=== PATIENT | female | born 1990 | race African-American/Black ===

== ENCOUNTER 2018-09-06 15:47 | Inpatient (IN) ==
[2018-09-06 16:28] LABS: BASO# 0.07 X1000 (0.0-0.2); BASO% 0.6 % (0.0-0.8); EOS# 1.69 X1000 (0.0-0.7); EOS% 13.5 % (0.0-10.0); HEMATOCRIT 30.1 % (37.0-47.0); IMM GRAN# 0.12 X1000 (0.0-0.04); LYMPH# 2.88 X1000 (1.2-3.4); MCH 24.1 PG (27-31); MCHC 29.9 g/dL (33-37); MCV 80.7 FL (81-99); MONO# 0.65 X1000 (0.11-0.59); MONO% 5.2 % (1.7-9.3); NEUT# 7.11 X1000 (1.4-6.5); NEUT% 56.7 % (42.2-75.2); PLT 258 X1000 (130-400); RBC 3.73 XMIL (4.2-5.4); RDW 20.9 % (11.5-14.5); WBC 12.52 X1000 (4.8-10.8)
[2018-09-06 16:40] LABS: ALLEN TEST NO; BE 7.7 mmoll (-3.0-3.0); BLOOD TYPE ARTERIAL; HCO3-(ACT) 30.9 mmoll (20.0-26.0); MODALITY BI PAP; O2(CT) 12.6 mL/dL (15.0-23.0); O2HB 95.1 % (95.0-99.0); PCO2(98.6) 43 mmHg (35-45); PO2(98.6) 89 mmHg (60-100); SAMPLE BLOOD; SAO2 98.2 % (95.0-100.0); SRATE 18 BPM; THB 9.3 g/dL (11.5-17.4); pH(98.6) 7.48 (7.35-7.45)
[2018-09-06 16:49] LABS: ALB/GLOB RATIO 1.1; ALBUMIN 3.9 g/dL (3.5-5.0); CALCIUM 8.9 mg/dL (8.8-10.2); TOTAL BILIRUBIN 0.47 mg/dL (0.20-1.00); TOTAL PROTEIN 7.3 g/dL (6.3-8.3)
[2018-09-06 16:51] LABS: CREATININE 6.4 mg/dL (0.5-0.9)
[2018-09-06] MEDS ORDERED: CATAPRES-TTS-1 TD ONE (17:12)
--- NOTE | 2018-09-06 17:13 | Diag Imaging Result Doc PS360 ---
EXAM: CHEST-1 VIEW INDICATION: SOB TECHNIQUE: One view COMPARISON: 08/30/2018 FINDINGS: There are bilateral infiltrates with a basilar predominance and prominent central vasculature indicating pulmonary venous congestion and pulmonary edema. There is no definite pleural fluid collection or pneumothorax. The heart is borderline to mildly prominent but stable. IMPRESSION: Pulmonary edema as described. Electronically signed by Javed Villegas 09/06/2018 5:11 PM
[2018-09-06] MEDS ORDERED: LABETALOL IV ONE ×2 (17:20→18:20)
[2018-09-06] MEDS ORDERED: TENEX PO ONE (17:53)
[2018-09-06] MEDS ORDERED: NITROGLYCERIN TOP ONE (20:30)
[2018-09-06] MEDS ORDERED: LIDODERM TOP ONE (20:30)
[2018-09-06] MEDS ORDERED: ZOFRAN IV ONE (20:30)
[2018-09-07 00:58] LABS: INR 0.99; PROTIME 13.9 Seconds (11.0-16.0); PTT 30.6 Seconds (22.3-41.8)
--- NOTE | 2018-09-07 01:37 | PROVIDER DOCUMENTATION ---
This chart was entered by Sheila Bond Scribe, acting as scribe for Leona Cota MD. HPI-Respiratory General - General Stated Complaint: CP Time Seen by Provider: 09/06/18 16:02 Source: patient, EMS Allergies/Adverse Reactions: Patient Allergies Allergy/AdvReac Type Severity Reaction Status Date / Time No Known Allergies Allergy Verified 09/06/18 16:28 Home Medications: Home Medication List Medication Instructions Recorded Confirmed Last Taken Type Carvedilol 25 mg PO BID 03/11/17 09/06/18 09/06/18 History Amlodipine [Norvasc] 10 mg PO DAILY 08/29/18 09/06/18 09/06/18 History Clonidine [Catapres] 0.1 mg PO BID 08/29/18 09/06/18 09/06/18 History Guanfacine HCl 2 mg PO DAILY 08/29/18 09/06/18 09/05/18 History Hydralazine HCl 50 mg PO TID 08/29/18 09/06/18 09/06/18 History LISINOpril [Prinivil] 20 mg PO DAILY 08/29/18 09/06/18 09/06/18 History Levofloxacin [Levaquin] 250 mg PO DAILY 09/06/18 09/06/18 09/06/18 History - History of Present Illness-Resp Nature of Presenting Problem: 27 y/o female presents to ED with SOB onset just prior to arrival. Pt states she smoked some marijuana just before the onset of symptoms. EMS states O2 sat was 55% upon their arrival to the scene. Pt O2 sat in the 60s upon ED arrival with nonrebreather in place. Pt reports she had dialysis yesterday. O2 sat of 81 % upon physician arrival to the room. O2 sat increased to 100% upon placement of bipap. Pt has difficulty speaking upon exam due to bipap. Pt is alert and oriented. Quality of Pain: reports: none Severity in ED: reports: mild Onset/Duration: reports: just prior to arrival Timing: reports: still present Context: reports: other (smoked marijuana) Exposure: reports: unknown cause Cough Quality/Degree: reports: no cough Episode Frequency: no prior episodes Current Respiratory Medication Therapy: Initiated see nurses note Modifying Factors: improves with: other (bipap/nonrebreather) Associated Symptoms: reports: shortness of breath, short of breath Similar Symptoms Previously?: No Recently seen or treated by another doctor?: Yes (dialysis yesterday) Review of Systems - Adult - REVIEW OF SYSTEMS - ADULT Constitutional: denies: chills, fever Eyes: reports: no symptoms reported Ears, Nose, Mouth & Throat: reports: no symptoms reported Cardiovascular: denies: chest pain, palpitations Respiratory: reports: shortness of breath. denies: cough Gastrointestinal: denies: abdominal pain, diarrhea, nausea, vomiting Genitourinary: reports: no symptoms reported Musculoskeletal: denies: back pain, joint pain Integumentary: reports: no symptoms reported Neurological: denies: dizziness/vertigo, seizure Psychiatric: reports: no symptoms reported Endocrine: reports: no symptoms reported Hematologic/Lymphatic: reports: no symptoms reported Allergic/Immunologic: reports: no symptoms reported All Other Systems: Reviewed and Negative Past History - Adult - PAST MEDICAL HISTORY-ADULT Review of Records: reports: Old Records Reviewed, Nursing Assessment Review, Medications Reviewed Major Childhood Illnesses: reports: denies history Cardiovascular: reports: HTN Genitourinary: reports: dialysis, ESRD, kidney disease Endocrine/Immune: reports: Diabetes Other Conditions: reports: other cancer - PRIOR SURGERIES/PROCEDURES Surgical/Procedure History: reports: other (graft to left arm; heart cath) - IMMUNIZATION STATUS Childhood Immunizations: See Nurse Assessment Flu Vaccine: See Nurse Assessment - FAMILY HISTORY Family History: reviewed, not pertinent - SOCIAL HISTORY Smoking: quit greater than 1 year Substance Use: marijuana Alcohol Use Frequency: never Living Situation: family Physical Exam-General - PHYSICAL EXAM-ADULT Initial Vital Signs Reviewed: Yes (BP: 189/123 O2: 100% HR: 93 Pulse: 92 TEMP: 98.9) - CONSTITUTIONAL General Appearance: alert, other (Pt in respiratory distress has difficulty speaking due to bipap placement.) - EYES Eyes: PERRL/EOMI - HEAD, EARS, NOSE, MOUTH & THROAT HENMT: normocephalic/atraumatic, moist mucous membranes - NECK Neck: non-tender, full range of motion - RESPIRATORY Respiratory: crackles (B/L lower lung), other (Good air entry B/L). negative: wheezing - CARDIOVASCULAR Cardiovascular: no murmur, tachycardia - GASTROINTESTINAL (ABDOMEN) Abdominal Exam: normal bowel sounds, non tender, soft - MUSCULOSKELETAL Extremity: non-tender. negative: swelling, tenderness - SKIN Integumentary: normal color, warm/dry - NEUROLOGIC Neurologic: grossly normal Progress - PLAN OF CARE/RESULTS Progress/Plan/Lab Results: Vital Signs - 8 hr 09/06/18 17:40 09/06/18 17:50 09/06/18 17:52 Pulse Rate 89 89 83 Respiratory Rate 21 37 H 31 H Blood Pressure 198/95 O2 Sat by Pulse Oximetry 100 100 100 09/06/18 17:59 09/06/18 18:01 09/06/18 18:03 Pulse Rate 81 83 84 Respiratory Rate 38 H 37 H 28 H Blood Pressure 193/95 205/90 O2 Sat by Pulse Oximetry 100 100 100 09/06/18 18:10 09/06/18 18:18 09/06/18 18:20 Pulse Rate 85 86 86 Respiratory Rate 22 27 H 26 H Blood Pressure 190/90 O2 Sat by Pulse Oximetry 100 100 100 09/06/18 18:30 09/06/18 18:34 09/06/18 18:43 Pulse Rate 89 89 89 Respiratory Rate 39 H 26 H 30 H Blood Pressure 193/93 192/91 O2 Sat by Pulse Oximetry 100 100 100 09/06/18 18:48 09/06/18 19:18 09/06/18 19:33 Pulse Rate 90 94 H 93 H Respiratory Rate 28 H 25 H 31 H Blood Pressure 192/117 188/95 196/97 O2 Sat by Pulse Oximetry 100 100 100 09/06/18 19:48 09/06/18 20:00 09/06/18 20:03 Pulse Rate 97 H 97 H 97 H Respiratory Rate 31 H 32 H 32 H Blood Pressure 199/100 202/106 O2 Sat by Pulse Oximetry 100 100 100 09/06/18 20:18 09/06/18 20:30 09/06/18 20:33 Pulse Rate 98 H 98 H 101 H Respiratory Rate 31 H 26 H 19 Blood Pressure 194/100 196/102 O2 Sat by Pulse Oximetry 100 100 100 09/06/18 20:48 Pulse Rate 99 H Respiratory Rate 26 H Blood Pressure 195/90 O2 Sat by Pulse Oximetry 100 Laboratory Results - last 24 hr 09/06/18 09/06/18 09/06/18 00:21 16:05 16:05 WBC 12.52 H RBC 3.73 L Hgb 9.0 L Hct 30.1 L MCV 80.7 L MCH 24.1 L MCHC 29.9 L RDW Std Deviation 20.9 H Plt Count 258 MPV 10.0 Immature Gran % (Auto) 1.0 H Neut % (Auto) 56.7 Lymph % (Auto) 23.0 Bates % (Auto) 5.2 Eos % (Auto) 13.5 H Baso % (Auto) 0.6 Immature Gran # (Auto) 0.12 H Neut # (Auto) 7.11 H Lymph # (Auto) 2.88 Bates # (Auto) 0.65 H Eos # (Auto) 1.69 H Baso # (Auto) 0.07 PT INR PTT (Actin FS) Specimen Type Sample Site pH pCO2 pO2 HCO3 Base Excess Oxyhemoglobin ABG O2 Sat (Calculated) ABG O2 Saturation ABG Carboxyhemoglobin ABG Methemoglobin Srini Test A-a O2 Difference Total Hemoglobin Lactate Liter Flow Blood Gas Modality Spontaneous Rate FiO2 % Inspiratory BiPAP Expiratory BiPAP Sodium 135 L Potassium 4.0 Chloride 93 L Carbon Dioxide 27 Anion Gap 15 BUN 14 Creatinine 6.4 H Estimated GFR/1.73 m2 9 BUN/Creatinine Ratio 2 Glucose 111 H Calculated Osmolality 271 Calcium 8.9 Total Bilirubin 0.47 AST 18 ALT 7 L Alkaline Phosphatase 84 Creatine Kinase 161 Troponin T Ezb-C-Riorpybsqhx Pept Total Protein 7.3 Albumin 3.9 Globulin 3.4 Albumin/Globulin Ratio 1.1 09/06/18 09/06/18 09/06/18 16:05 16:18 16:18 WBC RBC Hgb Hct MCV MCH MCHC RDW Std Deviation Plt Count MPV Immature Gran % (Auto) Neut % (Auto) Lymph % (Auto) Bates % (Auto) Eos % (Auto) Baso % (Auto) Immature Gran # (Auto) Neut # (Auto) Lymph # (Auto) Bates # (Auto) Eos # (Auto) Baso # (Auto) PT 13.9 INR 0.99 PTT (Actin FS) 30.6 Specimen Type Sample Site pH pCO2 pO2 HCO3 Base Excess Oxyhemoglobin ABG O2 Sat (Calculated) ABG O2 Saturation ABG Carboxyhemoglobin ABG Methemoglobin Srini Test A-a O2 Difference Total Hemoglobin Lactate Liter Flow Blood Gas Modality Spontaneous Rate FiO2 % Inspiratory BiPAP Expiratory BiPAP Sodium Potassium Chloride Carbon Dioxide Anion Gap BUN Creatinine Estimated GFR/1.73 m2 BUN/Creatinine Ratio Glucose Calculated Osmolality Calcium Total Bilirubin AST ALT Alkaline Phosphatase Creatine Kinase Troponin T 0.051 Chs-A-Afljxuweuao Pept > 84897 H Total Protein Albumin Globulin Albumin/Globulin Ratio 09/06/18 16:35 WBC RBC Hgb Hct MCV MCH MCHC RDW Std Deviation Plt Count MPV Immature Gran % (Auto) Neut % (Auto) Lymph % (Auto) Bates % (Auto) Eos % (Auto) Baso % (Auto) Immature Gran # (Auto) Neut # (Auto) Lymph # (Auto) Bates # (Auto) Eos # (Auto) Baso # (Auto) PT INR PTT (Actin FS) Specimen Type ARTERIAL Sample Site R BRACHIAL pH 7.48 H pCO2 43 pO2 89 HCO3 30.9 H Base Excess 7.7 H Oxyhemoglobin 95.1 ABG O2 Sat (Calculated) 12.6 L ABG O2 Saturation 98.2 ABG Carboxyhemoglobin 2.20 ABG Methemoglobin 1.0 Srini Test NO A-a O2 Difference 570.0 Total Hemoglobin 9.3 L Lactate 1.00 Liter Flow 15.0 Blood Gas Modality BI PAP Spontaneous Rate 18 FiO2 % 100.0 Inspiratory BiPAP 16.0 Expiratory BiPAP 6.0 Sodium Potassium Chloride Carbon Dioxide Anion Gap BUN Creatinine Estimated GFR/1.73 m2 BUN/Creatinine Ratio Glucose Calculated Osmolality Calcium Total Bilirubin AST ALT Alkaline Phosphatase Creatine Kinase Troponin T Yxs-W-Cepkgvgzvdt Pept Total Protein Albumin Globulin Albumin/Globulin Ratio Orders Category Date Time Status Admit - [facility] Routine AdmDCTranf 09/07/18 00:21 Active Vital Signs Order Q1H Care 09/07/18 00:21 Active Z-Document. for Tele Applied ORDERED Care 09/07/18 00:21 Active Diabetic Diet Diet 09/07/18 00:21 Active CHEST-1 VIEW [RAD] Stat Exams 09/06/18 16:20 Completed ABG [RESP] Routine Lab 09/06/18 16:35 Completed BNP [PRO B-NATRIURETIC PEPTIDE] Stat Lab 09/06/18 16:05 Completed CBC WITH DIFF [HEME] Routine Lab 09/07/18 06:00 Ordered CBC WITH ELECTRONIC DIFF [HEME] Stat Lab 09/06/18 16:05 Completed CK PROFILE [SP CHEM] Stat Lab 09/07/18 00:21 Completed CMP [COMPREHENSIVE METABOLIC PANEL] [CHEM] Stat Lab 09/06/18 16:05 Completed PT [PROTIME WITH INR] [COAG] Stat Lab 09/07/18 00:21 Completed PTT [COAG] Stat Lab 09/07/18 00:21 Completed RENAL PROFILE [CHEM] Routine Lab 09/07/18 06:00 Ordered TROPONIN T Stat Lab 09/07/18 00:21 Completed Clonidine Patch [Ouolicpa-Ctw-1] Med 09/06/18 17:12 Discontinued 1 each TD NOW ONE Guanfacine [Tenex] Med 09/06/18 17:53 Discontinued 2 mg PO NOW ONE Labetalol Med 09/06/18 17:20 Discontinued 20 mg IV NOW ONE Labetalol Med 09/06/18 18:20 Discontinued 20 mg IV NOW ONE Lidocaine 5% Patch [Lidoderm] Med 09/06/18 20:30 Discontinued 1 each TOP NOW ONE Nitroglycerin Med 09/06/18 20:30 Discontinued 0.5 inch TOP NOW ONE Ondansetron [Zofran] Med 09/06/18 20:30 Discontinued 4 mg IV NOW ONE BIPAP Stat Oth 09/06/18 16:19 Completed Telemetry [OM.EQ] Routine Oth 09/07/18 00:21 Active Transfer/Admit Order [TRANSFER] Routine Transfer 09/06/18 21:14 Completed I checked patient multiple times during ER stay. Patient care, assessment and plan discussed with the attending physician Dr. Burgos and he agree withy the plan as documented. Result Diagrams: 09/06/18 16:05 09/06/18 16:05 - REASSESSMENT Reassessment #1 Time Reassessed: 16:43 Status: improving (SPO2 100% on Bipap. Mother of pt reports she called EMS because the pt became short of breath and coughed up blood.) Reassessment #2 Time Reassessed: 18:56 Status: improving (Patient feels less SOB. BP still 190s/110s) Reassessment #3 Time Reassessed: 20:22 Status: other (Nurse Re informed patient c/o chest pain and she is about to go to the HD. I ordered lidoderm patch, nitroglycerin to decrease preload.) - EKG 1 Time of EKG reading by physician:: 16:02 EKG Read and Signed by:: Leona Rincon EKG Interpretation (*Must complete 3 of following elements*): Abnormal Rate: 93 Rhythm: NSR [place]: normal QRS: other (septal infarct) [place] Interval: normal Comments: T wave inversion in V2 - XRAY 1 XRAY Study: Chest Impression: Abnormal (FINDINGS: There are bilateral infiltrates with a basilar predominance and prominent central vasculature indicating pulmonary venous congestion and pulmonary edema. There is no definite pleural fluid collection or pneumothorax. The heart is borderline to mildly prominent but stable. IMPRESSION: Pulmonary edema as described. Electronically signed by Javed Villegas 09/06/2018 5:11 PM) - CONSULTS/PCP/HOSPITALIST Notification #1 *Consult/PCP/Hospitalist*: Dr. Quintanilla Time Discussed: 17:20 Reason/Comments: Pulmonary edema; elevated creatinine Consult Disposition: other (Give Lavetalol total [address] Quintanilla believes this is flash pulmonary edema.) #2 Consult: Dr. Corey Hoang Discussed: 18:48 Consult Disposition: Admit (Accepted.) #3 Consult: Dr. Hawkins Time Discussed: 18:52 Consult Disposition: other (Plan for HD since she is still in respiratory distress.) Departure - Departure Date of Disposition Decision: 09/06/18 Time of Disposition Decision: 18:48 DIAGNOSIS: Flash pulmonary edema, Hypertensive emergency, Respiratory distress Chest pain Qualifiers: Chest pain type: unspecified Qualified Code(s): R07.9 - Chest pain, unspecified Disposition: ADMITTED INPATIENT 09 Certified Medical Emergency: Emergent Condition: Serious - Critical Care Note This patient required my direct & personal management of CC.: Yes Total Time (mins): 45 Critical Care Statement: This patient required my direct personal management to treat or rule out processes, the absence of which, could potentiallly result in sudden, clinically significant life or limb threatening deterioration. Attestation - Physician/ TERESA Attestation Patient care was provided by Advanced Practice Provider:: No The physician spent face to face time with patient:: Yes Advanced Practice Provider documentation review:: Supervising physician onsite and consulted in the evaluation and care of this patient. The physician did have a face to face encounter with the patient. This chart was documented by the indicated scribe, (Sheila Bond Scribe) and accurately reflects the services I performed and decisions made by me, Leona Cota MD, as attested by the provider's signature.
[2018-09-07] MEDS ORDERED: ZOFRAN IV PRN (01:51)
[2018-09-07] MEDS ORDERED: MORPHINE IV ONE ×2 (01:51→02:15)
[2018-09-07] MEDS: NS 1,000 ML IV SCH ×2 (02:31→02:32)
[2018-09-07] MEDS: DUONEB (A & A) INH SCH ×5 (03:00→21:25)
[2018-09-07] MEDS ORDERED: LEVAQUIN 750 MG in NS 150 ML IV ONE (03:24)
[2018-09-07] MEDS ORDERED: PHENERGAN IV PRN (03:29)
[2018-09-07] MEDS ORDERED: SODIUM CHLORIDE 0.9% INJ PRN (03:29)
[2018-09-07] MEDS ORDERED: PROTONIX IV SCH (03:45)
[2018-09-07 04:00] LABS: BASO# 0.03 X1000 (0.0-0.2); BASO% 0.2 % (0.0-0.8); EOS# 0.46 X1000 (0.0-0.7); EOS% 2.3 % (0.0-10.0); HEMATOCRIT 28.6 % (37.0-47.0); HEMOGLOBIN 8.6 g/dL (12.0-16.0); IMM GRAN# 0.05 X1000 (0.0-0.04); IMM GRAN% 0.3 % (0.0-0.5); LYMPH# 1.43 X1000 (1.2-3.4); LYMPH% 7.3 % (20.5-51.1); MCH 24.2 PG (27-31); MCHC 30.1 g/dL (33-37); MCV 80.6 FL (81-99); MONO# 0.67 X1000 (0.11-0.59); MONO% 3.4 % (1.7-9.3); MPV 9.3 FL (7.4-10.4); NEUT# 16.94 X1000 (1.4-6.5); NEUT% 86.5 % (42.2-75.2); PLT 219 X1000 (130-400); RBC 3.55 XMIL (4.2-5.4); RDW 21.1 % (11.5-14.5); WBC 19.58 X1000 (4.8-10.8)
[2018-09-07 04:54] LABS: ALBUMIN 3.5 g/dL (3.5-5.0); CALCIUM 8.1 mg/dL (8.8-10.2); CREATININE 7.9 mg/dL (0.5-0.9); PHOSPHORUS 4.2 mg/dL (2.7-4.5); POTASSIUM 3.8 mmol/L (3.5-5.1)
[2018-09-07] MEDS: HUMALOG SUBQ SCH ×5 (05:56→20:38)
--- NOTE | 2018-09-07 06:43 | HISTORY AND PHYSICAL ---
PRIMARY CARE PROVIDER: [facility] out of [place]. PRIMARY RESIDENTIAL TECH: Dr. Darshan Shankar in [place]. PRIMARY CERTIFIED MEDICAL DOSIMETRIST: Dr. Cross in [place]. CHIEF COMPLAINT: Shortness of breath. HISTORY OF PRESENT ILLNESS: Ms. Ross is a 27-year-old, -[place] female with a past medical history of end-stage renal disease receiving hemodialysis on Mondays, Wednesdays, Fridays. The patient states that yesterday she received her regularly scheduled dialysis treatment. She did receive her full treatment. She stated this morning, Saturday09/06/2018, that she woke up and did not fell well. She said that progressively she felt worse throughout the day and starting in late morning/early afternoon she began feeling short of breath. She reports that this did steadily get worse. She stated that she went outside to smoke and during this time she became very short of breath and ultimately did have to call an ambulance. EMS, according to the ER notes, reported that when they arrived on scene that she had a room air oxygen saturation of 55%. They did place her on nasal cannula. Her O2 saturations were only in the 60s upon arrival to the ED. She was noted to be diaphoretic and tachycardic. They did place her on BiPAP and since that time her respiratory status has improved as well as her oxygen saturation, but the patient is still quite dyspneic. The patient also did report that she had coughed up some blood as well, however there was only one episode during her period of respiratory distress. This has not occurred since. She denies any fever, body aches or chills. She is reporting some heaviness type chest pain in the center of her chest, which is nonradiating. The patient states this has been constant since her shortness of breath started this afternoon. She has reported that she has had a productive cough with clear colored sputum, except for her one episode of hemoptysis. She does report that she has recently been treated for an upper respiratory infection and was initially placed with antibiotic of azithromycin, though was just recently on 09/01/2018 placed with antibiotic of Levaquin 250 mg p.o. daily and has only taken approximately 4 to 5 tablets of this and has not finished her antibiotic course of this medication yet. The patient states that prior to her upper respiratory symptoms, she did have some sinus congestion/symptoms as well. She is denying any abdominal pain, nausea, vomiting, diarrhea or constipation. She denies any hematochezia or melena. She denies any dysuria. The patient states she still does produce a small amount of urine. She denies any pain, numbness, tingling or swelling in her extremities. She also denies any headache or dizziness. We did ask the patient if she smoked cigarettes and she stated "No." When I did investigate further why she had gone outside to smoke, the patient reported that she does use marijuana. Though there was no other illicit drug use. She also reported that she has not had a good appetite recently and that she smokes this to help with her appetite. On further evaluation in the ER, the patient's initial vital signs were heart rate 92, respirations 12, blood pressure 198/98. O2 saturation was previously mentioned in the 60s. The patient has run a low grade fever at times with the highest being 100.3 degrees Fahrenheit. They did give her medications for her blood pressure in the ER and did place her on BiPAP, though even after these medicines were given the patient was still dyspneic and respiratory symptoms overnight improving much. [*]did contact Dr. Quintanilla with Nephrology and did inform him of the patient and her symptoms and he did recommend the patient receive dialysis. According to intake and output records, the patient did have 3800 mL pulled off during dialysis. She is now reporting that she does feel much better, and that her shortness of breath has improved. Though she still was experiencing chest pain. She still does have some bilateral crackles noted as well. The patient has been placed in ICU for close monitoring. REVIEW OF SYSTEMS: A 14 point review of systems was conducted with the patient and all were negative except pertinent positives mentioned above in HPI. PAST MEDICAL HISTORY: 1. End-stage renal disease on hemodialysis Mondays, Wednesdays, Fridays. [*]Dr. Shankar for the last four years. It was also noted in her previous record that she is currently going through a workup to possibly get a kidney transplant. 2. Hypertension. 3. Diabetes mellitus type I. 4. Peripheral neuropathy. 5. 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 6. 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 PAST SURGICAL HISTORY: 1. Left upper arm AV graft. 2. Right subclavian catheter placed and removed for dialysis. 3. Left heart catheterization in 2016 for which the patient reports there were no abnormalities and she did not require any intervention. SOCIAL HISTORY: The patient denies any tobacco or alcohol use, but does report she smokes marijuana. FAMILY HISTORY: Positive for history of diabetes on her maternal and paternal sides. Her maternal side also has a history of breast cancer and hypertension. ALLERGIES: No known drug allergies. HOME MEDICATIONS: 1. Norvasc 10 mg p.o. daily. 2. Carvedilol 25 mg p.o. b.i.d. 3. Clonidine 0.1 mg p.o. b.i.d. 4. Guanfacine 2 mg p.o. daily. 5. Hydralazine 50 mg p.o. t.i.d. 6. Levaquin 350 mg p.o. daily. 7. Lisinopril 20 mg p.o. daily. 8. Renvela powder packet 2.4 g p.o. t.i.d. with meals. 9. Lantus 10 mg subcutaneous b.i.d. 10.NovoLog t.i.d. per sliding scale. DIAGNOSTIC DATA/LABORATORY RESULTS: White blood cell count is 12,520, hemoglobin 9, hematocrit 30.1, platelet count 258,000. PT 13.9. INR 0.99. PTT 30.6. Sodium 135, potassium 4.0, chloride 93, serum bicarb is 27, BUN 14, creatinine 6.4 with a GFR of 9. Glucose is 111. Calcium 8.9. Liver function tests within normal limits. CK 161. Troponin 0.51. ProBNP was greater than 35,000. Arterial blood gas obtained on BiPAP at 100% FiO2: pH was 7.48, pCO2 43, pO2 89, Hco3 is 30.9 with a base access of 7.7 and O2 saturation of 98.2%. Initial EKG did show normal sinus rhythm at a rate of 93 with a QTc of 492. Repeat EKG later on in the evening did show normal sinus rhythm with possible left atrial enlargement and a prolonged QT at a rate of 98 with a QTc of 485. Though there does not appear to be any acute EKG changes when compared with previous EKGs. There was T-wave inversion present on her initial EKG performed at 1602. Though on her repeat EKG this was no longer present. Chest x-ray performed in the ER did show pulmonary edema. PHYSICAL EXAMINATION: VITAL SIGNS: Heart rate 99, respirations 26, blood pressure 195/90. Oxygen saturation is 100% on nonrebreather. GENERAL: Ms. Ross is a pleasant 27-year-old -[place] female. She was resting on the ER stretcher. She was not in any acute respiratory distress. She was still dyspneic upon examination. She was awake, alert, and able to answers questions appropriately. HEENT: Head: Normocephalic and atraumatic. Eyes: Pupil of her left eye is unable to be examined. The patient does have history of glaucoma as well as a retinal detachment. She does have micky out of the pupil on the left side secondary to this. The pupil on the right side is 3 mL, round, reactive to light and brisk. Oral mucosa is slightly dry. NECK: Supple. Trachea is midline. CARDIOVASCULAR: The patient has S1, S2 present. There also is a murmur noted as well. She does have a slightly tachycardic rate but is regular. PULMONARY: The patient has symmetrical chest expansion bilaterally. Lung sounds in bilateral full dooley do have crackles noted. She also does sound coarse as well. ABDOMEN: Soft, nontender, nondistended. Bowel sounds are present in all four quadrants were slightly hyperactive. EXTREMITIES: No cyanosis, clubbing or edema noted. Pulse, motor and sensory intact in all extremities. Radial pulses and pedal pulses are 2+ bilaterally. INTEGUMENTARY: The patient skin color is normal for her race. Dry and intact. NEUROLOGIC: The patient is alert and oriented to person, place, time and situation. There do not appear to be any focal neurological deficits noted. IMPRESSION AND PLAN: 1. Fluid volume overload. For treatment of this, the patient has received dialysis this evening. According to dialysis documentation, they did pull off 1800 mL. Since that time the patient reports that her shortness of breath has improved. However, the patient still does have crackles noted in bilateral full lung dooley though this has improved since receiving her treatment. We have placed a consult with Dr. Quintanilla and we will await his evaluation and further recommendations for management. 2. End-stage renal disease on hemodialysis. We will continue treatment as mentioned above in #1. Consult with Dr. Quintanilla with Nephrology has been placed. 3. Acute hypoxic respiratory failure. Suspect this is likely secondary to her pulmonary edema from fluid volume overload. Though the patient is being treated for upper respiratory infection. This could be contributing to this as well. Even after receiving dialysis the patient is still hypoxic and requiring oxygen of a partial rebreather to maintain adequate oxygen saturations. She has had a low-grade fever and does have leukocytosis noted as well. There may be underlying pneumonia. Give this we have continued her Levaquin. Placed her with IV Levaquin 750 mg for initial dose and have renal doses to continue every 48 hours afterwards. We have gone ahead and obtained sputum culture and blood culture as well and we will repeat x- ray in the morning. We will also continue with incentive spirometry, scheduled DuoNeb treatments. Encourage her to cough and deep breathe. 4. Leukocytosis. We will continue with treatment as mentioned above for #3. 5. Hypertension. Since receiving dialysis the patient's blood pressure has improved, though is still elevated some. We have continued her regularly prescribed antihypertensive medications of Norvasc, Carvedilol, Catapres, guanfacine and hydralazine with lisinopril. We will continue to follow this closely. 6. Diabetes mellitus type I. We have placed orders for Lispro insulin sliding scale per low dose protocol. The patient's glucose previous was 111. She has been reporting that she has not had an appetite and has not been eating well. Given this we will hold off on administering her Lantus, though we will continue to monitor this closely with pattern finger-stick blood sugars. 7. Deep venous thrombosis prophylaxis. Provided with SCDs. The patient has been placed in the ICU for close monitoring. She will have vital signs per ICU protocol. She will be on continuous cardiac telemetry and pulse oximetry. We will do strict intake and output. She will be on a diabetic and Heart Healthy diet. We will repeat a CBC, renal profile in the morning; and have placed an order for a series of cardiac enzymes as well. Further orders and recommendations pending hospital course, diagnostic studies, and physician evaluation. Dictated by KAMALA Story for Raghu Sexton MD cc: MD Darshan Casillas Dr., MD
[2018-09-07] MEDS: MORPHINE IV PRN ×2 (07:52→16:58)
[2018-09-07] MEDS ORDERED: MAXIPIME 1 GM in NS 50 ML IV ONE (08:16)
[2018-09-07] MEDS ORDERED: VANCOMYCIN 1 GM/NS 1 GM/250 ML IVPB IV ONE (08:18)
[2018-09-07] MEDS: CATAPRES PO SCH ×2 (08:18→20:36)
[2018-09-07] MEDS: COREG PO SCH ×2 (08:18→20:36)
[2018-09-07] MEDS: APRESOLINE PO SCH ×3 (08:18→16:54)
[2018-09-07] MEDS: NORVASC PO SCH (08:19)
[2018-09-07] MEDS: PRINIVIL PO SCH (08:19)
[2018-09-07] MEDS: MUCINEX PO SCH ×2 (08:19→20:37)
--- NOTE | 2018-09-07 08:25 | Diag Imaging Result Doc PS360 ---
EXAM: CHEST-PORTABLE INDICATION: Bilateral Crackles TECHNIQUE: One view COMPARISON: 09/06/2018 FINDINGS: There has been interval worsening of the bilateral infiltrates with a central and lower lung zone predominance likely representing severe pulmonary edema +/- pneumonia. No other new consolidations are appreciated. Cardiac silhouette is stable. IMPRESSION: Interval worsening of bilateral infiltrates. Electronically signed by Javed Villegas 09/07/2018 8:23 AM
[2018-09-07] MEDS ORDERED: SODIUM CHLORIDE 0.9% INJ SCH (08:30)
[2018-09-07] MEDS: RENVELA POWDER PACKET PO SCH ×3 (09:40→16:54)
[2018-09-07] MEDS: TYLENOL PO PRN (12:46)
--- NOTE | 2018-09-07 13:17 | Diag Imaging Result Doc PS360 ---
EXAM: ABDOMEN FLAT/UPRIGHT INDICATION: constipation/abdominal pain TECHNIQUE: 2 views COMPARISON: None. FINDINGS: There are unremarkable bowel gas and stool patterns. There is no obstructive bowel pattern. There is no evidence of large volume free abdominal gas. And IUD is noted projecting of the pelvis. Dense pulmonary consolidations that were seen on a chest radiograph performed earlier today are approximately stable. IMPRESSION: No definite acute abdominal pathology by plain radiograph. Electronically signed by Javed Villegas 09/07/2018 1:14 PM
--- NOTE | 2018-09-07 14:47 | PROGRESS NOTE ---
DATE: 09/07/2018 SUBJECTIVE: The patient complains of chest pain this morning. The patient was dialyzed last night. She also continues to complain of shortness of breath and nausea. OBJECTIVE: Vital Signs: T-max 100.4 degrees, blood pressure 165/83, heart rate 94, respiratory rate 22, O2 saturation 99% on a non-rebreather. General: This is a young thin female lying in bed in no acute distress. Skin: No rashes, no lesions. Head normocephalic, atraumatic. Heart: S1, S2 normal. Tachycardic. Lungs: Coarse breath sounds bilaterally. Abdomen : Positive bowel sounds. Soft, nontender, nondistended. Extremities: No edema, no cyanosis, no calf tenderness. Neurologic: The patient is alert and oriented x4. LABS: White blood cell count 19, hemoglobin 8.6, hematocrit 28, platelets 219, 000, sodium 133, potassium 3.8, chloride 91, CO2 24, BUN 20, creatinine 7.9, glucose 279, CRP 94. Chest x-ray shows worsening of the bilateral infiltrates. Pulmonary edema plus or minus pneumonia. Abdominal x-ray shows no acute abnormality. ASSESSMENT AND PLAN: 1. Acute hypoxemic respiratory failure. This is likely secondary to pulmonary edema and possibly pneumonia. The patient was dialyzed last night. The patient is due for dialysis again tomorrow. 2. Pulmonary edema. This will be addressed during the patient's routine dialysis sessions. 3. Suspected pneumonia. The patient had a fever of 100.4 today and her white count is up to 19,000 today. We will start cefepime and vancomycin to be given after each dialysis session. Continue with bronchodilator therapy and supplemental oxygen. We will also order a procalcitonin level. 4. Hematemesis. Continue on IV protonix. Further recommendations to follow from GI. 5. Persistent nausea with abdominal pain. The patient's abdominal x-ray was unrevealing. The patient states that she has been having this issue on and off for several months. Will consult with GI. The patient may have diabetic gastroparesis. 6. End stage renal disease. Management as per the finishing supervisor plastic sheets. 7. Hyponatremia. Will monitor the sodium closely. 8. Diabetes mellitus type 1. We will cover the patient with sliding scale insulin at this time. 9. Accelerated hypertension. The patient's blood pressure is improved in comparison to yesterday. We will continue on the current antihypertensive regimen. 10. Anemia. Will check iron studies. Will monitor the hemoglobin and hematocrit closely. 11. Gastrointestinal prophylaxis. Continue on IV Protonix. 12. Deep vein thrombosis prophylaxis. We will continue with SCDs. cc: Moraima Nicole MD MTDD
[2018-09-07 15:21] LABS: URINE SOURCE CATH
[2018-09-07 15:23] LABS: BILIRUBIN URINE NEGATIVE (NEGATIVE); BLOOD URINE TRACE (NEGATIVE); COLOR YELLOW; GLUCOSE URINE 500 mg/dL (NEGATIVE); KETONE URINE TRACE mg/dL (NEGATIVE); LEUKOCYTES URINE NEGATIVE (NEGATIVE); NITRITE URINE NEGATIVE (NEGATIVE); PH URINE 7.5; PROTEIN URINE 600 mg/dL (NEGATIVE); SP GRAVITY URINE 1.021; TURBIDITY URINE HAZY (CLEAR); UROBILINOGEN URINE NORMAL (NORMAL)
[2018-09-07 15:30] LABS: UR EPITHELIAL CELLS >10 /HPF (<10); URINE BACTERIA NEGATIVE /HPF; URINE RBC <10 /HPF (<10); URINE WBC <10 /HPF (<10)
[2018-09-07 15:32] LABS: URINE CASTS GRANULAR PRESENT; URINE CRYSTALS NONE SEEN; URINE SMALL ROUND CELLS TRANS PRESENT; URINE YEAST NONE SEEN
[2018-09-07] MEDS: PROTONIX IV SCH (15:59)
[2018-09-07] MEDS: REGLAN IV SCH ×2 (18:42→23:59)
--- NOTE | 2018-09-07 18:59 | Diag Imaging Result Doc PS360 ---
EXAM: CT THORAX W/O CONTRAST INDICATION: pneumonia/pulmonary edema TECHNIQUE: This exam was performed using automated exposure control, adjustment of mA or kV according to patient size, and/or use of iterative reconstruction technique. COMPARISON: None. FINDINGS: There are dense airspace infiltrates seen throughout both lungs with a central and upper lung zone predominance. This suggests severe pulmonary edema and possibly ARDS. In the right clinical scenario, superimposed pneumonia would be possible. There is no pleural fluid collection and no pneumothorax. There is cardiomegaly. No significant pericardial fluid is appreciated. Limited views of the upper abdomen are grossly unremarkable. IMPRESSION: 1.Dense bilateral infiltrates as described indicating severe pulmonary edema and possibly ARDS. Superimposed pneumonia would be possible in the right clinical scenario. 2.Cardiomegaly. Electronically signed by Javed Villegas 09/07/2018 6:56 PM
[2018-09-07] MEDS: CARAFATE LIQUID PO SCH (20:36)
[2018-09-07] MEDS: TENEX PO SCH (20:37)
--- NOTE | 2018-09-07 23:14 | CONSULTATION ---
DATE OF CONSULTATION: 09/07/2018 REFERRING PHYSICIAN: Dr. Moraima Nicole. PRIMARY CARE PROVIDER: [facility]. PRIMARY TRAINING ENGINEER: Dr. Darshan Shankar in [place], [place]. PRIMARY RUG CUTTER: Dr. Gareth Nichole in [place], [place]. INDICATION FOR CONSULTATION: 1. Nausea. 2. Hematemesis. 3. Epigastric pain. HISTORY OF PRESENT ILLNESS: Patient is a 27-year-old female with end-stage renal disease. She presented on 09/06/2018 after developing acute shortness of breath while standing outside smoking marijuana. When she became short of breath, she also vomited a large amount of bright red blood according to the patient and her family. 911 was contacted. On the scene, her oxygen saturation was 55%. On nasal cannula, her oxygen saturation was 60%. In the ICU, she continued to have low oxygen saturation. She underwent emergent dialysis where 3800 mL of fluid was removed. Today, she remains tachypneic with high oxygen demands. Because of her hematemesis and nausea, we are asked to participate in her care. The patient notes that she was evaluated in [place] approximately 2 to 3 years ago for refractory nausea. She and her [id number] report that she was told that food was souring on her stomach and they were unable to see due to the presence of a food bezoar which prevented completion of the endoscopy. Unfortunately, she was not placed on any medications that she is able to recall. She reports daily or near daily heartburn prior to admission. PAST MEDICAL HISTORY: Remarkable for: 1. Diabetes type 1. 2. End-stage renal disease requiring hemodialysis on Saturday, Saturday, and Saturday. 3. Hypertension. 4. Peripheral neuropathy. 5. 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 6. CVA in 2014 with left arm weakness. 7. Possible gastroparesis based on an EGD with retained food. PAST SURGICAL HISTORY: 1. She has a left upper extremity graft. 2. She has a right subclavian catheter placed and subsequently removed for dialysis. 3. She underwent a cardiac catheterization in 2015 which was reportedly normal. 4. EGD with "sour food on the stomach." SOCIAL HISTORY: Negative for alcohol or tobacco use. She smokes marijuana for management of her glaucoma and for nausea. FAMILY HISTORY: Positive for diabetes on both the maternal and paternal side. Her maternal family history is positive for breast cancer and hypertension. MEDICATION ALLERGIES: None. HOME MEDICATIONS: 1. Norvasc. 2. Carvedilol. 3. Clonidine. 4. Guaifenesin. 5. Hydralazine. 6. Levaquin. 7. Lisinopril. 8. Renvela. 9. Lantus. 10. NovoLog. PHYSICAL EXAMINATION: Vital Signs: On exam, her blood pressure is 157/89, pulse 97, respirations 25, temperature of 98.3 degrees with a T-max of 100.3 degrees. HEENT: Negative for jaundice. Her oropharyngeal mucosal membranes are dry. She has a face mask in place. Pulmonary: She has scattered rales with decreased breath sounds in the bases bilaterally. Cardiovascular: Exam reveals regular rate and rhythm with no gallops or rubs. Abdomen: Her abdomen is soft with moderate epigastric tenderness, but no rebound or guarding. Extremities: Negative for cyanosis, clubbing, or edema. OBJECTIVE DATA: Reveals a hemoglobin of 8.6 with hematocrit of 28.6. She has a white blood cell count of 19.58 with 219,000 platelets. On blood gas, pH is 7.48, pCO2 43, PO2 89% on 12 L via face mask. Her oxygen saturation is 94%. Sodium is 133, potassium 3.8, chloride 91, CO2 24, BUN 20, creatinine 7.9 with a glucose of 279. Calcium is 8.1, phosphorus 4.2, magnesium 2.0, albumin 3.5, and lactate 1.1. Her CRP is 94.11. Her BNP is greater than 35,000. IMPRESSION: 1. Nausea. 2. Hematemesis. 3. Epigastric pain. 4. Diabetes mellitus type 1 with neuropathy. RECOMMENDATION: 1. I strongly suspect the patient has diabetic gastroparesis. Given that she was found to have sour food on her stomach more than 2 years ago, this is consistent with the diagnosis. Her current oxygen demand precludes a gastric emptying study. Therefore, I will place her on Reglan pending further evaluation. 2. To avoid drug interactions, I recommend discontinuing Phenergan and using Zofran for control of nausea. 3. The patient is unable to undergo an EGD at this time. I will empirically place her on Carafate 1 g q.6 hours. This treatment will be limited to 30 days given her end-stage renal disease. 4. When her pulmonary status improves, I will schedule her to have an EGD for further evaluation of the above symptoms. 5. Continue Protonix 40 mg q.12 hours. 6. Additional recommendations to follow based on her clinical course. 7. Our recommendations were discussed with Dr. Nicole, who is in agreement. 8. Additional recommendations to follow based on her clinical course. cc: MD Moraima Elam MD James Smelser Dw[facility]
[2018-09-08] MEDS: SODIUM CHLORIDE 0.9% INJ SCH (02:30)
[2018-09-08] MEDS: PROTONIX IV SCH ×2 (02:30→15:38)
[2018-09-08] MEDS: CARAFATE LIQUID PO SCH ×3 (02:30→13:21)
[2018-09-08] MEDS: DUONEB (A & A) INH SCH ×4 (03:15→22:36)
[2018-09-08 04:52] LABS: ALLEN TEST YES; BE -2.6 mmoll (-3.0-3.0); BLOOD TYPE ARTERIAL; HCO3-(ACT) 22.7 mmoll (20.0-26.0); METHB 1.4 % (0.0-1.5); O2(CT) 10.8 mL/dL (15.0-23.0); PCO2(98.6) 40 mmHg (35-45); PO2(98.6) 56 mmHg (60-100); SAMPLE BLOOD; THB 8.8 g/dL (11.5-17.4); pH(98.6) 7.36 (7.35-7.45)
[2018-09-08 04:53] LABS: MODALITY PRB; O2HB 86.8 % (95.0-99.0)
[2018-09-08 04:55] LABS: RETIC% 3.87 % (0.8-2.1); RETIC-HE 23.4 PG (28.2-36.6)
[2018-09-08 05:14] LABS: BASO# 0.04 X1000 (0.0-0.2); BASO% 0.3 % (0.0-0.8); EOS# 1.45 X1000 (0.0-0.7); EOS% 9.3 % (0.0-10.0); HEMATOCRIT 25.1 % (37.0-47.0); HEMOGLOBIN 7.6 g/dL (12.0-16.0); IMM GRAN% 0.6 % (0.0-0.5); LYMPH# 1.53 X1000 (1.2-3.4); LYMPH% 9.8 % (20.5-51.1); MCH 24.4 PG (27-31); MCHC 30.3 g/dL (33-37); MCV 80.7 FL (81-99); MONO# 0.84 X1000 (0.11-0.59); MONO% 5.4 % (1.7-9.3); MPV 10.8 FL (7.4-10.4); NEUT# 11.66 X1000 (1.4-6.5); NEUT% 74.6 % (42.2-75.2); PLT 168 X1000 (130-400); RBC 3.11 XMIL (4.2-5.4); RDW 20.4 % (11.5-14.5); WBC 15.62 X1000 (4.8-10.8)
[2018-09-08 05:38] LABS: ALBUMIN 2.9 g/dL (3.5-5.0); CALCIUM 8.2 mg/dL (8.8-10.2); FERRITIN 671 ng/mL (13-150); PHOSPHORUS 4.1 mg/dL (2.7-4.5); POTASSIUM 4.7 mmol/L (3.5-5.1)
[2018-09-08 05:42] LABS: CREATININE 11.6 mg/dL (0.5-0.9)
[2018-09-08] MEDS: REGLAN IV SCH ×4 (05:52→23:56)
[2018-09-08] MEDS: HUMALOG SUBQ SCH ×4 (07:02→21:58)
--- NOTE | 2018-09-08 07:35 | Diag Imaging Result Doc PS360 ---
EXAM: CHEST-PORTABLE 09/08/2018 HISTORY: pulmonary edema TECHNIQUE: AP portable at 0500 COMMENT: There is diffuse alveolar opacity which has improved since 09/07/2018. IMPRESSION: Improving pulmonary edema. Electronically signed by Kapil Francis 09/08/2018 7:32 AM
--- NOTE | 2018-09-08 07:55 | EKG Report ---
Test Performed on : 09/07/2018 02:01:29 AM Test Reason : Chest Pain Blood Pressure : / mmHG Vent. Rate : 098 BPM Atrial Rate : 098 BPM P-R Int : 178 ms QRS Dur : 078 ms QT Int : 380 ms P-R-T Axes : 057 -22 057 degrees QTc Int : 485 ms Normal sinus rhythm. Possible Left atrial enlargement Prolonged QT Abnormal ECG When compared with ECG of 06-SEP-2018 16:02, (Unconfirmed) Criteria for Septal infarct are no longer present Confirmed by Kajal HERRERA, Srini Christensen ([id number]) on 09/08/2018 9:44:27 AM
--- NOTE | 2018-09-08 08:18 | EKG Report ---
Test Performed on : 09/06/2018 4:02:57 PM Test Reason : NO EKG ORDER FOR MUSE Blood Pressure : / mmHG Vent. Rate : 093 BPM Atrial Rate : 093 BPM P-R Int : 166 ms QRS Dur : 076 ms QT Int : 396 ms P-R-T Axes : 073 039 059 degrees QTc Int : 492 ms Normal sinus rhythm. Septal infarct , age undetermined Abnormal ECG When compared with ECG of 29-AUG-2018 09:26, (Unconfirmed) Septal infarct is now present Unconfirmed Result
[2018-09-08] MEDS ORDERED: HEPARIN IV PRN (08:35)
[2018-09-08] MEDS ORDERED: NS 2,000 ML MISC PRN (08:35)
[2018-09-08] MEDS ORDERED: TIGHT: 0.2 ML/HR FOR DIALYSIS MISC PRN (08:35)
[2018-09-08] MEDS: TYLENOL PO PRN ×2 (08:51→15:42)
[2018-09-08] MEDS ORDERED: VANCOMYCIN 1 GM/NS 1 GM/250 ML IVPB IV SCH ×3 (11:00→18:00)
[2018-09-08] MEDS: APRESOLINE PO SCH ×3 (11:04→16:44)
[2018-09-08] MEDS: RENVELA POWDER PACKET PO SCH ×3 (11:04→16:44)
[2018-09-08] MEDS: PRINIVIL PO SCH (11:06)
[2018-09-08] MEDS: MUCINEX PO SCH ×2 (11:07→21:59)
[2018-09-08] MEDS: NORVASC PO SCH (11:07)
[2018-09-08] MEDS: CATAPRES PO SCH ×2 (11:08→21:00)
[2018-09-08] MEDS: COREG PO SCH ×2 (11:08→21:00)
--- NOTE | 2018-09-08 11:15 | ECHO REPORT ---
ORDER DATE: 09/07/2018 INDICATION: CHF, end-stage renal disease, shortness of breath, hypertension, and diabetes. FINDINGS: 1. Right atrium is mildly enlarged at 4.4 cm. 2. Moderate tricuspid regurgitation. RV systolic pressure of 59. 3. Normal RV size and systolic function. 4. Mild pulmonic insufficiency. 5. The left atrium appears normal in size at 3.7 cm. 6. No mitral prolapse. Mild mitral regurgitation. 7. Normal LV size, end-diastolic dimension of 3.8 cm. [id number] left ventricular hypertrophy with a posterior and interventricular septal wall thickness 1.4 cm each. Normal LV systolic function with a calculated ejection fraction of 64%. Normal wall motion. 8. Aortic valve opens well. It is trileaflet. No evidence of stenosis or significant insufficiency. 9. Aorta appears normal in visualized segments. 10. No pericardial effusion seen. cc: MD Moraima Hough MD
--- NOTE | 2018-09-08 11:27 | PROGRESS NOTE ---
DATE: 09/08/2018 SUBJECTIVE: The patient reports feeling a little bit better in terms of shortness of breath. That condition is not completely gone but definitely better in comparing with yesterday. OBJECTIVE: Vital Signs: Temperature 101.4 degrees, heart rate 92, respiratory rate 20, blood pressure 134/63, O2 saturation 99% on Ventimask 60%. General Examination: This is a chronically ill-looking, 27-year-old, female lying in bed, in no acute distress. HEENT: Head is normocephalic and atraumatic. Mucous membranes are dry. Neck: No JVD noted. No carotid bruits. No lymphadenopathy. No thyromegaly. Cardiovascular Examination: S1 and S2 heard. No murmurs, gallops, or rubs. Regular rate and rhythm. Respiratory Examination: There are coarse breath sounds noted in both pulmonary bases. Patient is not using any accessory muscles or having work of breathing. Abdomen: Soft. Nontender to palpation. Bowel sounds present. No organomegaly. Extremities: No clubbing, cyanosis, or edema. Peripheral pulses present in both legs. Neurological Examination: The patient is a little bit sleepy today but answers questions appropriately. Moves 4 extremities. Laboratory Data: White cell count 15.62, hemoglobin 7.6, hematocrit 25.1, platelets 168,000. ABG that shows pH 7.36 with pCO2 40 and PO2 56. ASSESSMENT AND PLAN: 1. Acute hypoxemic respiratory failure, most like secondary to pulmonary edema. First dialysis has helped her and she is receiving dialysis today so at this point, we will continue with the same management. 2. Suspected pneumonia. Patient continues to spike fever and this morning, the temperature was 101.4 degrees. We have ordered another set of the blood culture. Currently , she is on vancomycin and cefepime. We will continue with the same management. The patient is receiving antibiotics after dialysis. Also, the patient is receiving DuoNeb every 4 hours as scheduled. 3. Hematemesis. Because of respiratory status, gastroenterology has not performed any procedures. Patient is on Protonix intravenous. We will continue with the same management. 4. Persistent nausea and vomiting with abdominal pain. Most likely, she has diabetic gastroparesis. At this point, it is not possible to do gastric emptying studies. We will continue to monitor this patient. Gastroenterology has started this patient on Reglan. We will continue with the same management. 5. End-stage renal disease. We will continue with routine dialysis. 6. Hyponatremia. Sodium was 130. We will continue to monitor BMP. 7. Diabetes mellitus type 2. We will continue with sliding scale insulin. 8. Anemia of chronic disease. Iron studies have been checked and showed so far iron of 9 which is very low with total iron binding capacity of 80 which is normal and ferritin that is elevated. Her hemoglobin at this point is 7.6. We will continue to check BMP. If hemoglobin continues to decline, we will provide most likely one unit of blood. 9. Disposition. We will continue to monitor this patient closely in the intensive care unit. cc: Bartolo Fish MD MTDD
--- NOTE | 2018-09-08 11:29 | INFECTIOUS DISEASE CONSULT REP ---
DATE: 09/08/2018 CONCLUSION: Patient is admitted to the hospital with what appears to be pulmonary edema. There also could be a superimposed pneumonia. RECOMMENDATIONS: I agree with treating the patient with the combination of vancomycin and cefepime being given after each dialysis. II also agree with ordering a procalcitonin level. DISCUSSION: The patient was extremely short of breath and lethargic and I was unable to get a history from her. According to the records in the chart, the patient started getting short of breath approximately 3 days ago. She did have an episode of hemoptysis. She was eventually admitted to the hospital. Here her chest x-ray shows diffuse alveolar opacity and CT scan of the chest shows dense bilateral infiltrates compatible with pulmonary edema; however, pneumonia cannot be ruled out. The patient's CBC shows a white count of 15,620, hemoglobin 7.6 and platelet count 168,000. Creatinine is 11.6. GFR is 5. Liver function studies are normal. Blood gases show a pH of 7.36, a PO2 of 56 and a pCO2 of 40. The patient's test was negative. Urinalysis showed no white cells or bacteria. Blood cultures are pending. A sputum has been ordered but has not been collected. The patient has a procalcitonin level which was drawn and still pending. X- ray of the abdomen showed no abnormality. PAST MEDICAL HISTORY: Positive for: 1. End-stage renal disease. The patient is on hemodialysis. 2. Hypertension. 3. Diabetes mellitus. 4. Peripheral neuropathy. 5. 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 6. History of a stroke that left the patient with some left arm weakness. PAST SURGICAL HISTORY: Positive for a left arm AV graft, right subclavian catheter placed and removed for dialysis, and left heart catheterization, which reports that said there was no abnormality. SOCIAL HISTORY: The patient said she smokes marijuana, but she does not drink alcoholic beverages or abuse drugs. FAMILY HISTORY: Positive for diabetes mellitus, breast cancer and hypertension. HOME MEDICATIONS: Norvasc, carvedilol, clonidine, guanfacine, hydralazine, Levaquin, lisinopril, Renvela, Lantus and NovoLog insulin. PHYSICAL EXAMINATION: Vital Signs: Temperature is 101.4, pulse 92, respirations 20, blood pressure 134/63. General: This is an ill-appearing young female. She is lethargic. She does not seem to be in any acute distress at this time. Head, Eyes, Ears, Nose and Throat: She can hear my spoken words and see near objects. There is no drainage from her nose or ears. Neck: No meningismus. Lungs: There were bilateral rales. Cardiovascular: Heart rate is regular. Abdomen: Soft and not tender. Extremities: Patient has a functioning AV fistula in her left arm. Neurologic: The patient was lethargic. She could move her extremities. There was no tremor. Thank you for the consult. cc: Lit Davies MD
--- NOTE | 2018-09-08 12:05 | NEPHROLOGY PROGRESS NOTE ---
DATE: 09/08/2018 SUBJECTIVE: She is awake and alert. She is still wearing a closed face mask. Still some shortness of breath. No vomiting this morning. OBJECTIVE: Vital Signs: Blood pressure 134/63, heart rate 92, respirations 20, temperature 101.4 degrees. Generally: No acute distress. Skin: Warm and dry. Conjunctivae are pink. Neck: Neck veins are not appreciated. Heart: Regular. No gallops. Murmur present. Lungs: Equal with scattered crackles. Abdomen: Soft and nontender. Bowel sounds are present. Extremities: Have no edema, clubbing, or cyanosis. IMPRESSION: 1. Respiratory failure. We will challenge her dry weight again today to verify that volume is not a significant part of her pulmonary syndrome. Presence of fever certainly suggest that there may be an infectious component. 2. Anemia: Her hemoglobin has fallen since admission. I would like to withhold transfusion unless her hemoglobin is below 7. She states she is trying to get on the transplant list. Dr. Teran is on the case. No other changes. cc: Dwain Hawkins MD
[2018-09-08] MEDS: MORPHINE IV PRN ×2 (13:19→16:38)
[2018-09-08] MEDS: AZOPT 1% OPHTH SUSP BOTH EYES SCH ×2 (13:20→16:45)
[2018-09-08] MEDS: ALPHAGAN 0.2% OPHTH SOLN BOTH EYES SCH ×2 (13:20→21:58)
[2018-09-08] MEDS: ZOFRAN IV PRN (16:38)
[2018-09-08] MEDS ORDERED: MAXIPIME 1 GM in NS 50 ML IV SCH ×4 (17:00)
[2018-09-08] MEDS ORDERED: MAXIPIME 1 GM in NS 50 ML IV ONE (17:00)
[2018-09-08] MEDS: XALATAN 0.005% OPH SOLN BOTH EYES SCH (21:59)
[2018-09-08] MEDS: TENEX PO SCH (22:00)
[2018-09-08] MEDS: PATIENT'S OWN MED BOTH EYES SCH (23:52)
[2018-09-09] MEDS ORDERED: HUMALOG SUBQ ONE (00:53)
[2018-09-09] MEDS: DUONEB (A & A) INH SCH ×4 (03:07→21:15)
[2018-09-09] MEDS ORDERED: LEVAQUIN 750 MG in NS 150 ML IV SCH (03:30)
[2018-09-09] MEDS: SODIUM CHLORIDE 0.9% INJ SCH (03:50)
[2018-09-09] MEDS: PROTONIX IV SCH ×2 (03:50→14:52)
[2018-09-09] MEDS: ALPHAGAN 0.2% OPHTH SOLN BOTH EYES SCH ×3 (06:37→21:20)
[2018-09-09] MEDS: REGLAN IV SCH ×4 (06:37→21:29)
[2018-09-09] MEDS: HUMALOG SUBQ SCH ×4 (06:37→21:20)
[2018-09-09 08:14] LABS: ALBUMIN 3.2 g/dL (3.5-5.0); CREATININE 6.4 mg/dL (0.5-0.9); PHOSPHORUS 5.4 mg/dL (2.7-4.5); POTASSIUM 3.7 mmol/L (3.5-5.1)
[2018-09-09 08:24] LABS: BASO# 0.03 X1000 (0.0-0.2); BASO% 0.3 % (0.0-0.8); EOS# 1.95 X1000 (0.0-0.7); EOS% 17.2 % (0.0-10.0); HEMATOCRIT 25.5 % (37.0-47.0); HEMOGLOBIN 7.7 g/dL (12.0-16.0); IMM GRAN# 0.03 X1000 (0.0-0.04); IMM GRAN% 0.3 % (0.0-0.5); LYMPH# 1.41 X1000 (1.2-3.4); LYMPH% 12.4 % (20.5-51.1); MCHC 30.2 g/dL (33-37); MCV 79.4 FL (81-99); MONO# 0.47 X1000 (0.11-0.59); MONO% 4.1 % (1.7-9.3); MPV 10.6 FL (7.4-10.4); NEUT# 7.47 X1000 (1.4-6.5); NEUT% 65.7 % (42.2-75.2); PLT 160 X1000 (130-400); RBC 3.21 XMIL (4.2-5.4); RDW 20.1 % (11.5-14.5); WBC 11.36 X1000 (4.8-10.8)
[2018-09-09] MEDS: MUCINEX PO SCH ×2 (08:55→21:19)
[2018-09-09] MEDS: AZOPT 1% OPHTH SUSP BOTH EYES SCH ×3 (08:55→17:00)
[2018-09-09] MEDS: NORVASC PO SCH (08:55)
[2018-09-09] MEDS: COREG PO SCH ×2 (08:55→21:19)
[2018-09-09] MEDS: RENVELA POWDER PACKET PO SCH ×3 (08:55→17:00)
[2018-09-09] MEDS: PATIENT'S OWN MED BOTH EYES SCH ×2 (08:56→22:00)
--- NOTE | 2018-09-09 10:59 | INFECTIOUS DISEASE PROGRESS NO ---
DATE: 09/09/2018 CONCLUSION: Patient has pulmonary venous congestion, which may be complicated by a pneumonia. MEDICATIONS: The patient currently is receiving vancomycin and cefepime after each dialysis. PHYSICAL EXAMINATION: Vital Signs: Temperature is 98.7 degrees, pulse 81, respirations 18, blood pressure 127/69. General: This is an ill-appearing young female. She is in no acute distress. Head/eyes/ears/nose/throat: She can hear my spoken words and see near objects. She has a white coating on her tongue. Neck: No meningismus. Extremities: Patient has a left arm AV graft in place. The site is not erythematous or tender. Lungs: Clear to auscultation. Cardiovascular: Heart rate is regular. Abdomen: Soft and nontender. Neurologic: The patient is awake. She can move her extremities. There is no tremor. LAB AND X-RAY: CBC shows a white count of 11,360, hemoglobin 7.7, and platelet count 160,000. Creatinine 6.4. GFR is 9. The patient's chest x-ray done yesterday shows improving pulmonary edema. ASSESSMENT AND PLAN: Patient has pulmonary edema, but I think it could be complicated by a bacterial infection. My plan is to continue with the current antibiotics pending results of the procalcitonin level. COMORBIDITIES: The patient's comorbidities include end-stage renal disease with hemodialysis and diabetes mellitus. cc: Lit Davies MD
--- NOTE | 2018-09-09 11:31 | PROGRESS NOTE ---
DATE: 09/09/2018 SUBJECTIVE: Patient reports breathing better. No shortness of breath reported today. No other complaint noted. OBJECTIVE: Vital Signs: Temperature 98.7, heart rate 81, respiratory rate 20, blood pressure 148/84. O2 saturation 100% on Ventimask at 50%. General: This is a chronically ill-looking, 27- year-old -[place] female lying in bed in no acute distress. HEENT: Head is normocephalic, atraumatic. Mucous membranes dry. Neck: No JVD noted. No carotid bruits. No lymphadenopathy. No thyromegaly. Cardiovascular: S1, S2 heard. No murmurs, gallops, or rubs. Regular rate and rhythm. Respiratory: Coarse breath sounds still noted in both pulmonary bases. Patient is not using any accessory muscles or having work of breathing. Abdomen is soft, nontender to palpation. Bowel sounds present. No organomegaly. Extremities: No clubbing, cyanosis, or edema. Peripheral pulses present in both legs. Neurological: Patient is alert, awake, moves 4 extremities. LABORATORY DATA: Reviewed and white cell count is 11.36. Hemoglobin 7.7, hematocrit 25.5, platelets 160,000with sodium 133. Creatinine 6.4. ASSESSMENT AND PLAN: 1. Acute hypoxemic respiratory failure that was felt to be secondary to pulmonary edema. She has received 2 dialysis sessions. She although reports breathing better, she is still requiring a high amount of oxygen. At this point, she is requiring Ventimask of 50%. We will continue with the same management. I prefer to get a pulmonary consultation and see what else we can do for this patient. 2. Community-acquired pneumonia. This is what we are suspecting because of the dense bilateral infiltrates described in the CT of the chest although this could be also acute respiratory distress syndrome, so, in any case, the patient is receiving vancomycin and cefepime after dialysis. She has spiked fever yesterday to 101.4. She did not spike more episodes of fever since then. So, at this point, we will continue with the same management. Dr. Davies from Infectious Disease is also following this patient. A procalcitonin level is still pending. 3. Hematemesis. At this point, hemoglobin is trending down a little bit from yesterday to today to 7.6. Gastroenterology has been consulted, but they prefer to not perform any procedure after this patient is feeling better. The patient continues to be on Protonix IV. We will continue with the same management. We will continue to monitor CBC daily. 4. Persistent nausea and vomiting. At this point, patient is not complaining of any nausea. We will do a gastric emptying study whenever this patient is less short of breath and requiring less oxygen supplementation. GI following this patient. She has been started on Reglan. 5. End-stage renal disease. Patient on routine dialysis. Dr. Hawkins is following this patient. 6. Hyponatremia. Sodium is 133; is almost normal. We will continue to monitor. 7. Diabetes mellitus, type 2. We will continue with sliding scale insulin and accuchecks before meals and also at bedtime. 8. Anemia of chronic disease. The patient's hemoglobin is 7.7, so I plan to transfuse 1 unit of blood while she is on dialysis tomorrow morning. DISPOSITION: We will continue to monitor this patient in the Intensive Care Unit. She is to monitor this patient closely, but I think she is stable to go to [facility]. We will continue to monitor CBC daily. cc: Bartolo Fish MD MTDD
[2018-09-09] MEDS: TYLENOL PO PRN (12:20)
[2018-09-09] MEDS: APRESOLINE PO SCH ×3 (12:21→16:11)
[2018-09-09] MEDS: CATAPRES PO SCH ×2 (12:21→21:19)
[2018-09-09] MEDS: PRINIVIL PO SCH (12:21)
[2018-09-09] MEDS: MYCOSTATIN SUSP PO SCH ×3 (12:39→21:19)
--- NOTE | 2018-09-09 13:48 | PULMONOLOGY CONSULTATION ---
DATE: 09/09/2018 REQUESTING PHYSICIAN: Dr. James REASON FOR CONSULTATION: Pneumonia. HISTORY OF PRESENT ILLNESS: Ms. 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 The patient developed end stage renal disease and has been on dialysis for several years due to complications of diabetes and hypertension. The patient reports she had one episode of cough and bloody secretions approximately one year ago. She came to the emergency room 09/06/2018 with relatively sudden onset shortness of breath with cough and bloody sputum. She also reports she may have vomited some blood as well. She denies recent sick contact. She has had no influenza exposure. She underwent urgent dialysis in this hospital after arrival to the emergency room. She denies missing a dialysis but does report her dry weight was slightly increased from 61 kg to 61.5 kg due to cramping. She has had low grade fevers as high as 101.4 degrees during this hospitalization. She does report occasional marijuana use. She denies cocaine use. She denies HIV testing. PAST MEDICAL HISTORY: 1. End stage renal disease on hemodialysis. 2. Diabetes mellitus. 3. Peripheral neuropathy. 4. Hypertension. 5. Glaucoma. 6. History of stroke and left arm weakness. SOCIAL HISTORY: Occasional marijuana use as per above. FAMILY HISTORY: Father is alive and in good health. Mother has had hysterectomy and thyroid disease. REVIEW OF SYSTEMS: As noted in the HPI. PHYSICAL EXAMINATION: A thin black female who appears chronically ill but appears her stated age. She has a slightly flattened affect. Blood pressure is 127/67, heart rate 81, respiratory rate 17, oxygen saturation 100% on Ventimask. HEENT: Pupils are equal and reactive. Oropharynx is clear. Neck is supple. Chest reveals faint crackles bilaterally. Cardiac: S1, S2. Abdomen is soft. Extremities are without edema. DIAGNOSTIC DATA: White blood count is 11.36, hemoglobin 7.7, platelet count 160,000. She has had a 1.3 g hemoglobin drop during this hospitalization. Her C-reactive protein is elevated at 94. Hemoglobin A1c not checked. CT scan of the thorax reveals bilateral infiltrates with areas of consolidation and extensive ground-glass changes. Mild cardiomegaly. Echocardiogram reveals moderate pulmonary hypertension with an RV systolic pressure of 59. There is mild to moderate left ventricular hypertrophy. IMPRESSION: A 27-year-old female with end stage renal disease on hemodialysis, diabetes mellitus, who presents to the emergency room with acute hypoxemic respiratory failure, hemoptysis, and a CT scan consistent with alveolar hemorrhage. The patient does report one episode of cough productive of bloody sputum approximately one year ago. She has had some low grade fevers during this hospitalization but not persistent. An influenza screen was performed which was negative. The etiology for her presentation is not completely clear at this juncture. This could have been triggered by a drug use process such as cocaine, but no toxicology was obtained, and she denies cocaine use. This could be due to a hypertensive crisis with acute pulmonary edema, and her systolic blood pressures were as high as 189 in the ER. An atypical pneumonia could also produce a similar disease process. To further expand the differential, I will also evaluate pulmonary renal syndromes such as Hao's and Goodpasture's, although I think that these are less likely. Clinically she appears to be improving, and her chest x-ray is starting to clear. An HIV will also be ordered to ensure I do not need to expand the differential given the findings on CT scan. RECOMMENDATIONS: 1. Continue antibiotics for community acquired pneumonia. 2. Check a connective tissue cascade, ANCA level, anti-GBM titer, and HIV titer as outlined above. 3. Marijuana cessation will be recommended. 4. Wean oxygen as tolerated. cc: Darshan Leal MD
[2018-09-09] MEDS: MORPHINE IV PRN (17:01)
--- NOTE | 2018-09-09 18:18 | PROGRESS NOTE ---
DATE: 09/09/2018 DATE OF ROUNDS: 09/09/2018. SUBJECTIVE: The patient states that she feels fine today. She denies abdominal pain. However, she continues to have oxygen desaturation when she removes her oxygen. She reports constipation that is causing some abdominal fullness. PHYSICAL EXAMINATION: Vital Signs: Her blood pressure is 106/50, pulse of 86, respirations 16, temperature of 98.7. Her oxygen flow rate is 50% on Venturi mask with 94% saturation. Her oxygen desaturates to the 60s when she removes her oxygen. IMPRESSION: 1. Constipation. 2. Nausea. 3. Hematemesis. 4. Epigastric pain. RECOMMENDATIONS: 1. We will plan to administer a Dulcolax suppository for the constipation. 2. She has nausea and has been placed on Reglan for presumed gastroparesis. She reports an interval improvement in her nausea with vomiting and states that she is tolerating her diet. Therefore, I would continue the Reglan 2.5 mg q.6 hours. She is aware of the risks for extrapyramidal signs. 3. Once her oxygenation stabilizes, we will schedule the patient for an EGD to further assess the hematemesis. cc: MD Bartolo Elam MD Reginald D. Gladish, MD
[2018-09-09] MEDS ORDERED: DULCOLAX PR ONE (18:27)
[2018-09-09] MEDS ORDERED: DULCOLAX PR PRN (18:27)
[2018-09-09] MEDS: TENEX PO SCH (21:19)
[2018-09-09] MEDS: XALATAN 0.005% OPH SOLN BOTH EYES SCH (21:20)
[2018-09-10] MEDS: REGLAN IV SCH ×5 (00:56→21:46)
[2018-09-10] MEDS: DUONEB (A & A) INH SCH ×4 (03:30→21:25)
[2018-09-10 05:21] LABS: BASO# 0.02 X1000 (0.0-0.2); BASO% 0.2 % (0.0-0.8); EOS% 21.5 % (0.0-10.0); HEMATOCRIT 26.2 % (37.0-47.0); HEMOGLOBIN 7.8 g/dL (12.0-16.0); IMM GRAN# 0.03 X1000 (0.0-0.04); IMM GRAN% 0.3 % (0.0-0.5); LYMPH# 0.85 X1000 (1.2-3.4); MCH 23.6 PG (27-31); MCHC 29.8 g/dL (33-37); MCV 79.2 FL (81-99); MONO# 0.75 X1000 (0.11-0.59); MPV 11.4 FL (7.4-10.4); NEUT# 6.74 X1000 (1.4-6.5); PLT 177 X1000 (130-400); RBC 3.31 XMIL (4.2-5.4); RDW 19.9 % (11.5-14.5); WBC 10.69 X1000 (4.8-10.8)
[2018-09-10 05:43] LABS: ALBUMIN 3.3 g/dL (3.5-5.0); CALCIUM 7.9 mg/dL (8.8-10.2); CREATININE 8.6 mg/dL (0.5-0.9); PHOSPHORUS 4.2 mg/dL (2.7-4.5); POTASSIUM 4.2 mmol/L (3.5-5.1)
[2018-09-10 05:48] LABS: BASO 10 % (0-1); EOS 38 % (1-10); LYMPHS 10 % (21-51); MONO 10 % (1-9); SEGS 32 % (42-75)
[2018-09-10] MEDS: SODIUM CHLORIDE 0.9% INJ SCH (06:20)
[2018-09-10] MEDS: HUMALOG SUBQ SCH ×4 (06:20→21:46)
[2018-09-10] MEDS: ALPHAGAN 0.2% OPHTH SOLN BOTH EYES SCH ×3 (06:20→21:44)
[2018-09-10] MEDS: PROTONIX IV SCH ×2 (06:20→17:59)
[2018-09-10] MEDS ORDERED: TIGHT: 0.2 ML/HR FOR DIALYSIS MISC PRN (07:07)
[2018-09-10] MEDS ORDERED: HEPARIN IV PRN (07:07)
[2018-09-10] MEDS ORDERED: NS 2,000 ML MISC PRN (07:07)
--- NOTE | 2018-09-10 07:27 | INFECTIOUS DISEASE PROGRESS NO ---
DATE: 09/10/2018 HISTORY OF PRESENT ILLNESS: The patient has pulmonary venous congestion, possibly complicated by pneumonia. MEDICATIONS: This is the second day of treatment with vancomycin and cefepime being given in a dose of 1 g IV after dialysis. PHYSICAL EXAMINATION: Vital Signs: Temperature is 98.1 degrees, pulse 96, respirations 18, blood pressure 130/62. General: This is an ill-appearing, young female. She is in no acute distress. Head, Eyes, Ears, Nose, and Throat: She can hear my spoken words and see near objects. She does not have any white patches on her tongue. Neck: No stiffness. Extremities: The patient has a functioning left arm AV graft. This site is not tender. Lungs: Clear to auscultation. Cardiovascular: Heart rate is regular. Abdomen: Soft and nontender. Neurologic: The patient was sleeping but she is arousable. She can move her extremities. There is no tremor. LAB AND X-RAY: There is no chest x-ray for today. CBC shows a white count of 10,690, hemoglobin 7.8, and platelet count of 177,000. Creatinine is 8.6. GFR is 7. Swab for influenza is negative. ASSESSMENT AND PLAN: The patient has pulmonary edema but it may be complicated by pneumonia. I plan to continue with the current antibiotics. A procalcitonin level has been ordered, the results of which are pending. I have ordered a chest x-ray for tomorrow. If the patient's procalcitonin is very low, then I think it would be unlikely that the patient has a superimposed pneumonia on her pulmonary edema. COMORBIDITIES: Include end-stage renal disease, hemodialysis, and diabetes mellitus. cc: Lit Davies MD
--- NOTE | 2018-09-10 07:55 | NEPHROLOGY PROGRESS NOTE ---
DATE: 09/10/2018 SUBJECTIVE: The patient is sitting up in bed, undergoing a breathing treatment. She has had no nausea or vomiting. She has continued with a cough and states that she had another episode with some bloody sputum. OBJECTIVE: Vital Signs: Temperature 98.1 degrees, pulse 96, respiratory rate 18, blood pressure 130/62. Intake 590 mL with output 400 mL. General: This is a young adult female resting in bed. Awake and alert. She is in no acute distress. HEENT: Normocephalic, atraumatic. She has a face mask in place for breathing treatment. PERRL. Neck: Supple without JVD. Cardiovascular: Regular rate and rhythm. Tachycardic rate. Pulmonary: She has no wheeze noted currently. She has equal excursion. Again, is on a breathing treatment. Extremities: No clubbing, cyanosis, or edema. AV graft, left upper extremity. : Continues to void minimally. Integumentary: Skin is warm and dry. Lab Data: WBC of 10.6, hemoglobin 7.8. Sodium 132, potassium 4.2, CO2 23, BUN 40, creatinine 8.6, calcium 7.9, albumin 3.3. ASSESSMENT AND PLAN: 1. Chronic kidney disease 5D in the setting of question of pneumonia with pulmonary edema and hemoptysis. Today is her routine dialysis day. We will dialyze her on a 2 K bath, UF to dry weight, 4 hour treatment. 2. Pneumonia +/- pulmonary edema. See above for plan. Is on appropriately dosed antibiotics. She is being followed by infectious disease. 3. Hematemesis. She has been seen by Dr. Teran. It appears they will do an esophagogastroduodenoscopy as an outpatient. 4. Hemoptysis. Followed by Dr. Leal. She has labs pending as part of indepth workup. Dictated by KAMALA Walters for Dwain Hawkins MD Face to face encounter, data reviewed, discussed with Shikha Salazar on 09/10/17. I agree with the above assessment and plan of care. cc: Dwain Hawkins MD [facility]
--- NOTE | 2018-09-10 08:42 | Diag Imaging Result Doc PS360 ---
EXAM: CHEST-2 VIEWS 09/10/2018 HISTORY: abnormal exam TECHNIQUE: PA and lateral chest COMMENT: Compared to 09/08/2018 the alveolar opacities bilaterally have diminished. IMPRESSION: Improving pulmonary edema and/or pneumonia. Electronically signed by Kapil Francis 09/10/2018 8:40 AM
[2018-09-10 09:05] LABS: HIV ANTIBODY SCREEN SEE COMMENTS
[2018-09-10] MEDS: APRESOLINE PO SCH ×3 (09:50→18:01)
[2018-09-10] MEDS: BASAGLAR SUBQ SCH (09:50)
[2018-09-10] MEDS: RENVELA POWDER PACKET PO SCH ×3 (09:51→18:02)
[2018-09-10] MEDS: PRINIVIL PO SCH (09:51)
[2018-09-10] MEDS: AZOPT 1% OPHTH SUSP BOTH EYES SCH ×3 (09:52→18:00)
[2018-09-10] MEDS: MYCOSTATIN SUSP PO SCH ×4 (09:52→21:45)
[2018-09-10] MEDS: MUCINEX PO SCH ×2 (09:52→21:45)
[2018-09-10] MEDS: CATAPRES PO SCH ×2 (09:53→21:45)
[2018-09-10] MEDS: PATIENT'S OWN MED BOTH EYES SCH (09:53)
[2018-09-10] MEDS: MORPHINE IV PRN ×2 (10:02→16:02)
[2018-09-10] MEDS: COREG PO SCH ×2 (10:57→21:45)
[2018-09-10] MEDS: NORVASC PO SCH (14:47)
[2018-09-10] MEDS ORDERED: MAXIPIME 1 GM in NS 50 ML IV ONE (17:00)
[2018-09-10] MEDS ORDERED: VANCOMYCIN 1 GM/NS 1 GM/250 ML IVPB IV ONE (18:00)
[2018-09-10] MEDS: TYLENOL PO PRN (18:01)
[2018-09-10] MEDS ORDERED: SOLU-MEDROL IV ONE (19:43)
[2018-09-10] MEDS ORDERED: ZYVOX PO SCH (21:00)
[2018-09-10] MEDS ORDERED: BASAGLAR SUBQ SCH (21:00)
[2018-09-10] MEDS: XALATAN 0.005% OPH SOLN BOTH EYES SCH (21:44)
[2018-09-10] MEDS: TENEX PO SCH (21:45)
[2018-09-11] MEDS: DUONEB (A & A) INH SCH ×4 (03:20→22:49)
[2018-09-11] MEDS: REGLAN IV SCH ×4 (03:37→16:58)
[2018-09-11] MEDS: PATIENT'S OWN MED BOTH EYES SCH ×2 (03:37→09:00)
[2018-09-11] MEDS: ALPHAGAN 0.2% OPHTH SOLN BOTH EYES SCH ×3 (05:31→20:50)
[2018-09-11] MEDS: PROTONIX IV SCH ×2 (05:31→16:59)
[2018-09-11] MEDS: HUMALOG SUBQ SCH ×5 (05:32→20:48)
[2018-09-11 05:43] LABS: BASO# 0.02 X1000 (0.0-0.2); BASO% 0.3 % (0.0-0.8); EOS# 0.06 X1000 (0.0-0.7); EOS% 0.9 % (0.0-10.0); HEMATOCRIT 25.9 % (37.0-47.0); HEMOGLOBIN 7.8 g/dL (12.0-16.0); LYMPH# 0.32 X1000 (1.2-3.4); LYMPH% 5.1 % (20.5-51.1); MCH 23.7 PG (27-31); MCHC 30.1 g/dL (33-37); MCV 78.7 FL (81-99); MONO# 0.12 X1000 (0.11-0.59); MONO% 1.9 % (1.7-9.3); NEUT# 5.81 X1000 (1.4-6.5); NEUT% 91.8 % (42.2-75.2); PLT 160 X1000 (130-400); RBC 3.29 XMIL (4.2-5.4); WBC 6.33 X1000 (4.8-10.8)
[2018-09-11 05:49] LABS: ALBUMIN 3.1 g/dL (3.5-5.0); CALCIUM 8.6 mg/dL (8.8-10.2); CREATININE 5.5 mg/dL (0.5-0.9); PHOSPHORUS 3.1 mg/dL (2.7-4.5); POTASSIUM 3.9 mmol/L (3.5-5.1)
[2018-09-11] MEDS ORDERED: VANCOMYCIN 1 GM/NS 1 GM/250 ML IVPB IV SCH (06:30)
[2018-09-11 06:31] LABS: LYMPHS 2 % (21-51); MONO 1 % (1-9); SEGS 97 % (42-75)
--- NOTE | 2018-09-11 06:43 | INFECTIOUS DISEASE PROGRESS NO ---
DATE: 09/11/2018 PRESENT ILLNESS: The patient has pulmonary venous congestion and/or pneumonia. MEDICATIONS: The patient has been on vancomycin and cefepime now for 3 days. PHYSICAL EXAMINATION: Vital Signs: Temperature is 98.1 degrees, pulse 91, respirations 18, blood pressure 170/75. General: This is an ill-appearing young female. She is in no acute distress. She told me that she is feeling somewhat better. Head/eyes/ears/nose/throat: She can hear my spoken words and see near objects. She still has some white patches on her tongue despite getting Mycostatin swish and swallow. Neck: No meningismus. Lungs: Clear to auscultation. Cardiovascular: Regular heart rate. Abdomen: Soft and nontender. Extremities: Patient has an AV graft in her left arm. The site is not tender. Neurologic: The patient was more alert than she was yesterday. She was able to talk and she can move her extremities to request. LAB AND X-RAY: Chest x-ray yesterday showed improvement in the patient's infiltrates. Her CBC shows a white count of 6330, hemoglobin 7.8, and platelet count 160,000. Creatinine is 5.5. GFR is 11. Swab for influenza is negative. Chest x-ray shows improvement in the infiltrates. ASSESSMENT AND PLAN: The patient has pulmonary venous congestion and/or pneumonia. For now, I am going to continue vancomycin and cefepime. A procalcitonin level has been ordered and the results are still pending. COMORBIDITIES: End-stage renal disease, hemodialysis and diabetes mellitus. cc: Lit Davies MD
--- NOTE | 2018-09-11 06:45 | PROGRESS NOTE ---
DATE: 09/10/2018 SUBJECTIVE: Patient notes that she is still nauseated. Denies any fevers. Denies any headaches. She is still very tired and fatigued. OBJECTIVE: She is afebrile. Vital signs reviewed and stable. Heart rate in the 80s, respiratory 20, still on a Venti mask. She is a chronically ill-appearing female.HEENT: Normocephalic. Atraumatic. CLARY. Neck: Supple. No JVD. CARDIOVASCULAR: Regular rate. No murmurs. Lungs: Chest is clear and nonlabored. No crackles. No wheezing. Abdomen: Soft. Nondistended. Nontender. Extremities: Moves all extremities. ASSESSMENT: 1. Acute hypoxic respiratory failure. Continue Ventimask. 2. Community-acquired pneumonia. Continue vancomycin and cefepime. Appreciate Infectious Disease input. 3. Hematemesis. 4. Persistent nausea and vomiting on Reglan. 5. End-stage renal disease on hemodialysis. 6. Hyponatremia stable at 132. 7. Anemia of chronic disease. PLAN: We will continue antibiotics, IV fluids. Continue her dialysis. Continue oxygen. cc: Yg Loja MD
--- NOTE | 2018-09-11 07:03 | Diag Imaging Result Doc PS360 ---
EXAM: CHEST-1 VIEW HISTORY: pneumonia TECHNIQUE: Chest, single view COMPARISON: 09/10/2018 FINDINGS: The lungs are well expanded. The heart is not enlarged. The vessels are not distended. Mild increased markings in the left lung base. No effusion identified. IMPRESSION: Mild improvement in the left basilar infiltrates. Electronically signed by Donnie Chandler 09/11/2018 7:00 AM
--- NOTE | 2018-09-11 07:13 | NEPHROLOGY PROGRESS NOTE ---
DATE: 09/11/2018 SUBJECTIVE: Patient is sitting up in bed. She denies any nausea, vomiting, no new hemoptysis or hematemesis. OBJECTIVE: Vital Signs: Temperature 98.1 degrees, pulse 91, respiratory rate 18, blood pressure 170/75. Intake not measured. Output 3.6 L. 3 L of this was ultrafiltration. OBJECTIVE: General: This is a young adult female, sitting up in bed. Awake and alert. No acute distress. HEENT: Normocephalic, atraumatic. CLARY. Oral mucosa moist. Neck: Supple with no JVD. Cardiovascular: Reveals regular rate and rhythm. No murmur. Pulmonary: Clear bilaterally. No wheeze or rhonchi. She is on O2 supplementation via nasal cannula. Abdomen: Soft, with positive bowel sounds. : Not inspected. Extremities: No clubbing, cyanosis, or edema. Integumentary: Skin is warm and dry. LAB DATA: WBC of 6.3, hemoglobin 7.8. Sodium 130, potassium 3.9, CO2 25, creatinine 5.5, calcium 8.6. ASSESSMENT AND PLAN: 1. Chronic kidney disease 5D in the setting pulmonary edema. CXR much improved. We dialyzed yesterday. We were able to remove 3 L. We will plan to dialyze her again on Saturday, per her routine treatment plan. 2. Possible pneumonia. Followed by infectious disease as well as Dr. Leal. Her labs, thus far, been negative for any significant outliers causation. 3. Hematemesis followed by Gastroenterology. 4. Electrolytes, acid-base balance anemia. These are all stable. Again, we would hold any type of blood transfusion in this young female unless her hemoglobin is less than 7 secondary to possibility of transplant in the future. Dictated by KAMALA Walters for Dwain Hawkins MD Face to face encounter, data reviewed, discussed with Shikha Salazar on 09/11/17. I agree with the above assessment and plan of care. cc: Dwain Hawkins MD [facility]
--- NOTE | 2018-09-11 07:14 | PULMONOLOGY PROGRESS NOTE ---
DATE: 09/10/2018 SUBJECTIVE: Patient is arousable and alert. She reports she has had no hemoptysis today. She does have some pain with cough. OBJECTIVE: VITAL SIGNS: Patient has been afebrile for the last 24 hours. Her previous fevers have resolved. BP 121/51, heart rate 98, respiratory rate 18, oxygen saturation 94% on nasal cannula. HEENT: Pupils are equal and reactive. Oropharynx is clear. NECK: Supple. CHEST: Reveals crackles bilaterally. CARDIAC: S1, S2. ABDOMEN: Soft without hepatosplenomegaly. EXTREMITIES: Without edema. LABORATORIES: Chest x-ray reveals decreasing bilateral infiltrates. White blood count 10.7, hemoglobin 7.8, platelet count 177,000. Eosinophil count 21.5% with a total eosinophil count of 2,300. IMPRESSION: 27-year-old with end-stage renal disease on hemodialysis, diabetes mellitus, with acute hypoxemic respiratory failure, hemoptysis and a CT scan consistent with alveolar hemorrhage. Her sputum production has resolved and her chest x-ray is improving. The patient had developed an intra-hospital eosinophilia which was not present at the time of admission. It is fairly significant and is likely drug related and not related to her primary illness given the onset after admission. RECOMMENDATIONS: 1. Antibiotic evaluation and adjustment per Dr. Lit Davies. This may be related to vancomycin or a cephalosporin. 2. Single dose of Solu-Medrol given the significant eosinophilia. 3. Await additional workup for hemoptysis including an ANCA level, anti-GBM titers and connective tissue cascade. 4. Recommend marijuana cessation. 5. Wean oxygen as tolerated. cc: Darshan Leal MD
[2018-09-11] MEDS: COREG PO SCH ×2 (09:03→20:49)
[2018-09-11] MEDS: PRINIVIL PO SCH (09:03)
[2018-09-11] MEDS: APRESOLINE PO SCH ×3 (09:03→17:00)
[2018-09-11] MEDS: MUCINEX PO SCH ×2 (09:03→20:49)
[2018-09-11] MEDS: CATAPRES PO SCH ×2 (09:03→20:49)
[2018-09-11] MEDS: NORVASC PO SCH (09:03)
[2018-09-11] MEDS: RENVELA POWDER PACKET PO SCH ×3 (09:04→17:11)
[2018-09-11] MEDS: AZOPT 1% OPHTH SUSP BOTH EYES SCH ×3 (09:04→17:00)
[2018-09-11] MEDS: BASAGLAR SUBQ SCH ×3 (09:05→20:50)
[2018-09-11] MEDS: ZYVOX PO SCH ×2 (09:07→20:49)
[2018-09-11] MEDS: MYCOSTATIN SUSP PO SCH ×4 (10:06→20:49)
--- NOTE | 2018-09-11 10:40 | PROGRESS NOTE ---
DATE: 09/11/2018 SUBJECTIVE: The patient reports breathing better. No other complaints noted. OBJECTIVE: Vital signs: Temperature 97.7 degrees, heart rate 97, respiratory rate 18, blood pressure 153/74, O2 saturation 97% on 4 L nasal cannula. General Examination: This is a chronically ill-looking, 27-year-old female lying in bed, in no acute distress. HEENT: Head is normocephalic, atraumatic. Mucous membranes dry. Neck: No JVD noted. No carotid bruits. No lymphadenopathy. No thyromegaly. Cardiovascular: S1, S2 heard. No murmurs, gallops, or rubs. Regular rate and rhythm. Respiratory: Coarse breath sounds still noted in both pulmonary bases, mostly noted on the left side. Patient is not using any accessory muscles or having work of breathing. Abdomen: Soft. Nontender to palpation. Bowel sounds present. No organomegaly. Extremities: No clubbing, cyanosis, or edema. Peripheral pulses present in both legs. Neurological: Patient is alert and oriented x3. Moves 4 extremities. LABORATORY DATA: White cell count 6.33, hemoglobin 7.8, hematocrit 25.9, platelets 116,000. BMP is remarkable for sodium 130, potassium 3.9, blood sugar 325. ASSESSMENT AND PLAN: 1. Acute hypoxemic respiratory failure. Initially it was felt to be secondary to pulmonary edema. She is receiving routine dialysis and now she is requiring 4 L of oxygen by nasal cannula. We will continue with the same management. We appreciate Nephrology input. 2. Community-acquired pneumonia. The patient is on vancomycin and cefepime. White cell count is getting better. Actually it is back to normal today. She has not spiked more fever anymore and so at this point, we will continue with the same management. Dr. Davies from Infectious Disease is following this patient. 3. Hematemesis. The patient has not had any more episodes of vomiting blood. Hemoglobin is stable at 7.6, 7.7. GI plans to do an EGD whenever she is more stable from a respiratory standpoint. We will continue with Protonix. We will continue to monitor CBC daily. 4. Persistent nausea and vomiting. At this point, that condition is getting much better. The patient is on Reglan for suspected diabetic gastroparesis. We will continue with the same management. 5. End-stage renal disease, on dialysis. The patient is receiving routine dialysis. Dr. Hawkins is following this patient. 6. Hyponatremia. Sodium is 130. Will continue to monitor BMP. 7. Diabetes mellitus type 2. Blood sugars are really high today; it is 322. We know that she received 1 dose of steroids yesterday. In any case, I think we need to increase the dose of Lantus. She is receiving 10 and now she is going to receive 18 b.i.d. 8. Anemia of chronic disease. As per indications from Nephrology, we are not going to transfuse blood unless hemoglobin is 7 or below. 9. Disposition: I think this patient is more stable. We are going to consult physical therapy to help her move around and will transfer her to a regular room today. cc: Bartolo Fish MD
[2018-09-11 10:49] LABS: ANTINEUTROPHIL CYTOPLASMIC AB SEE COMMENTS
[2018-09-11] MEDS: SODIUM CHLORIDE 0.9% INJ SCH (16:59)
[2018-09-11] MEDS: TENEX PO SCH (20:49)
[2018-09-11] MEDS: ZOFRAN IV PRN (22:25)
[2018-09-12] MEDS: PATIENT'S OWN MED BOTH EYES SCH ×3 (00:27→22:10)
[2018-09-12] MEDS: XALATAN 0.005% OPH SOLN BOTH EYES SCH (00:27)
[2018-09-12] MEDS: REGLAN IV SCH ×4 (00:27→18:32)
[2018-09-12] MEDS: HUMALOG SUBQ SCH ×6 (00:28→22:19)
[2018-09-12] MEDS: DUONEB (A & A) INH SCH ×4 (04:19→21:41)
[2018-09-12] MEDS: ALPHAGAN 0.2% OPHTH SOLN BOTH EYES SCH ×2 (04:39→16:24)
--- NOTE | 2018-09-12 05:12 | PULMONOLOGY PROGRESS NOTE ---
DATE: 09/11/2018 SUBJECTIVE: The patient is awake, alert, and conversant. Pleuritic pain has resolved. She reports she feels significantly better. OBJECTIVE: Vital Signs: Blood pressure 129/65, heart rate 89, respiratory rate 16, oxygen saturation 99% on 1 L per nasal cannula. HEENT: Pupils are equal and reactive. Oropharynx is clear Neck: Supple. Chest: Reveals good air entry bilaterally with crackles in the lung bases. Cardiac: S1 and S2. Abdomen: Soft without hepatosplenomegaly. Extremities: Without edema. DIAGNOSTIC STUDIES: Chest x-ray reveals continued clearing of bilateral lung infiltrates with mild increased markings remaining at the left base. LABORATORY DATA: White blood count 6.33, hemoglobin 7.8, platelet count 160,000. Eosinophilia has resolved essentially with 1 dose of steroids. ANCA level negative. Glomerular basement membrane antibody negative. Connective tissue cascade negative. IMPRESSION: A 27-year-old with end-stage renal disease, on hemodialysis, and diabetes mellitus, who presented with hemoptysis and acute hypoxemic respiratory failure after smoking marijuana. The patient was significantly hypertensive in the emergency room. She did develop hypereosinophilia, which was likely drug-related. Her workup for pulmonary renal syndromes has been negative. She has no evidence of lupus. She continues to improve. RECOMMENDATIONS: 1. Wean oxygen as tolerated. 2. Abstinence from smoking tobacco/marijuana recommended. 3. Complete antibiotics at the discretion of Dr. Davies. cc: Darshan Leal MD
[2018-09-12] MEDS ORDERED: XYLOCAINE-MPF 2% ONE (06:54)
[2018-09-12] MEDS ORDERED: DIPRIVAN 1% ONE (06:54)
[2018-09-12 07:18] LABS: BASO# 0.01 X1000 (0.0-0.2); BASO% 0.1 % (0.0-0.8); EOS# 0.26 X1000 (0.0-0.7); EOS% 3.1 % (0.0-10.0); HEMATOCRIT 28.8 % (37.0-47.0); HEMOGLOBIN 9.1 g/dL (12.0-16.0); IMM GRAN# 0.03 X1000 (0.0-0.04); IMM GRAN% 0.4 % (0.0-0.5); LYMPH# 1.16 X1000 (1.2-3.4); LYMPH% 13.6 % (20.5-51.1); MCH 23.9 PG (27-31); MCHC 31.6 g/dL (33-37); MCV 75.8 FL (81-99); MONO# 0.68 X1000 (0.11-0.59); MPV 10.8 FL (7.4-10.4); NEUT# 6.38 X1000 (1.4-6.5); NEUT% 74.8 % (42.2-75.2); PLT 231 X1000 (130-400); RDW 19.9 % (11.5-14.5); WBC 8.52 X1000 (4.8-10.8)
[2018-09-12 07:36] LABS: BANDS 2 % (0-1); EOS 2 % (1-10); LARGE PLATELETS 1+; LYMPHS 14 % (21-51); MONO 10 % (1-9); SEGS 72 % (42-75)
[2018-09-12 07:37] LABS: ANISOCYTOSIS 1+; HYPOCHROM 2+; TARGET CELLS OCCASIONAL
[2018-09-12 07:51] LABS: ALBUMIN 2.7 g/dL (3.5-5.0); CREATININE 7.2 mg/dL (0.5-0.9); PHOSPHORUS 4.4 mg/dL (2.7-4.5); POTASSIUM 3.6 mmol/L (3.5-5.1)
[2018-09-12] MEDS ORDERED: TIGHT: 0.2 ML/HR FOR DIALYSIS MISC PRN (07:51)
[2018-09-12] MEDS ORDERED: HEPARIN IV PRN (07:51)
[2018-09-12] MEDS ORDERED: NS 2,000 ML MISC PRN (07:51)
[2018-09-12] MEDS: AZOPT 1% OPHTH SUSP BOTH EYES SCH ×3 (09:30→17:34)
--- NOTE | 2018-09-12 10:41 | NEPHROLOGY PROGRESS NOTE ---
DATE: 09/12/2018 SUBJECTIVE: She was eating her breakfast at the time of my arrival. No shortness of breath. Less coughing. OBJECTIVE: Vital Signs: Blood pressure 104/56, heart rate 89, respirations 17, afebrile. General: No acute distress. Skin: Warm and dry. HEENT: Conjunctivae are pink. Oropharynx is moist. Neck: Neck veins are not distended. Heart: Regular. No gallops. Lungs: Equal. No crackles or wheezes. Abdomen: Soft, nontender. Bowel sounds present. Extremities: No edema, clubbing, or cyanosis. IMPRESSION: Chronic kidney disease 5D with pulmonary edema and hemoptysis. Her shortness of breath is much better, though she still wearing oxygen. She has had no more hemoptysis. She was scheduled for EGD this morning, but unfortunately she ate breakfast. That will have to be delayed. She will have her routine dialysis today, but we will use a 3-potassium bath and goal of 2 to 3 L if her blood pressure will allow. cc: Dwain Hawkins MD
[2018-09-12] MEDS ORDERED: ALBUMIN 25% IV ONE (10:56)
[2018-09-12] MEDS: ZOFRAN IV PRN (11:50)
[2018-09-12] MEDS: PROTONIX IV SCH ×2 (13:06→22:09)
[2018-09-12] MEDS: RENVELA POWDER PACKET PO SCH ×3 (13:07→18:32)
[2018-09-12] MEDS: MYCOSTATIN SUSP PO SCH ×4 (13:07→22:19)
[2018-09-12] MEDS: APRESOLINE PO SCH ×3 (13:08→18:32)
[2018-09-12] MEDS: BASAGLAR SUBQ SCH ×2 (16:06→22:19)
[2018-09-12] MEDS: MUCINEX PO SCH ×2 (16:07→22:19)
[2018-09-12] MEDS: COREG PO SCH ×2 (16:07→22:19)
[2018-09-12] MEDS: CATAPRES PO SCH ×2 (16:07→22:19)
[2018-09-12] MEDS: NORVASC PO SCH (16:09)
[2018-09-12] MEDS: ZYVOX PO SCH ×2 (16:10→22:19)
[2018-09-12] MEDS ORDERED: MAXIPIME 1 GM in NS 50 ML IV ONE (17:00)
--- NOTE | 2018-09-12 18:19 | DISCHARGE SUMMARY ---
ADMISSION DATE: 09/06/2018 DISCHARGE DATE: DISCHARGE DIAGNOSES: 1. Hypoxemic respiratory failure. 2. End-stage renal disease on dialysis Saturday, Saturday and Saturday. 3. Fluid overload resolved. 4. Community-acquired pneumonia under treatment. 5. Diabetes mellitus type 1. CONSULTATIONS: 1. Dr. Darshan Leal from pulmonary. 2. Dr. Dwain Hawkins from nephrology. 3. Dr. Angelica Teran from GI. 4. Dr. Lit Davies from Infectious Disease. PROCEDURES: 1. Chest x-ray done on admission showed pulmonary edema described. 2. Echocardiogram Doppler showed ejection fraction of 64% with no pericardial effusion, no mitral prolapse, no grossly valvular abnormalities. 3. Chest CT showed dense bilateral infiltrates indicating severe pulmonary edema and possible ARDS with superimposed pneumonia in the right clinical scenario. 4. Chest x-ray done day before discharge showed mild improvement in the left basilar infiltrates. HOSPITAL COURSE: This is a 27-year-old female who came to the emergency department complaining of shortness of breath. She was not feeling good and they evaluated in the ER, she was admitted for pulmonary edema secondary to fluid volume overload so she was dialyzed 3 days in a row as per indication for Dr. Dwain Hawkins and she was improving slowly. At the time discharge she is receiving dialysis all her routine days. The CT of the chest showed also community-acquired pneumonia. She was receiving antibiotics as per Dr. Davies' recommendation. Those antibiotics were provided on dialysis. She is definitely requiring less oxygen supplementation. From nonrebreather mask she has 1 to 2 L of oxygen by nasal cannula maintaining 91 or 92 and above. She will definitely need oxygen for hypoxic respiratory failure. Leukocytosis has resolved after treatment of pneumonia. For diabetes mellitus type 2 will continue with the sliding scale insulin. Now patient is feeling better so patient will need oxygen for hypoxemic respiratory failure. The patient is going to be discharged in stable condition. DISCHARGE PHYSICAL EXAMINATION: Vitals: Temperature 97.3 degrees, heart rate 75, respiratory rate 20, blood pressure 104/56, O2 saturation 100% on 2 L nasal cannula. General: This is a chronically ill-looking 27-year-old female lying in bed in no acute distress. HEENT: Head is normocephalic, atraumatic. Neck: No JVD noted. No carotid bruits. No lymphadenopathy. No thyromegaly. Cardiovascular: S1, S2 heard. No murmurs, gallops, or rubs. Regular rate and rhythm. Respiratory: Clear bilaterally to auscultation. No work of breathing or using accessory muscles. Abdomen: Soft. Nontender to palpation. Bowel sounds present. No organomegaly. Extremities: No clubbing, cyanosis, or edema. Peripheral pulses present in both legs. Neurological: Patient alert, oriented x3. Moves 4 extremities. DISCHARGE DISPOSITION: Home to self-care. LIST MEDICATION: 1. Latanoprost as directed. 2. Brimonidine as directed. 3. Metoclopramide 0.5 mg 1 tablet p.o. before meals and also at bedtime. 4. Dulcolax 10 mg rectally as needed. 5. Doxycycline 100 mg 1 tablet p.o. every 12 hours. 6. Nystatin 100,000 units 4 times per day. 7. Carvedilol 25 mg 1 tablet p.o. b.i.d. 8. Amlodipine 10 mg 1 tablet p.o. daily. 9. Clonidine 0.1 mg 1 tablet p.o. b.i.d. 10. Guaifenesin 2 mg 1 tablet p.o. daily. 11. Hydralazine 50 mg 1 tablet p.o. 3 times per day. 12. Lisinopril 20 mg 1 tablet p.o. daily. 13. Sevelamer 2.4 mg p.o. 3 times per day. 14. Lantus 10 units subcutaneous every morning and also at bedtime. 15. Antibiotics are going to be directed by Dr. Lit Davies and she is going to be seen by him in a week. TIME SPENT: 35 minutes. cc: Bartolo Fish MD [facility]
[2018-09-12] MEDS: PRINIVIL PO SCH (18:24)
[2018-09-12] MEDS: TYLENOL PO PRN (19:31)
[2018-09-12] MEDS: DOXYCYCLINE PO SCH (22:19)
[2018-09-12] MEDS: TENEX PO SCH (22:19)
--- NOTE | 2018-09-12 22:55 | PROGRESS NOTE ---
DATE: 09/12/2018 SUBJECTIVE: I met with the patient on 09/11/2018, and discussed plans for an EGD today. She was instructed to remain NPO after midnight. We discussed performing the EGD prior to dialysis today. Our nurse from GI Procedures call the floor and confirmed that the patient was still NPO. However, when transport arrived approximately 30 minutes later, the patient was eating her breakfast tray. Therefore, her procedure was canceled. She is free to contact our office after discharge to make arrangements for an outpatient endoscopy. We will sign off at this time. cc: MD Bartolo Elam MD Reginald D. Gladish, MD
--- NOTE | 2018-09-13 02:15 | INFECTIOUS DISEASE PROGRESS NO ---
DATE: 09/12/2018 PRESENT ILLNESS: The patient has pulmonary venous congestion or pneumonia. MEDICATIONS: The patient has been receiving vancomycin and cefepime for 3 days. Vancomycin was discontinued because the patient was having eosinophilia and after vancomycin was stopped the eosinophilia cleared up. PHYSICAL EXAMINATION: Vital Signs: Temperature is 97.3 degrees, pulse 89, respirations 17, blood pressure 104/56. General: This is an ill-appearing young female. She is in no acute distress. Head, eyes, ears, nose and throat: She can hear my spoken words and see near objects. The white patches on her tongue have cleared up. Neck: No stiffness. Lungs: Clear to auscultation. Cardiovascular: Heart rate is regular. Extremities: The patient has an AV graft in her left arm, it is functioning well. Abdomen: Soft and nontender. Neurologic: The patient is alert. She can move her extremities. There is no tremor. LABS AND X-RAY: The patient's HIV antibody was nonreactive. CBC shows a white count of 8520, hemoglobin 9.1, and platelet count 231,000. Creatinine is 7.2. GFR is 8. ASSESSMENT AND PLAN: The patient has pulmonary venous congestion and/or pneumonia. She also has oral candidiasis. The patient is being discharged today on cefepime 1 g IV after each dialysis and doxycycline 100 mg p.o. every 12 hours for another week. I have also written for her to get nystatin swish and swallow for a week also. I have requested that the patient have an appointment in my office 1 week from today. COMORBIDITIES: Include the following: She has end-stage renal disease and is on hemodialysis. She also is a diabetic. cc: Lit Davies MD
[2018-09-13] MEDS: REGLAN IV SCH ×2 (02:17→05:14)
[2018-09-13] MEDS: ALPHAGAN 0.2% OPHTH SOLN BOTH EYES SCH ×2 (02:17→04:28)
[2018-09-13] MEDS: XALATAN 0.005% OPH SOLN BOTH EYES SCH (02:18)
[2018-09-13] MEDS ORDERED: ZOFRAN ODT PO PRN (02:22)
[2018-09-13] MEDS: HUMALOG SUBQ SCH ×3 (02:33→08:55)
[2018-09-13] MEDS: TYLENOL PO PRN ×2 (03:50→09:03)
[2018-09-13] MEDS: DUONEB (A & A) INH SCH ×2 (03:54→09:45)
[2018-09-13 07:57] LABS: BASO# 0.01 X1000 (0.0-0.2); BASO% 0.1 % (0.0-0.8); EOS# 0.84 X1000 (0.0-0.7); EOS% 9.4 % (0.0-10.0); HEMATOCRIT 24.5 % (37.0-47.0); HEMOGLOBIN 7.5 g/dL (12.0-16.0); IMM GRAN# 0.04 X1000 (0.0-0.04); IMM GRAN% 0.4 % (0.0-0.5); LYMPH# 0.95 X1000 (1.2-3.4); LYMPH% 10.6 % (20.5-51.1); MCH 23.7 PG (27-31); MCHC 30.6 g/dL (33-37); MCV 77.5 FL (81-99); MONO# 0.84 X1000 (0.11-0.59); MONO% 9.4 % (1.7-9.3); MPV 10.4 FL (7.4-10.4); NEUT# 6.28 X1000 (1.4-6.5); NEUT% 70.1 % (42.2-75.2); PLT 299 X1000 (130-400); RBC 3.16 XMIL (4.2-5.4); RDW 19.9 % (11.5-14.5); WBC 8.96 X1000 (4.8-10.8)
[2018-09-13 08:05] VITALS: BP 144/72
[2018-09-13 08:34] LABS: ALBUMIN 3.1 g/dL (3.5-5.0); CALCIUM 8.6 mg/dL (8.8-10.2); CREATININE 5.1 mg/dL (0.5-0.9); POTASSIUM 3.8 mmol/L (3.5-5.1)
[2018-09-13] MEDS: RENVELA POWDER PACKET PO SCH (08:45)
[2018-09-13] MEDS: PRINIVIL PO SCH (08:45)
[2018-09-13] MEDS: MUCINEX PO SCH (08:46)
[2018-09-13] MEDS: MYCOSTATIN SUSP PO SCH (08:46)
[2018-09-13] MEDS: DOXYCYCLINE PO SCH (08:46)
[2018-09-13] MEDS: NORVASC PO SCH (08:46)
[2018-09-13] MEDS: CATAPRES PO SCH (08:46)
[2018-09-13] MEDS: ZYVOX PO SCH (08:46)
[2018-09-13] MEDS: COREG PO SCH (08:46)
[2018-09-13] MEDS: BASAGLAR SUBQ SCH (08:47)
[2018-09-13] MEDS: PROTONIX IV SCH (08:47)
[2018-09-13] MEDS: APRESOLINE PO SCH (08:50)
[2018-09-13] MEDS: AZOPT 1% OPHTH SUSP BOTH EYES SCH (08:55)
[2018-09-13] MEDS: PATIENT'S OWN MED BOTH EYES SCH (08:56)
--- NOTE | 2018-09-13 14:48 | NEPHROLOGY PROGRESS NOTE ---
DATE: 09/13/2018 SUBJECTIVE: She is resting comfortably, but still requiring oxygen. No cough. OBJECTIVE: Vital Signs: Blood pressure 144/72, heart rate 88, respirations 18, afebrile. General: No acute distress. Skin: Warm and dry. Conjunctivae are pink. Neck: Neck veins are not distended. Heart: Regular, with an S4. Lungs: Equal. No crackles or wheezes. Abdomen: Soft, nontender. Bowel sounds are present. Extremities: No edema, clubbing or cyanosis. IMPRESSION: 1. Pulmonary edema. Improved by chest x-ray and symptomatically. We have lowered her dry weight. 2. Chronic kidney disease 5D. Electrolytes, acid-base are in target. 3. Anemia. Hemoglobin is less than 8. We are voiding transfusion because of her transplant status. She does have iron deficiency, but in the context of infection I am avoiding IV iron. That can be treated as an outpatient as long as her hemoglobin is stable. 4. Hypertension in target. 5. Pneumonia, improving. cc: Dwain Hawkins MD
== END 2018-09-13 14:05 | disposition home or self-care (01) | DRG 193 ==
LOC: ED 15:47 → DCI2 20:51 → EDIPHOLD 22:06 → SUATTDRO 22:06 → ICU 22:06 → 3S 09-09 15:26 → 3N 09-11 12:27
PROVIDERS: ATTEND Internal Medicine
CPT/HCPCS: 71010; 71020; 71045; 71046; 71250; 74019; 74020; 80053; 80069; 81001; 82550; 82607; 82728; 82746; 82805; 82948; 83036; 83516; 83520; 83540; 83550; 83605; 83735; 83880; 84145; 84484; 84703; 85025; 85045; 85610; 85651; 85730; 86038; 86140; 86200; 86701; 86850; 86900; 86901; 86920; 87040; 87275; 87276; 87389; 87804; 93005; 93010; 93306; 94640; 94761; 94762; 94799; 96374; 96375; 96376; 97162; 97530; 99285; A9270; C9113; J0692; J1644; J1815; J1956; J2270; J2405; J2550; J2765; J2920; J3370; J7030; P9047; S0164; XXXXX

== ENCOUNTER 2018-09-24 00:07 | Inpatient (IN) ==
[2018-09-24 01:17] LABS: BASO# 0.06 X1000 (0.0-0.2); BASO% 0.6 % (0.0-0.8); EOS# 1.68 X1000 (0.0-0.7); EOS% 17.3 % (0.0-10.0); HEMATOCRIT 28.7 % (37.0-47.0); HEMOGLOBIN 8.8 g/dL (12.0-16.0); IMM GRAN# 0.04 X1000 (0.0-0.04); IMM GRAN% 0.4 % (0.0-0.5); LYMPH# 1.82 X1000 (1.2-3.4); LYMPH% 18.7 % (20.5-51.1); MCH 24.6 PG (27-31); MCHC 30.7 g/dL (33-37); MCV 80.2 FL (81-99); MONO% 3.1 % (1.7-9.3); MPV 10.4 FL (7.4-10.4); NEUT# 5.81 X1000 (1.4-6.5); NEUT% 59.9 % (42.2-75.2); PLT 119 X1000 (130-400); RBC 3.58 XMIL (4.2-5.4); RDW 20.1 % (11.5-14.5); WBC 9.71 X1000 (4.8-10.8)
[2018-09-24 01:35] LABS: ALB/GLOB RATIO 0.9; CALCIUM 7.8 mg/dL (8.8-10.2); POTASSIUM 3.9 mmol/L (3.5-5.1); TOTAL BILIRUBIN 0.48 mg/dL (0.20-1.00); TOTAL PROTEIN 6.2 g/dL (6.3-8.3)
[2018-09-24 01:40] LABS: CREATININE 5.7 mg/dL (0.5-0.9)
--- NOTE | 2018-09-24 01:47 | PROVIDER DOCUMENTATION ---
This chart was entered by Idalia Sosa Scribe, acting as scribe for Diamond Milligan CRNP. HPI-General Adult - General Source: patient - History of Present Illness -Gen Adult Nature of Presenting Problems: pt is a 27 yr old female presenting via EMS with complaint of increased shortness of breath. pt was admitted 09/06/18 with pneumonia, seen today by PCP , chest xray showed worsening bronchopneumonia, Dr Davies called in new ABX but pt did not get them filled, pt now complains of worsening shortness of breath. pt is on M/W/F dialysis Location of Pain/Injury: reports: chest Pain Radiation: reports: no radiation Quality of Pain: reports: dull Severity: reports: moderate Onset/Duration: reports: gradual Timing: reports: still present, getting worse Context/Activities at Onset: reports: rest Modifying Factors: improves with: nothing Associated Symptoms: reports: cough, shortness of breath. denies: EENT symptoms , fever/chills, sinus congestion/drainage Similar Symptoms Previously?: Yes Recently seen or treated by another doctor?: Yes <Diamond Milligan - Last Filed: 09/24/18 01:46> - History of Present Illness -Gen Adult Nature of Presenting Problems: Patient is a 27 year old black female with ESRD (received hemodialysis), diabetes, and recent admission for pneumonia at [facility] (discharged on 09/12/18) who presents by EMS with worsening SOB and sharp left sided pleuritic chest pain. Chest xray done today shows worsening LLL pneumonia. Followed by Dr. Davies. Patient failed to fill a new antibiotic prescription yesterday. <Scott Newby - Last Filed: 09/24/18 03:53> - General Chief Complaint: Shortness of Breath Stated Complaint: pna Time Seen by Provider: 09/24/18 00:11 Allergies/Adverse Reactions: Patient Allergies Allergy/AdvReac Type Severity Reaction Status Date / Time No Known Allergies Allergy Verified 09/24/18 00:28 Home Medications: Home Medication List Medication Instructions Recorded Confirmed Last Taken Type Carvedilol 25 mg PO BID 03/11/17 09/24/18 09/23/18 History Amlodipine [Norvasc] 10 mg PO DAILY 08/29/18 09/24/18 09/23/18 History Clonidine [Catapres] 0.1 mg PO BID 08/29/18 09/24/18 09/23/18 History Guanfacine HCl 2 mg PO DAILY 08/29/18 09/24/18 09/23/18 History Hydralazine HCl 50 mg PO TID 08/29/18 09/24/18 09/23/18 History LISINOpril [Prinivil] 20 mg PO DAILY 08/29/18 09/24/18 09/23/18 History Sevelamer [Renvela Powder Packet] 2.4 gm PO TID 09/07/18 09/07/18 Unknown History Insulin Glargine [Lantus] 10 unit SUBQ QAM 09/10/18 09/24/18 09/23/18 History Insulin Glargine [Lantus] 10 unit SUBQ QHS 09/10/18 09/24/18 09/23/18 History Bisacodyl [Dulcolax] 10 mg FL DAILY PRN PRN supp 09/12/18 Unknown Rx Brimonidine 0.2% Ophth Soln 1 ml BOTH EYES Q8HR bottle 09/12/18 Unknown Rx [Alphagan 0.2% Ophth Soln] Brinzolamide 1% Ophth Susp [Azopt 1 ml BOTH EYES TID bottle 09/12/18 Unknown Rx 1% Ophth Susp] Doxycycline Hyclate 100 mg PO Q12H #14 tab 09/12/18 09/24/18 09/23/18 Rx Latanoprost 0.005% Oph Soln 1 ml BOTH EYES QHS btl 09/12/18 09/24/18 09/23/18 Rx [Xalatan 0.005% Oph Soln] Metoclopramide [Reglan] 0.5 tab PO AC + HS #60 tab 09/12/18 09/24/18 09/23/18 Rx Nystatin 100,000 unit PO 4XDAY #120 ml 09/12/18 09/24/18 09/23/18 Rx Patient's Own Med 0 each BOTH EYES BID misc 09/12/18 Unknown Rx Review of Systems - Adult - REVIEW OF SYSTEMS - ADULT Constitutional: denies: chills, fever Eyes: reports: no symptoms reported Ears, Nose, Mouth & Throat: denies: ear pain, sinus problem, throat pain Cardiovascular: reports: chest pain. denies: palpitations, syncope Respiratory: reports: cough, dyspnea on exertion, shortness of breath, wheezing Gastrointestinal: denies: abdominal pain, diarrhea, nausea, vomiting Genitourinary: reports: no symptoms reported Musculoskeletal: denies: back pain, muscle aches, neck pain Integumentary: reports: no symptoms reported Neurological: denies: dizziness/vertigo, headache/migraines Psychiatric: reports: no symptoms reported Endocrine: reports: no symptoms reported Hematologic/Lymphatic: reports: no symptoms reported Allergic/Immunologic: reports: no symptoms reported All Other Systems: Reviewed and Negative <Diamond Milligan - Last Filed: 09/24/18 01:46> Past History - Adult - PAST MEDICAL HISTORY-ADULT Review of Records: reports: Old Records Reviewed, Nursing Assessment Review, Medications Reviewed, Social history reviewed & non-contributory. Major Childhood Illnesses: reports: denies history Cardiovascular: reports: HTN Respiratory: reports: denies history Gastrointestinal: reports: denies history Obstetrical/Gynecological: reports: denies history Genitourinary: reports: dialysis, ESRD, kidney disease Musculoskeletal: reports: denies history Neurological: reports: denies history Endocrine/Immune: reports: Diabetes Other Conditions: reports: other cancer - PRIOR SURGERIES/PROCEDURES Surgical/Procedure History: reports: other (graft to left arm; heart cath) - IMMUNIZATION STATUS Childhood Immunizations: See Nurse Assessment Flu Vaccine: See Nurse Assessment - FAMILY HISTORY Family History: reviewed, not pertinent - SOCIAL HISTORY Smoking: cigarettes Provider spent 3-5 mins advising pt. on dangers of tobacco.: Discussed manners to quit use, and f/u contacts for add'l counseling. Substance Use: denies Living Situation: family <Diamond Milligan - Last Filed: 09/24/18 01:46> Physical Exam-General - PHYSICAL EXAM-ADULT Initial Vital Signs Reviewed: Yes - CONSTITUTIONAL General Appearance: appears well, alert, no apparent distress - EYES Eyes: PERRL/EOMI - HEAD, EARS, NOSE, MOUTH & THROAT HENMT: normocephalic/atraumatic, moist mucous membranes, TMs normal, pharynx normal - NECK Neck: non-tender, full range of motion, supple - RESPIRATORY Respiratory: chest non-tender, no pleuratic chest pain, no respiratory distress , no accessory muscle use, rhonchi (bilateral rhonchi) - CARDIOVASCULAR Cardiovascular: normal peripheral pulses, regular rate, rhythm - GASTROINTESTINAL (ABDOMEN) Abdominal Exam: normal bowel sounds, non tender, soft - LYMPHATIC Lymphatic: no adenopathy - MUSCULOSKELETAL Back Exam: no CVA tenderness, no vertebral tenderness Extremity: normal range of motion, non-tender, normal gait - SKIN Integumentary: normal color, normal turgor, warm/dry - NEUROLOGIC Neurologic: grossly normal, no motor/sensory deficits - PSYCHIATRIC Psych/Mental Status: normal mood/affect, normal thought content, normal thought process, oriented x 3 <Diamond Milligan - Last Filed: 09/24/18 01:46> Progress - PLAN OF CARE/RESULTS Progress/Plan/Lab Results: Vital Signs - 8 hr 09/24/18 00:12 Temperature 98.7 F Pulse Rate 87 Respiratory Rate 18 Blood Pressure 193/95 O2 Sat by Pulse Oximetry 99 Laboratory Results - last 24 hr 09/24/18 00:56 WBC 9.71 RBC 3.58 L Hgb 8.8 L Hct 28.7 L MCV 80.2 L MCH 24.6 L MCHC 30.7 L RDW Std Deviation 20.1 H Plt Count 119 L MPV 10.4 Immature Gran % (Auto) 0.4 Neut % (Auto) 59.9 Lymph % (Auto) 18.7 L Davison % (Auto) 3.1 Eos % (Auto) 17.3 H Baso % (Auto) 0.6 Immature Gran # (Auto) 0.04 Neut # (Auto) 5.81 Lymph # (Auto) 1.82 Davison # (Auto) 0.30 Eos # (Auto) 1.68 H Baso # (Auto) 0.06 Orders Category Date Time Status ED: Urine Bedside ORDERED Care 09/24/18 00:11 Active Saline Loc NOW Care 09/24/18 00:11 Active BLOOD CULTURE [BLDCUL] Stat Lab 09/24/18 01:00 Ordered CBC WITH ELECTRONIC DIFF [HEME] Stat Lab 09/24/18 00:56 Completed COMPREHENSIVE METABOLIC PANEL [CHEM] Stat Lab 09/24/18 00:56 Received LACTATE, PLASMA [CHEM] Stat Lab 09/24/18 00:12 Uncollected URINALYSIS W/POSS RFLX CULT [URINALYSIS] Stat Lab 09/24/18 00:12 Uncollected Result Diagrams: 09/24/18 00:56 09/24/18 00:56 - CHANGE OF SHIFT REPORT (ED Provider) Report Given and Care Transferred to:: Dr Newby Time of Transfer: 02:00 Items Pending: Labs, XRAY Results <Diamond Milligan - Last Filed: 09/24/18 01:46> - PLAN OF CARE/RESULTS Progress/Plan/Lab Results: Vital Signs - 8 hr 09/24/18 00:12 Temperature 98.7 F Pulse Rate 87 Respiratory Rate 18 Blood Pressure 193/95 O2 Sat by Pulse Oximetry 99 Bedside Urine ED: Urine Bedside Start: 09/24/18 00:11 Freq: ORDERED Status: Active Protocol: Activity Type Activity Date Activity User E-Sign Co-Sign Detail Recorded Client Recorded Date Recorded By Document 09/24/18 01:54 [id number] 09/24/18 01:55 [id number] 09/24/18 01:54 Point of Care [Bedside Point of Care] -Lot # [id number] - Results Negative -Control Line Visible? Yes Laboratory Results - last 24 hr 09/24/18 09/24/18 09/24/18 00:56 00:56 01:30 WBC 9.71 RBC 3.58 L Hgb 8.8 L Hct 28.7 L MCV 80.2 L MCH 24.6 L MCHC 30.7 L RDW Std Deviation 20.1 H Plt Count 119 L MPV 10.4 Immature Gran % (Auto) 0.4 Neut % (Auto) 59.9 Lymph % (Auto) 18.7 L Davison % (Auto) 3.1 Eos % (Auto) 17.3 H Baso % (Auto) 0.6 Immature Gran # (Auto) 0.04 Neut # (Auto) 5.81 Lymph # (Auto) 1.82 Davison # (Auto) 0.30 Eos # (Auto) 1.68 H Baso # (Auto) 0.06 Sodium 138 Potassium 3.9 Chloride 99 Carbon Dioxide 27 Anion Gap 12 BUN 23 H Creatinine 5.7 H Estimated GFR/1.73 m2 11 BUN/Creatinine Ratio 4 Glucose 267 H Calculated Osmolality 289 Calcium 7.8 L Total Bilirubin 0.48 AST 16 ALT 23 Alkaline Phosphatase 122 H Total Protein 6.2 L Albumin 3.0 L Globulin 3.2 Albumin/Globulin Ratio 0.9 Urine Source CLEAN CATCH Urine Color YELLOW Urine Clarity CLEAR Urine pH 8.5 Ur Specific Howell 1.010 Urine Protein >=300 A Urine Ketones NEGATIVE Urine Blood MODERATE A Urine Nitrite NEGATIVE Urine Bilirubin NEGATIVE Urine Urobilinogen 0.2 Urine Microscopic RBC <10 Urine WBC MODERATE A Urine Microscopic WBC <10 Ur Epithelial Cells >10 A Urine Crystals NONE SEEN Urine Bacteria 2+ Urine Casts NONE SEEN Urine Yeast NONE SEEN Urine Glucose 500 A Orders Category Date Time Status ED: Urine Bedside ORDERED Care 09/24/18 00:11 Active Saline Loc NOW Care 09/24/18 00:11 Active BLOOD CULTURE [BLDCUL] Stat Lab 09/24/18 02:01 Ordered CBC WITH ELECTRONIC DIFF [HEME] Stat Lab 09/24/18 00:56 Completed COMPREHENSIVE METABOLIC PANEL [CHEM] Stat Lab 09/24/18 00:56 Completed LACTATE, PLASMA [CHEM] Stat Lab 09/24/18 02:05 Received URINE CULTURE [RM] Routine Lab 09/24/18 02:35 Received Zosyn 2.25 gm/Ns IV Now Med 09/24/18 02:40 Ordered Piperacillin/Tazobactam [Zosyn] 2.25 gm 0.9% Sodium Chloride Inj [Ns] 50 ml IV NOW Result Diagrams: 09/24/18 00:56 09/24/18 00:56 - CONSULTS/PCP/HOSPITALIST Notification #1 *Consult/PCP/Hospitalist*: Dr. Greene, hospitaist Time Discussed: 03:45 Consult Disposition: Admit <Scott Newby - Last Filed: 09/24/18 03:53> Departure <Diamond Milligan - Last Filed: 09/24/18 01:46> - Departure Date of Disposition Decision: 09/24/18 Time of Disposition Decision: 03:52 Certified Medical Emergency: Emergent - Critical Care Note This patient required my direct & personal management of CC.: No <Scott Newby - Last Filed: 09/24/18 03:53> - Departure DIAGNOSIS: End stage chronic kidney disease LLL pneumonia Qualifiers: Pneumonia type: due to unspecified organism Qualified Code(s): J18.1 - Lobar pneumonia, unspecified organism Diabetes Qualifiers: Diabetes mellitus type: type 2 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: unspecified 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 operator insulin use status Diabetes mellitus complication status: with other specified complication Qualified Code(s): E11.69 - Type 2 diabetes mellitus with other specified complication Disposition: ADMITTED INPATIENT 09 Condition: Stable Referrals and Follow-Ups: None,PCP [Primary Care Provider] - Attestation - Physician/ TERESA Attestation Patient care was provided by Advanced Practice Provider:: Yes Advanced Practice Provider documentation review:: The Mid-level provider documentation, treatment plan and medical decision making was reviewed by the physician who agrees with all treatment and medical decision making by the MLP. The physician spent face to face time with patient:: Yes Advanced Practice Provider documentation review:: Supervising physician onsite and consulted in the evaluation and care of this patient. The physician did have a face to face encounter with the patient. <Scott Newby - Last Filed: 09/24/18 03:53> This chart was documented by the indicated scribe, (Idalia Sosa Scribe) and accurately reflects the services I performed and decisions made by me, Diamond Milligan CRNP, as attested by the provider's signature.
[2018-09-24 02:33] LABS: URINE BACTERIA 2+ /HFP; URINE EPITHELIAL CELLS >10 /HPF (<10); URINE RBC <10 /HPF (<10); URINE SOURCE CLEAN CATCH; URINE WBC <10 /HPF (<10)
[2018-09-24 02:34] LABS: URINE CAST NONE SEEN /LPF; URINE CRYSTAL NONE SEEN /HPF; URINE YEAST NONE SEEN /HPF
[2018-09-24 02:39] LABS: BILIRUBIN URINE NEGATIVE (NEGATIVE); BLOOD URINE MODERATE (NEGATIVE); CLARITY CLEAR (CLEAR); COLOR YELLOW; GLUCOSE URINE 500 mg/dL (NEGATIVE); KETONE URINE NEGATIVE (NEGATIVE); LEUKOCYTES URINE MODERATE (NEGATIVE); NITRITE URINE NEGATIVE (NEGATIVE); PH URINE 8.5; PROTEIN URINE >=300 mg/dL (NEGATIVE); UROBILINOGEN URINE 0.2 EU/dL (0.2-1.0)
[2018-09-24] MEDS ORDERED: ZOSYN 2.25 GM in NS 50 ML IV ONE (02:40)
[2018-09-24] MEDS ORDERED: MORPHINE IV ONE (02:43)
[2018-09-24] MEDS ORDERED: VANCOMYCIN IV PER PHARMACY MISC SCH (05:32)
[2018-09-24] MEDS ORDERED: MORPHINE ONE (05:42)
[2018-09-24] MEDS ORDERED: MAXIPIME 1 GM in NS 50 ML IV SCH (05:45)
[2018-09-24] MEDS: MORPHINE IV PRN ×2 (05:47→09:19)
[2018-09-24 05:59] LABS: ALLEN TEST YES; BE 8.4 mmoll (-3.0-3.0); BLOOD TYPE ARTERIAL; HCO3-(ACT) 31.3 mmoll (20.0-26.0); METHB 0.8 % (0.0-1.5); O2(CT) 10.9 mL/dL (15.0-23.0); PCO2(98.6) 44 mmHg (35-45); SAMPLE BLOOD; SAO2 87.4 % (95.0-100.0); THB 9.2 g/dL (11.5-17.4); pH(98.6) 7.48 (7.35-7.45)
[2018-09-24] MEDS ORDERED: VANCOMYCIN 1 GM/NS 1 GM/250 ML IVPB IV ONE ×2 (06:00→17:00)
[2018-09-24 06:02] LABS: MODALITY CANNULA; O2HB 84.3 % (95.0-99.0); PO2(98.6) 44 mmHg (60-100)
[2018-09-24 06:12] LABS: INR 1.09
[2018-09-24 06:13] LABS: PTT 35.5 Seconds (22.3-41.8)
[2018-09-24 06:18] LABS: MAGNESIUM 2.3 mg/dL (1.5-2.7)
--- NOTE | 2018-09-24 06:39 | HISTORY AND PHYSICAL ---
ADDENDUM: Patient was admitted to our facility because of worsening of 1 week history of shortness of breath and orthopnea with leg swelling. The patient was recently discharged from our facility for treatment of pneumonia and sent home on doxycycline which she states she completed the course. She went to see Dr. Lit Davies for followup yesterday. Chest film was done on account of the patient's clinical presentation and she was informed that her radiographic findings had worsened. They then tried to get her to come to the hospital but the patient says she has no vehicle to get her to the hospital. 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 The patient then elected to go home and get doxycycline later today but late last night, she became profoundly dyspneic and came to the ER to be admitted. Her lab work was only notable for white count 9,000, H and H 8 and 28, platelets of 119,000 which is a sudden drop from about a week ago. BUN 20, creatinine 5.7, glucose 267, alkaline phosphatase 122 but calcium 7.8. Lactic is normal. Urinalysis showed moderate WBCs, 2+ bacteria, 300 protein. Chest film showed bronchopneumonia in the lingular area. VITAL SIGNS: Her blood pressure was 170/85, temperature 98.7 degrees, respirations 22, pulse 86. She is 95% on 2 L. The rest of her exam just showed mild hepatojugular reflux. CHEST: Bibasilar crepitations. HEART: First and second heart sounds were heard. There is a 2/6 diastolic murmur. Rhythm regular. Pulses distally in lower extremities have good volume. She has 1+ pitting edema. ASSESSMENT: 1. Bronchopneumonia with mild pulmonary edema, probably secondary to marginal hemodialysis. Patient states she is compliant with her dialysis Saturday, Saturday, Saturday. 2. 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 The patient has been given 1 dose of vancomycin which will tide her over several days and 1 gram of Maxipime. We will consult Dr. Davies and Dr. Hawkins to see the patient. I will recommend repeating a chest film, a PA and lateral in a day or 2 to see if findings improve. If they do significantly improve then a large possible component of what was seen on the x-ray could be fluid overload. The patient has thrombocytopenia. This needs to be followed and worked up. cc: Linda Greene MD
[2018-09-24] MEDS ORDERED: TESSALON PO PRN (07:19)
[2018-09-24] MEDS ORDERED: HEPARIN SUBQ SCH (07:19)
[2018-09-24] MEDS ORDERED: ZOFRAN IV PRN (07:19)
[2018-09-24] MEDS ORDERED: TYLENOL PO PRN (07:19)
[2018-09-24] MEDS ORDERED: MUCINEX PO ONE (07:19)
--- NOTE | 2018-09-24 07:22 | HISTORY AND PHYSICAL ---
PRIMARY CARE PROVIDER: [facility] out of [place]. PRIMARY FILTER MACHINE OPERATOR: Dr. Darshan Shankar in [place]. PRIMARY FILER FINISH: Dr. Cross in [place]. DATE AND TIME: 09/24/2018 at 0500. CHIEF COMPLAINT: Shortness of breath. HISTORY OF PRESENT ILLNESS: Ms. Ross is a 27-year-old, -[place] female, who was just recently admitted and discharged from our facility. She was admitted on 2017 and was discharged on 09/13/2018. During this visit she was treated for hypoxic respiratory failure, fluid volume overload, as well as bilateral pneumonia. She was discharged home on oxygen via nasal cannula 2 L. She was also discharged home on antibiotics of doxycycline 100 mg p.o. b.i.d., and was receiving IV cefepime 1 g after dialysis on Mondays, Wednesdays, Fridays. The patient reports that on Saturday, approximately [id number], she did begin to have worsening shortness of breath. This initially started while lying flat, though the patient states she is now short of breath while sitting and with exertion. She also reports that she has started to feel worse as well and has had a worsening wet cough that has been nonproductive, though she denies any fever, body aches or chills at this time. She is also complaining of chest pain that is sharp and heavy in nature that occurs when she is lying flat, when she becomes short of breath, and when she is coughing. She also reports that she has had worsening swelling in her bilateral lower extremities that started on Saturday approximately 5-days-ago. The patient states that she has been going to her dialysis treatments as scheduled and has not missed any dialysis treatments. She is reporting some dysuria as well, though she is denying any headache, dizziness, abdominal pain, nausea, vomiting or diarrhea. She reports her last bowel movement was yesterday. She denies any hematochezia or melena. Also she states that a few days ago she did have her followup appointment with Dr. Davies at his office. They did perform a chest x-ray which appeared that her pneumonia had worsened. She had previously just finished her dose of doxycycline and she states that Dr. Davies did give her a new prescription, though she has not been able to get this filled at this time. Upon evaluation in the ER, the patient was resting comfortably in the ER stretcher. She was in no acute distress though is reporting that she does feel short of breath. She is awake, alert, and able to answers questions appropriately. Upon auscultation lung sounds were coarse and rhonchi bilaterally. She is diminished in the bases, though also does have crackles noted in the bilateral bases as well as in the right upper lung field. She did have some 1+ pitting edema noted in bilateral lower extremities from approximately midcalf down. At bedside upon my examination, the patient was reported sent home with nasal cannula at 2 L and did have an oxygen saturation of 95%-98% at that time. Though presently she is on 4 L nasal cannula and is only maintaining oxygen saturation in the 89%-90% range. At this time, the patient will be admitted for further treatment and evaluation of her pneumonia and acute hypoxic respiratory failure. REVIEW OF SYSTEMS: A 14 point review of systems was conducted with the patient and all were negative except for pertinent positives mentioned above in HPI. PAST MEDICAL HISTORY: 1. End-stage renal disease on hemodialysis on Mondays, Wednesdays, Fridays. Followed by Dr. Shankar for the last four years. It has also been noted in her previous medical records that she is currently going through workup to possibly receive a kidney transplant. 2. Hypertension. 3. Diabetes mellitus type I. 4. Peripheral nephropathy. 5. 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 6. History of CVA in 2014 that left her with a deficit of some left arm weakness. PAST SURGICAL HISTORY: 1. Left upper arm AV graft. 2. Right subclavian catheter placed and removed for dialysis. 3. Left heart catheterization in 2015 for which the patient reports there were no abnormalities and she did not require any intervention. SOCIAL HISTORY: Patient denies any tobacco or alcohol, though does report that she smokes marijuana. FAMILY HISTORY: Positive for diabetes on maternal side. Her paternal side also has a history of breast cancer and hypertension. ALLERGIES: The patient reports no known allergies. HOME MEDICATIONS: 1. Coreg 25 mg p.o. b.i.d. 2. Clonidine 0.1 mg p.o. b.i.d. 3. Doxycycline 100 mg p.o. q.12 hours. 4. Hydralazine 50 mg p.o. t.i.d. 5. Guanfacine 2 mg p.o. daily. 6. Lantus 10 units subcutaneous q a.m. 7. Lantus 10 units subcutaneous at bedtime. 8. Lisinopril 20 mg p.o. daily. 9. Reglan 5 mg, one-half tablet p.o. a.c. and at bedtime. 10.Nystatin 100,000 units per 1 mL oral suspension, 5 mL [id number] q.i.d. 11.Renvela powder packet 2.4 g p.o. t.i.d. with meals. DIAGNOSTIC DATA/LABORATORY RESULTS: 1. White blood cell count is 9,710, hemoglobin 8, hematocrit 28.7, platelet count 119,000. 2. Sodium 138, potassium 3.9, chloride 99, serum bicarb 27, BUN 23, creatinine 5.7 with a GFR of 11, glucose 267, calcium 7.8. 3. Liver function tests within normal limits except alkaline phosphatase is slightly elevated at 122. Plasma lactate is 8.8. 4. Arterial blood gas obtain on 6% FiO2: pH was 7.48, pCO2 44, pO2 is 44. Hco3 is 31.3. Base access is 8.4 with oxyhemoglobin 84.3 and O2 saturation of 87.4. Since these blood gases have been obtained, the patient has been placed on a partial rebreather. 5. Urinalysis was obtained via clean catch and positive for protein, blood, white blood cells, 2+ bacteria as well as glucose; though was negative for ketones, nitrites or yeast. 6. EKG performed showed normal sinus rhythm at a rate of 82 with a QTc of 469. 7. Chest x-ray did show bilateral infiltrates. When compared to chest x-ray that was performed on 09/11/2018, this does appear to be slightly worse. Though we are awaiting office Radiology over-read. PHYSICAL EXAMINATION; VITAL SIGNS: Temperature 98.7 degrees Fahrenheit, heart rate 86, respirations 20, blood pressure 150/90 (that was a manual blood pressure). The patient's blood pressure on the bedside monitor was reading elevated at 178/85. Though manually her blood pressure was much better. She at this time is on nasal cannula at 4 L and has O2 saturation of 90%, though as previously mentioned the patient's arterial blood gases have just recently returned and we are in the process of increasing her oxygen to a partial rebreather. GENERAL: Ms. Ross is a pleasant 27-year-old, -[place] female. She was resting in the ER stretcher. She was in no acute distress. She was awake, alert, and able to answers questions appropriately. HEENT: Head: Normocephalic and atraumatic. Eyes: The pupil of her left eye was unable to be examined. The patient does have a history of glaucoma as well as retinal detachment. She does have micky out of the left pupil noted secondary to this. Pupil on the right side is 3 mm, round, reactive to light and brisk. ENT: Oral mucosa is moist. NECK: Supple. Trachea is midline. CARDIOVASCULAR: The patient does have S1, S2 present. There is also a murmur noted as well. She does have a regular rate and rhythm. PULMONARY: Patient has symmetrical chest expansion bilaterally. Lung sounds in bilateral full dooley were coarse and did have rhonchi noted. She also does have crackles noted in bilateral bases as well as right upper lung field. She is also slightly diminished in the bases also. ABDOMEN: Soft, nontender. Does appear to be slightly distended. The patient does not report any abdominal tenderness upon palpation. Bowel sounds were present in all four quadrants and normoactive. EXTREMITIES: No cyanosis or clubbing noted. The patient did have some edema noted approximately 1+ in bilateral lower extremities from the midcalf down. Though pulse, motor and sensory are intact in all extremities. Radial pulses and pedal pulses are 2+ bilaterally. INTEGUMENTARY: The patient's skin color is normal for her race, dry and intact. NEUROLOGIC: Patient is alert and oriented to person, place, time and situation. There do not appear to be any focal neurological deficits noted. IMPRESSION AND PLAN: 1. Bilateral pneumonia. For treatment of this, given that the patient has previously been on antibiotics of doxycycline and cefepime we have decided to discontinue the doxycycline at this time. We will place her with antibiotic of vancomycin. We will continue the cefepime. We will renally dose these. At this time, we have ordered cefepime 1 gm to be given Mondays, Wednesdays, Fridays after dialysis. We have placed a consult with Dr. Davies for assistance with this as well given that he has been treating her in the hospital and outpatient and is familiar with her. We will await his evaluation and further recommendations for management. We will continue with aggressive pulmonary toileting with incentive spirometry, scheduled DuoNeb treatments, Mucinex, and encourage to turn, cough, and deep breathe. We will monitor her respiratory status closely. 2. Acute hypoxic respiratory failure. As previously mentioned, the patient did get discharged on oxygen nasal cannula at 2 L. Though at this time in the ER this was increased to 4 L and the patient was still maintaining oxygen saturations of 89% and 90%. Arterial blood gas did show that the patient did have a decreased pO2 of 44 and oxyhemoglobin of 84.3 with an O2 saturation of 87.4. We have placed her on a partial rebreather at this time. We will continue to monitor this closely and also continue treatment as mentioned above in #1. 3. End-stage renal disease on hemodialysis. Were have placed a consult with Dr. Hawkins. We will await his evaluation and further recommendations for management. 4. Urinary tract infection. The patient is reporting symptoms with this of dysuria. We have placed a urine culture though the patient is on antibiotics as mentioned above. We will continue to follow. 5. Hypertension. We will continue the patient's regularly scheduled antibiotics. The patient was initially hypertensive upon arrival to the ER with systolic blood pressures that were in the 190s to 200s, and diastolic pressures of 90-100. The patient has been given some morphine in the ER and since that time a most recent manual blood pressure was 150/90. We will continue her regularly scheduled antihypertensive medication. 6. Diabetes mellitus type I. We will continue her Lantus 10 units b.i.d. as well as a sliding- scale Lispro insulin. 7. Deep venous thrombosis prophylaxis. Provided with heparin 5000 units subcutaneous q.12 hours. DISPOSITION: The patient will be placed on the medical floor with telemetry. She will have vital signs q.4 hours. We will do strict intake and output. She will be on a diabetic and Heart Healthy diet. Blood cultures, sputum cultures and urine cultures are pending at this time. Further orders and recommendations pending hospital course, diagnostic studies, and physician evaluation. Dictated by KAMALA Story for Linda Greene MD cc: MD Darshan Martidish, MD [facility]
[2018-09-24] MEDS ORDERED: TIGHT: 0.2 ML/HR FOR DIALYSIS MISC PRN (07:25)
[2018-09-24] MEDS ORDERED: HEPARIN IV PRN (07:25)
[2018-09-24] MEDS: HUMALOG SUBQ SCH ×4 (07:25→21:12)
[2018-09-24] MEDS ORDERED: NS 2,000 ML MISC PRN (07:25)
--- NOTE | 2018-09-24 07:54 | EKG Report ---
Test Performed on : 09/24/2018 06:06:10 AM Test Reason : SOB,Chest Pain Blood Pressure : / mmHG Vent. Rate : 082 BPM Atrial Rate : 082 BPM P-R Int : 170 ms QRS Dur : 078 ms QT Int : 402 ms P-R-T Axes : 041 031 061 degrees QTc Int : 469 ms Normal sinus rhythm. Normal ECG When compared with ECG of 24-SEP-2018 06:05, (Unconfirmed) No significant change was found Unconfirmed Result
[2018-09-24] MEDS: DUONEB (A & A) INH SCH ×4 (08:01→23:45)
[2018-09-24] MEDS ORDERED: MYCOSTATIN SUSP PO SCH (09:00)
[2018-09-24] MEDS ORDERED: TENEX PO SCH (09:00)
[2018-09-24] MEDS ORDERED: VANCOMYCIN 1 GM/NS 1 GM/250 ML IVPB IV SCH (09:00)
[2018-09-24] MEDS ORDERED: INSULIN PEN NEEDLES ONE (09:02)
[2018-09-24] MEDS: CATAPRES PO SCH ×2 (09:19→21:12)
[2018-09-24] MEDS: APRESOLINE PO SCH ×3 (09:19→17:10)
[2018-09-24] MEDS: NORVASC PO SCH (09:20)
[2018-09-24] MEDS: COREG PO SCH ×2 (09:20→21:13)
[2018-09-24] MEDS: PRINIVIL PO SCH (09:20)
[2018-09-24] MEDS: BASAGLAR SUBQ SCH ×3 (09:20→21:12)
[2018-09-24 09:26] LABS: ALLEN TEST YES; BE 7.7 mmoll (-3.0-3.0); BLOOD TYPE ARTERIAL; HCO3-(ACT) 30.8 mmoll (20.0-26.0); O2(CT) 12.6 mL/dL (15.0-23.0); O2HB 90.4 % (95.0-99.0); PCO2(98.6) 43 mmHg (35-45); PO2(98.6) 57 mmHg (60-100); SAMPLE BLOOD; SAO2 93.5 % (95.0-100.0); THB 9.9 g/dL (11.5-17.4); pH(98.6) 7.48 (7.35-7.45)
[2018-09-24 09:27] LABS: MODALITY PRB
[2018-09-24] MEDS: XANAX PO SCH ×3 (09:30→20:01)
[2018-09-24] MEDS: RENVELA POWDER PACKET PO SCH ×3 (09:32→17:11)
--- NOTE | 2018-09-24 09:54 | NEPHROLOGY CONSULTATION ---
DATE: 09/24/2018 REASON FOR ADMISSION: Pneumonia. REASON FOR CONSULTATION: Assist with ESRD management. CONSULTING PHYSICIAN: Dr. Linda Greene. HISTORY OF PRESENT ILLNESS: This is a 27-year-old female, who was recently discharged from this facility secondary to pneumonia and hypoxic respiratory failure. She normally dialyzes at the [facility]. Her armorer technician is Dr. Shankar out of [place]. At the time of last discharge, she went home on doxycycline, and she was followed by Infectious Disease. She had a followup in their office and, because of her presentation, she was sent for a chest x-ray which indicated her pneumonia had worsened. They had attempted to get her to come into the hospital at that time, but the patient was not able to. Her pharmacy did not have significant supply of doxycycline, and she had not received a refill because of that. On the day of presentation, her breathing effort became much worse, and she was able at that time to present to the emergency room. In the ER, she was found to have 1+ pitting edema from the mid calf down. She did require O2 supplementation at that time with 4 L to maintain O2 sats in the 88 to 90 range. She was admitted to the hospital for further workup and treatment of her pneumonia that had continued. This morning, when I see her, she is obviously short of breath. She remains on a Ventimask and is waiting to go to dialysis. She has had some nausea but no vomiting. She does have chest pain related to her breathing. PAST MEDICAL HISTORY: Diabetes, hypertension, end-stage renal disease and dialyzes on Saturday, Saturday, and Saturday. Peripheral neuropathy, history of CVA. Hyperphosphatemia. SURGICAL HISTORY: She has an AV graft left upper extremity. She has had a heart catheterization. She has had a right subclavian catheter placement and removal for previous dialysis. ALLERGIES: None. HOME MEDICATIONS: 1. Coreg. 2. Clonidine. 3. Doxycycline. 4. Hydralazine. 5. Guaifenesin. 6. Lantus. 7. Lisinopril. 8. Reglan. 9. Statin FAMILY HISTORY: Diabetes, breast cancer, hypertension. SOCIAL HISTORY: No tobacco or ETOH. She has smoked marijuana in the past. She is currently in the process of kidney transplant workup. REVIEW OF SYSTEMS: Pertinent positives noted above in the history of present illness. Primarily fatigue, shortness of breath, and chest pain. PHYSICAL EXAMINATION: Vital Signs: Temperature 98.7, pulse 81, respiratory rate 19, blood pressure 182/102. Intake and output have not been documented yet. General: This is a young adult female sitting up in bed. She is in mild distress secondary to shortness of breath and dyspnea. HEENT: Normocephalic, atraumatic. CLARY. Conjunctivae are pale. Normocephalic, atraumatic. Pupil on the right is brown, reactive to light. Pupil on the left has micky out secondary to glaucoma. Neck: Supple. There is positive JVD. Cardiovascular: Reveals regular rate and rhythm. Pulmonary: She has equal excursion and coarse rhonchi bilaterally. She has decreased breath sounds to the bases with scattered wheeze and rales. Abdomen: Soft with positive bowel sounds. Genitourinary: Not inspected. Extremities: 1+ edema. Integumentary: Skin is warm and dry. Neurologic: Grossly nonfocal. LABORATORY DATA: WBC of 9.7, hemoglobin 8.8. Sodium 138, potassium 3.9, CO2 of 27, creatinine 5.7. Chest x-ray with bronchopneumonia that is worse than previous of 09/11/2018. ASSESSMENT AND PLAN: 1. End-stage renal disease on hemodialysis. We will plan to dialyze her today on a 2 K bath/UF to dry weight 3.5 hour treatment. I did discuss with the patient that while she is in the hospital and undergoing treatment for her pneumonia, we may dialyze her with extra treatments to keep her on the dry side to help assist with her respiratory status. Patient is in agreement. We will make daily decisions regarding extra treatments. 2. Bilateral pneumonia and hypoxic respiratory failure. Patient currently on Ventimask. She is followed by Infectious Disease for her pneumonia. She has seen Pulmonology on previous hospitalization. We will defer to primary for care consult. 3. Urinary tract infection. Patient was noted to have 3+ protein, moderate blood, WBCs in her urine. Cultures are pending. She is already on antibiotic treatment and is followed by Infectious Disease. Medication review: No changes needed. 4. Hypertension. Continue the patient's home medications. Add additional adjunct therapy as warranted. My exam was at approximately 08:15. She was sitting up in bed holding her mask to her face. Anxious, tachypneic with RR ~30. Exam with gallop and diffuse crackles. CXR and ABG ordered and I contacted dialysis to have her treated AUNDREA. Also discussed directly with Mel and Jacob in order to coordinate services. rg Dictated by KAAMLA Walters for Dwain Hawkins MD Face to face encounter, data reviewed, discussed with Shikha Salazar on 09/24/18. I agree with the above assessment and plan of care. hari cc: Dwain Hawkins MD [facility]
--- NOTE | 2018-09-24 10:15 | Diag Imaging Result Doc PS360 ---
EXAM: CT THORAX W/O CONTRAST 09/24/2018 HISTORY: worsening pna TECHNIQUE: This exam was performed using automated exposure control, adjustment of mA or kV according to patient size, and/or use of iterative reconstruction technique. COMMENT: There is interstitial edema and dense patchy alveolar opacity throughout both lungs particularly in the right upper lobe. Compared to 09/07/2018 this is worse,again, particularly in the right upper lobe. There are bilateral pleural effusions worse on the right than the left which were not present at the time the previous study. There is some degree of anasarca. There are enlarged prevascular and aorticopulmonary window nodes. Some of these appear to be larger than on the previous examination. The regional skeleton is stable in appearance. IMPRESSION: Worsened pulmonary edema and/or pneumonia. Slightly worsened mediastinal adenopathy. The possibility of atypical pneumonia should be considered. Electronically signed by Kapil Francis 09/24/2018 10:13 AM
--- NOTE | 2018-09-24 10:18 | Diag Imaging Result Doc PS360 ---
EXAM: CHEST-PORTABLE 09/24/2018 HISTORY: Worsening SOB TECHNIQUE: AP upright at 0934 COMMENT: There is worsened alveolar opacification in the left lower lobe and throughout the perihilar and basilar portions of the right lung. This has changed considerably since 09/23/2018. IMPRESSION: Marked worsening of pneumonia plus minus pulmonary edema. Electronically signed by Kapil Francis 09/24/2018 10:15 AM
[2018-09-24] MEDS ORDERED: MORPHINE IV PRN (14:40)
[2018-09-24] MEDS ORDERED: NARCAN ONE ×2 (15:00)
[2018-09-24] MEDS ORDERED: EPINEPHRINE SYRINGE ONE (15:00)
[2018-09-24] MEDS ORDERED: DIPRIVAN 1% IV ONE (15:44)
[2018-09-24] MEDS ORDERED: MAXIPIME 1 GM in NS 50 ML IV ONE (16:00)
[2018-09-24] MEDS: DIPRIVAN 1% 1,000 MG/100 ML BOTTLE IV SCH ×2 (16:14→22:03)
--- NOTE | 2018-09-24 16:38 | Diag Imaging Result Doc PS360 ---
EXAM: CHEST-PORTABLE 09/24/2018 HISTORY: ET placement verified TECHNIQUE: AP portable semiupright at 1618 COMMENT: There is an endotracheal tube with its tip slightly below the thoracic inlet and an NG tube with its tip in the stomach. There is diffuse interstitial and some alveolar opacity bilaterally. This has improved slightly possibly a partially due to better inspiration compared to 09/24/2018 at 0934. The right hemidiaphragm is now partially visible which was not the case previously. IMPRESSION: Improved inspiration and possibly improved pulmonary edema/ARDS. Electronically signed by Kapil Francis 09/24/2018 4:36 PM
[2018-09-24] MEDS: ZYVOX 600 MG/D5W 600 MG/300 ML IVPB IV SCH (17:01)
[2018-09-24] MEDS: DIFLUCAN 200 MG/NS 200 MG/100 ML IVPB IV SCH (17:02)
[2018-09-24 17:26] LABS: ALLEN TEST NO; BE -1.3 mmoll (-3.0-3.0); BLOOD TYPE ARTERIAL; HCO3-(ACT) 23.6 mmoll (20.0-26.0); METHB 1.1 % (0.0-1.5); O2(CT) 11.3 mL/dL (15.0-23.0); PCO2(98.6) 47 mmHg (35-45); SAMPLE BLOOD; SAO2 85.6 % (95.0-100.0); SRATE 16 BPM; THB 9.8 g/dL (11.5-17.4); TVOL 500 mL; pH(98.6) 7.33 (7.35-7.45)
[2018-09-24 17:27] LABS: O2HB 81.8 % (95.0-99.0); PO2(98.6) 46 mmHg (60-100)
[2018-09-24 17:28] LABS: MODALITY VENTILATOR
[2018-09-24] MEDS ORDERED: KEPPRA 1,000 MG in NS 100 ML IV ONE (19:43)
[2018-09-24] MEDS: MERREM 1 GM in NS 50 ML IV SCH (20:29)
[2018-09-24] MEDS ORDERED: D50W SYRINGE IV ONE (21:10)
[2018-09-24] MEDS: D50W SYRINGE ONE (22:19)
[2018-09-25] MEDS: XANAX PO SCH ×4 (01:49→21:06)
[2018-09-25] MEDS: DUONEB (A & A) INH SCH ×7 (03:00→23:16)
[2018-09-25] MEDS: DIPRIVAN 1% 1,000 MG/100 ML BOTTLE IV SCH ×4 (03:04→19:01)
[2018-09-25] MEDS: ZYVOX 600 MG/D5W 600 MG/300 ML IVPB IV SCH ×2 (03:31→16:47)
--- NOTE | 2018-09-25 04:01 | PROGRESS NOTE ---
DATE: 09/24/2018 SUBJECTIVE: I went to see this patient in the morning and she was complaining of severe shortness of breath. She was requiring oxygen supplementation on Ventimask, and she was very scared that she will stop breathing so she went for usual dialysis where as per report they removed approximately 3 L of fluid. I was called around 2:50 p.m. because this patient developed a cardiac arrest. OBJECTIVE: Vital Signs: Temperature is 7.5, heart rate 120, respiratory rate 24, blood pressure 143/88, O2 saturation 99% on ventilator. General: This is a chronically ill- looking 27-year-old female lying in bed in no acute distress. HEENT: Head is normocephalic and atraumatic. Neck: No JVD noted. No carotid bruits. No lymphadenopathy. No thyromegaly. Cardiovascular: S1, S2 heard. Tachycardic. No murmurs, gallops, or rubs. Regular rate and rhythm. Respiratory: Coarse breath sounds all over both pulmonary dooley with some crackles in both bases. The patient not using any accessory muscles or having work of breathing. Abdomen: Soft, a little bit distended but nontender to palpation. Bowel sounds present. No organomegaly. Extremities: No clubbing, cyanosis, or edema. Peripheral pulses present in both legs. Neurological: The patient is intubated and sedated. IMAGING: CT of the chest done today showed worsening pulmonary edema and/or pneumonia with a slightly worsening mediastinal adenopathy, and the possibility of atypical pneumonia should be considered. ASSESSMENT AND PLAN: 1. Healthcare-associated bilateral pneumonia. The patient came to the hospital complaining of shortness of breath. Apparently she was using vancomycin and cefepime, but it was discontinued. Upon my examination in the morning she was having some crackles that are indicative from pulmonary edema, but she went for dialysis and they removed 3 L of fluid. At this time I do know exactly what has triggered this episode of cardiorespiratory arrest. In any case we will continue with antibiotics. We will follow recommendations from Dr. Davies. 2. Acute hypoxic respiratory failure. Her oxygen needs have been going up and up progressively. At this time the patient is intubated. Pulmonary will be consulted. We will follow recommendations. Chest X ray looks definitively worse. It could be ARDS or worsening pulmonary edema although she finished routine dialysis just before cardiac arrest happened. Also because of her hemoptysis it also could be pulmonary hemorrhage as well. Will monitor her closely. 3. End-stage renal disease on dialysis. Dr. Hawkins is following this patient. 4. Urinary tract infection. The patient reports some dysuria, we will wait for results of her urine culture. 5. Hypertension. At this point the blood pressure has been a little bit higher because of the medication that she has received for advanced cardiac life support. We will continue to monitor. 6. Status post cardiac arrest. We do not know exactly what has triggered this problem. At this point we are going to check troponins. We are going to monitor this patient closely in the intensive care unit. We will consult Pulmonary. We will consult also Cardiology and we will go from there. We have provided approximately 12 minutes of chest compressions, 6 amps of epinephrine, and also ventilations as well. At this point we are going to send this patient to the Intensive Care Unit. Critical care time spent 35 minutes. cc: Bartolo Fish MD MTDD
[2018-09-25] MEDS ORDERED: NS 500 ML ONE (05:04)
[2018-09-25 05:08] LABS: ALLEN TEST YES; BE 0.2 mmoll (-3.0-3.0); BLOOD TYPE ARTERIAL; METHB 0.5 % (0.0-1.5); O2(CT) 11.8 mL/dL (15.0-23.0); O2HB 90.8 % (95.0-99.0); PCO2(98.6) 38 mmHg (35-45); PO2(98.6) 64 mmHg (60-100); SAMPLE BLOOD; SAO2 93.7 % (95.0-100.0); SRATE 22 BPM; THB 9.2 g/dL (11.5-17.4); TVOL 450 mL; pH(98.6) 7.42 (7.35-7.45)
[2018-09-25 05:10] LABS: MODALITY VENTILATOR
[2018-09-25 06:13] LABS: PHOSPHORUS 3.8 mg/dL (2.7-4.5)
--- NOTE | 2018-09-25 06:15 | INFECTIOUS DISEASE PROGRESS NO ---
DATE: 09/24/2018 PRESENT ILLNESS: Ms. Ross was recently discharged from the hospital after being treated for pulmonary edema/pneumonia. I saw her in the office yesterday at which time we repeated a chest x- ray which showed a worsening pneumonia/pulmonary edema. I called her at home and told her that we wanted her to be admitted to the hospital at which time she said she was unable. She then later on in the evening did come into the ER as we had requested. She also had an oral candidiasis. When I went up to [facility] this afternoon to evaluate her, she had just gone into respiratory distress and asystole. She was intubated with the return of a regular heart rhythm. MEDICATIONS: After she was discharged from the hospital last week, we sent her home with cefepime 1 g after dialysis and doxycycline 100 mg every 12 hours by mouth, as well as nystatin swish and swallow, which she had taken for the last week. At this point, she has received some vancomycin, which we will discontinue due to her history of eosinophilia noted on her last admission which resolved after discontinuing the vancomycin. We will also discontinue the cefepime 1 g after dialysis and start her on IV Zyvox 600 mg every 12 hours and Meropenem 1 gm every evening. At this point, she will not be able to do nystatin swish and swallow, so we will start her on fluconazole 200 mg IV daily. PHYSICAL EXAMINATION: Vital Signs: I do not see any vital signs that have been documented since her code but pre-code, she had a temperature of 97.5 degrees, pulse rate of 96, respiratory rate 20, blood pressure 143/88, and O2 saturation 92%, apparently on a nonrebreather. General: This is a critically ill-appearing, young female. She is lying in the bed, status post respiratory and cardiac resuscitation. She has been intubated and is receiving oxygenation per Ambu bag. Cardiac: Her cardiac rhythm is sinus tachycardia which is regular and in the 120s at this point. HEENT: Atraumatic, normocephalic. Oral mucous membranes are pink and moist. She does have some blood and frothy white sputum coming out of the ET tube. Her conjunctivae are pale. Respiratory: Lung sounds have coarse rhonchi noted bilaterally. Abdomen: Soft and somewhat distended. Neurologic: The patient is not responding at this point, status post code. Extremities: There is an AV fistula in place to the left upper arm. The site has a good thrill and bruit. LABORATORY AND X-RAY: This morning, her white count was 9.71, hemoglobin 8.8, platelet count 119,000, her eosinophilia level was 17.3%. Blood gas done this morning showed a pH of 7.48, pCO2 of 43, PO2 of 57, HC03 of 30.8 on a partial rebreather at 70%. Creatinine 5.7. GFR 11. AST 16, ALT 23, alkaline phosphatase 122. Creatine kinase 45. Urine showed moderate WBCs and 2+ bacteria. There is a urine culture and a set of blood cultures pending. Sputum culture has been ordered. A CT of the chest done this morning showed worsening pulmonary edema and/or pneumonia with slightly worsened mediastinal adenopathy. Chest x-ray this morning showed marked worsening of pneumonia plus or minus pulmonary edema. ASSESSMENT AND PLAN: Ms. Ross, unfortunately, has gone into respiratory distress and lost a pulse status post hemodialysis, with a pneumonia and oral candidiasis. She is in [facility] recovering from the code and the plan is to move her to ICU when that bed is available. She is intubated. We will go ahead and give her meropenem and Zyvox intravenously, to cover her bacterial pneumonia, until sputum is obtained and resulted. We will also give her fluconazole 200 mg intravenous daily to prevent recurrence of her oral candidiasis. These plans have been discussed with and recommended by Dr. Davies. COMORBIDITIES: For Ms. Ross include end-stage renal disease with hemodialysis, diabetes mellitus, and peripheral neuropathy. Dictated by KAMALA Gore for Lit Davies MD This chart was documented by, KAMALA Gore and accurately reflects the services performed, treatment plan and medical decisions as attested by the providers signature Lit Davies MD. cc: Lit Davies MD [facility]ITAL[facility]
[2018-09-25 06:23] LABS: ALB/GLOB RATIO 0.9; ALBUMIN 3.4 g/dL (3.5-5.0); CALCIUM 8.8 mg/dL (8.8-10.2); CREATININE 6.3 mg/dL (0.5-0.9); POTASSIUM 4.9 mmol/L (3.5-5.1); TOTAL BILIRUBIN 0.91 mg/dL (0.20-1.00); TOTAL PROTEIN 7.1 g/dL (6.3-8.3)
[2018-09-25 06:29] LABS: BASO# 0.02 X1000 (0.0-0.2); BASO% 0.1 % (0.0-0.8); EOS# 0.24 X1000 (0.0-0.7); EOS% 1.5 % (0.0-10.0); HEMATOCRIT 29.6 % (37.0-47.0); HEMOGLOBIN 9.2 g/dL (12.0-16.0); IMM GRAN# 0.11 X1000 (0.0-0.04); IMM GRAN% 0.7 % (0.0-0.5); LYMPH# 1.17 X1000 (1.2-3.4); LYMPH% 7.1 % (20.5-51.1); MCH 25.3 PG (27-31); MCHC 31.1 g/dL (33-37); MCV 81.3 FL (81-99); MONO# 0.82 X1000 (0.11-0.59); MPV 11.6 FL (7.4-10.4); NEUT# 14.14 X1000 (1.4-6.5); NEUT% 85.6 % (42.2-75.2); PLT 206 X1000 (130-400); RBC 3.64 XMIL (4.2-5.4); RDW 20.5 % (11.5-14.5)
[2018-09-25] MEDS: HUMALOG SUBQ SCH ×3 (06:34→21:06)
--- NOTE | 2018-09-25 07:01 | Diag Imaging Result Doc PS360 ---
EXAM: CHEST-PORTABLE 09/25/2018 HISTORY: respiratory failure TECHNIQUE: AP portable at 0450 COMMENT: There is an endotracheal tube with its tip at thoracic inlet and an NG tube which passes below the diaphragm. There is alveolar pulmonary edema bilaterally which is slightly worse than on the previous study of 09/24/2018. IMPRESSION: Worsened pulmonary edema/ARDS. Electronically signed by Kapil Francis 09/25/2018 6:58 AM
--- NOTE | 2018-09-25 07:30 | OPERATIVE NOTE ---
PROCEDURE DATE: 09/24/2018 TIME: 7:15 p.m. INDICATION: I have been asked to place a central venous line for IV access. The patient is comatose after a cardiac arrest and is on the ventilator. DESCRIPTION OF PROCEDURE: The right groin was prepped and draped in a sterile fashion. Ultrasound imaging was done, showing the femoral vein which was patent. We made a small stab incision and accessed the femoral vein under ultrasound guidance. We passed the guidewire without difficulty. We then dilated the tract and then passed the triple-lumen catheter to 19 cm. We aspirated blood from each lumen. We then flushed each lumen with saline. We secured the flange to the skin with the silk contained within the tray. A BioStep patch was placed at the exit site and a sterile OpSite dressing was applied. She tolerated it well. cc: Haris Russell MD
[2018-09-25 07:34] LABS: EOS 1 % (1-10); LYMPHS 7 % (21-51); MONO 5 % (1-9); SEGS 87 % (42-75)
--- NOTE | 2018-09-25 07:44 | PULMONOLOGY CONSULTATION ---
DATE: 09/24/2018 REASON FOR CONSULTATION: Respiratory failure. HISTORY OF PRESENT ILLNESS: Ms. Ross is a 27-year-old, black female, with a greater than 25- year-history for insulin-requiring diabetes, who has been on hemodialysis for several years due to hypertension and diabetes mellitus. The patient was admitted to this facility from 08/09/2018 until 08/30/2018, and discharged with a diagnosis of hypertensive urgency and pulmonary edema. She was readmitted to the hospital from 09/07/2018 until 09/13/2018. The patient presented with bilateral infiltrates, cough productive of bloody sputum, with a systolic blood pressure of over 200. The patient was evaluated for possible connective tissue diseases along with vasculitis. Anti-GBM and ANCA were negative. With blood pressure control, her chest x-ray infiltrates continued to improve. She was also treated for possible pneumonia. The patient presented to the emergency room. She is managed by an outside block hacker. The patient returned to the emergency room this morning. She was hypertensive, with systolics reaching over 200. Chest x-ray revealed marked worsening of bilateral pulmonary infiltrates. The patient went for dialysis, with some correction of her hypertension. The patient developed some chest pain, and received some pain medications. She developed a cardiopulmonary arrest and by report was down for greater than 12 minutes. She was successfully resuscitated and is now in the ICU. PAST MEDICAL HISTORY: 1. Long-standing type 1 diabetes mellitus, as per above. 2. End-stage renal disease on hemodialysis, as per above. 3. Hypertension. 4. Peripheral neuropathy. 5. Glaucoma. 6. History of stroke with residual left arm weakness. 7. 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 SOCIAL HISTORY: The patient smokes marijuana. No alcohol or tobacco. FAMILY HISTORY: Positive for breast cancer, hypertension, and diabetes mellitus. REVIEW OF SYSTEMS: Cannot be obtained. PHYSICAL EXAMINATION: General: Examination reveals a chronically ill-appearing, white female who appears older than her stated age of 27. Vitals: Blood pressure 139/97, heart rate 91, respiratory rate 20, oxygen saturation 96% on mechanical ventilation. HEENT: Right pupil is midpoint and marginally reactive. Left pupil is cloudy. Oropharynx is clear. Endotracheal tube is in place, with bloody secretions noted. Neck: Supple. Chest: The chest reveals coarse crackles bilaterally. Cardiac: Distant heart sounds. Normal S1, normal S2. Abdomen: Soft. Extremities: Without edema. LABORATORIES: Chest x-ray reveals diffuse bilateral infiltrates, with endotracheal tube in good position. CT scan of the thorax earlier this morning reveals diffuse bilateral edema/infiltrates, cardiomegaly, right greater than left pleural effusions. Most recent arterial blood gas reveals a pH of 7.33, a pCO2 of 47, pO2 of 46, with a lactate of 5.1. IMPRESSION: A 27-year-old with long history of diabetes mellitus, long history of hypertension, who presents to the emergency room with hypertensive crisis, severe pulmonary edema with alveolar hemorrhage, acute hypoxemic respiratory failure and has now sustained a cardiopulmonary arrest. RECOMMENDATIONS: 1. Continue full ventilatory support. 2. Continue propofol. We will initiate Keppra for possible seizures. 3. Hypothermia, given her young age. 4. Consider Neurology evaluation soon. With her amount of down time and resuscitation, her prognosis is guarded to poor. cc: Darshan Leal MD
[2018-09-25] MEDS: APRESOLINE PO SCH ×3 (08:20→16:47)
[2018-09-25] MEDS: PRINIVIL PO SCH (08:24)
[2018-09-25] MEDS: BASAGLAR SUBQ SCH ×2 (09:18→21:06)
[2018-09-25] MEDS: MERREM 1 GM in NS 50 ML IV SCH (09:18)
[2018-09-25] MEDS ORDERED: INSULIN PEN NEEDLES ONE (09:20)
[2018-09-25] MEDS: CATAPRES PO SCH ×2 (09:21→21:06)
[2018-09-25] MEDS: NORVASC PO SCH (09:22)
[2018-09-25] MEDS: RENVELA POWDER PACKET PO SCH ×3 (09:22→16:48)
[2018-09-25] MEDS: COREG PO SCH ×2 (09:22→21:06)
--- NOTE | 2018-09-25 09:34 | PROGRESS NOTE ---
DATE: 09/25/2018 SUBJECTIVE: The patient continues sedated and intubated. No acute issues noted as per nursing staff overnight. OBJECTIVE: Vital Signs: The patient is on hypothermia protocol. Temperature at 3:23 was 96.7, heart rate 90, respiratory rate 28, blood pressure 138/83, O2 saturation 96% on mechanical ventilator at FiO2 of 40%. General Examination: This is a chronically ill-looking 27-year-old female lying in bed, in no acute distress. HEENT: Head is normocephalic and atraumatic. Mucous membranes dry. Patient on ventilator. Neck: No JVD noted. No carotid bruits. No lymphadenopathy. No thyromegaly. Cardiovascular: S1 and S2 heard. Tachycardic, but no murmurs, gallops, or rubs noted. Respiratory: Coarse breath sounds still present on both pulmonary dooley. Some minimal crackles noted in both bases. The patient is not using any accessory muscles or having work of breathing. Abdomen: Soft, a little bit distended. Bowel sounds present. No organomegaly noted. Apparently nontender to palpation. No signs of peritoneal irritation. Extremities: No clubbing, cyanosis, or edema. Peripheral pulses present in both legs. A central line is in place in the right femoral vein. Neurological: The patient is sedated and intubated. LABORATORY DATA: White cell count 16.50, hemoglobin 9.2, hematocrit 29.6, platelets 206,000. ABG shows pH 7.42, pCO2 38, PO2 64 on ventilator at FiO2 of 60%. BMP shows sodium 135, potassium 4.9, BUN 32, creatinine 6.3, glucose 345. ASSESSMENT AND PLAN: 1. Acute respiratory failure, on ventilator. The patient has been intubated after she developed a cardiac arrest. Oxygen needs continue to go down. Now she is requiring, this morning, FiO2 of 40%. Dr. Leal from pulmonary has been consulted. Help appreciated. The x-ray from this morning showed worsening pulmonary edema versus acute respiratory distress syndrome. On my personal review, the film looks basically the same in comparing with yesterday. As we mentioned before, that could be also alveolar hemorrhage because clinically she was having hemoptysis. In any case, we will continue to monitor this patient closely. 2. Healthcare-associated pneumonia. That is the reason why this patient was readmitted to the hospital. Currently, this patient is on meropenem and Zyvox. White cell count is elevated. The patient did not develop any fever. Actually, she is on hypothermia protocol. Blood cultures are still pending. Urine culture shows yeast. Will follow recommendation from Dr. Davies regarding management of antibiotics. 3. Status post cardiac arrest. The patient was resuscitated for 12 minutes, also receiving 4 amps of epinephrine. At this time, as per Dr. Leal's recommendations, the patient is on hypothermia protocol considering her young age. That will be discontinued around 4:30 today. Will follow recommendations. 4. Hypertension. At this point, we are not going to provide any medication for blood pressure. Will continue to monitor vitals every 4 hours. 5. End-stage renal disease, on dialysis. Dr. Hawkins is following this patient. The x-ray shows pulmonary edema, but this also could be alveolar hemorrhage. Will leave him to decide when the patient is going to receive dialysis. Help appreciated. 6. Diabetes mellitus type 1. The patient's blood sugar has been really high, in the range of 300, so will restart her basal insulin, in this case Levemir that will be 10 units daily, and will adjust accordingly. 7. Disposition. Will continue to monitor this patient closely in the intensive care unit. CRITICAL CARE TIME: Thirty-five minutes. cc: Bartolo Fish MD
--- NOTE | 2018-09-25 10:25 | NEPHROLOGY PROGRESS NOTE ---
DATE: 09/25/2018 SUBJECTIVE: She is sedated, unconscious, on the ventilator, hypothermia protocol. OBJECTIVE: Vital Signs: Blood pressure 135/76, heart rate 87, respirations 17. General: As above, mental status. HEENT: Pupils are equal. Left is opacified with cataract. Conjunctivae are pink. Oropharynx is dry. Neck: Neck veins are not appreciated. Chest: Exam is limited because of cooling blankets. Heart: Regular. Lungs: Clear. Extremities: Have no edema, clubbing, or cyanosis. IMPRESSION: Chronic kidney disease 5D. I will not plan on treating her with hemodialysis today unless the team feels strongly to the contrary. She does have significant AA gradient and is requiring high oxygen concentration to maintain adequate blood oxygenation. However, it is not clear to me that her chest x-ray findings are related to volume overload. Electrolytes and acid- base are acceptable. Hemoglobin is acceptable. Blood pressure is improved. cc: Dwain Hawkins MD
[2018-09-25] MEDS: D50W SYRINGE ONE (15:20)
[2018-09-25] MEDS ORDERED: D50W SYRINGE ONE (15:24)
[2018-09-25] MEDS ORDERED: HUMALOG SUBQ SCH (15:42)
[2018-09-25] MEDS: DIFLUCAN 200 MG/NS 200 MG/100 ML IVPB IV SCH (16:47)
[2018-09-25] MEDS: KEPPRA 500 MG in NS 100 ML IV SCH (18:05)
[2018-09-25] MEDS ORDERED: MERREM 1 GM in NS 50 ML IV SCH (20:00)
[2018-09-26] MEDS: XANAX PO SCH ×4 (01:26→20:05)
[2018-09-26] MEDS: DIPRIVAN 1% 1,000 MG/100 ML BOTTLE IV SCH ×2 (02:17→07:46)
[2018-09-26] MEDS: DUONEB (A & A) INH SCH ×6 (03:07→23:24)
[2018-09-26] MEDS: ZYVOX 600 MG/D5W 600 MG/300 ML IVPB IV SCH ×2 (03:24→14:46)
--- NOTE | 2018-09-26 03:43 | PULMONOLOGY PROGRESS NOTE ---
DATE: 09/25/2018 SUBJECTIVE: The patient does not respond to pain. She is on limited propofol sedation. OBJECTIVE: Vital Signs: The patient remains on the hypothermia protocol. Current temperature 94.7 degrees, BP 129/77, heart rate 78, respiratory rate 22. Oxygen saturation 100%. 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 Pupil on the right is midpoint and nonreactive. Oropharynx appears clear, with endotracheal tube in place. Secretions from the endotracheal tube are no longer bloody. Chest: Reveals coarse breath sounds bilaterally. Cardiac: S1-S2. Abdomen: Soft, with positive bowel sounds. Extremities: Cool to the touch. LABORATORIES: Arterial blood gas reveals a pH 7.42, pCO2 of 38, PO2 of 64 on mechanical ventilation. White blood count 16.5, hemoglobin 9.2, platelet count 206,000. Sodium 135, potassium 4.9, chloride 93, bicarbonate 24, BUN 32, creatinine 6.3. Chest x-ray reveals diffuse bilateral infiltrates. Sputum cultures are pending. IMPRESSION: A 27-year-old with a long history of type 1 diabetes mellitus, end-stage renal disease, severe hypertension, with hypertensive crisis, alveolar hemorrhage, severe pulmonary edema, acute hypoxemic respiratory failure, and a cardiopulmonary arrest. She currently is on the hypothermia protocol, which should be completed today. She was down for a significant period of time, and has had a long history of diabetes. I suspect that if she has end-stage renal disease, she also has significant HOT BRAIDER disease, at least in the small vessels. I suspect her prognosis is extremely poor. RECOMMENDATIONS: 1. Continue ventilatory support. 2. Continue propofol and Keppra for possible seizures. 3. Complete hypothermia protocol. 4. Obtain EEG and CT scan of the brain with Neurology evaluation tomorrow. TIME SPENT IN CRITICAL CARE: 30+ minutes. cc: Darshan Leal MD
[2018-09-26 05:05] LABS: ALLEN TEST YES; BE 3.4 mmoll (-3.0-3.0); BLOOD TYPE ARTERIAL; HCO3-(ACT) 27.6 mmoll (20.0-26.0); METHB 0.1 % (0.0-1.5); O2(CT) 13.7 mL/dL (15.0-23.0); O2HB 96.7 % (95.0-99.0); PCO2(98.6) 32 mmHg (35-45); PO2(98.6) 122 mmHg (60-100); SAMPLE BLOOD; SAO2 98.7 % (95.0-100.0); SRATE 22 BPM; THB 9.9 g/dL (11.5-17.4); TVOL 450 mL; pH(98.6) 7.52 (7.35-7.45)
[2018-09-26 05:07] LABS: MODALITY VENTILATOR
[2018-09-26 05:41] LABS: HEMATOCRIT 28.3 % (37.0-47.0); HEMOGLOBIN 9.1 g/dL (12.0-16.0); MCH 25.4 PG (27-31); MCHC 32.2 g/dL (33-37); MCV 79.1 FL (81-99); MPV 10.6 FL (7.4-10.4); RBC 3.58 XMIL (4.2-5.4); RDW 20.8 % (11.5-14.5); WBC 13.34 X1000 (4.8-10.8)
--- NOTE | 2018-09-26 05:41 | INFECTIOUS DISEASE PROGRESS NO ---
DATE: 09/25/2018 PRESENT ILLNESS: Ms. Ross has pulmonary edema/ARDS, as well as a possible pneumonia. There is a leukocytosis as well. At this point, she is receiving therapeutic hypothermia due to respiratory arrest with loss of pulse yesterday. She remains intubated on the mechanical ventilator with sedation using Diprivan. The patient previously had an oral candidiasis, so while on antibiotics, we will continue to treat this. MEDICATIONS: She is on day 1 of Zyvox 600 mg IV every 12 hours, meropenem 1 g IV daily in the evening, and fluconazole 200 mg IV every 24 hours. PHYSICAL EXAMINATION: Vital Signs: Temperature is 93 degrees, pulse rate 80, respiratory rate 30, blood pressure 132/82, O2 saturation 100% on a 30% FiO2 on the mechanical ventilator. General: This is a critically ill young lady. She is lying in bed on therapeutic hypothermia protocol, intubated and on the mechanical ventilator. She is sedated using Diprivan. HEENT: Atraumatic, normocephalic. There is an oral ET tube, as well as an orogastric tube, which is hooked up to lower intermittent wall suction. There is a large amount of brown/red drainage filling the bedside canister. Abdomen: Soft, distended, and bowel sounds are hypoactive. Respiratory: Lung sounds are coarse rhonchi noted bilaterally, diminished in the bases. She is on 30% FiO2 on the mechanical ventilator, with a PEEP of 8, and she is breathing above the set rate of 22, with tachypnea noted. Cardiovascular: Heart rate and rhythm are regular. Normal sinus rhythm on the monitor. Pedal and radial pulses are bilaterally weak. There is a an AV fistula in place to the left upper arm, with a good thrill and bruit. Integumentary: Skin is cool and dry. There is a central line in place to the right groin. The site is without edema, erythema, or drainage. LABORATORY AND X-RAY: Today, her white count is 16.5, hemoglobin 9.2, platelet count 206,000. On 60% FiO2 on the mechanical ventilator this morning, her pH was 7.42, pCO2 38 , PO2 64, HCO3 25. Creatinine 6.3, GFR 10, AST 38, ALT 25, alkaline phosphatase 114. Her urine culture has so far grown yeast on the preliminary report. Blood cultures are pending, as well as a sputum culture, which is pending. Today, her chest x-ray shows worsened pulmonary edema/ARDS. ASSESSMENT AND PLAN: Ms. Ross is being treated for pneumonia and oral candidiasis. She is status post code, with respiratory and cardiac arrest yesterday afternoon, and is undergoing therapeutic hypothermia. The plan is to warm her back up this evening, and then go for a CT scan of her brain. At this point, we are awaiting the final cultures of her urine, sputum, and blood. For now, we will continue broad-spectrum coverage using Zyvox and meropenem, and continue to provide fluconazole for oral candidiasis. This will also cover the yeast in her urine. These plans have been discussed with and recommended by Dr. Davies. COMORBIDITIES: End-stage renal disease with hemodialysis, type 1 diabetes, and peripheral neuropathy. Dictated by KAMALA Gore for Lit Davies MD This chart was documented by, KAMALA Gore and accurately reflects the services performed, treatment plan and medical decisions as attested by the providers signature Lit Davies MD. cc: Lit Davies MD [facility]ENTER[facility]
[2018-09-26] MEDS: HUMALOG SUBQ SCH ×5 (06:19→20:07)
[2018-09-26 06:25] LABS: ALB/GLOB RATIO 0.9; ALBUMIN 3.1 g/dL (3.5-5.0); CALCIUM 8.7 mg/dL (8.8-10.2); CREATININE 7.7 mg/dL (0.5-0.9); POTASSIUM 3.8 mmol/L (3.5-5.1); TOTAL BILIRUBIN 0.51 mg/dL (0.20-1.00); TOTAL PROTEIN 6.6 g/dL (6.3-8.3)
--- NOTE | 2018-09-26 07:42 | Diag Imaging Result Doc PS360 ---
CHEST-PORTABLE - 09/26/2018 INDICATION: respiratory failure COMPARISON: 09/25/2018 FINDINGS: The temperature probe remains in the stomach. Stable endotracheal tube and nasogastric tube in good position. The pulmonary edema has resolved. No infiltrates or edema at this time. Heart size is normal. There is a trace right pleural effusion. IMPRESSION: Significant improvement from prior. Temperature probe remains in the gastric fundus. Electronically signed by José Miguel Mayen 09/26/2018 7:39 AM
[2018-09-26] MEDS: BASAGLAR SUBQ SCH ×2 (08:45→10:01)
[2018-09-26] MEDS: PRINIVIL PO SCH (08:48)
[2018-09-26] MEDS: RENVELA POWDER PACKET PO SCH ×3 (08:48→17:39)
[2018-09-26] MEDS: NORVASC PO SCH (08:48)
[2018-09-26] MEDS: CATAPRES PO SCH ×2 (08:49→20:06)
[2018-09-26] MEDS: COREG PO SCH ×2 (08:49→20:07)
[2018-09-26] MEDS: APRESOLINE PO SCH ×3 (08:50→17:38)
--- NOTE | 2018-09-26 10:26 | PROGRESS NOTE ---
DATE: 09/26/2018 SUBJECTIVE: The patient appears to be sedated and intubated. She does not respond to painful stimuli. No acute issues noted. OBJECTIVE: VITALS: Temperature 96.0 degrees, heart rate 85, respiratory rate 22, blood pressure 107/67, O2 sat 100% on mechanical ventilator at FIO2 of 30%. GENERAL: This is a chronically ill-appearing 27-year-old -[place] female lying in bed in no acute distress. HEENT: Head is normocephalic and atraumatic. Mucous membranes dry. Patient intubated. NECK: No JVD. Nontender. No carotid bruits. No lymphadenopathy. CARDIOVASCULAR: Normal S1, S2. Tachycardic but no murmurs, gallops, rubs noted. RESPIRATORY: Coarse breath sounds still present in both pulmonary dooley. Patient has some minimal crackles still noted in both pulmonic bases. The patient is not using any accessory muscles or having work of breathing. ABDOMEN: Soft, a little bit distended. Bowel sounds present. No organomegaly noted. EXTREMITIES: No cyanosis or edema. Peripheral pulses present in both legs. Central line placed in the right femoral vein. NEUROLOGICAL: The patient is sedated and intubated. Does not respond to verbal stimuli. LABORATORY DATA: White cell count 13.34, hemoglobin 9.1, hematocrit 28.3, platelets 188,000. ABG shows pH 7.54, PCO2 32, PO2 122, on FIO2 of 30%. Glucose 314. ASSESSMENT AND PLAN: 1. Acute respiratory failure on ventilator. Patient requiring FIO2 of 30% at this point. The x-ray from this morning showed significant improvement from prior. Dr. Leal is managing the ventilator. We will follow his recommendations. 2. Healthcare associated pneumonia. The patient is on meropenem and Zyvox and also fluconazole day #2 of all medications. White cell count is getting better. It is 13.34. We will continue with recommendations of Dr. Davies of Infectious Disease. He is following this patient. 3. Status post cardiac arrest. The patient was on hypothermia protocol for the next 24 hours after cardiac arrest. Now she is going to have CT scan of the head. For concerns of fissures, we will rule out EEG and Dr. Olvera from Neurology has been consulted. 4. Hypertension. Blood pressure is under control. We will continue with same management. 5. End-stage renal disease on dialysis. Dr. Hawkins following this patient. We will follow his recommendations. 6. Diabetes mellitus type 2. Blood sugar has been persistently high so we will increase the doses of Lantus from 10 to 15 units twice daily and insulin sliding scale on top of that. We will continue with same management. DISPOSITION: We will continue to monitor this patient closely. Her prognosis is poor. We will continue to monitor. cc: Bartolo Fish MD
[2018-09-26] MEDS ORDERED: CEREBYX IV ONE ×2 (11:56→12:15)
[2018-09-26] MEDS ORDERED: NS IV ONE (12:15)
--- NOTE | 2018-09-26 12:27 | EEG REPORT ---
DATE: 09/26/2018 COMMENTS: This is a digitally recorded EEG done portably in the ICU on a 27-year-old patient with recent cardiopulmonary arrest, subsequent sedation with propofol, continued unresponsiveness, EEG recorded just after propofol discontinued. FINDINGS: There is a burst suppression pattern with 2-4 seconds of suppressed activity and 1-2.5 second bursts of higher amplitude slowing with associated sharp waves, much more prominent over the right hemisphere than the left. There was not repetitive epileptiform discharge or definite electrographic seizure recorded. Usual ICU artifacts were identified and did not hinder interpretation. There was no variation in the EEG to correlate with spontaneous drowsing or sleep. INTERPRETATION: Abnormal EEG because of generalized slowing, burst suppression, right hemisphere epileptiform discharges. CORRELATION: This is consistent with postanoxic brain injury, and the EEG indicates a tendency to seizure with right hemisphere focus. cc: MD Darshan Perry III, MD
--- NOTE | 2018-09-26 13:04 | CONSULTATION ---
DATE OF CONSULTATION: 09/27/2018 CONSULTATION SUMMARY: Ms Bowser is 27 years old with preexisting medical illnesses including hypertension, diabetes mellitus, end-stage renal disease requiring hemodialysis. She presented with shortness of breath and evidence of pneumonia. She had cardiopulmonary arrest 09/24/2017. She has been intubated, mechanically ventilated, and sedated with propofol since then. At the time of my exam, propofol has been held for approximately 90 minutes. There is reported to be previous stroke in 2015 causing left-sided weakness. Lab shows BUN climbing from 23 to 48 during this admission. Blood sugars have ranged 100s to 300s. She has 14 items listed on her home medicine list, but nothing that likely would produce encephalopathy either in a withdrawal state or with intoxication. We do not have urine drug screen this admission. On exam, she is supine, intubated, initially not moving. Later during the time at the bedside, she did have spontaneous twitching of the left foot irregularly, not rhythmic, not clonic activity. She has tonic left gaze, and I could not get her eyes to move to the midline with passive head turning. Left cornea is occluded. Right pupil reacts minimally to bright light. Corneal reflex is minimal bilaterally. Neck is supple. Plantar response is silent bilaterally. Reflexes are absent at the ankles bilaterally. There was no response to noxious stimulation over the limbs. EEG just completed shows some burst suppression features with right hemisphere epileptiform discharges. IMPRESSION: Likely post anoxic brain injury with question of seizure to account for the left gaze and left foot twitch. She has levetiracetam 500 mg q 24 hours IV with first dose about 18 hours ago. In light of her renal failure, this dose may be adequate. We can check levetiracetam levels, but we will not get a report quickly. Liver enzymes are not elevated. Therefore, I am going to add fosphenytoin. We will start with a loading dose and then follow levels since she is on fluconazole. Maintenance phenytoin dose can be determined after we see the initial phenytoin serum level. Thanks for asking Neurology to see Ms. Ross. cc: MD ELSI Perry III
--- NOTE | 2018-09-26 15:12 | Diag Imaging Result Doc PS360 ---
CT HEAD W/O CONTRAST - 09/26/2018 INDICATION: cardiopulmonary arrest COMPARISON: None FINDINGS: There is a hypodensity in the anterior right frontal lobe compatible with a subacute infarction. No intracranial mass effect or hemorrhage. The skull is intact. The sinuses, mastoids, and middle ears are clear. IMPRESSION: Subacute infarction in the anterior right frontal lobe. This exam was performed using automated exposure control, adjustment of mA or kV according to patient size, and/or use of iterative reconstruction technique Electronically signed by José Miguel Mayen 09/26/2018 3:10 PM
[2018-09-26] MEDS: KEPPRA 500 MG in NS 100 ML IV SCH (17:35)
[2018-09-26] MEDS ORDERED: BASAGLAR SUBQ SCH (21:00)
--- NOTE | 2018-09-27 00:43 | INFECTIOUS DISEASE PROGRESS NO ---
DATE: 09/26/2018 PRESENT ILLNESS: The patient was being treated for possible pneumonia. However, her latest chest x-ray shows clear lung dooley. Therefore, no pneumonia is present, and in hindsight, most likely the patient had pulmonary venous congestion. The patient does have leukocytosis, the exact etiology of which I am uncertain. She has previously had oral candidiasis. MEDICATIONS: The patient is on a combination of fluconazole, Zyvox, and meropenem. PHYSICAL EXAMINATION: Vital Signs: Temperature is 98.4 degrees, pulse 95, respirations 22, blood pressure is 131/75. General: This is a chronically ill-appearing, somewhat malnourished young female. She is in no acute distress. Head, Eyes, Ears, Nose, and Throat: She is intubated. There is an orotracheal tube in her mouth. There is no drainage from the nose or ears. Sinuses are not tender. Neck: No meningismus. Lungs: Clear to auscultation. Cardiovascular: Heart rate is regular. Abdomen: Soft and nontender. The patient in her left arm has an AV fistula, which is functional. In the right groin, she has a triple-lumen IV in place. Neurologic: The patient is obtunded. She did not respond to verbal stimuli. There was no tremor. LAB AND X-RAY: Chest x-ray shows clear lung dooley. Blood cultures are negative. Sputum grew yeast. Creatinine 7.7. GFR is 8. Urinalysis showed white cells and bacteria. Blood gases showed a pH of 7.52, a PO2 of 122, and a pCO2 of 32. The patient's CBC shows a white count of 13,340, hemoglobin 9.1, and platelet count 188,000. ASSESSMENT AND PLAN: At this time, I am unable to find an infection in the patient. She does have yeast in her sputum, but this is due to upper airway upper contamination, and it does not mean that the patient has a fungal pneumonia. I am going to discontinue her current antimicrobial agents, namely fluconazole, Zyvox, and meropenem. COMORBIDITIES: She has end-stage renal disease with hemodialysis, type 1 diabetes mellitus, and peripheral neuropathy. cc: Lit Davies MD
--- NOTE | 2018-09-27 01:19 | NEPHROLOGY PROGRESS NOTE ---
DATE: 09/26/2018 SUBJECTIVE: Unresponsive on the ventilator. OBJECTIVE: Blood pressure 137/79, heart rate 91, respirations 22. Afebrile on the vent unresponsive. Skin is warm and dry. Conjunctivae are pink.Neck: Neck veins are not visible. Heart: Regular with a murmur. Lungs: Equal, clear. Abdomen: Soft, nontender. Extremities: No edema. IMPRESSION: Chronic kidney disease 5D. We will hold dialysis again today. Plan for sled tomorrow. Electrolytes, acid base in target. cc: Dwain Hawkins MD
[2018-09-27] MEDS: XANAX PO SCH ×4 (01:48→19:39)
[2018-09-27] MEDS: DUONEB (A & A) INH SCH ×6 (03:26→23:14)
[2018-09-27 05:20] LABS: HEMATOCRIT 26.3 % (37.0-47.0); HEMOGLOBIN 8.2 g/dL (12.0-16.0); MCH 24.8 PG (27-31); MCHC 31.2 g/dL (33-37); MCV 79.7 FL (81-99); MPV 10.9 FL (7.4-10.4); RBC 3.3 XMIL (4.2-5.4); RDW 21.1 % (11.5-14.5); WBC 12.09 X1000 (4.8-10.8)
[2018-09-27 05:37] LABS: ALLEN TEST YES; BE -0.2 mmoll (-3.0-3.0); BLOOD TYPE ARTERIAL; HCO3-(ACT) 24.7 mmoll (20.0-26.0); METHB 0.9 % (0.0-1.5); O2(CT) 10.2 mL/dL (15.0-23.0); O2HB 92.3 % (95.0-99.0); PCO2(98.6) 31 mmHg (35-45); PO2(98.6) 70 mmHg (60-100); SAMPLE BLOOD; SAO2 95.2 % (95.0-100.0); SRATE 22 BPM; THB 7.8 g/dL (11.5-17.4); TVOL 450 mL; pH(98.6) 7.48 (7.35-7.45)
[2018-09-27 05:38] LABS: MODALITY VENTILATOR
[2018-09-27] MEDS ORDERED: NS 500 ML ONE (05:41)
[2018-09-27 05:54] LABS: ALB/GLOB RATIO 0.8; ALBUMIN 2.7 g/dL (3.5-5.0); CALCIUM 8.1 mg/dL (8.8-10.2); TOTAL BILIRUBIN 0.57 mg/dL (0.20-1.00); TOTAL PROTEIN 6.1 g/dL (6.3-8.3)
[2018-09-27 05:55] LABS: POTASSIUM 4.5 mmol/L (3.5-5.1)
[2018-09-27 06:14] LABS: CREATININE 10.2 mg/dL (0.5-0.9)
[2018-09-27] MEDS: HUMALOG SUBQ SCH ×5 (06:20→20:47)
--- NOTE | 2018-09-27 08:07 | Diag Imaging Result Doc PS360 ---
EXAM: CHEST-PORTABLE INDICATION: respiratory failure TECHNIQUE: One view COMPARISON: 09/26/2018 FINDINGS: Support tubes and lines are in stable positions. The lungs appear to be essentially clear with no new consolidation. Cardiac silhouette is stable. IMPRESSION: Stable chest. Electronically signed by Javed Villegas 09/27/2018 8:04 AM
[2018-09-27] MEDS: BASAGLAR SUBQ SCH ×2 (08:39→21:55)
[2018-09-27] MEDS: NORVASC PO SCH (08:43)
[2018-09-27] MEDS: PRINIVIL PO SCH (08:43)
[2018-09-27] MEDS: RENVELA POWDER PACKET PO SCH ×3 (08:43→16:17)
[2018-09-27] MEDS: COREG PO SCH ×2 (08:44→20:37)
[2018-09-27] MEDS: APRESOLINE PO SCH ×3 (08:44→16:17)
[2018-09-27] MEDS: CATAPRES PO SCH ×2 (08:44→20:37)
[2018-09-27] MEDS ORDERED: NS 2,000 ML MISC PRN (09:35)
--- NOTE | 2018-09-27 15:56 | NEPHROLOGY PROGRESS NOTE ---
DATE: 09/27/2018 SUBJECTIVE: Unchanged. OBJECTIVE: Blood pressure 123/77, heart rate 98, respiratory rate 22 and afebrile. Intake 400 mL and output 500 mL. General: She is sedated and unresponsive. Skin: Warm and dry. HEENT: Conjunctivae are pink. Oropharynx is dry. Neck: Neck veins are not visible. Heart: Regular with S4. Lungs: Equal. Clear. No crackles. Abdomen: Soft with decreased bowel sounds. Extremities: She has no edema, clubbing or cyanosis. IMPRESSION: Chronic kidney disease 5D. SLED today with a goal of 2 L ultrafiltration. Her electrolytes and acid base remain acceptable though she does have an elevated anion gap today. This problem has been present over the last 24 hours, and her lactate is minimal at 2.5. I will check her serum acetone. Otherwise, it will be attributed to her kidney disease. cc: Dwain Hawkins MD
[2018-09-27] MEDS ORDERED: D50W SYRINGE ONE (16:43)
[2018-09-27] MEDS: D50W SYRINGE IV PRN (16:44)
[2018-09-27] MEDS: KEPPRA 500 MG in NS 100 ML IV SCH (17:28)
[2018-09-27] MEDS: APRESOLINE IV PRN (18:03)
--- NOTE | 2018-09-27 18:40 | PROGRESS NOTE ---
DATE: 09/27/2018 SUBJECTIVE: The patient continues to be sedated and intubated. Nursing staff reports that her blood sugar has been really high in the range of 457-500. OBJECTIVE: Vital Signs: Temperature 97.5, heart rate 101, respiratory rate 22, blood pressure 154/82. O2 saturation 100% on mechanical ventilator. FiO2 30%. General: This is a chronically ill-appearing 27-year-old -[place] female lying in bed in no acute distress. HEENT: Head is normocephalic and atraumatic. Neck: No JVD noted. No carotid bruits. No lymphadenopathy. No thyromegaly. Cardiovascular: S1, S2 heard. Tachycardic but no murmurs, gallops , or rubs noted. Respiratory: Coarse breath sounds still present in both pulmonary bases. The patient does have some minimal crackles still noted in both pulmonary bases. Patient is not using any accessory muscles or having work of breathing. Abdomen is soft, a little bit distended. Bowel sounds present. No organomegaly. Extremities: No clubbing or cyanosis. Central line placed in the right femoral vein. Neurologic: Patient is sedated and intubated and does not respond to verbal stimuli. Does not respond to painful stimuli. LABORATORY DATA: White cell count 12.09 hemoglobin 8.2 hematocrit 26.3, platelets 190,000 with ABG that shows pH 7.48 with pCO2 31. PO2 of 70. The BMP remarkable for creatinine 10.2, potassium 4.5, BUN 68 blood sugar 503. ASSESSMENT AND PLAN: 1. Acute respiratory failure on ventilator. The patient acquiring FiO2 of 30%. I think the only reason why this patient is still intubated because of mental status. Dr. Leal is managing the ventilator. We will follow recommendations. 2. Healthcare-associated pneumonia. Recommendation as per Dr. Davies, resolved. Last x-ray from yesterday have shown clear lungs so antibiotics has been stopped. 3. Status post cardiac, arrest. The patient has been on hypothermia protocol for 24 hours. Not on that anymore. 4. Possible anoxic encephalopathy. This has been a concern for possible anoxic brain injury, so that is why a CT scan of the head has been ordered which basically showed subacute infarction in the anterior right frontal lobe. I do not think that infarct is related to this anoxic brain injury but an EEG has been ordered. We will follow the results. Neurology is also following this patient. 5. End-stage renal disease, on dialysis. Patient has been started on sustained low-efficiency dialysis. We will follow recommendations from Dr. Hawkins. 6. Diabetes mellitus, type 2. Because blood sugar has been high, we are going to increase the doses of Lantus from 20 and 25. At daytime in the morning, we will continue to check Accu- Cheks every 4 hours. DISPOSITION: We will continue to monitor this patient closely. Her prognosis is very poor, and we have informed the mother about it. cc: Bartolo Fish MD MTDD
[2018-09-28] MEDS: APRESOLINE IV PRN ×5 (00:57→19:49)
[2018-09-28] MEDS: XANAX PO SCH ×4 (01:17→19:36)
[2018-09-28] MEDS: D50W SYRINGE IV PRN ×2 (01:26→05:29)
[2018-09-28] MEDS: DUONEB (A & A) INH SCH ×6 (02:43→23:28)
[2018-09-28] MEDS ORDERED: LABETALOL IV ONE (03:51)
[2018-09-28 04:51] LABS: HEMOGLOBIN 9.6 g/dL (12.0-16.0); MCH 25.5 PG (27-31); MCV 79.6 FL (81-99); MPV 10.2 FL (7.4-10.4); RBC 3.77 XMIL (4.2-5.4); RDW 21.2 % (11.5-14.5); WBC 13.75 X1000 (4.8-10.8)
[2018-09-28 05:16] LABS: ALB/GLOB RATIO 0.8; ALBUMIN 3.1 g/dL (3.5-5.0); CREATININE 6.1 mg/dL (0.5-0.9); POTASSIUM 4.1 mmol/L (3.5-5.1); TOTAL BILIRUBIN 0.68 mg/dL (0.20-1.00); TOTAL PROTEIN 7.2 g/dL (6.3-8.3)
[2018-09-28 05:36] LABS: ALLEN TEST YES; BE 12.1 mmoll (-3.0-3.0); BLOOD TYPE ARTERIAL; HCO3-(ACT) 34.3 mmoll (20.0-26.0); METHB 0.8 % (0.0-1.5); O2(CT) 14.5 mL/dL (15.0-23.0); O2HB 93.9 % (95.0-99.0); PCO2(98.6) 35 mmHg (35-45); PO2(98.6) 74 mmHg (60-100); SAMPLE BLOOD; SAO2 97.2 % (95.0-100.0); SRATE 22 BPM; THB 10.9 g/dL (11.5-17.4); TVOL 450 mL
[2018-09-28 05:37] LABS: MODALITY VENTILATOR
[2018-09-28] MEDS: HUMALOG SUBQ SCH ×4 (06:57→20:49)
[2018-09-28] MEDS: PRINIVIL PO SCH (08:01)
[2018-09-28] MEDS: APRESOLINE PO SCH ×3 (08:01→16:59)
[2018-09-28] MEDS: NORVASC PO SCH (08:01)
--- NOTE | 2018-09-28 08:01 | Diag Imaging Result Doc PS360 ---
EXAM: CHEST-PORTABLE INDICATION: respiratory failure TECHNIQUE: One view COMPARISON: 09/27/2018 FINDINGS: Support tubes and lines are in stable positions. The lungs remain essentially clear. No new consolidation is identified. Cardiac silhouette is stable. IMPRESSION: Stable chest. Electronically signed by Javed Villegas 09/28/2018 7:59 AM
[2018-09-28] MEDS: CATAPRES PO SCH ×2 (08:02→20:49)
[2018-09-28] MEDS: RENVELA POWDER PACKET PO SCH ×3 (08:02→16:59)
[2018-09-28] MEDS: COREG PO SCH ×2 (08:10→20:49)
[2018-09-28] MEDS ORDERED: VASOTEC IV SCH (08:15)
--- NOTE | 2018-09-28 08:58 | PROGRESS NOTE ---
DATE: 09/28/2018 SUBJECTIVE: The patient continues to be sedated and intubated. As per nursing staff, there had been problems controlling blood pressure in this patient, considering that the NG tube that she has is connected to suction, and also blood sugar has been low this morning. OBJECTIVE: Vital Signs: Temperature 97.2 degrees, heart rate 96, respiratory rate 22, blood pressure 184/96, O2 saturation 98% on mechanical ventilator at FiO2 of 30%. General: This is a chronically ill-appearing, 27-year-old, female, lying in bed in no acute distress. HEENT: Head is normocephalic, atraumatic. Neck: No JVD noted. No carotid bruits. No lymphadenopathy. No thyromegaly. Cardiovascular: S1, S2 heard. Tachycardic, but no murmurs, gallops, or rubs noted. Respiratory: Still coarse breath sounds noted in both pulmonary bases, but the patient is not using any accessory muscles or having work of breathing. Abdomen: Soft, nondistended. Bowel sounds present. No organomegaly noted. Extremities: No clubbing, cyanosis, or edema. There is a central line placed in the right femoral vein. Neurological: The patient is sedated and intubated, does not respond to painful stimuli. LABORATORY DATA: White cell count 13.75, hemoglobin 9.6, hematocrit 30.0, platelets 209,000. ABG shows pH 7.60 with pCO2 of 35, PO2 of 74 with bicarbonate 34. BMP shows sodium 148 with anion gap 17 and carbon dioxide 29. ASSESSMENT AND PLAN: 1. Acute respiratory failure, on ventilator. The patient continues to be intubated, and the reason why is because of his mental status. FiO2 is 30%. Pulmonary is following this patient. 2. Healthcare-associated pneumonia, resolved. The patient is not on any antibiotics. 3. Status post cardiac arrest with possible anoxic encephalopathy. The patient continues to be not responding to painful stimuli. We have consulted Neurology, who had evaluated this patient initially last Saturday, and will check with them when they are back, to see what is the prognosis of this patient. 4. End-stage renal disease, on dialysis. The patient had sustained low- efficiency dialysis yesterday versus with metabolic alkalosis according to last ABG. At this point, will leave to Dr. Hawkins, management of this. 5. Diabetes mellitus type 2. Blood sugar has been running low this morning, so we are going to hold the doses of Lantus at nighttime today and see how she does tomorrow. 6. Disposition. Will continue to monitor this patient closely. Unfortunately, her prognosis is very poor. cc: Bartolo Fish MD MTDD
[2018-09-28] MEDS ORDERED: BASAGLAR SUBQ SCH ×2 (09:00)
[2018-09-28] MEDS ORDERED: VASOTEC IV ONE (13:15)
[2018-09-28] MEDS: KEPPRA 500 MG in NS 100 ML IV SCH (17:00)
[2018-09-28] MEDS: LABETALOL IV PRN (17:21)
[2018-09-28] MEDS: BASAGLAR SUBQ SCH (20:49)
[2018-09-28] MEDS: VASOTEC IV SCH (21:09)
[2018-09-29] MEDS: LABETALOL IV PRN (00:54)
[2018-09-29] MEDS: DUONEB (A & A) INH SCH ×6 (03:01→23:27)
[2018-09-29] MEDS: XANAX PO SCH ×4 (03:32→20:30)
[2018-09-29 05:02] LABS: ALLEN TEST YES; BE -3.1 mmoll (-3.0-3.0); BLOOD TYPE ARTERIAL; HCO3-(ACT) 22.5 mmoll (20.0-26.0); METHB 1.2 % (0.0-1.5); O2(CT) 12.6 mL/dL (15.0-23.0); PCO2(98.6) 31 mmHg (35-45); PO2(98.6) 102 mmHg (60-100); SAMPLE BLOOD; SAO2 98.8 % (95.0-100.0); SRATE 22 BPM; THB 9.3 g/dL (11.5-17.4); TVOL 450 mL; pH(98.6) 7.43 (7.35-7.45)
[2018-09-29 05:12] LABS: MODALITY VENTILATOR
[2018-09-29 05:14] LABS: HEMATOCRIT 29.6 % (37.0-47.0); HEMOGLOBIN 9.1 g/dL (12.0-16.0); MCH 25.1 PG (27-31); MCHC 30.7 g/dL (33-37); MCV 81.8 FL (81-99); MPV 10.7 FL (7.4-10.4); RBC 3.62 XMIL (4.2-5.4); RDW 21.5 % (11.5-14.5); WBC 10.99 X1000 (4.8-10.8)
[2018-09-29] MEDS: HUMALOG SUBQ SCH ×6 (06:16→21:40)
[2018-09-29 06:23] LABS: ALB/GLOB RATIO 0.7; ALBUMIN 2.9 g/dL (3.5-5.0); CALCIUM 8.7 mg/dL (8.8-10.2); CREATININE 8.9 mg/dL (0.5-0.9); TOTAL BILIRUBIN 0.51 mg/dL (0.20-1.00); TOTAL PROTEIN 7.1 g/dL (6.3-8.3)
[2018-09-29 06:31] LABS: POTASSIUM 7.1 mmol/L (3.5-5.1)
[2018-09-29] MEDS ORDERED: NS 2,000 ML MISC PRN (06:45)
--- NOTE | 2018-09-29 07:20 | Diag Imaging Result Doc PS360 ---
EXAM: CHEST-PORTABLE 09/29/2018 HISTORY: respiratory failure TECHNIQUE: AP portable at 0506 COMMENT: There is an endotracheal tube with its tip thoracic inlet and an NG tube with its tip below the diaphragm.There is minimal atelectasis in the left lower lobe which was not clearly present on 09/28/2018. IMPRESSION: Left lower lobe atelectasis. Electronically signed by Kapil Francis 09/29/2018 7:17 AM
--- NOTE | 2018-09-29 07:37 | INFECTIOUS DISEASE PROGRESS NO ---
DATE: 09/29/2018 PRESENT ILLNESS: The patient does not seem to have an infection, even though her temperature did get up to 100.2. MEDICATIONS: The patient is on no antimicrobial agents. PHYSICAL EXAMINATION: Temperature maximum is 100.2 degrees. Her pulse is 112, respirations 22, blood pressure 147/79.General: This is an ill-appearing young female. She is intubated and sedated. Head/eyes/ears/nose/throat: Patient has an orotracheal and orogastric tube in place. Neck: No stiffness. Lungs: Clear to auscultation. Cardiovascular: Heart rate is regular. Extremities: Patient has a functioning AV fistula in her left arm. The site is not erythematous and it is not draining. Lungs: Clear to auscultation. Cardiovascular: Regular heart rate. Abdomen: Soft and nontender. Neurologic: The patient is obtunded and she did not respond to verbal stimuli. There is no tremor. LAB AND X-RAY: Chest x-ray shows clear lung dooley. The CBC shows a white count is down to 10,990, hemoglobin 9.1, and platelet count 191,000. Blood gases show a pH of 7.43, a pO2 of 102, and a pCO2 of 31. Creatinine is 8.9. GFR is 6. Liver function studies are normal except for an alkaline phosphatase that had a small elevation of 111. Sputum grew yeast. Chest x-ray was clear. ASSESSMENT AND PLAN: At this time I am unable to find an infection. The patient did have a maximum of 100.2, but has been otherwise afebrile. At this time, I do not think she needs any further antibiotic therapy and I am signing off of the case, but I am available to see her on a p.r.n. basis. COMORBIDITIES: End-stage renal disease, hemodialysis, diabetes mellitus, and peripheral neuropathy. cc: Lit Davies MD
[2018-09-29] MEDS: COREG PO SCH ×2 (08:39→20:30)
[2018-09-29] MEDS: CATAPRES PO SCH ×2 (08:39→20:31)
[2018-09-29] MEDS: NORVASC PO SCH (08:39)
[2018-09-29] MEDS: APRESOLINE PO SCH ×3 (08:39→16:22)
[2018-09-29] MEDS: VASOTEC IV SCH ×2 (08:41→20:31)
[2018-09-29] MEDS ORDERED: INSULIN PEN NEEDLES ONE (08:42)
[2018-09-29] MEDS: RENVELA POWDER PACKET PO SCH ×3 (08:56→16:23)
--- NOTE | 2018-09-29 09:32 | PROGRESS NOTE ---
DATE: 09/29/2018 SUBJECTIVE: Patient is sedated and intubated. As per nursing staff, blood pressure continues to be higher. NG tube connected to suction, removed dark secretion that according to analysis was positive for blood. OBJECTIVE: Vital Signs: Temperature 100 degrees, heart rate 115, respiratory rate 122, blood pressure 123/62, O2 saturation 98% on mechanical ventilator at FiO2 30%. General: This is a chronically ill appearing 27-year-old female lying in bed, in no acute distress. HEENT: Head is normocephalic and atraumatic. Pupils equal, round, reactive to light and accommodation. Patient intubated. Neck: No JVD noted. No carotid bruits. No lymphadenopathy. No thyromegaly. Cardiovascular: S1, S2 heard. Tachycardic. No murmurs, gallops, or rubs noted. Respiratory: Coarse breath sounds still noted in both pulmonary bases, but patient is not using any accessory muscles or having work of breathing. Abdomen: Soft, a little bit distended, but nontender to palpation. Bowel sounds present. No organomegaly noted. Extremities: No clubbing, cyanosis, or edema. There is a central line in the right femoral vein. Neurological: Patient is sedated and intubated. Does not respond to verbal stimuli. LABORATORY DATA: White cell count 10.99, hemoglobin 9.1, hematocrit 29.6, platelets 191. ABG shows pH 7.43, with pCO2 31, pO2 102. BMP remarkable for potassium 7.1, with sodium 139, BUN 52, glucose 142. ASSESSMENT AND PLAN: 1. Acute respiratory failure on ventilator. Patient continues to be intubated requiring FiO2 30% during the last few days. I think we are not able to extubate this patient because of mental status. Pulmonary is following this patient. We will follow recommendations. 2. Healthcare-associated pneumonia. That condition was present on admission, and that was the reason why this patient was readmitted to the hospital. But x-ray has been clear. The patient has been followed by Dr. Davies, who decided to stop antibiotics two days ago. 3. Status post cardiac arrest with possible anoxic encephalopathy. The patient' s date of date of admission, unfortunately, developed cardiac arrest. She was resuscitated for 12 minutes. Now, she is not even responsive to painful stimuli. Dr. Olvera from Neurology has been consulted because of this concern. Apparently, there has been an seizure activity, so that is why this patient has been started on phenytoin and Keppra IV. Patient has been loaded Cerebryx first on Saturday. We will see what Dr. Olvera has to say today. 4. Possible gastrointestinal bleeding. The patient's abdomen started to get distended, so we will place NG tube, with basically suctioning fair amount of dark secretions that are blood. Will start a Protonix drip, and we will consult Gastroenterology. 5. End-stage renal disease, on dialysis. The patient is going to have SLED today (sustained low efficiency dialysis). Dr. Hawkins following this patient. 6. Diabetes mellitus type 1. Unfortunately, her blood sugar has been uncontrolled. She has been having high blood sugars a couple days ago. But when we increased the dose of Lantus, her blood sugar goes down in the range of 20s to 30s. At this point, we are planning to put her back to her usual doses of 10 units twice daily, and will continue controlling blood sugars with sliding scale insulin, Humalog. 7. Disposition. We will continue to monitor this patient closely. Prognosis is very poor on her case. We have informed grandmother, who was at bedside. cc: Bartolo Fish MD [facility]
[2018-09-29] MEDS: BASAGLAR SUBQ SCH ×2 (09:45→22:25)
--- NOTE | 2018-09-29 10:02 | PULMONOLOGY PROGRESS NOTE ---
DATE: 09/29/2018 SUBJECTIVE: The patient does not respond to voice. She does respond to painful stimuli with more movement on the left than on the right. She does have spontaneous respiratory effort. She does not have a good gag response. OBJECTIVE: Vital Signs: BP 147/79, heart rate 112, respiratory rate 22, oxygen saturation 100% on mechanical ventilation. HEENT: Left pupil is clouded, right responds to light. Oropharynx appears clear. An NG tube is in place, draining coffee-grounds material. Neck : Supple. Chest: Reveals good air entry bilaterally with occasional rhonchi. Cardiac Examination : S1 and S2. Abdomen: Soft. Extremities: Without edema. Laboratories: Chest x-ray revealed minimal atelectasis in the left base. Sputum cultures revealed yeast. Arterial blood gas reveals a pH of 7.43, pCO2 of 31, pO2 of 102 , with a lactate of 2.6. Sodium 139, potassium 7.1, chloride 92, bicarbonate 18, anion gap 29 and was 17 yesterday, BUN 52, creatinine 8.9, glucose 472. White blood count 10.99, hemoglobin 9.6, platelet count 191,000. Arterial blood gas with pH of 7.43, pCO2 of 31, PO2 of 102. IMPRESSION: A 27-year-old with type 1 diabetes mellitus, end-stage renal disease, labile hypertension with hypertension crisis, alveolar hemorrhage, acute hypoxemic respiratory failure, status post cardiopulmonary arrest. Clinical exam is consistent with an anoxic brain injury. She does have some response to pain and does have a respiratory effort, and is not brain . The patient does have a very poor cough/gag response. The patient's family has not come to terms with her event and probable poor prognosis. If her gag response remains poor, we would recommend pursuing tracheostomy. This was briefly discussed with the family. PLAN: 1. Continue ventilatory support. 2. Treatment for DKA is in progress. The patient has received insulin and repeat chemistries are pending. 3. Hyperkalemia is being addressed with insulin and with dialysis. 4. Prognosis is poor. I spoke with the grandmother. TIME SPENT: Critical care management was 30 plus minutes. cc: Darshan Leal MD [facility]
[2018-09-29] MEDS ORDERED: CEREBYX IV ONE (10:16)
[2018-09-29] MEDS: PROTONIX 80 MG in NS 80 ML IV SCH ×2 (10:32→18:40)
--- NOTE | 2018-09-29 10:38 | PROGRESS NOTE ---
DATE: 09/29/2018 Ms. Ross looks about the same clinically. Her left gaze preference is less tonic but still present. There was occasional slight downward eye twitch. There was occasional, much less frequent than Saturday, left great toe twitch. She did not respond to voice, with noxious stimulation, there was minimal withdrawal. Phenytoin level was 11.2 a few days ago. Levetiracetam serum level is pending. We will continue the relatively low levetiracetam dose in light of her renal failure. I will add phenytoin maintenance dose. I suspect that there is still an element of subclinical seizure but, overall, clinical course and onset of coma are consistent with anoxic brain injury. In light of her multiple medical problems, duration of limited responsiveness after event, prognosis is not good. Thanks for asking Neurology to see Ms. Ross. cc: Josh Olvera III, MD
[2018-09-29 10:42] LABS: CALCIUM 9.2 mg/dL (8.8-10.2); CREATININE 8.8 mg/dL (0.5-0.9); POTASSIUM 5.6 mmol/L (3.5-5.1)
--- NOTE | 2018-09-29 10:52 | NEPHROLOGY PROGRESS NOTE ---
DATE: 09/29/2018 TIME SEEN: 0705. SUBJECTIVE: Ms. Ross is resting quietly. She is ventilator dependent. She appears in no acute distress, though critically ill. OBJECTIVE: Her most recent vital signs are temperature 100, blood pressure 139/ 70, heart rate 113 respirations 22 she is on 30% FiO2. Last recorded saturation was 96%. She has had 130 in per her NG tube. She has had 725 out per NG and per tube feeding irrigation. LABS: Sodium 139, potassium 7.1, chloride 92, CO2 of 18, BUN 52, creatinine 8.9 , glucose 472. Her anion gap is 29, calcium 8.7, albumin 2.9. White count 10.99, hemoglobin 9.1, hematocrit 29.6, platelet count 191. ABGs: pH 7.43, CO2 of 31, pO2 of 102, bicarb 22.5 on 30% with a lactate of 2.6. PHYSICAL EXAMINATION: General: This is a 28-year-old female. She is resting quietly in bed. She appears chronically ill, though no acute distress. Skin: Warm and dry. HEENT: Normocephalic, atraumatic. Conjunctivae is pale pink. She has CLARY. Mucous membranes are dry. NG tube remains to low intermittent suction. Oral ET tube is in place. Neck: Supple. Trachea midline. She does have positive JVD. Cardiovascular: She is regular rate and rhythm. She is tachycardic. She has an S3 present. Lungs: Clear to auscultation bilaterally. Equal excursion on ventilatory support. Abdomen: Soft, positive nontender. NG tube remains to low intermittent suction. Genitourinary: Not inspected. No urine output indicated. Extremities: Have no edema. No clubbing or cyanosis. Neurological: As above. ASSESSMENT AND PLAN: 1. Chronic kidney disease, stage 5D. We will plan for SLED today. We will plan for a 3K bath. She is to dialyze for 8 hours with a goal of 3 L of ultrafiltration. 2. Electrolytes. Patient is hyperkalemic. She is noted to be positive gastrointestinal bleed. We will continue with correction on dialysis. 3. Anemia. This is low. Again noted to be a gastrointestinal bleed. We will continue to monitor. I would like to thank you for allowing us to follow with this patient. Dictated by KAMALA Persaud for Dwain Hawkins MD Face to face encounter, data reviewed, discussed with Yumi Marvin on 09/29/18. I agree with the above assessment and plan of care. cc: KAMALA Persaud MD [facility]
[2018-09-29] MEDS ORDERED: CEREBYX 500 MG in NS 50 ML IV ONE (11:00)
[2018-09-29] MEDS: APRESOLINE IV PRN (14:01)
[2018-09-29] MEDS: D50W SYRINGE IV PRN ×2 (14:32→16:18)
[2018-09-29] MEDS: CEREBYX 200 MG in NS 50 ML IV SCH (15:08)
[2018-09-29] MEDS ORDERED: CEREBYX IV SCH (16:00)
[2018-09-29] MEDS: KEPPRA 500 MG in NS 100 ML IV SCH (17:03)
[2018-09-29] MEDS: ATIVAN IV PRN (17:24)
--- NOTE | 2018-09-29 19:42 | CONSULTATION ---
DATE OF CONSULTATION: 09/29/2018 HISTORY OF PRESENT ILLNESS: The patient is a 28-year-old female who was admitted to [facility] on 09/24/2018. She was admitted for pneumonia, but subsequently suffered a cardiopulmonary arrest. She was resuscitated for 12 minutes and now has severe anoxic brain injury along with seizure activity. From a GI perspective, her abdomen became distended approximately 2 to 3 days ago. When nasogastric tube was placed, it evacuated maroon-colored bloody secretions and subsequently became coffee-ground color. Because of the GI bleeding which has been associated with anemia, we are asked to participate in her care. PAST MEDICAL HISTORY: 1. Diabetes mellitus type 1. 2. End-stage renal disease requiring hemodialysis on Saturday, Saturday, and Saturday. 3. Hypertension. 4. Peripheral neuropathy. 5. 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 6. Stroke in 2014 with left arm weakness. 7. History of clinical gastroparesis based on EGD with retained food. 8. Pneumonia as noted above. 9. Cardiac arrest as noted above. 10. GERD. PAST SURGICAL HISTORY: 1. Left upper extremity graft. 2. Right subclavian catheter which has been initially placed and subsequently removed for dialysis. 3. Cardiac catheterization in 2015. 4. EGD. SOCIAL HISTORY: Negative for alcohol, tobacco use. She reports marijuana use for glaucoma and nausea. FAMILY HISTORY: Remarkable for diabetes on both sides of her family. Her maternal family history is also positive for breast cancer and hypertension. MEDICATION ALLERGIES: None. HOME MEDICATIONS: 1. Norvasc. 2. Alphagan. 3. Azopt. 4. Carvedilol. 5. Catapres. 6. Doxycycline. 7. Guaifenesin. 8. Hydralazine. 9. Lantus insulin. 10. Xalatan eye drops. 11. Prinivil. 12. Reglan. 13. Nystatin. 14. Renvela. PHYSICAL EXAM: The patient is intubated and sedated. She is resting comfortably and does not appear in any acute distress. Her blood pressure is 117/75, pulse 92, respiration 22, her temperature is 97.5 degrees with a T-max of 100 degrees.HEENT: Negative for jaundice. She has a nasogastric tube that is evacuating black to maroon colored secretions. She was recently placed on tube feedings. She is orally intubated. Her breath sounds are clear to auscultation with occasional rhonchi but no wheezing. Cardiovascular: Reveals regular rate and rhythm with no gallops or rubs. Abdomen: Soft with normoactive bowel sounds. There is no visible rebound or guarding. Extremities: Negative for cyanosis, clubbing, or edema. OBJECTIVE DATA: Reveals a hemoglobin of 9.1 with hematocrit of 29.6 and a white count of 10.99. She has 191,000 platelets. Her PTT is 30.4. Her blood gas reveals a pH of 7.43 , pCO2 of 31, PO2 of 102. Her arterial lactate is 2.60 which is an interval increase compared to yesterday. Sodium is 142, potassium 5.6, chloride 94, CO2 of 23, BUN 60, creatinine 8.8 with a glucose of 373. Calcium is 9.2, total bilirubin 0.91, AST 21, ALT 8, alkaline phosphatase 111, total protein 7.1, albumin 2.9. RECOMMENDATION: 1. The patient appears to have an active GI bleed. However, her clinical status precludes endoscopic intervention in the absence of a significant drop in hemoglobin or visible GI bleeding. 2. I agree with the Protonix drip as you are currently doing. 3. I agree with the tube feedings to see if we can protect her gastric mucosa from GI bleeding. 4. Should she have melena or a substantial drop in hemoglobin, we may need to perform urgent endoscopy. 5. Given her overall prognosis and her current anoxic brain injury, I recommend conservative management at this time. As of today, she has only required 1 unit of packed red blood cells. 6. Will continue to follow along with you. cc: Dwain Hawkins MD [facility]
[2018-09-30] MEDS: HUMALOG SUBQ SCH ×6 (00:01→21:00)
[2018-09-30] MEDS: XANAX PO SCH (01:23)
[2018-09-30] MEDS: DUONEB (A & A) INH SCH ×6 (03:43→23:48)
[2018-09-30] MEDS: PROTONIX 80 MG in NS 80 ML IV SCH ×2 (04:00→14:32)
[2018-09-30] MEDS: CEREBYX 200 MG in NS 50 ML IV SCH ×2 (04:00→16:47)
[2018-09-30 05:08] LABS: ALLEN TEST YES; BE -2.1 mmoll (-3.0-3.0); BLOOD TYPE ARTERIAL; HCO3-(ACT) 23.2 mmoll (20.0-26.0); METHB 0.8 % (0.0-1.5); O2(CT) 17.8 mL/dL (15.0-23.0); PCO2(98.6) 30 mmHg (35-45); PO2(98.6) 84 mmHg (60-100); SAMPLE BLOOD; SAO2 96.9 % (95.0-100.0); SRATE 22 BPM; THB 13.4 g/dL (11.5-17.4); TVOL 450 mL; pH(98.6) 7.45 (7.35-7.45)
[2018-09-30 05:09] LABS: MODALITY VENTILATOR
[2018-09-30 05:45] LABS: HEMATOCRIT 32.1 % (37.0-47.0); HEMOGLOBIN 9.8 g/dL (12.0-16.0); MCH 24.7 PG (27-31); MCHC 30.5 g/dL (33-37); MCV 80.9 FL (81-99); MPV 11.1 FL (7.4-10.4); RBC 3.97 XMIL (4.2-5.4); RDW 21.2 % (11.5-14.5); WBC 14.08 X1000 (4.8-10.8)
[2018-09-30 06:03] LABS: ALB/GLOB RATIO 0.8; ALBUMIN 3.4 g/dL (3.5-5.0); CALCIUM 9.3 mg/dL (8.8-10.2); CREATININE 3.5 mg/dL (0.5-0.9); POTASSIUM 4.9 mmol/L (3.5-5.1); TOTAL BILIRUBIN 0.56 mg/dL (0.20-1.00); TOTAL PROTEIN 7.8 g/dL (6.3-8.3)
--- NOTE | 2018-09-30 06:36 | Diag Imaging Result Doc PS360 ---
EXAM: CHEST-PORTABLE HISTORY: respiratory failure TECHNIQUE: Portable chest single view COMPARISON: 09/29/2018 FINDINGS: No change in the endotracheal or nasogastric tubes. No cardiomegaly. Atelectasis versus a small infiltrate in the left base persists. The right lung remains clear. No pleural effusions identified. IMPRESSION: Stable chest. Electronically signed by Donnie Chandler 09/30/2018 6:34 AM
--- NOTE | 2018-09-30 08:42 | PROGRESS NOTE ---
DATE: 09/30/2018 SUBJECTIVE: This patient is lying in bed. She is on mechanical ventilation. No sedation. We have been giving a maroon, colored bloody secretion/looks like coffee-ground color from the NG tube. She is minimally responding to pain stimulation by opening her eyes a little bit. Like I said, she is not sedated she is not following commands or gag reflex and cough reflex when she is stimulated. Dr. Olvera, from Neurology Department, evaluated this patient, and he suspected that there is still an element of subclinical seizure. But due to her clinical course and onset of coma, are consisted with anoxic brain injury. Her prognosis is not good. OBJECTIVE: Vital Signs: Temperature 98.2, pulse 101, respiratory rate 22, blood pressure 171/98. Oxygen saturation 99 on mechanical ventilation. HEENT: Head normocephalic. No trauma. PERRLA, but sluggish pupillary response, minimally. Neck: Supple. No JVD. Central trachea. Chest: Decreased breath sounds at the bases, with a little bit of coarse breath sounds at the bases as well. Abdomen: Soft, slightly distended, but nontender to palpation. Bowel sounds present. Extremities: No edema. No clubbing. No cyanosis. Neurological: This patient is intubated. She is not sedated. She does not respond to verbal stimuli. She is minimally responding to pain stimulation by opening a little bit her eyes, but no more than that. She is not moving her extremities or grimacing with pain. LABORATORY: WBC 14, hemoglobin 9.8, hematocrit 32.1, platelets 193. Sodium 140, potassium 4.9, chloride 103, bicarbonate 19, BUN 22, creatinine 3.5, glucose 109, calcium 9.3. AST 19, ALT 6, alkaline phosphatase 116, albumin 3.4. ASSESSMENT AND PLAN: 1. Acute respiratory failure. This patient is status post cardiac arrest with possible anoxic brain injury. The patient continues to be intubated. I do not think we are going to be able to extubate this patient because of her mental status. Pulmonary Department following this patient. We will follow the recommendation. She is not sedated, and she does not answer to any verbal stimuli, and she only minimally responds to pain stimuli by opening a little bit her eyes, but no more than that. 2. Status post cardiac arrest with likely anoxic brain injury and it looks like she had a cardiac arrest at the beginning of this hospitalization, I believe on 09/24/2018. Her prognosis is poor. 3. Healthcare-associated pneumonia. This condition was present on admission. The patient has been followed by Dr. Davies. We decided to stop the antibiotics a few days ago. We will monitor for now. 4. Gastrointestinal bleed. The patient has been evaluated by Gastroenterology Department. They agree with the treatment. But given her overall prognosis and her current anoxic brain injury, they have recommended conservative management at this time. Hemoglobin today is 9.8. Hemoglobin has been between 8.2 and 9.8, and she has not received any kind of blood products yet. 5. End-stage renal disease on dialysis. We have been dialyzing this patient. We have a total negative balance of 8.9 liters. Will continue following the recommendations. 6. Type 1 diabetes. Sugar seems to be better controlled. We will continue with the same management. 7. Hyperkalemia, resolved. 8. Labile hypertension with hypertensive crisis, better controlled. Continue with same management. 9. Alveolar hemorrhagic with hypoxemic respiratory failure, as per #1. No family members at the bedside. I have requested to talk to them, but probably they are not in the hospital at this moment. Her prognosis is extremely poor. This patient is remarkably sick. She is still full code. We will continue with the same management. CRITICAL CARE TIME: 45 minutes. cc: Medardo Restrepo MD
[2018-09-30] MEDS: CATAPRES PO SCH ×2 (08:52→21:00)
[2018-09-30] MEDS: APRESOLINE PO SCH ×3 (08:52→17:10)
[2018-09-30] MEDS: NORVASC PO SCH (08:52)
[2018-09-30] MEDS: COREG PO SCH ×2 (08:52→21:00)
[2018-09-30] MEDS: VASOTEC IV SCH ×2 (08:53→21:00)
[2018-09-30] MEDS: RENVELA POWDER PACKET PO SCH ×3 (09:39→17:10)
[2018-09-30] MEDS: BASAGLAR SUBQ SCH ×2 (09:40→21:01)
[2018-09-30] MEDS: LABETALOL IV PRN (09:54)
--- NOTE | 2018-09-30 10:45 | PULMONOLOGY PROGRESS NOTE ---
DATE: 09/30/2018 SUBJECTIVE: The patient does not respond to voice. She has limited withdrawal/ posturing with painful stimuli. She does have spontaneous respiratory effort. OBJECTIVE: Vital signs: The patient has been afebrile for the last 24 hours with a maximum temp 100.4 degrees. BP 118/89, heart rate 102, respiratory rate 22, oxygen saturation 99%. HEENT: There is some slight downward gaze. Right pupil reacts, blind left eye. Oropharynx appears clear. Neck: Supple. Chest: Reveals good air entry bilaterally. Cardiac: S1, S2. Abdomen: Soft with diminished bowel sounds. Extremities: Without edema. LABORATORIES: Arterial blood gas reveals a pH of 7.45, pCO2 of 30, PO2 of 84, with a normal lactate. Sodium 140, potassium 4.9, chloride 103, bicarbonate 19, BUN 22, creatinine 3.5. Anion gap has decreased from 29 on yesterday morning's on labs to 18 this morning. Glucose 109. Chest x-ray reveals minimal infiltrates left base but otherwise clear. No new microbiology data. IMPRESSION: This is a 27-year-old with long history of diabetes mellitus, end- stage renal disease, labile hypertension, recurrent alveolar hemorrhage/hypertensive crisis , acute hypoxemic respiratory failure, status post cardiopulmonary arrest with clinical exam consistent with significant anoxic brain injury. We are now 6 days status post cardiopulmonary arrest. She did complete the hypothermia protocol. Overall neurologic prognosis appears to be guarded to poor. Family is struggling to come to transportation attendant with her current status. PLAN: 1. Recommend proceeding with tracheostomy given poor mental status for airway control status post cardiopulmonary arrest. 2. Continue attempts at tube feeds. 3. Continue to adjust insulin as tolerated. Hopefully with improvement in bowel function it will be easier to regulate her glucoses. 4. Overall prognosis is poor. Ongoing discussions with family are being held. Dr. Hills indicates family is currently attempting to transfer patient to [facility]. We will support the family in anyway possible. cc: Darshan Leal MD [facility]
[2018-09-30] MEDS: ATIVAN IV PRN ×3 (11:11→22:08)
--- NOTE | 2018-09-30 11:55 | PROGRESS NOTE ---
DATE: 09/30/2018 I discussed this patient's case with the family, her mother and her grandmother. They have requested to called [facility] to see if they accept the patient. I called the transfer center and I talked to Dr. Esqueda at 9;50 am. I explained to him in detail everything about the patient and what we are doing. Dr. Esqueda stated that at this point they are not going to be able to offer more treatment, that basically we are doing everything they can do also at [facility]. For now, we will continue with the same management. Like I mentioned before, this patient's prognosis is extremely poor. They will discuss the case with Neurology Department and also Nephrology Department. cc: Medardo Restrepo MD [facility]
--- NOTE | 2018-09-30 11:58 | PROGRESS NOTE ---
DATE: 09/30/2018 LOCATION: ICU bed 1. SUBJECTIVE: Ms. Ross does not look significantly changed clinically. She has resolved the left gaze as noted yesterday. There is minimal lateral eye movement with passive head turning. There was very minimal left toe twitch intermittently without evidence of clonic activity. There is report that she had clinically apparent seizure yesterday. Her phenytoin level was 11 a few days ago with maintenance dose begun yesterday. Levetiracetam level was 21 yesterday on maintenance dose 500 mg single dose daily. In light of her renal failure, we will continue once daily levetiracetam and I will increase the dose to 750 mg starting now. We can check the phenytoin level on current dose and adjust that as indicated. IMPRESSION: My impression is that she has anoxic brain injury with a tendency to seizure, possible seizures yesterday, seizure management as above. Further plans will depend on her clinical course, but prognosis remains very poor from a neurologic standpoint. There was request that I discuss situation with family. Family is not available at this time in the hospital. We had phone call arranged with mother but when I called mother, I got voicemail prompt and left her a message to call back if needed or to wait and see if we can discuss face-to- face tomorrow. Thanks for asking Neurology to see Ms. Ross. cc: MD ELSI ePrry III
--- NOTE | 2018-09-30 12:50 | PROGRESS NOTE ---
DATE: 09/30/2018 SUBJECTIVE: The patient remains intubated in a vegetative state following anoxic brain injury. From a GI standpoint, she continues to have coffee-ground and maroon-colored secretions from her NG tube, but her blood count is stable. There have been no reports of active bleeding. PHYSICAL EXAMINATION: On exam, her blood pressure is 109/71, pulse 107, respirations 28. Her T- max is 100.4. The remainder of her exam was deferred. OBJECTIVE: Objective Data reveals a hemoglobin 9.8, hematocrit of 32.1, and a white count of 14.08. She has 193,000 platelets. Her PTT is 21.9. Her arterial lactate is 1.4. Sodium is 144, potassium 4.9, chloride 103, CO2 of 19. BUN 22, creatinine 3.5, with a glucose of 109. Calcium is 9.3, total bilirubin 0.56, AST 19, ALT 6, alkaline phosphatase 116, total protein 7.8, albumin 3.4. RECOMMENDATION: 1. Although the patient is having evidence of an upper GI bleed, I would continue supportive care. 2. Continue Protonix drip as you are doing. She remains hemodynamically stable and has not required blood transfusions so far this admission. If there is obvious GI bleeding, either hematochezia or melena, of a volume greater than she presently has, I would consider endoscopic intervention at that time. cc: MD Medardo Elam MD
[2018-09-30] MEDS: KEPPRA 750 MG in NS 100 ML IV SCH (17:15)
--- NOTE | 2018-09-30 23:19 | NEPHROLOGY PROGRESS NOTE ---
DATE: 09/30/2018 TIME SEEN: 0740 hours. SUBJECTIVE: Ms. Ross is resting quietly in bed. Head of the bed is elevated. She remains ventilator dependent. She does not make purposeful movement. OBJECTIVE: Most recent vital signs: Temperature 98.2 degrees, blood pressure 132/88, heart rate 114, respirations 22. She remains on 30% FiO2. Last recorded saturation 100%. She has had 145 in with 4 L off on dialysis yesterday. The patient is in a negative fluid balance today. LABORATORY DATA: Sodium 140, potassium 4.9, chloride is 103, CO2 of 19, BUN 22 , creatinine 3.5, glucose 109. Her anion gap is 18, calcium 9.3, albumin 3.4. White count 14.08 , hemoglobin 9.8, hematocrit 32.1, with a platelet count of 193,000. ABGs: pH 7.45, CO2 of 30, pO2 of 84, bicarb 23.2, with a lactate of 1.4 on 30%. PHYSICAL EXAMINATION: General: This is a 28-year-old female, resting quietly in bed. She appears chronically ill. No acute distress. Skin: Warm and dry. HEENT: Normocephalic, atraumatic. Conjunctiva is pale. She has CLARY. Mucous membranes dry. Oral ET tube remains in place. NG tube remains in place, now with tube feedings that have been held during the night. Neck: Supple. Trachea midline. She has no JVD. Cardiovascular: She is regular rate and rhythm. She is slightly tachycardic on the monitor. She has an S3 present. Lungs: Clear to auscultation bilaterally. Equal excursion. Requiring ventilatory support. Abdomen: Soft, nontender. Positive bowel sounds. Again, NG tube remains intact with tube feedings, though these have been held during the night. Genitourinary: Not inspected. Minimal void with dialysis assist. Extremities: Have no edema. No clubbing or cyanosis. Neurological: As above. ASSESSMENT AND PLAN: 1. Chronic kidney disease stage 5D. The patient is in a negative fluid balance. We will hold dialysis today with plans for treatment tomorrow. 2. Electrolytes and acid-base balance. These are fairly stable with correction on dialysis in the a.m. 3. Anemia. This is low but fairly stable. 4. Respiratory failure. The patient remains ventilatory dependent. I would like to thank you for allowing us to follow with this patient. I met with the mother and grandmother on the evening of the . We reviewed the care that she has received since admission and the issues that are ongoing. Continue current treatment. rg Dictated by KAMALA Persaud for Dwain Hawkins MD Face to face encounter, data reviewed, discussed with Bhaskar Marvin on 09/30/18. I agree with the above assessment and plan of care. rg cc: KAMALA Persaud MD [facility]
[2018-09-30] MEDS: D50W SYRINGE IV PRN (23:28)
[2018-10-01] MEDS: PROTONIX 80 MG in NS 80 ML IV SCH ×3 (00:24→20:40)
[2018-10-01] MEDS: HUMALOG SUBQ SCH ×4 (00:37→07:32)
--- NOTE | 2018-10-01 02:36 | CONSULTATION ---
DATE OF CONSULTATION: 09/30/2018 IMPRESSION: 1. Status post cardiopulmonary arrest approximately 6 days ago after the patient presented with hypoxemic respiratory failure in the setting of hypertensive crisis, severe pulmonary edema, alveolar hemorrhage and acute hypoxemic respiratory failure. 2. Hypertension. 3. End-stage renal disease requiring chronic hemodialysis. 4. Longstanding type 1 diabetes mellitus with associated peripheral neuropathy. 5. Glaucoma. 6. History of previous cerebrovascular accident with residual left arm weakness. RECOMMENDATIONS: 1. Continue supportive care. The patient appears to have significant anoxic encephalopathy. Prognosis appears to be poor. 2. Echocardiography. 3. Repeat troponin. 4. Continue current antihypertensive regimen and utilize as needed labetalol and hydralazine as you are doing. HISTORY OF PRESENT ILLNESS: This is a 27-year-old female with a past history of longstanding insulin-dependent diabetes mellitus, end-stage renal disease requiring chronic hemodialysis, severe hypertension, and previous hypertensive crisis with associated pulmonary edema is now status post cardiopulmonary arrest approximately 6 days ago. She presented with acute hypoxemic respiratory failure in the setting of significant elevation in blood pressure. She had cough productive of bloody sputum, and systolic blood pressure over 200. Chest x-ray indicated bilateral infiltrates. She underwent urgent hemodialysis with some improvement in her hypertension. She suffered cardiopulmonary arrest and had resuscitation time of at least 12 minutes. Since then she has been on supportive care with ventilator and has continued comatose. She was recently hospitalized here in early August with hypertensive urgency and pulmonary edema. She was readmitted at the very beginning of September for about a week as well. She is presently comatose and unable to give any significant history. PAST MEDICAL HISTORY: 1. Long-standing type 1 diabetes mellitus. 2. End-stage renal disease requiring chronic hemodialysis. 3. Hypertension. 4. Peripheral neuropathy. 5. Glaucoma. 6. Previous cerebrovascular accident with residual left arm weakness. ALLERGIES: She has no known drug allergies. MEDICATIONS: As listed. SOCIAL HISTORY: She does not smoke tobacco. There is a reported history that she smoked marijuana. FAMILY HISTORY: Positive for breast cancer, hypertension, and diabetes mellitus. REVIEW OF SYSTEMS: Cannot be obtained given the patient's comatose state. PHYSICAL EXAMINATION: General: Reveals an adult female unresponsive on a ventilator. Vital signs: Blood pressure 107/73, heart rate 96, oxygen saturation 98% on ventilator with FiO2 of 50%. HEENT: Atraumatic, normocephalic. Mucous membranes moist. Neck: Supple without jugular venous distention. No carotid bruits. Chest: Clear to auscultation anteriorly. Cardiac Exam: Reveals a regular rate and rhythm without appreciable murmur or gallop. Abdomen: Soft. Bowel sounds audible. Extremities: Without edema. Neurologic: Reveals her to be unresponsive to any stimulus. PERTINENT DATA: Twelve lead EKG obtained on admission demonstrates normal sinus rhythm that is within normal limits. Laboratory data obtained on admission demonstrates a troponin T of 0.057. Present laboratory data includes white blood cell count of 14.8, hematocrit 32.1, hemoglobin 9.8, platelet count 193,000. Sodium 140, potassium 4.9, chloride 103, carbon dioxide 19, BUN 22, creatinine 3.5, glucose 109, albumin 3.4. cc: Manas Billings MD
[2018-10-01] MEDS: CEREBYX 200 MG in NS 50 ML IV SCH (03:23)
[2018-10-01] MEDS: DUONEB (A & A) INH SCH ×6 (03:48→23:41)
[2018-10-01 04:41] LABS: ALLEN TEST YES; BE -10.5 mmoll (-3.0-3.0); BLOOD TYPE ARTERIAL; HCO3-(ACT) 16.7 mmoll (20.0-26.0); METHB 1.1 % (0.0-1.5); O2(CT) 13.9 mL/dL (15.0-23.0); O2HB 95.8 % (95.0-99.0); PCO2(98.6) 22 mmHg (35-45); PO2(98.6) 102 mmHg (60-100); SAMPLE BLOOD; SAO2 98.6 % (95.0-100.0); SRATE 22 BPM; THB 10.2 g/dL (11.5-17.4); TVOL 450 mL; pH(98.6) 7.38 (7.35-7.45)
[2018-10-01 04:42] LABS: MODALITY VENTILATOR
[2018-10-01 04:56] LABS: HEMATOCRIT 29.5 % (37.0-47.0); HEMOGLOBIN 8.8 g/dL (12.0-16.0); MCHC 29.8 g/dL (33-37); MCV 83.8 FL (81-99); MPV 11.5 FL (7.4-10.4); RBC 3.52 XMIL (4.2-5.4); RDW 21.1 % (11.5-14.5); WBC 11.51 X1000 (4.8-10.8)
[2018-10-01 06:16] LABS: ALB/GLOB RATIO 0.7; CALCIUM 8.4 mg/dL (8.8-10.2); CREATININE 6.2 mg/dL (0.5-0.9); TOTAL BILIRUBIN 0.41 mg/dL (0.20-1.00); TOTAL PROTEIN 7.1 g/dL (6.3-8.3)
[2018-10-01] MEDS ORDERED: NS 2,000 ML MISC PRN (07:10)
--- NOTE | 2018-10-01 07:28 | Diag Imaging Result Doc PS360 ---
EXAM: CHEST-PORTABLE INDICATION: respiratory failure TECHNIQUE: One view COMPARISON: 09/30/2018 FINDINGS: Support tubes and lines are in stable positions. Mild left basilar atelectasis and/or infiltrate has largely resolved. No new consolidation is identified. Cardiac silhouette is stable. IMPRESSION: Essential resolution of the mild left basilar atelectasis versus infiltrate. Electronically signed by Javed Villegas 10/01/2018 7:25 AM
[2018-10-01] MEDS ORDERED: ALBUTEROL 0.5% INH CONC FOR HYPERKALEMIA INH ONE (07:32)
[2018-10-01] MEDS ORDERED: HUMULIN R IV ONE (07:57)
[2018-10-01] MEDS ORDERED: D50W SYRINGE IV ONE (07:58)
--- NOTE | 2018-10-01 08:11 | PROGRESS NOTE ---
DATE: 10/01/2018 SUBJECTIVE: This patient is lying in bed. She is still on mechanical ventilation. No sedation. No big changes compared with yesterday. Her prognosis is still extremely poor. OBJECTIVE: Vital Signs: Temperature 98.4, pulse 95, respiratory rate 22, blood pressure 108/65, oxygen saturation 100% on mechanical ventilation. HEENT: Head normocephalic. No trauma. PERRLA, but sluggish pupillary response, minimally. Neck: Supple. No JVD. Central trachea. Chest: Decreased breath sounds with coarse breath sounds mostly at the bases. Abdomen: Soft. Mildly distended, but nontender to palpation. Bowel sounds present. Extremities: No edema. No clubbing. No cyanosis. Neurological: The patient is intubated. She is not sedated. She is not responding to verbal stimuli. She is minimally responding to pain stimuli, but opening a little bit her eyes, but no more than that. She is not moving her extremities or grimacing with pain. LABORATORY DATA: WBC 11.5, hemoglobin 8.8, hematocrit 29.5. Sodium 137, potassium 6, chloride 99, bicarbonate 13, BUN 42, creatinine 6.2, glucose 314, calcium 8.4, albumin 3. ASSESSMENT AND PLAN: 1. Acute respiratory failure. This patient is status post cardiac arrest with likely anoxic brain injury. She is intubated. I do not think that we are going to be able to extubate this patient because of her mental status. Pulmonary Department is following this patient, as well as Cardiology Department, Neurology Department, and Nephrology Department, Gastroenterology Department on board as well, as well as Infectious Disease Department. She is not sedated, and she is not answering any of my questions. She only minimally responds to pain stimuli by opening a little bit her eyes, but no more than that. 2. Status post cardiac arrest with likely anoxic brain injury. It looks like she had a cardiac arrest at the beginning this hospitalization on 09/24/2018. Her prognosis is poor. 3. Healthcare-associated pneumonia. This condition was present on admission as well. The patient has been followed by Dr. Davies who decided to stop the antibiotics a few days ago. We will continue to monitor. For now, it looks the pneumonia has been better/resolved. 4. Gastrointestinal bleed. The patient has been evaluated by the Gastroenterology Department. For now, we will continue with the same treatment, but given her prognosis and her current anoxic brain injury, they have recommended conservative management at this time. Hemoglobin dropped a little bit from 9.8 to 8.8. We will continue to monitor. 5. End-stage renal disease on dialysis. Continue with the same management. She will receive dialysis today. 6. Hyperkalemia. Today this patient is hyperkalemic. I have placed an order for calcium gluconate and breathing treatment. I will also give her some insulin and D-50, and hopefully she will be dialyzed in the morning and the potassium will be corrected. 7. Labile hypertension with hypertensive crisis, better controlled. Continue with same management. 8. Alveolar hemorrhage with hypoxemic respiratory failure, as per number 1. No family members are at the bedside. They have requested to talk to the Neurology Department. I will wait for that meeting. If her prognosis is extremely poor, this patient is remarkably sick and she is still full code, we will continue with the treatment in the ICU. Unfortunately, I do not think she is going to get better. Yesterday I communicated with [facility] in the morning. I talked to Dr. Esqueda. He stated that they have nothing to offer to this patient because basically we are covering everything, and unfortunately, they cannot offer anything extra to this patient. cc: Medardo Restrepo MD
[2018-10-01] MEDS ORDERED: CALCIUM GLUCONATE 4.65 MEQ in NS 50 ML IV ONE (08:30)
[2018-10-01] MEDS: NORVASC PO SCH (08:34)
[2018-10-01] MEDS: APRESOLINE PO SCH ×3 (08:34→16:58)
[2018-10-01] MEDS: CATAPRES PO SCH ×2 (08:34→20:39)
[2018-10-01] MEDS ORDERED: MAGNESIUM SULFATE 2 GM/S.W.I. 2 GM/50 ML IVPB IV PRN (09:19)
[2018-10-01] MEDS ORDERED: SODIUM BICARBONATE 8.4% 100 MEQ in D5W 500 ML IV PRN (09:19)
[2018-10-01] MEDS ORDERED: SODIUM BICARBONATE 8.4% 50 MEQ in D5W 250 ML IV PRN (09:19)
[2018-10-01 09:47] LABS: CALCIUM 8.4 mg/dL (8.8-10.2); CREATININE 6.9 mg/dL (0.5-0.9); MAGNESIUM 2.2 mg/dL (1.5-2.7); POTASSIUM 4.7 mmol/L (3.5-5.1)
[2018-10-01] MEDS: RENVELA POWDER PACKET PO SCH ×3 (09:53→16:58)
[2018-10-01] MEDS: VASOTEC IV SCH ×2 (09:53→20:39)
[2018-10-01] MEDS: COREG PO SCH ×2 (09:53→20:39)
[2018-10-01] MEDS: HUMULIN R 100 UNIT in NS 99 ML IV SCH (10:29)
--- NOTE | 2018-10-01 10:35 | PULMONOLOGY PROGRESS NOTE ---
DATE: 10/01/2018 SUBJECTIVE: The patient does have partial withdrawal to painful stimuli. She does have spontaneous respiratory effort. She does not respond to voice. OBJECTIVE: HEENT: Right pupil does react to light. Left pupil is cloudy. Oropharynx is dry. Neck: Supple. Chest: Reveals good air entry bilaterally without wheezing or rhonchi. Cardiac exam: S1-S2. Abdomen: Soft without hepatosplenomegaly. Extremities: Are without edema. LABORATORIES: Chest x-ray reveals clear lung dooley with resolution of left basilar atelectasis. Chemistries: Sodium 137, potassium 4.7, chloride 99, bicarbonate 17, anion gap 21, BUN 46, creatinine 6.9. Glucose 363. White blood count 11.5, hemoglobin 8.8, platelet count 197,000. Arterial blood gas, pH 7.38, pCO2 of 22, pO2 of 102. IMPRESSION: 1. A 27-year-old with long history of diabetes mellitus. 2. End-stage renal disease on chronic hemodialysis. 3. Labile hypertension, labile blood sugars. 4. Acute hypoxemic respiratory failure who has sustained a cardiopulmonary arrest. 5. The patient's exam is consistent with anoxic brain injury. We are now 1 week status post cardiopulmonary arrest. She is not awake or alert. RECOMMENDATIONS: 1. Continue end of life discussions with the family. I anticipate that they will wish to continue aggressive support. 2. Recommend tracheostomy placement for airway management. 3. I agree with augmented control of glucose. 4. Tube feeds as tolerated. PROGNOSIS: Overall prognosis is poor. cc: Darshan Leal MD
--- NOTE | 2018-10-01 12:21 | PROGRESS NOTE ---
DATE: 10/01/2018 Ms. Ross does not look much different clinically today. I did not see any toe twitching, left foot movement, or eye movement to suggest seizure. There is full horizontal right eye movement with passive head turning but still easier to get gaze to the left than to the right. Corneal reflex is minimal bilaterally. Right pupil reacts to bright light consistently. There was minimal withdrawal to noxious stimulation over the feet. Limb tone continues reduced throughout and is symmetric. Phenytoin level was 9.7, and I have increased that dose. Levetiracetam dose was increased a day or 2 ago. We will plan to repeat EEG today. I had a discussion with mother and grandmother. They have some concerns regarding the use of lorazepam, and we discussed that rationale. We discussed the current seizure medications. Family reports witnessing some behavior that they think may indicate consciousness including some tears and some eye blink. We discussed the possibility that these may be reflex actions and may not indicate alertness or consciousness. I believe that mother was attentive and may understand the dire situation. Grandmother was argumentative, and I do not think I was able to explain my impression satisfactorily to the grandmother. Thanks for asking Neurology to see Ms. Ross. cc: MD ELSI Perry III
[2018-10-01] MEDS: ATIVAN IV PRN ×2 (12:30→15:32)
[2018-10-01] MEDS: D50W SYRINGE IV PRN (13:00)
--- NOTE | 2018-10-01 13:01 | ECHO REPORT ---
ORDER DATE: 09/30/2018 INDICATION: Cardiac arrest. FINDINGS: 1. The right atrium appears normal in size. 2. Mild tricuspid regurgitation. RV systolic pressure 34. 3. Normal RV size and systolic function. 4. No significant pulmonic insufficiency. 5. Normal left atrial size with a dimension of 3.1 cm. 6. No mitral prolapse. Trace mitral regurgitation. 7. Normal LV size, end-diastolic dimension of 3.4 cm. Moderate left ventricular hypertrophy with a posterior and interventricular septal wall thickness 1.4 to 1.5 cm respectively. Normal LV systolic function. Calculated ejection fraction of 64%. 8. Aortic valve opens well. It is trileaflet. No evidence of stenosis or insufficiency. 9. Aorta appears normal in visualized segments. 10. There is no pericardial effusion. On some views, there is a suggestion of a possible pleural effusion. cc: MD Manas Hough MD
--- NOTE | 2018-10-01 13:05 | NEPHROLOGY PROGRESS NOTE ---
DATE: 10/01/2018 SUBJECTIVE: She remains unresponsive. OBJECTIVE: Vital Signs: Blood pressure 108/65, heart rate 95, respirations 22. General: Unresponsive, on the vent. Skin: Warm and dry. HEENT: Conjunctivae are pink. Oropharynx is dry. Neck: Neck veins are not visible. Heart: Regular. No gallops. Lungs: Equal. No crackles. Abdomen: Soft, nontender. Bowel sounds are present. Extremities: No edema, clubbing, or cyanosis. IMPRESSION: Chronic kidney disease 5D. SLED today. A 3 potassium bath. Her anion gap is rising and her bicarbonate is falling. I discussed this directly with Dr. Hills, who will restart an insulin drip. Volume status is acceptable. cc: Dwain Hawkins MD
[2018-10-01 14:52] LABS: CALCIUM 8.2 mg/dL (8.8-10.2); MAGNESIUM 1.8 mg/dL (1.5-2.7); PHOSPHORUS 2.7 mg/dL (2.7-4.5); POTASSIUM 4.7 mmol/L (3.5-5.1)
[2018-10-01] MEDS: CEREBYX 300 MG in NS 50 ML IV SCH (14:56)
[2018-10-01] MEDS: KEPPRA 750 MG in NS 100 ML IV SCH (17:14)
[2018-10-01 18:02] LABS: HEMATOCRIT 31.4 % (37.0-47.0); HEMOGLOBIN 9.5 g/dL (12.0-16.0)
--- NOTE | 2018-10-01 18:06 | EEG REPORT ---
DATE: 10/01/2018 REFERRING PHYSICIAN: Dr. Josh Olvera. ELECTROLYSIS OPERATOR: Daniel Rowell. BACKGROUND INFORMATION AND TECHNIQUE: This is a digitally recorded portable routine EEG with video. HISTORY: This is a 28-year-old female patient with multiple comorbidities including possibly remote history of stroke, status post cardiac arrest. EEG is ordered to detect evidence of seizures. EEG FINDINGS: This is a technically limited routine EEG due to diffuse artifact necessitating heavy filtering. A posterior dominant alpha rhythm is absent. The background consists predominantly of diffuse suppression. There are some very brief, low amplitude theta-delta bursts. No definite persistent focal slowing. No definite epileptiform discharges. No seizures. Hyperventilation and photic stimulation are not performed. No definite drowsiness patterns. Stage II sleep is not seen. EKG is mostly not interpretable due to artifact but at brief times regular RR intervals are seen. IMPRESSION AND CLINICAL CORRELATION: Abnormal, technically limited, routine EEG due to burst suppression pattern as detailed above indicative of a severe diffuse nonspecific encephalopathy. No definite epileptiform discharges and no seizures noted on the current study. This does not rule out an underlying seizure disorder. Clinical correlation is recommended. cc: MD Josh Chavez III, MD MTDD
[2018-10-01 18:20] LABS: CALCIUM 8.6 mg/dL (8.8-10.2); CREATININE 3.1 mg/dL (0.5-0.9); MAGNESIUM 1.8 mg/dL (1.5-2.7); PHOSPHORUS 3.7 mg/dL (2.7-4.5); POTASSIUM 4.6 mmol/L (3.5-5.1)
[2018-10-01] MEDS: REGLAN IV SCH (20:38)
[2018-10-01 21:33] LABS: CALCIUM 8.4 mg/dL (8.8-10.2); CREATININE 3.5 mg/dL (0.5-0.9); MAGNESIUM 1.8 mg/dL (1.5-2.7); PHOSPHORUS 4.2 mg/dL (2.7-4.5); POTASSIUM 4.9 mmol/L (3.5-5.1)
[2018-10-02] MEDS: REGLAN IV SCH ×4 (00:10→18:32)
--- NOTE | 2018-10-02 00:14 | PROGRESS NOTE ---
DATE: 10/01/2018 SUBJECTIVE: Patient continues comatose. She remains on a ventilator with full support. OBJECTIVE: Vital Signs: Blood pressure 105/84, heart rate 115 with ECG monitor showing sinus rhythm, oxygen saturation 100% on ventilator with FIO2 of 40%. Neck: Jugular distention cannot be appreciated. Chest: Clear to auscultation anteriorly. Cardiac: Exam reveals a regular rate and rhythm without appreciable murmur or gallop. Extremities: Without edema. LABS: Echocardiography shows moderate left ventricular hypertrophy and normal left ventricular ejection fraction without wall motion abnormality. Repeat troponin T yesterday 0.047. Other labs today include sodium 136, potassium, 4.6 chloride 100, carbon dioxide 21, BUN 13, creatinine 3.1, glucose 134, albumin 3.0. White blood cell count 11.51, hematocrit 31.4, hemoglobin 9.5, platelet count 197. IMPRESSION: 1. Status post cardiopulmonary arrest after patient presented with hypoxemic respiratory failure in the setting of hypertensive crisis, severe pulmonary edema, alveolar hemorrhage and possible pulmonary infectious process. The patient remains comatose. Prognosis appears to be poor. 2. Hypertensive cardiovascular disease with moderate left hypertrophy and preserved left ventricular systolic function. 3. End-stage renal disease requiring chronic hemodialysis. 4. Type 1 diabetes mellitus, longstanding, with associated peripheral neuropathy. 5. Cerebrovascular disease. 6. Reported previous coronary angiography with no significant coronary obstructive lesions in 2016. RECOMMENDATIONS: 1. Continue supportive care. 2. Continue current cardiovascular regimen. Blood pressure appears to be reasonably stabilized on current regimen. Continue to utilize labetalol and hydralazine as needed as you are doing. No additional cardiovascular suggestions. cc: Manas Billings MD
[2018-10-02] MEDS: CEREBYX 300 MG in NS 50 ML IV SCH ×2 (03:17→16:00)
[2018-10-02] MEDS: DUONEB (A & A) INH SCH ×6 (03:31→23:00)
[2018-10-02 03:32] LABS: CALCIUM 8.2 mg/dL (8.8-10.2); CREATININE 4.3 mg/dL (0.5-0.9); MAGNESIUM 1.8 mg/dL (1.5-2.7); PHOSPHORUS 4.8 mg/dL (2.7-4.5); POTASSIUM 4.7 mmol/L (3.5-5.1)
--- NOTE | 2018-10-02 04:50 | PROGRESS NOTE ---
DATE: 10/01/2018 SUBJECTIVE: From a GI perspective, the patient has experienced increased tube feeding residuals. According to the family, there are no other concerns today. The patient remains intubated and unresponsive. PHYSICAL EXAMINATION: On exam, her blood pressure is 119/81, pulse of 113 with respirations of 22, and a temperature of 96.9 degrees. The remainder of her exam was deferred. OBJECTIVE DATA: Reveals a hemoglobin of 9.5 with hematocrit of 31.4 and a white count of 11.51. She has 197,000 platelets. Her arterial lactate today is 1.20. Sodium 136, potassium 4.6, chloride 100, CO2 21, BUN 13, creatinine 3.1 with a glucose of 134. Calcium is 8.6, phosphorus 3.7, magnesium 1.8, total bilirubin 0.41, AST 15, ALT 6, alkaline phosphatase 104, total protein 7.1, and albumin 3.0. RECOMMENDATIONS: 1. The patient has been noted to have high tube feeding residuals. Review of her medications is remarkable in that she has not been placed on Reglan. She was diagnosed as having gastroparesis last admission. Therefore, I will begin Reglan 5 mg q.6 hours IV. 2. Continue Protonix drip for a total of 72 hours with transition to Protonix 40 mg IV q.12 hours. 3. Her hemoglobin has been stable despite the hematemesis. Therefore, I recommend continued conservative management at this time given her overall prognosis and state. cc: MD Medardo Elam MD
[2018-10-02 04:52] LABS: ALLEN TEST YES; BE -3.9 mmoll (-3.0-3.0); BLOOD TYPE ARTERIAL; HCO3-(ACT) 21.9 mmoll (20.0-26.0); METHB 1.1 % (0.0-1.5); O2(CT) 12.5 mL/dL (15.0-23.0); PCO2(98.6) 26 mmHg (35-45); PO2(98.6) 170 mmHg (60-100); SAMPLE BLOOD; SAO2 99.9 % (95.0-100.0); SRATE 22 BPM; THB 8.9 g/dL (11.5-17.4); TVOL 450 mL; pH(98.6) 7.47 (7.35-7.45)
[2018-10-02 04:55] LABS: MODALITY VENTILATOR
[2018-10-02] MEDS: PROTONIX 80 MG in NS 80 ML IV SCH (06:12)
[2018-10-02 06:30] LABS: ALB/GLOB RATIO 0.6; ALBUMIN 2.7 g/dL (3.5-5.0); CALCIUM 8.6 mg/dL (8.8-10.2); CREATININE 4.3 mg/dL (0.5-0.9); PHOSPHORUS 5.7 mg/dL (2.7-4.5); POTASSIUM 5.5 mmol/L (3.5-5.1); TOTAL BILIRUBIN 0.33 mg/dL (0.20-1.00); TOTAL PROTEIN 7.4 g/dL (6.3-8.3)
--- NOTE | 2018-10-02 07:34 | Diag Imaging Result Doc PS360 ---
EXAM: CHEST-PORTABLE 10/02/2018 HISTORY: respiratory failure TECHNIQUE: AP portable at 0457 COMMENT: There is an endotracheal tube with its tip at thoracic inlet. The heart size and pulmonary vascularity are within normal limits. There is minimal blunting of the right costophrenic angle which was not the case previously otherwise there has been no significant change since 10/01/2018. IMPRESSION: Minimal right pleural effusion. Electronically signed by Kapil Francis 10/02/2018 7:32 AM
[2018-10-02 07:59] LABS: BASO# 0.02 X1000 (0.0-0.2); BASO% 0.2 % (0.0-0.8); EOS# 0.32 X1000 (0.0-0.7); EOS% 2.5 % (0.0-10.0); HEMATOCRIT 28.5 % (37.0-47.0); HEMOGLOBIN 8.7 g/dL (12.0-16.0); IMM GRAN# 0.09 X1000 (0.0-0.04); IMM GRAN% 0.7 % (0.0-0.5); LYMPH# 1.92 X1000 (1.2-3.4); MCH 24.9 PG (27-31); MCHC 30.5 g/dL (33-37); MCV 81.4 FL (81-99); MONO# 1.76 X1000 (0.11-0.59); MONO% 13.8 % (1.7-9.3); MPV 10.4 FL (7.4-10.4); NEUT# 8.69 X1000 (1.4-6.5); NEUT% 67.8 % (42.2-75.2); PLT 233 X1000 (130-400); RDW 21.3 % (11.5-14.5)
[2018-10-02] MEDS: VASOTEC IV SCH ×2 (08:35→20:14)
[2018-10-02] MEDS: COREG PO SCH ×2 (08:35→20:12)
[2018-10-02] MEDS: APRESOLINE PO SCH ×4 (08:35→17:34)
[2018-10-02] MEDS: CATAPRES PO SCH ×2 (08:35→20:12)
[2018-10-02] MEDS: NORVASC PO SCH (08:35)
[2018-10-02] MEDS ORDERED: PROTONIX IV SCH (08:46)
[2018-10-02] MEDS ORDERED: HEPARIN IV PRN (08:48)
[2018-10-02] MEDS ORDERED: TIGHT: 0.2 ML/HR FOR DIALYSIS MISC PRN (08:48)
[2018-10-02] MEDS ORDERED: NS 2,000 ML MISC PRN (08:48)
--- NOTE | 2018-10-02 08:50 | PROGRESS NOTE ---
DATE: 10/02/2018 SUBJECTIVE: The patient is still lying in bed. She is still on mechanical ventilation. No sedation. No big changes compared with yesterday. Prognosis feels extremely poor. OBJECTIVE: Vital Signs: Temperature 98.9, pulse 104, respiratory rate 22, pressure 112/83. Oxygen saturation 100% on mechanical ventilation. HEENT: Head normocephalic. No trauma. PERRLA but minimally pupillary response. Neck supple. No JVD. Central trachea. Chest: Decreased breath sounds with coarse breath sounds mostly at the bases. Abdomen is soft, a little bit distended, bowel sounds present. Extremities: No edema. No clubbing. No cyanosis. Neurological: The patient is intubated. She is not sedated. She is not responding to verbal stimuli. She opens her eyes a little bit with pain and stimuli. She is not moving her extremities or grimacing with pain. LABORATORY: WBC 12.8, hemoglobin 8.7, hematocrit 28.5, platelets 233,000. Sodium 135, potassium 5.5, chloride 102, bicarbonate 15. BUN 22, creatinine 4.3, glucose 146, calcium 8.6. Magnesium 3. AST 38. ALT 8. Alkaline phosphatase 98. Albumin 2.7. ASSESSMENT AND PLAN: 1. Status post cardiac arrest with likely anoxic brain injury. It looks like she had a cardiac arrest at the beginning of this hospitalization on 09/24/2017. Cardiology Department and Pulmonary Department on board. Her prognosis is poor. Continue with supportive care. 2. Acute respiratory failure. Patient is status post cardiac arrest. She has been intubated, but I do not think we are going to be able to extubate this patient because of her mental status. Pulmonary Department following this patient closely. 3. Healthcare-associated pneumonia. This condition was present on admission as well. The patient has been followed by Dr. Davies who decided to stop antibiotics a few days ago. 4. Gastrointestinal bleed. The patient has been evaluated by Gastroenterology Department. Her hemoglobin has been stable. We will continue to monitor for now. No aggressive measures due to her current condition. 5. End-stage renal disease; on dialysis. Continue with same management. 6. Hyperkalemia. This is better compared with yesterday. I will monitor for now. Nephrology Department on board. 7. Labile hypertension with hypertensive crisis, controlled. Continue with the same management. 8. Alveolar hemorrhage with hypoxemic respiratory failure as per #2. 9. No family members at the bedside. They already had a conversation with Neurology the Department. Her prognosis is extremely poor, and the patient is remarkably sick. Unfortunately, I do not think she is going to be able to recover from this condition. 10. Diabetic ketoacidosis, continue with insulin drip. Anion gap still elevated. We will monitor. cc: Medardo Restrepo MD
[2018-10-02] MEDS: RENVELA POWDER PACKET PO SCH ×3 (08:56→18:33)
[2018-10-02 10:36] LABS: CALCIUM 8.5 mg/dL (8.8-10.2); CREATININE 4.9 mg/dL (0.5-0.9); MAGNESIUM 1.9 mg/dL (1.5-2.7); POTASSIUM 5.3 mmol/L (3.5-5.1)
[2018-10-02] MEDS ORDERED: PROTONIX 80 MG in NS 80 ML IV SCH (12:15)
[2018-10-02] MEDS: LEVOPHED 8 MG in D5 1/2 NS 250 ML IV SCH (12:28)
[2018-10-02] MEDS ORDERED: NS 500 ML ONE (13:37)
[2018-10-02 13:59] LABS: CALCIUM 8.4 mg/dL (8.8-10.2); CREATININE 1.8 mg/dL (0.5-0.9); MAGNESIUM 1.8 mg/dL (1.5-2.7); PHOSPHORUS 2.7 mg/dL (2.7-4.5); POTASSIUM 3.2 mmol/L (3.5-5.1)
--- NOTE | 2018-10-02 14:00 | PULMONOLOGY PROGRESS NOTE ---
DATE: 10/02/2018 SUBJECTIVE: The patient is currently on mechanical ventilation and on dialysis. She does not respond to voice. She does have limited withdrawal to painful stimuli. OBJECTIVE: Vital Signs: The patient has been afebrile for the last 24 hours. Blood pressure 97/63, heart rate 93, respiration rate 22, oxygen saturation 95%. HEENT: The right pupil is reactive. The left pupil is cloudy. The oropharynx appears clear. Neck: Supple. Chest: Good air entry bilaterally. There is some transmitted noise from some condensation in the tubes, but otherwise breath sounds appear normal. Cardiac exam: S1 and S2. Abdomen: Soft with markedly diminished bowel sounds. Extremities: Trace edema. DIAGNOSTIC STUDIES: Chest x-ray reveals endotracheal tube in good position. No active infiltrates identified. Small/trace effusion at the right base. LABORATORY DATA: Arterial blood gas reveals a pH of 7.47, pCO2 of 26, PO2 of 170, on a rate of 22, tidal volume 450, FiO2 40%. Chemistry: Sodium 136, potassium 5.3, chloride 99, bicarbonate 17, anion gap 20, BUN 24, creatinine 4.9. IMPRESSION: A 27-year-old with a long history of diabetes mellitus with end- stage renal disease, on chronic hemodialysis, labile hypertension, labile blood sugars, with acute hypoxemic respiratory failure following a cardiopulmonary arrest. The patient continues to have evidence of significant anoxic encephalopathy without improvement. Her chest x-ray is clearing. She continues to have a poor gag reflex. RECOMMENDATIONS: 1. Recommend tracheostomy for airway management given significant anoxic injury along with poor gag reflex. 2. Continue tube feeds as tolerated. 3. Ongoing end-of-life discussions with the family. They are having difficulty accepting her poor prognosis. Time spent in critical care management: 30+ minutes cc: Darshan Leal MD [facility]
--- NOTE | 2018-10-02 15:00 | PROGRESS NOTE ---
DATE: 10/02/2018 CARDIOLOGY FOLLOWUP NOTE: SUBJECTIVE: Patient continues comatose on ventilator. OBJECTIVE: Vital Signs: Blood pressure 97/63, heart rate 93, oxygen saturation 95% on mechanical ventilator. JVD cannot be appreciated. Chest: Chest is clear to auscultation anteriorly. Cardiac: Cardiac exam was a regular rate and rhythm without appreciable murmur or gallop. There is no evidence of peripheral edema. LABORATORY DATA: Includes: White blood cell count 12.8, hematocrit , hemoglobin 8.7, platelet count 233,000. Sodium 137, potassium 4.7, chloride 100, carbon dioxide 20, BUN 19, creatinine 4.3, glucose 115, albumin 2.7. IMPRESSION: 1. Status post cardiopulmonary arrest after patient presented with hypoxemic respiratory failure in setting of hypertensive crisis, severe pulmonary edema, alveolar hemorrhage, and possible pulmonary infectious process. The patient remains comatose, now approximately one week after cardiac arrest. Prognosis appears to be poor. 2. Hypertensive cardiovascular disease with moderate left ventricular hypertrophy and preserved left ventricular systolic function. 3. Previous coronary angiography in 2016 reportedly demonstrated no significant coronary obstructive lesions. 4. End-stage renal disease requiring chronic hemodialysis. 5. Type 1 diabetes mellitus which has been longstanding and with associated peripheral neuropathy. 6. Cerebrovascular disease and previous cerebrovascular accident. RECOMMENDATIONS: 1. Continue supportive care. 2. Continue current cardiovascular regimen unchanged. Continue to utilize labetalol and hydralazine as required to ensure adequate blood pressure control. 3. No additional cardiovascular suggestions. I will see her further on an as- needed basis. cc: Manas Billings MD MTDD
--- NOTE | 2018-10-02 16:04 | NEPHROLOGY PROGRESS NOTE ---
DATE: 10/02/2018 TIME SEEN: 0730 hours. SUBJECTIVE: Ms. Ross is resting quietly in bed. She is ventilator dependent. She remains unresponsive. OBJECTIVE: Vital Signs: Temperature 98.9, blood pressure 109/69, heart rate 104, and respirations 22. She is on 40% FiO2. Her last recorded saturation was 100%. She has had 771 in. She has had 2,200 out with dialysis yesterday. She continues with tube feedings. LABS: Sodium is 135, potassium 5.5, chloride 102, CO2 15, BUN 22, creatinine 4.3, glucose 146, anion gap 18, calcium 8.6, phosphorus 5.7, and albumin 2.7. Hemoglobin is 9.5 with hematocrit of 31.4. ABG revealed a pH of 7.47, CO2 26, pO2 170, and bicarb 21.9 on 40% FiO2. PHYSICAL EXAMINATION: General: This is a 28-year-old female. She is resting quietly in bed. She appears chronically ill though she is in no acute distress. Her skin is warm and dry. She is ventilator dependent. HEENT: Normocephalic, atraumatic. Conjunctiva is pale pink. CLARY. Mucous membranes are dry. Neck: Supple. Trachea is midline. Positive JVD in the upright position. Cardiovascular: Regular rate and rhythm. She is tachycardic on the monitor. She has an S3 that is present. Lungs: Coarse breath sounds bilaterally. Ventilator support. Equal excursion. Abdomen: Soft and nontender. Positive bowel sounds. Tube feeding remains intact. Genitourinary: Not inspected. The patient has minimal urine out requiring dialysis assist. Extremities: She does have trace pretibial edema. No clubbing or cyanosis. Neurological: As above. ASSESSMENT AND PLAN: 1. Chronic kidney disease stage 5D. The patient is requiring hemodialysis today. CVP was noted this a.m. at 20. She does have an S3. She has positive JVD. We will place her on hemodialysis at the bedside. We will put her on a 2K bath. She is to dialyze for 3.5 hours. We will attempt to pull 1 to 2 L of ultrafiltration, and if tolerated maybe an extra liter today. 2. Electrolytes and acid-base balance. Mild hyperkalemia again with correction on dialysis. 3. Anemia. This is low but stable. 4. Pneumonia. The patient is requiring ventilatory support. She remains on renal dosed antibiotics. Followed by Primary Care and Pulmonology. I would like to thank you for allowing us to follow with this patient. This is Cheli Marvin, Nurse Practitioner dictating a Progress Note for Dr. Dwain Hawkins. Dictated by KAMALA Persaud for Dwain Hawkins MD Face to face encounter, data reviewed, discussed with Yumi Marvin on 10/02/18. I agree with the above assessment and plan of care. cc: KAMALA Persaud MD [facility]
[2018-10-02 18:07] LABS: CALCIUM 8.5 mg/dL (8.8-10.2); CREATININE 2.5 mg/dL (0.5-0.9); MAGNESIUM 1.8 mg/dL (1.5-2.7); PHOSPHORUS 3.7 mg/dL (2.7-4.5)
[2018-10-02] MEDS: KEPPRA 750 MG in NS 100 ML IV SCH (18:32)
--- NOTE | 2018-10-02 21:26 | PROGRESS NOTE ---
DATE: 10/02/2018 DATE OF ROUNDS: 10/02/2018. SUBJECTIVE: The patient remains in a vegetative state. She is intubated and unresponsive. From a GI perspective, she has been tolerating her tube feeding since Reglan was added to her medications as she has a known history of gastroparesis. PHYSICAL EXAMINATION: Vital Signs: Her blood pressure is 115/77, pulse 108, respirations 16, temperature of 97.3. Pulmonary: Breath sounds are clear to auscultation. Cardiovascular: Reveals a resting tachycardia. Abdomen: Soft and nontender, with no rebound or guarding. OBJECTIVE DATA: Reveals a hemoglobin of 8.7, with hematocrit of 28.5 and a white count of 12.80. She has 233,000 platelets. Her arterial lactate has improved and is currently 1.20. Sodium is 137, potassium 4.7, chloride 100, CO2 20, BUN 19, creatinine 4.3, with a glucose of 115. Calcium is 8.9, phosphorus 4.8, magnesium 1.8, total bilirubin 0.33, AST 38, ALT 8, alkaline phosphatase 98, total protein 7.4 and albumin 2.6. RECOMMENDATION: 1. The patient's hematemesis has resolved with Protonix and Carafate. I would continue current regimen. It has been 72 hours, I would transition her Protonix from a Protonix drip to Protonix 40 mg IV q.12 hours. 2. Continue Carafate for one month and then stop in light of her renal disease. 3. Continue Reglan 5 mg q.6 hours. 4. I will advance her tube feedings to goal over the next 24 hours. She is currently receiving Glucerna 1.5 at 20 mL/hour. Her goal rate is Glucerna 1.5 at 40 mL/h, with 30 mL water flushes every 6 hours. That will provide 960 mL for a total of 1440 kcals with 79 g of protein and 730 mL of free water. 5. Additional recommendations to follow based on her clinical course. cc: MD Medardo Elam MD
[2018-10-02 21:28] LABS: CALCIUM 7.8 mg/dL (8.8-10.2); CREATININE 3.1 mg/dL (0.5-0.9); MAGNESIUM 1.7 mg/dL (1.5-2.7); PHOSPHORUS 4.6 mg/dL (2.7-4.5); POTASSIUM 4.1 mmol/L (3.5-5.1)
[2018-10-03] MEDS: D50W SYRINGE IV PRN ×3 (00:09→21:15)
[2018-10-03] MEDS: REGLAN IV SCH ×4 (00:10→18:13)
[2018-10-03 01:36] LABS: CALCIUM 8.3 mg/dL (8.8-10.2); CREATININE 3.6 mg/dL (0.5-0.9); MAGNESIUM 2.4 mg/dL (1.5-2.7); POTASSIUM 3.8 mmol/L (3.5-5.1)
[2018-10-03] MEDS: HUMULIN R 100 UNIT in NS 99 ML IV SCH (01:47)
[2018-10-03] MEDS: CEREBYX 300 MG in NS 50 ML IV SCH ×2 (02:14→15:15)
[2018-10-03] MEDS: DUONEB (A & A) INH SCH ×6 (03:42→23:36)
[2018-10-03 04:59] LABS: ALLEN TEST YES; BE -5.4 mmoll (-3.0-3.0); BLOOD TYPE ARTERIAL; HCO3-(ACT) 20.7 mmoll (20.0-26.0); METHB 0.6 % (0.0-1.5); O2(CT) 12.6 mL/dL (15.0-23.0); O2HB 97.3 % (95.0-99.0); PCO2(98.6) 30 mmHg (35-45); PO2(98.6) 168 mmHg (60-100); SAMPLE BLOOD; SRATE 16 BPM; THB 8.9 g/dL (11.5-17.4); TVOL 450 mL
[2018-10-03 05:00] LABS: MODALITY VENTILATOR
[2018-10-03 06:02] LABS: HEMATOCRIT 29.6 % (37.0-47.0); MCH 25.4 PG (27-31); MCHC 30.4 g/dL (33-37); MCV 83.4 FL (81-99); MPV 11.4 FL (7.4-10.4); RBC 3.55 XMIL (4.2-5.4); RDW 20.7 % (11.5-14.5); WBC 13.32 X1000 (4.8-10.8)
[2018-10-03 07:34] LABS: AGAP 26; ALB/GLOB RATIO 0.8; ALBUMIN 3.3 g/dL (3.5-5.0); ALKALINE PHOSPHATASE 109 U/L (32-104); BUN 21 mg/dL (8-22); CALCIUM 8.5 mg/dL (8.8-10.2); CHLORIDE 87 mmol/L (98-107); COSMO 289; CREATININE 4.3 mg/dL (0.5-0.9); ESTIMATED GFR 15; GOT 23 U/L (10-30); GPT 7 U/L (10-36); MAGNESIUM 2.8 mg/dL (1.5-2.7); PHOSPHORUS 5.6 mg/dL (2.7-4.5); POTASSIUM 4.3 mmol/L (3.5-5.1); SODIUM 134 mmol/L (136-145); TCO2 21 mmol/L (25-35); TOTAL BILIRUBIN 0.31 mg/dL (0.20-1.00); TOTAL PROTEIN 7.2 g/dL (6.3-8.3)
[2018-10-03 07:38] LABS: GLUCOSE 414 mg/dL (70-104)
--- NOTE | 2018-10-03 07:38 | EKG Report ---
Test Performed on : 10/03/2018 04:00:25 AM Test Reason : ELEVATED ST SEG Blood Pressure : / mmHG Vent. Rate : 092 BPM Atrial Rate : 092 BPM P-R Int : 140 ms QRS Dur : 080 ms QT Int : 396 ms P-R-T Axes : 075 054 074 degrees QTc Int : 489 ms Normal sinus rhythm. Prolonged QT Peaked T waves, consider hyperkalemia Abnormal ECG When compared with ECG of 03-OCT-2018 03:59, (Unconfirmed) No significant change was found Confirmed by Destiny HERRERA, Farhan Smith ([id number]) on 10/03/2018 8:11:28 AM
[2018-10-03 07:39] LABS: ACETONE SERUM MODERATE (NEGATIVE)
--- NOTE | 2018-10-03 07:41 | PROGRESS NOTE ---
DATE: 10/03/2018 SUBJECTIVE: This patient is still on mechanical ventilation, not sedated. No big changes compared with yesterday. Prognosis is still extremely poor. OBJECTIVE: Vital Signs: Temperature 99.4 degrees, pulse 116, respiratory rate 20, blood pressure 111/66, oxygen saturation 100% on mechanical ventilation. HEENT: Head normocephalic. No trauma. Sluggish pupillary response, minimally. Neck: Supple. No JVD. Central trachea. Chest: Decreased breath sounds with coarse breath sounds, mostly at the bases. Abdomen: Soft. Nondistended. Positive bowel sounds. Extremities: No edema. No clubbing. No cyanosis. Neurological: This patient is intubated. She is not sedated. She is not responding to verbal stimuli and not responding for pain today. She is not moving her extremities or grimacing with pain stimulation. LABORATORY DATA: WBC 13.3, hemoglobin 9, hematocrit 29.6, platelets 308,000. Pending lab work at this moment, but she had lab work done at 12:49 a.m. Sodium 136, potassium 3.8, chloride 92, bicarbonate 28, BUN 14, creatinine 3.6, glucose 133, calcium 8.5, phosphorus 5, magnesium 2.4. ASSESSMENT AND PLAN: 1. Status post cardiac arrest with likely anoxic brain injury. No big changes compared with yesterday. The cardiac arrest was at the beginning this hospitalization on 09/24/2017. Cardiology Department and Pulmonary Department on board. Neurology Department also evaluated this patient and talked to the family. Her prognosis is extremely poor. We will continue with supportive care. 2. Acute respiratory failure. The patient is status post cardiac arrest. Like I mentioned before, she has been intubated. I do not think we are going to be able to extubate this patient due to her mental status. Pulmonary Department following this patient closely. 3. Healthcare-associated pneumonia. This condition was present on admission as well. The patient has been followed by Dr. Davies who decided to stop the antibiotics a few days ago. 4. Gastrointestinal bleed. Hemoglobin has been stable compared with yesterday. Gastroenterology Department following this patient. 5. End-stage renal disease. Continue with dialysis as scheduled. 6. Hyperkalemia. Pending lab work this morning, but lab work at midnight was normal potassium. 7. Labile hypertension with hypertensive crisis, controlled. 8. Alveolar hemorrhage with hypoxemic respiratory failure, as per number. 9. Diabetic ketoacidosis. Continue with insulin drip. We will continue monitoring. Pending lab work. 10. No family members at the bedside. They already had a conversation with me, Neurology Department, and most of the team taking care of this patient. This patient is remarkably sick, and unfortunately, I do not think she is going to be able to recover from this condition. CRITICAL CARE TIME: 35 minutes. cc: Medardo Restrepo MD
--- NOTE | 2018-10-03 08:16 | Diag Imaging Result Doc PS360 ---
EXAM: CHEST-PORTABLE INDICATION: respiratory failure TECHNIQUE: One view COMPARISON: 10/02/2018 FINDINGS: Support tubes and lines are in stable positions. The minimal blunting of the right costophrenic angle is not appreciated on the current study. This may indicate that the trace effusion has resolved. There is probably minimal atelectasis at the right lung base. No new consolidation is identified, otherwise. Cardiac silhouette is stable. IMPRESSION: Interval resolution of the right costophrenic angle blunting. Development of minimal right basilar atelectasis. Electronically signed by Javed Villegas 10/03/2018 8:13 AM
[2018-10-03] MEDS: NORVASC PO SCH (09:05)
[2018-10-03] MEDS: COREG PO SCH ×2 (09:05→20:53)
[2018-10-03] MEDS: RENVELA POWDER PACKET PO SCH ×3 (09:05→17:39)
[2018-10-03 10:02] LABS: CALCIUM 8.9 mg/dL (8.8-10.2); CREATININE 4.6 mg/dL (0.5-0.9); MAGNESIUM 2.9 mg/dL (1.5-2.7); PHOSPHORUS 5.2 mg/dL (2.7-4.5); POTASSIUM 4.1 mmol/L (3.5-5.1)
[2018-10-03] MEDS: VASOTEC IV SCH ×2 (12:26→20:55)
[2018-10-03] MEDS: CATAPRES PO SCH ×2 (12:26→20:55)
[2018-10-03] MEDS: APRESOLINE PO SCH ×3 (12:26→17:39)
[2018-10-03 14:52] LABS: CALCIUM 8.8 mg/dL (8.8-10.2); MAGNESIUM 2.9 mg/dL (1.5-2.7); PHOSPHORUS 6.3 mg/dL (2.7-4.5); POTASSIUM 4.5 mmol/L (3.5-5.1)
[2018-10-03 17:45] LABS: CALCIUM 8.7 mg/dL (8.8-10.2); PHOSPHORUS 6.7 mg/dL (2.7-4.5); POTASSIUM 4.4 mmol/L (3.5-5.1)
[2018-10-03 17:52] LABS: CREATININE 5.1 mg/dL (0.5-0.9)
--- NOTE | 2018-10-03 18:04 | PULMONOLOGY PROGRESS NOTE ---
DATE: 10/03/2018 SUBJECTIVE: The patient withdraws partially with the left arm to painful stimuli but not to the right arm. Right pupil is slightly reactive. With suctioning, she coughed one time, but I could not elicit an additional cough reflex. OBJECTIVE: The patient has been afebrile for the last 24 hours. Blood pressure 95/64, heart rate 96, respiratory rate 16, oxygen saturation 100%. HEENT: Right pupil is slightly reactive. Left pupil is cloudy. Oropharynx appears clear. Neck is supple. Chest reveals occasional rhonchi without wheezing or tactile fremitus. Cardiac Exam: S1-S2. Abdomen is soft with rare bowel sounds. Extremities are slightly cool to the touch. LABORATORIES: White blood count 13.32, hemoglobin 9.0, platelet count 308,000. Chemistry: Sodium 138, potassium 4.1, chloride 92, bicarbonate 28. BUN 23, creatinine 4.6. Arterial blood gas: pH 7.40, pCO2 of 30, PO2 of 168. IMPRESSION: A 28-year-old female with 1. Long history of diabetes mellitus. 2. End-stage renal disease, on chronic hemodialysis. 3. Labile hypertension. 4. Labile blood sugars 5. She has sustained an acute hypoxemic respiratory failure following a cardiopulmonary arrest. The patient has anoxic encephalopathy. She has some neurologic function as indicated by withdrawal to pain and spontaneous respiratory effort. She has an inconsistent cough reflex. RECOMMENDATIONS: 1. Recommend tracheostomy for airway management if family continues to wish for aggressive care. It is possible that she could be extubated and might tolerate extubation without tracheostomy but this will require a short-term risk along with a long-term risk of inadequate airway protection. 2. Continued tube feeds as tolerated. 3. Ongoing end-of-life discussions with the family. Her prognosis is poor. TIME SPENT IN CRITICAL CARE: 30 + minutes. cc: Darshan Leal MD MTDD
[2018-10-03] MEDS: KEPPRA 750 MG in NS 100 ML IV SCH (18:12)
--- NOTE | 2018-10-03 20:21 | PROGRESS NOTE ---
DATE: 10/03/2018 SUBJECTIVE: The patient remains intubated and unresponsive. Overnight, she has had increasing intolerance to her tube feedings. They were actually suctioning tube feedings out of her mouth. Her tube feeding tolerance has been poor despite the addition of Reglan. PHYSICAL EXAM: Vital Signs: Her blood pressure is 116/57, pulse 96, respiration 10, temperature of 98.7 degrees. HEENT: Remarkable for the NG tube as well as orally intubated. Pulmonary: Breath sounds are coarse. Cardiovascular: Reveals a resting tachycardia with a regular rhythm. Abdomen: Soft but distended with hypoactive bowel sounds. OBJECTIVE DATA: Reveals a hemoglobin of 9.0 with hematocrit of 29.6 and a white count of 13.32. She has 308,000 platelets. Her sodium is 134, potassium 4.3, chloride 87, CO2 21, BUN 21, creatinine 4.3 with a glucose of 414. Calcium is 8.5, phosphorus 5.6, magnesium 2.8, total bilirubin 0.31, AST 23, ALT 7, alkaline phosphatase 109, total protein 7.3 and albumin 3.3. RECOMMENDATION: 1. I will obtain a CT scan of the chest, abdomen and pelvis with oral contrast only. Given that she presented with hematemesis, it would be important to assess for a bowel obstruction from a lesion such as a gastric ulcer or a small bowel obstruction. 2. I will likely transition her to an elemental formula pending the results of the CT scan. 3. Continue current medications including Protonix 40 mg IV q.12 hours. 4. Additional recommendations to follow based on the results of her CT scan. cc: MD ELSI Murray
[2018-10-03] MEDS: PROTONIX IV SCH (20:54)
--- NOTE | 2018-10-03 21:12 | Diag Imaging Result Doc PS360 ---
EXAM: CT THORAX/ABD/PELVIS W/O CON HISTORY: pneumonia, n/v, hematemesis, TF intol TECHNIQUE: 1. Emergency CT chest without contrast 2. Emergency CT abdomen and pelvis without contrast COMPARISON: Chest compared to 09/24/2018 FINDINGS: Chest: Minimal pleural fluid on the current exam. No cardiomegaly. No thoracic aortic aneurysm. No enlarged lymph nodes. Marked interval improvement in the bilateral infiltrates. Small infiltrates remain in the lower lobes. Endotracheal and nasogastric tubes in good position. Abdomen and pelvis: A nasogastric tube enters the stomach. No calcified gallstones or adjacent inflammation. Normal noncontrasted liver. The spleen is not enlarged. Normal pancreas and adrenal glands. The kidneys are small. No perinephric inflammation. No hydronephrosis. Normal aorta. There is stool throughout the colon. The uterus is small. There is a contraceptive device within it. No pelvic mass. There is a right femoral line. IMPRESSION: Chest: Marked interval improvement Abdomen and pelvis: Constipation This exam was performed using automated exposure control, adjustment of mA or kV according to patient size, and/or use of iterative reconstruction technique. Electronically signed by Donnie Chandler 10/03/2018 9:09 PM
[2018-10-03 23:13] LABS: CALCIUM 8.3 mg/dL (8.8-10.2); CREATININE 5.8 mg/dL (0.5-0.9); MAGNESIUM 2.8 mg/dL (1.5-2.7); PHOSPHORUS 6.7 mg/dL (2.7-4.5); POTASSIUM 4.4 mmol/L (3.5-5.1)
[2018-10-04] MEDS: REGLAN IV SCH ×4 (00:11→18:01)
[2018-10-04 02:37] LABS: CALCIUM 8.7 mg/dL (8.8-10.2); CREATININE 5.9 mg/dL (0.5-0.9); PHOSPHORUS 7.1 mg/dL (2.7-4.5); POTASSIUM 4.2 mmol/L (3.5-5.1)
[2018-10-04] MEDS: CEREBYX 300 MG in NS 50 ML IV SCH ×2 (03:05→14:49)
[2018-10-04] MEDS: DUONEB (A & A) INH SCH ×6 (03:17→23:35)
[2018-10-04 05:42] LABS: ALLEN TEST YES; BE 4.7 mmoll (-3.0-3.0); BLOOD TYPE ARTERIAL; HCO3-(ACT) 28.6 mmoll (20.0-26.0); METHB 1.3 % (0.0-1.5); O2(CT) 11.9 mL/dL (15.0-23.0); O2HB 94.6 % (95.0-99.0); PCO2(98.6) 46 mmHg (35-45); PO2(98.6) 95 mmHg (60-100); SAMPLE BLOOD; SAO2 97.7 % (95.0-100.0); SRATE 8 BPM; THB 8.8 g/dL (11.5-17.4); TVOL 600 mL; pH(98.6) 7.42 (7.35-7.45)
[2018-10-04 05:43] LABS: MODALITY VENTILATOR
[2018-10-04 05:51] LABS: BASO# 0.03 X1000 (0.0-0.2); BASO% 0.2 % (0.0-0.8); EOS# 0.19 X1000 (0.0-0.7); EOS% 1.4 % (0.0-10.0); HEMATOCRIT 27.7 % (37.0-47.0); HEMOGLOBIN 8.6 g/dL (12.0-16.0); IMM GRAN# 0.05 X1000 (0.0-0.04); IMM GRAN% 0.4 % (0.0-0.5); LYMPH# 1.41 X1000 (1.2-3.4); LYMPH% 10.2 % (20.5-51.1); MCV 80.5 FL (81-99); MONO# 1.91 X1000 (0.11-0.59); MONO% 13.8 % (1.7-9.3); MPV 10.7 FL (7.4-10.4); NEUT# 10.28 X1000 (1.4-6.5); PLT 393 X1000 (130-400); RBC 3.44 XMIL (4.2-5.4); RDW 19.8 % (11.5-14.5); WBC 13.87 X1000 (4.8-10.8)
[2018-10-04 06:37] LABS: MAGNESIUM 3.1 mg/dL (1.5-2.7); PHOSPHORUS 7.7 mg/dL (2.7-4.5)
[2018-10-04 06:44] LABS: ALB/GLOB RATIO 0.7; CREATININE 6.2 mg/dL (0.5-0.9); POTASSIUM 4.5 mmol/L (3.5-5.1); TOTAL BILIRUBIN 0.3 mg/dL (0.20-1.00); TOTAL PROTEIN 7.5 g/dL (6.3-8.3)
--- NOTE | 2018-10-04 07:20 | Diag Imaging Result Doc PS360 ---
EXAM: CHEST-PORTABLE HISTORY: respiratory failure TECHNIQUE: Chest single view COMPARISON: 10/03/2018 FINDINGS: No change in the endotracheal tube or nasogastric tube. The lungs are well expanded. No cardiomegaly. Questionable trace pleural fluid. No consolidation. IMPRESSION: Stable chest. Electronically signed by Donnie Chandler 10/04/2018 7:17 AM
[2018-10-04] MEDS ORDERED: NS 2,000 ML MISC PRN (08:20)
[2018-10-04] MEDS ORDERED: TIGHT: 0.2 ML/HR FOR DIALYSIS MISC PRN (08:20)
[2018-10-04] MEDS ORDERED: HEPARIN IV PRN (08:20)
--- NOTE | 2018-10-04 08:52 | PROGRESS NOTE ---
DATE: 10/04/2018 SUBJECTIVE: No big changes compared with yesterday. Prognosis still extremely poor. She is still on mechanical ventilation, not sedated. OBJECTIVE: Vital Signs: Temperature 97.7, pulse 90, respiratory rate 19 blood pressure 97/58, oxygen saturation 100% on mechanical ventilation. HEENT: Head normocephalic. No trauma. Neck: Supple. No JVD. Central trachea. Chest: Decreased breath sounds with coarse breath sounds, mostly at the bases. Abdomen: Soft. Mildly distended. Positive bowel sounds. Extremities: No edema. No clubbing. No cyanosis. Neurological: The patient is intubated. She is not sedated. She has not responded to verbal stimuli or pain. She is not moving her extremities or grimacing with pain stimulation. LABORATORY: WBC 13.8, hemoglobin 8.6, hematocrit 27.7, platelets 393. Sodium 137, potassium 4.2, chloride 90, bicarbonate 29, BUN 34, creatinine 5.9, glucose 92, calcium 8.7, magnesium 3.1. Albumin 3. ASSESSMENT AND PLAN: 1. Status post cardiac arrest with likely anoxic brain injury. No big changes compared with yesterday. The cardiac arrest was at the beginning of the hospitalization on 09/24/2017. Cardiology department and pulmonary department on board. Neurology Department already evaluated this patient and they already talked to the family, her prognosis is extremely poor. We will continue with the same management. 2. Acute respiratory failure. Like I said, this patient is status post cardiac arrest. She has been intubated. I do not think we are going to be able to extubate this patient I talked to the family yesterday about tracheostomy tube placement and they will think about it. 3. Healthcare-associated pneumonia. This condition was present on admission as well. The patient has been followed by Dr. Davies who decided to stop antibiotics a few days ago. 4. Gastrointestinal bleed. Hemoglobin and hematocrit stable. This patient has been followed by Gastroenterology Department. Her CT abdomen showed constipation. 5. End-stage renal disease. Continue with dialysis as scheduled. 6. Hyperkalemia, resolved. 7. Labile hypertension with hypertensive crisis, controlled. 8. Alveolar hemorrhage with hypoxemic respiratory failure, as per #2. 9. Diabetic ketoacidosis. Continue with insulin drip. We will continue to monitor. Acetone level small. 10. No family members at the bedside at this moment, but I had a conversation with them yesterday. I told them again that she is remarkably sick and the possibility of recovery is low. I also talked to them about a tracheostomy tube placement. They will think about it. CRITICAL CARE TIME: 40 minutes. cc: Medardo Restrepo MD
[2018-10-04] MEDS ORDERED: DULCOLAX PR SCH (09:00)
[2018-10-04] MEDS: PROTONIX IV SCH ×2 (10:32→20:10)
[2018-10-04] MEDS: RENVELA POWDER PACKET PO SCH ×3 (10:34→18:02)
[2018-10-04] MEDS: NORVASC PO SCH (10:34)
[2018-10-04] MEDS: COREG PO SCH ×2 (10:34→20:10)
[2018-10-04] MEDS: APRESOLINE PO SCH ×3 (10:34→18:02)
[2018-10-04] MEDS: CATAPRES PO SCH ×2 (10:35→20:11)
[2018-10-04 10:49] LABS: CALCIUM 8.9 mg/dL (8.8-10.2); CREATININE 6.7 mg/dL (0.5-0.9); MAGNESIUM 3.1 mg/dL (1.5-2.7)
[2018-10-04 11:02] LABS: POTASSIUM 5.2 mmol/L (3.5-5.1)
[2018-10-04] MEDS: DULCOLAX PR SCH ×2 (11:14→20:09)
[2018-10-04] MEDS: VASOTEC IV SCH ×2 (13:06→20:10)
[2018-10-04 13:41] LABS: CALCIUM 8.3 mg/dL (8.8-10.2); CREATININE 5.6 mg/dL (0.5-0.9); MAGNESIUM 2.7 mg/dL (1.5-2.7); POTASSIUM 4.3 mmol/L (3.5-5.1)
--- NOTE | 2018-10-04 13:47 | NEPHROLOGY PROGRESS NOTE ---
DATE: 10/04/2018 SUBJECTIVE: No changes. The patient remains mechanically ventilated. Eyes are open but do not have any purposeful movement. OBJECTIVE: Vital Signs: Temperature 97.7, pulse 90, respiratory rate 19, blood pressure 97/58. Intake 1.5 L. Output 300 mL. PHYSICAL EXAMINATION: General: This is a young adult female, currently with no sedation but no response and mechanically ventilated. HEENT: Normocephalic, atraumatic. Orally intubated. Neck is supple without JVD. Cardiovascular: Tachycardic. Regular rhythm. Pulmonary: Coarse rhonchi bilaterally. Remains mechanically ventilated. Abdomen: Hypoactive bowel sounds to quiet. : Not inspected. Extremities: Trace edema. No clubbing or cyanosis. Integumentary: Skin is warm and dry. LABORATORY DATA: WBC of 13.8, hemoglobin 8.6. Sodium 134, potassium 4.5, CO2 of 26. BUN 36, creatinine 6.2. Her chest x-ray was stable. ASSESSMENT AND PLAN: 1. Chronic kidney disease, 5 D. We will plan to dialyze her today on a 2 K bath/ultrafiltration 2 to 3 L as tolerated, 4-hour treatment. 2. Electrolytes, acid-base balance. See above for plan. 3. Pneumonia. Continues ventilatory support. Followed by Primary Care and Pulmonology. Dictated by KAMALA Walters for Dwain Hawkins MD cc: Dwain Hawkins MD
--- NOTE | 2018-10-04 15:00 | PULMONOLOGY PROGRESS NOTE ---
DATE: 10/04/2018 SUBJECTIVE: The patient has occasional eye opening. She has limited movement of her extremities. OBJECTIVE: Vital Signs: The patient has been afebrile for the last 24 hours. Blood pressure 142/83, heart rate 96, respiratory rate 12. Oxygen saturation 100%. HEENT: Right pupil is mid size and reactive. Left pupil is cloudy. Oropharynx appears clear. She has a poor gag reflex. Neck: Supple. Chest: Reveals occasional rhonchi bilaterally. Cardiac exam: S1, S2. Abdomen: Soft with rare bowel sounds. Extremities: Without edema. LABORATORIES/X-RAYS: Chest x-ray is relatively clear, except for possible trace pleural effusion. White blood count 13.9, hemoglobin 8.6, platelet count 393,000. Sodium 133, potassium 4.3, chloride 88. BUN 30, creatinine 5.6. Glucose 161. Arterial blood gas: A pH of 7.42, pCO2 of 46 and PO2 of 95. IMPRESSION: A 28-year old with long history of diabetes mellitus, chronic renal failure on hemodialysis, labile hypertension, who has sustained a cardiopulmonary arrest. The patient has hypoxemic respiratory failure. She has evidence of anoxic encephalopathy. She has a poor gag reflex. RECOMMENDATIONS: 1. Recommend tracheostomy for airway management. The patient's family believe she is improving and they are not interested in withdrawing support at this time. 2. Continue tube feeds as tolerated. 3. Ongoing end of life discussions with the family. Her prognosis remains poor. TIME SPENT IN CRITICAL CARE: 30+ minutes. cc: Darshan Leal MD
[2018-10-04 17:54] LABS: CALCIUM 8.4 mg/dL (8.8-10.2); CREATININE 3.4 mg/dL (0.5-0.9); MAGNESIUM 2.3 mg/dL (1.5-2.7); PHOSPHORUS 3.7 mg/dL (2.7-4.5); POTASSIUM 3.8 mmol/L (3.5-5.1)
[2018-10-04] MEDS: KEPPRA 750 MG in NS 100 ML IV SCH (18:02)
[2018-10-04] MEDS: LACTULOSE PO SCH (20:09)
[2018-10-04 22:00] LABS: CALCIUM 8.5 mg/dL (8.8-10.2); CREATININE 3.8 mg/dL (0.5-0.9); MAGNESIUM 2.4 mg/dL (1.5-2.7); PHOSPHORUS 4.5 mg/dL (2.7-4.5); POTASSIUM 3.9 mmol/L (3.5-5.1)
[2018-10-05] MEDS: REGLAN IV SCH ×7 (00:17→23:06)
[2018-10-05 01:45] LABS: CALCIUM 8.1 mg/dL (8.8-10.2); CREATININE 4.4 mg/dL (0.5-0.9); MAGNESIUM 2.4 mg/dL (1.5-2.7); PHOSPHORUS 4.9 mg/dL (2.7-4.5); POTASSIUM 4.2 mmol/L (3.5-5.1)
[2018-10-05] MEDS: CEREBYX 300 MG in NS 50 ML IV SCH ×2 (03:09→16:00)
[2018-10-05 03:38] LABS: ALB/GLOB RATIO 0.7; ALBUMIN 2.8 g/dL (3.5-5.0); CALCIUM 7.9 mg/dL (8.8-10.2); CREATININE 4.4 mg/dL (0.5-0.9); TOTAL BILIRUBIN 0.26 mg/dL (0.20-1.00); TOTAL PROTEIN 7.1 g/dL (6.3-8.3)
[2018-10-05] MEDS: DUONEB (A & A) INH SCH ×6 (03:39→22:46)
[2018-10-05 04:32] LABS: HEMATOCRIT 26.3 % (37.0-47.0); HEMOGLOBIN 8.1 g/dL (12.0-16.0); MCH 25.4 PG (27-31); MCHC 30.8 g/dL (33-37); MCV 82.4 FL (81-99); RBC 3.19 XMIL (4.2-5.4); RDW 19.3 % (11.5-14.5); WBC 15.02 X1000 (4.8-10.8)
[2018-10-05 04:38] LABS: ALLEN TEST YES; BE 10.3 mmoll (-3.0-3.0); BLOOD TYPE ARTERIAL; METHB 1.2 % (0.0-1.5); O2(CT) 11.3 mL/dL (15.0-23.0); O2HB 95.7 % (95.0-99.0); PCO2(98.6) 43 mmHg (35-45); PO2(98.6) 118 mmHg (60-100); SAMPLE BLOOD; SAO2 98.7 % (95.0-100.0); SRATE 8 BPM; THB 8.2 g/dL (11.5-17.4); TVOL 600 mL; pH(98.6) 7.51 (7.35-7.45)
[2018-10-05 04:40] LABS: MODALITY VENTILATOR
[2018-10-05 04:51] LABS: ALB/GLOB RATIO 0.6; ALBUMIN 2.7 g/dL (3.5-5.0); CALCIUM 7.8 mg/dL (8.8-10.2); CREATININE 4.6 mg/dL (0.5-0.9); MAGNESIUM 2.5 mg/dL (1.5-2.7); POTASSIUM 3.9 mmol/L (3.5-5.1); TOTAL BILIRUBIN 0.24 mg/dL (0.20-1.00)
--- NOTE | 2018-10-05 07:29 | Diag Imaging Result Doc PS360 ---
EXAM: CHEST-PORTABLE - 10/05/2018 HISTORY: respiratory failure TECHNIQUE: Portable chest COMPARISON: 10/04/2018 FINDINGS: Endotracheal tube and nasogastric tube remain in place. Inspiration is mildly shallow. There is minimal atelectasis or infiltrate at the lateral right base. The remainder of the lungs appear essentially clear. There is no substantial pleural effusion or pneumothorax identified. Heart size is normal. IMPRESSION: Mildly shallow inspiration. Minimal atelectasis or infiltrate lateral right base. Electronically signed by [place] 10/05/2018 7:27 AM
--- NOTE | 2018-10-05 08:31 | PROGRESS NOTE ---
DATE: 10/05/2018 SUBJECTIVE: No big changes compared with yesterday. She has been having bowel movements. Prognosis still is extremely poor. She is still on mechanical ventilation. No sedation. OBJECTIVE: Vital Signs: Temperature 99.7 degrees, pulse 99, respiratory rate 20, blood pressure 106/62. Oxygen saturation 100% on mechanical ventilation. HEENT: Head normocephalic. No trauma. Neck: Supple. No JVD. Central trachea. Chest: Decreased breath sounds with coarse breath sounds, mostly at the bases. Abdomen: Soft. Mildly distended but positive bowel sounds. Extremities: No edema. No clubbing. No cyanosis. Neurological Examination: The patient is intubated. She is not sedated. She is not responding to verbal stimuli. She opens a little bit her eyes with pain stimuli but she is not grimacing or moving the extremities. Laboratory: WBC 15, hemoglobin 8.1, hematocrit 26.3, platelets 277,000. Sodium 137, potassium 3.9, chloride 94, bicarbonate 29, BUN 23, creatinine 4.6, glucose 181, calcium 7.8, phosphorus 5. AST 26, ALT 7, alkaline phosphatase 99, albumin 2.7. ASSESSMENT AND PLAN: 1. Status post cardiac arrest with likely anoxic brain injury. No big changes compared with yesterday. The cardiac arrest was at the beginning of this hospitalization, on 09/24/2018. Neurology department, cardiology, and pulmonary department on board. I have been talking to the family multiple times. They know her prognosis. It is extremely poor. 2. Acute respiratory failure. Like I said, this patient had a cardiac arrest on 09/24/2018. Since then, she has been intubated. I already talked to the family about tracheostomy, tube placement, and they will think about it. 3. Healthcare-associated pneumonia. This condition was present on admission. The patient has been follow by Dr. Davies who decided to stop the antibiotics a few days ago. 4. Gastrointestinal bleed. Hemoglobin and hematocrit have been stable for the past few days but today dropped to 8.1 from 8.6. For now, we will monitor. 5. End-stage renal disease. Continue with dialysis as scheduled. 6. Hyperkalemia, resolved. 7. Labile hypertension with hypertensive crisis, controlled. 8. Diabetic ketoacidosis, basically resolved but I will continue with the insulin drip for one more day to calculate better how much long-acting insulin I will need. Her diet through the nasogastric tube has been recently changed so I will calculate the dose based on that new diet. 9. Alveolar hemorrhage with hypoxemic respiratory failure. As per #2. 10. No family members at the bedside at this moment but I had a conversation with them a couple days ago about a tracheostomy and about her prognosis. I feel they want to continue with the treatment even though she has an extremely poor prognosis and she is remarkably sick. The possibility of recovery is minimal or probably none. cc: Medardo Restrepo MD
[2018-10-05] MEDS: VASOTEC IV SCH ×3 (09:11→21:50)
[2018-10-05] MEDS: NORVASC PO SCH (09:12)
[2018-10-05] MEDS: APRESOLINE PO SCH ×3 (09:12→17:20)
[2018-10-05] MEDS: CATAPRES PO SCH ×2 (09:12→20:28)
[2018-10-05] MEDS: LACTULOSE PO SCH (09:12)
[2018-10-05] MEDS: COREG PO SCH ×2 (09:12→20:28)
[2018-10-05] MEDS: PROTONIX IV SCH ×2 (09:12→20:28)
[2018-10-05] MEDS: DULCOLAX PR SCH (09:13)
[2018-10-05] MEDS: RENVELA POWDER PACKET PO SCH ×3 (09:13→17:49)
[2018-10-05 10:14] LABS: MAGNESIUM 2.7 mg/dL (1.5-2.7); PHOSPHORUS 5.5 mg/dL (2.7-4.5); POTASSIUM 4.1 mmol/L (3.5-5.1)
[2018-10-05 10:16] LABS: CREATININE 5.2 mg/dL (0.5-0.9)
--- NOTE | 2018-10-05 11:29 | NEPHROLOGY PROGRESS NOTE ---
DATE: 10/05/2018 SUBJECTIVE: Patient remains mechanically ventilated. No sedation on board noted. OBJECTIVE: Vital Signs: Temperature 99.6 degrees, pulse 96, respiratory rate 9 to 11, blood pressure 116/73. Intake 1.2 L. Output 1.5 L. This was UF. General: Young adult female, resting in bed. Her eyes are open but she makes no purposeful movement. HEENT: Normocephalic, atraumatic. Her oral mucosa is dry. She is orally intubated. Neck: Supple without JVD. Cardiovascular: Regular with tachycardic at times. Pulmonary: She has decreased breath sounds. She has coarse rhonchi bilaterally. Abdomen: Soft. Hypoactive bowel sounds. : Not inspected. Extremities: No edema. Integumentary: Skin is warm and dry. Neurologic: Again, she will open her eyes to tactile stimuli. She does not focus nor follow with her gaze. She makes no other movement. LAB DATA: WBC of 15.0, hemoglobin 8.1. Sodium 137, potassium 3.9, CO2 29, creatinine 4.6. ASSESSMENT AND PLAN: 1. End-stage renal disease. We will plan to dialyze her again on Saturday. She tolerated routine hemodialysis well and is not grossly fluid overloaded. Anticipate we will run her on dialysis tomorrow. 2. Status post cardiac arrest with anoxic brain injury, acute respiratory failure, health-care associated pneumonia. Followed by primary, pulmonology. Likely the patient will need a trach if there is any hope to extubate her. We understand that pulmonology and primary have talked to the family regarding this and they are making a decision. Dictated by KAMALA Walters for Dwain Hawkins MD cc: Dwain Hawkins MD
[2018-10-05] MEDS ORDERED: PROTONIX IV SCH (12:14)
[2018-10-05 15:16] LABS: CALCIUM 8.3 mg/dL (8.8-10.2); MAGNESIUM 2.6 mg/dL (1.5-2.7); PHOSPHORUS 5.8 mg/dL (2.7-4.5); POTASSIUM 4.1 mmol/L (3.5-5.1)
[2018-10-05 15:20] LABS: CREATININE 5.8 mg/dL (0.5-0.9)
[2018-10-05] MEDS ORDERED: DULCOLAX PR PRN (16:27)
[2018-10-05] MEDS: KEPPRA 750 MG in NS 100 ML IV SCH (17:49)
--- NOTE | 2018-10-05 18:03 | PROGRESS NOTE ---
DATE: 10/05/2018 SUBJECTIVE: The patient remains intubated. She family reports that she blinked her eyes when asked if she was awake. I asked her if she was awakened, and she blinked her eyes for me. She is reportedly having multiple bowel movement since we increased her bowel program to include Dulcolax suppositories twice a day and lactulose twice a day. There are no other complaints. PHYSICAL EXAMINATION: Vital Signs: Blood pressure 115/61, pulse 101, respirations 17, and temperature of 98.6 degrees. Pulmonary: Lungs are clear to auscultation with normal respiratory effort. Cardiovascular: Reveals regular rate and rhythm with no gallops or rubs. Abdomen: Soft and nondistended. There are good bowel sounds. OBJECTIVE DATA: Hemoglobin of 8.1 with hematocrit 26.3 and a white count of 15.02. She has 275,000 platelets. Sodium is 137, potassium 4.0, chloride 93, CO2 of 30, BUN 22 , creatinine 4.4, and glucose of 176. Calcium is 7.9, total protein 5.5, albumin 2.5, total bilirubin 0.26, AST 28, ALT 8, alkaline phosphatase 102, total protein 7.1, and albumin of 2.8. Her tube feeding residuals were averaging 200 mL over the last 24 hours. RECOMMENDATIONS: 1. Continue Vital AF at 40 mL per hour. 2. We will have the dietitian adjust her goal rate tomorrow. 3. I will increase her Reglan to 10 mg IV q.6 hours which is the dose she required last admission. 4. I will discontinue the lactulose. 5. I will reduce the Dulcolax suppositories to one per rectum at night as needed for constipation. I will titrate the dose to one to two soft bowel movements per day. 6. Continue Protonix 40 mg IV q.12 hours. 7. Additional recommendations to follow based on clinical course. cc: MD Medardo Elam MD MTDD
[2018-10-05 18:30] LABS: CALCIUM 8.1 mg/dL (8.8-10.2); MAGNESIUM 2.9 mg/dL (1.5-2.7); PHOSPHORUS 6.1 mg/dL (2.7-4.5); POTASSIUM 4.5 mmol/L (3.5-5.1)
[2018-10-05 18:31] LABS: CREATININE 5.9 mg/dL (0.5-0.9)
--- NOTE | 2018-10-05 18:57 | PULMONOLOGY PROGRESS NOTE ---
DATE: 10/05/2018 SUBJECTIVE: The patient withdraws to painful stimuli. She does not respond to voice. She intermittently opens her eyes. OBJECTIVE: Maximum temperature in the last 24 hours 99.7 degrees, blood pressure 121/59, heart rate 97, respiratory rate 15, oxygen saturation 100%. HEENT: Right pupil is reactive to light. Left pupil is clouded. Oropharynx is clear. Neck: Supple. Chest: Reveals occasional crackles bilaterally. Cardiac: S1-S2. Abdomen: Soft with rare bowel sounds. Extremities: Reveal trace edema. LABORATORIES: Chest x-ray reveals shallow inspiration with minimal infiltrate at the right base. White blood count 15.02, hemoglobin 8.1, platelet count 275,000. Arterial blood gas reveals a pH 7.51, pCO2 43, PO2 of 118. IMPRESSION: A 28-year-old with long history of diabetes mellitus, chronic renal failure, prior cerebrovascular accident, labile hypertension, who has sustained a cardiopulmonary arrest. The patient has anoxic encephalopathy. She continues to have a poor gag reflex. The patient is a candidate for extubation, but there is some uncertainty as to whether she will control her airway and whether she will control her secretions. She is at risk for mucus plugging. Her mother initially declined tracheostomy. When I explained that we will need to extubate her, she is reconsidering tracheostomy. I have explained that it will allow us to take the endotracheal tube out of her mouth and off of the vocal cords. It is also a protective measure in the event that she cannot maintain her airway. She will discuss this with the nurse later today. RECOMMENDATIONS: 1. Tracheostomy is recommended. 2. Continue tube feeds. 3. Ongoing end of life discussions. Her prognosis remains poor. TIME SPENT IN CRITICAL CARE: 30+ minutes. cc: Darshan Leal MD
--- NOTE | 2018-10-05 19:16 | PROGRESS NOTE ---
DATE: 10/04/2018 DATE OF ROUNDS: 10/04/2018. SUBJECTIVE: The patient remains intubated. She was found to be significantly constipated on CT scan. She continues to have tube feeding intolerance. PHYSICAL EXAMINATION: Vital Signs: Her blood pressure is 97/58, pulse 92, respirations 7, temp of 97.7. Abdomen: Soft, but slightly distended. There is no rebound or guarding. OBJECTIVE DATA: Reveals a hemoglobin of 8.6, with hematocrit of 27.7 and a white count of 13.87. She has 393,000 platelets. Sodium is 134, potassium 4.5, chloride 87, CO2 27, BUN 36, creatinine 6.2, with a glucose of 159. Calcium is 9.0, phosphorus 7.7, magnesium 3.1, total bilirubin 0.30, AST 26, ALT 8, alkaline phosphatase 102, total protein 7.5 and albumin 3.0. RECOMMENDATION: 1. We will begin Dulcolax suppositories twice a day. I will also begin lactulose 30 mL p.o. b.i.d. 2. I will switch her tube feedings to Vital AF at 20 mL/hour. She should be rapidly advanced to 40 mL/hour. 3. If she continues to have high tube feeding residuals tomorrow, I will increase her Reglan dose from 5 mg q.6 hours to 10 mg q.6 hours. 4. Additional recommendations to follow based on clinical course. cc: MD Medardo Elam MD
[2018-10-05 22:19] LABS: CALCIUM 8.3 mg/dL (8.8-10.2); CREATININE 6.4 mg/dL (0.5-0.9); MAGNESIUM 2.7 mg/dL (1.5-2.7); PHOSPHORUS 5.8 mg/dL (2.7-4.5); POTASSIUM 4.2 mmol/L (3.5-5.1)
[2018-10-06 01:36] LABS: MAGNESIUM 2.8 mg/dL (1.5-2.7); PHOSPHORUS 5.8 mg/dL (2.7-4.5); POTASSIUM 4.3 mmol/L (3.5-5.1)
[2018-10-06 01:38] LABS: CREATININE 6.7 mg/dL (0.5-0.9)
[2018-10-06] MEDS: DUONEB (A & A) INH SCH ×6 (03:11→23:00)
[2018-10-06] MEDS: CEREBYX 300 MG in NS 50 ML IV SCH ×2 (03:28→14:07)
[2018-10-06] MEDS: REGLAN IV SCH ×4 (03:28→22:22)
[2018-10-06 04:54] LABS: ALLEN TEST YES; BLOOD TYPE ARTERIAL; HCO3-(ACT) 29.6 mmoll (20.0-26.0); METHB 1.5 % (0.0-1.5); O2(CT) 11.8 mL/dL (15.0-23.0); O2HB 95.7 % (95.0-99.0); PCO2(98.6) 44 mmHg (35-45); PO2(98.6) 122 mmHg (60-100); SAMPLE BLOOD; SAO2 99.3 % (95.0-100.0); SRATE 8 BPM; THB 8.6 g/dL (11.5-17.4); TVOL 600 mL; pH(98.6) 7.45 (7.35-7.45)
[2018-10-06 04:55] LABS: MODALITY VENTILATOR
[2018-10-06 05:17] LABS: HEMATOCRIT 23.8 % (37.0-47.0); HEMOGLOBIN 7.3 g/dL (12.0-16.0); MCH 25.3 PG (27-31); MCHC 30.7 g/dL (33-37); MCV 82.6 FL (81-99); MPV 10.5 FL (7.4-10.4); RBC 2.88 XMIL (4.2-5.4); RDW 18.7 % (11.5-14.5); WBC 12.82 X1000 (4.8-10.8)
[2018-10-06 05:21] LABS: ALB/GLOB RATIO 0.7; ALBUMIN 2.8 g/dL (3.5-5.0); CALCIUM 8.8 mg/dL (8.8-10.2); MAGNESIUM 2.9 mg/dL (1.5-2.7); PHOSPHORUS 5.9 mg/dL (2.7-4.5); POTASSIUM 4.4 mmol/L (3.5-5.1); TOTAL BILIRUBIN 0.21 mg/dL (0.20-1.00); TOTAL PROTEIN 6.9 g/dL (6.3-8.3)
[2018-10-06] MEDS: HUMULIN R 100 UNIT in NS 99 ML IV SCH ×2 (05:53→19:12)
[2018-10-06 06:27] LABS: CREATININE 6.7 mg/dL (0.5-0.9)
--- NOTE | 2018-10-06 06:53 | Diag Imaging Result Doc PS360 ---
EXAM: CHEST-PORTABLE HISTORY: respiratory failure TECHNIQUE: Portable chest single view COMPARISON: 10/05/2018 FINDINGS: No change in the endotracheal tube or nasogastric tube. The lungs are well expanded. No cardiomegaly. No consolidation. Likely trace right pleural fluid. IMPRESSION: Stable chest. Electronically signed by Donnie Chandler 10/06/2018 6:50 AM
[2018-10-06] MEDS ORDERED: TIGHT: 0.2 ML/HR FOR DIALYSIS MISC PRN (07:05)
[2018-10-06] MEDS ORDERED: NS 2,000 ML MISC PRN (07:05)
[2018-10-06] MEDS ORDERED: HEPARIN IV PRN (07:05)
--- NOTE | 2018-10-06 08:17 | PROGRESS NOTE ---
DATE: 10/06/2018 SUBJECTIVE: No big changes compared with yesterday. She has been having bowel movements. She has been tolerating the nutrition. Her prognosis is extremely poor. She is still on mechanical ventilation, no sedation. I had a conversation with the family a couple days ago about the possibility of tracheostomy on this patient and they said that they would think about it. OBJECTIVE: HEENT: Head: Normocephalic no trauma. PERRLA, on the right eye, but the left eye has a whitish lesion in the pupil. Neck: Supple. No JVD. Central trachea. Chest: Coarse breath sounds bilaterally, mostly at the bases. Abdomen: Soft. Nondistended. Positive bowel sounds. Extremities: No edema. No clubbing. No cyanosis. Neurological: The patient is intubated. She is not sedated. She is not responding to verbal stimuli. She opens her eyes a little bit with pain stimulation, but she is not grimacing or moving her extremities. LABORATORY: WBC 12.8, hemoglobin 7.3, hematocrit 23.8, platelets 394,000. Sodium 135, potassium 4.4, chloride 92, bicarbonate 27, BUN 37, hematocrit 6.7, glucose, calcium 8.8, magnesium 2.9. Albumin 2.8. ASSESSMENT AND PLAN: 1. Status post cardiac arrest with likely anoxic brain injury. No big changes compared with yesterday. The cardiac arrest was at the beginning of this hospitalization on 09/24/2018. Neurology Department, Cardiology, Pulmonary Department on board. I have been talking to the family multiple times. They know her prognosis, which is extremely poor, but they want to continue with the treatment. 2. Acute respiratory failure. Hypoxemia, like I said, this patient had a cardiac arrest on 09/24/2018. Since then she has been intubated I already talked to the family about tracheostomy. They will think about it. 3. Healthcare-associated pneumonia. This condition was present on admission. The patient has been followed by Dr. Davies who decided to stop the antibiotics a few days ago. 4. Gastrointestinal bleed. Her hemoglobin dropped from 8.1 to 7.3, I will ask for 2 units of PRBCs since she is going to get dialysis today. 5. End-stage renal disease. Continue with dialysis as scheduled. She is due for dialysis today. Hopefully, she can receive blood during dialysis. 6. Hyperkalemia, resolved. 7. Labile hypertension with hypertensive crisis, controlled. 8. Diabetic ketoacidosis, basically resolved. I have placed this patient on Lantus 40 and she received around 2 units/hour in 24 hours. Actually she got around 46 to 48 units in the past 24 hours. I will put this patient on sliding scale insulin and pattern of blood sugar every 4 hours. 9. Alveolar hemorrhage with hypoxemic respiratory failure, as per #2. 10. No family members at the bedside at this moment. She is still Full Code. Prognosis is extremely poor due to her brain damage. She is not on sedation, but she is not responding to my voice stimulation. She opens a little bit the eyes with pain stimulation when I had rub her chest, but she is not grimacing or moving her arms or legs. She is not withdrawing. No seizure activity for the past few days. Neurology on board. Like I said, her prognosis is extremely bad, but the family believes she is going to get better. Unfortunately, that possibility is really low. CRITICAL CARE TIME: 35 minutes. cc: Medardo Restrepo MD
[2018-10-06] MEDS: RENVELA POWDER PACKET PO SCH ×3 (08:56→17:46)
[2018-10-06] MEDS: NORVASC PO SCH (08:56)
[2018-10-06] MEDS: CATAPRES PO SCH ×2 (08:57→23:32)
[2018-10-06] MEDS: COREG PO SCH ×2 (08:57→22:06)
[2018-10-06] MEDS: APRESOLINE PO SCH ×3 (08:57→17:40)
[2018-10-06] MEDS: VASOTEC IV SCH ×2 (08:58→22:23)
[2018-10-06] MEDS: PROTONIX IV SCH ×2 (08:58→22:00)
[2018-10-06] MEDS ORDERED: INSULIN PEN NEEDLES ONE (08:59)
[2018-10-06] MEDS ORDERED: BASAGLAR SUBQ SCH (09:00)
[2018-10-06 09:39] LABS: CALCIUM 9.2 mg/dL (8.8-10.2); POTASSIUM 4.5 mmol/L (3.5-5.1)
[2018-10-06 09:42] LABS: CREATININE 7.1 mg/dL (0.5-0.9)
--- NOTE | 2018-10-06 11:45 | PULMONOLOGY PROGRESS NOTE ---
DATE: 10/06/2018 SUBJECTIVE: Patient has some spontaneous eye opening. She has occasional posturing. She does not respond to her name. She does have spontaneous respiratory efforts. OBJECTIVE: Vital Signs: The patient has been afebrile for the last 24 hours. Blood pressure 126/72, heart rate 96, respiratory rate 18, oxygen saturation 100% on 30% FiO2. HEENT: Pupils are equal and reactive. Oropharynx is clear. The patient does have a mild cough effort. Neck: Supple. Chest: Reveals good air entry bilaterally without wheezing or rhonchi. Cardiac exam: S1-S2. Abdomen: Soft without hepatosplenomegaly. Extremities: Without edema. LABORATORIES: White blood count 12.82, hemoglobin 7.3, platelet count 394,000. Sodium 135, potassium 4.5, chloride 91, bicarbonate 28, BUN 40, creatinine 7.1. Arterial blood gas: PH 7.45, pCO2 of 44, pO2 of 122. Chest x-ray reveals possible trace right perfusion. Lung dooley are clear. IMPRESSION: A 28-year-old with long history of: 1. Diabetes mellitus. 2. Chronic renal failure. 3. Prior stroke. 4. Acute hypoxemic respiratory failure. 5. Labile hypertension, with two admissions to the hospital with hypertensive crisis and alveolar hemorrhage, who has sustained a cardiopulmonary arrest. The patient has clinical findings consistent with anoxic encephalopathy. She has been in the hospital for 12 days. Her chest x-ray is now clear. She is on minimal oxygen. Both I and Dr. Hills and the nursing staff have discussed tracheostomy with the family. The benefits of tracheostomy are to ensure she has a patent airway given her limited mental status. She may do well without a tracheostomy but long-term would likely benefit from ability to suction and clear secretions if these become an issue. However, tracheostomy is not without risk. Family has been thinking about the tracheostomy over the weekend and now have informed me and the medical staff that they will not pursue tracheostomy despite possible benefits. The grandmother did mention that they still wish to travel to [facility]. I explained that [facility] had declined transfer earlier in the admission. The grandmother said that this was not true. I discussed the case with Dr. Hills and he will rediscuss transfer with the family , but he does report that transfer was declined by [facility]. PLAN: 1. Tracheostomy has been recommended as per above, but has been declined by the family. 2. The patient will be placed on a spontaneous breathing trial over the next 24 hours. 3. Anticipate extubation tomorrow. We will follow expectantly during the immediate post intubation. PROGNOSIS: Remains poor for full recovery. Time spent in critical care management: 30+ minutes cc: Darshan Leal MD MTDD
[2018-10-06] MEDS: HUMULIN R SUBQ SCH ×3 (11:49→17:07)
--- NOTE | 2018-10-06 12:28 | NEPHROLOGY PROGRESS NOTE ---
DATE: 10/06/2018 TIME SEEN: 0720. SUBJECTIVE: Ms. Ross is currently resting quietly in bed. Her head of the bed is elevated. She remains ventilator dependent. OBJECTIVE: Her most recent vital signs: Temperature 99.4, blood pressure 117/ 74, heart rate 93, respirations 10. She is on 30% FiO2. Her last recorded saturation is 100%. She has had 1545 in. She has had 0 recorded out. LABS: Sodium 135, potassium 4.4, chloride 92, CO2 27, BUN 37, creatinine 6.7, glucose 182. Anion gap is 16, calcium 8.8, phosphorus is 5.9. Albumin is 2.8, magnesium 2.9. White count 12.82, hemoglobin 7.3, hematocrit 28.8, with a platelet count of 394,000. ABGs: pH 7.45, CO2 44, pO2 122, bicarb 29.6 on 30% FiO2. Physical exam: General: This is a 28-year old female resting quietly in bed. She appears in no acute distress. Skin: Warm and dry. HEENT: Normocephalic, atraumatic. Conjunctiva is pale. She has CLARY. Mucous membranes are dry. She is orally intubated. Neck: Supple. Trachea midline without JVD. Cardiovascular: Tachycardic. Regular rate and rhythm. No murmur or gallop appreciated. Lungs: Have coarse breath sounds bilateral, equal excursion. Ventilator support. Abdomen: Hypoactive, quiet. She has NG tube with tube feedings intact. Genitourinary: Not inspected. Otto catheter is in place with minimal urine out. Hemodialysis assist. Extremities: Have trace edema. No clubbing or cyanosis. Integumentary: Skin is warm and dry. ASSESSMENT AND PLAN: 1. Chronic kidney disease stage 5D. The patient is due for routine dialysis treatment today. We will place her on a 2 K bath. She is to dialyze for 3.5 hours. We will attempt to pull 3 to 4 L of ultrafiltration. 2. Electrolytes and acid-base balance. These are fairly stable. 3. Anemia. This remains low. We will defer to the primary care team for intervention. 4. Pneumonia. Patient remains on ventilatory support, followed by the primary care and Pulmonology. I would like to thank you for allowing us to follow with this patient. Dictated by KAMALA Persaud for Dwain Hawkins MD Face to face encounter, data reviewed, discussed with Yumi Marvin on 10/06/18. I agree with the above assessment and plan of care. cc: KAMALA Persaud MD [facility]
[2018-10-06 14:40] LABS: CALCIUM 8.9 mg/dL (8.8-10.2); CREATININE 7.4 mg/dL (0.5-0.9); PHOSPHORUS 6.2 mg/dL (2.7-4.5); POTASSIUM 5.3 mmol/L (3.5-5.1)
[2018-10-06] MEDS ORDERED: NS 500 ML ONE ×2 (15:27→17:29)
[2018-10-06] MEDS ORDERED: HUMULIN R 100 UNIT in NS 100 ML IV SCH (17:45)
[2018-10-06] MEDS: KEPPRA 750 MG in NS 100 ML IV SCH (17:46)
[2018-10-06] MEDS ORDERED: HUMULIN R IV ONE (18:15)
[2018-10-06] MEDS ORDERED: SODIUM PHOSPHATE 30 MMOL in D5W 250 ML IV PRN (18:15)
[2018-10-06] MEDS ORDERED: MAGNESIUM SULFATE 2 GM/S.W.I. 2 GM/50 ML IVPB IV PRN (18:15)
[2018-10-06] MEDS ORDERED: SODIUM BICARBONATE 8.4% 100 MEQ in D5W 500 ML IV PRN (18:15)
[2018-10-06] MEDS ORDERED: SODIUM BICARBONATE 8.4% 50 MEQ in D5W 250 ML IV PRN (18:15)
[2018-10-06 18:33] LABS: CALCIUM 8.5 mg/dL (8.8-10.2); CREATININE 7.1 mg/dL (0.5-0.9); MAGNESIUM 2.9 mg/dL (1.5-2.7); PHOSPHORUS 5.6 mg/dL (2.7-4.5); POTASSIUM 4.7 mmol/L (3.5-5.1)
[2018-10-06 19:21] LABS: CALCIUM 8.7 mg/dL (8.8-10.2); CREATININE 4.7 mg/dL (0.5-0.9); MAGNESIUM 2.4 mg/dL (1.5-2.7); POTASSIUM 3.6 mmol/L (3.5-5.1)
[2018-10-06] MEDS: DULCOLAX PR SCH (22:05)
[2018-10-06 23:02] LABS: CALCIUM 8.6 mg/dL (8.8-10.2); CREATININE 2.7 mg/dL (0.5-0.9); PHOSPHORUS 2.3 mg/dL (2.7-4.5); POTASSIUM 3.7 mmol/L (3.5-5.1)
[2018-10-07] MEDS: CEREBYX 300 MG in NS 50 ML IV SCH ×2 (02:22→16:54)
--- NOTE | 2018-10-07 03:01 | PROGRESS NOTE ---
DATE: 10/06/2018 SUBJECTIVE: The patient remains intubated and unresponsive. The nurses report that her tube feeding tolerance has increased slightly, with the higher dose of Reglan therapy. Of note, the patient has not had a bowel movement for over 24 hours. She was also noted to be more anemic. There have been no recurrent episodes of hematemesis. There have never been any episodes of melena reported. PHYSICAL EXAMINATION: Vital Signs: Her blood pressure is 100/52, pulse 119, respirations 10, temperature of 98.5 degrees. The remainder of the exam was deferred. OBJECTIVE DATA: She has a hemoglobin of 7.3, with hematocrit of 23.8, and a white count of 12.82. She has 394,000 platelets. Sodium is 136, potassium 3.6, chloride 92, CO2 28, BUN 25, creatinine 4.7, with a glucose 257. Calcium is 8.7, phosphorus 3.0, magnesium 2.4, total bilirubin 0.21, AST 21, ALT 6, alkaline phosphatase 92, total protein 6.9, and albumin 2.8. RECOMMENDATION: 1. Continue Vital AF at 40 mL per hour. 2. Given the obvious constipation, I will resume her bowel program. Please begin lactulose 30 mL daily in the morning. In addition, I would administer a Dulcolax suppository over the next 1 to 2 days, until she has completely evacuated her colon. 3. When she is clinically more stable, one can consider an EGD for further evaluation of the above symptoms depending on her clinical status or if there is recurrent acute GI bleeding. cc: MD Medardo Elam MD MTDD
[2018-10-07] MEDS: DUONEB (A & A) INH SCH ×6 (03:13→23:01)
[2018-10-07] MEDS: REGLAN IV SCH ×4 (03:36→22:04)
[2018-10-07 04:09] LABS: ALB/GLOB RATIO 0.6; ALBUMIN 2.7 g/dL (3.5-5.0); CALCIUM 8.7 mg/dL (8.8-10.2); CREATININE 3.3 mg/dL (0.5-0.9); TOTAL BILIRUBIN 0.26 mg/dL (0.20-1.00); TOTAL PROTEIN 7.4 g/dL (6.3-8.3)
[2018-10-07 04:31] LABS: HEMATOCRIT 31.3 % (37.0-47.0); HEMOGLOBIN 9.8 g/dL (12.0-16.0); MCHC 31.3 g/dL (33-37); MCV 79.8 FL (81-99); RBC 3.92 XMIL (4.2-5.4); RDW 17.8 % (11.5-14.5); WBC 13.63 X1000 (4.8-10.8)
[2018-10-07 04:44] LABS: ALLEN TEST YES; BE 6.6 mmoll (-3.0-3.0); BLOOD TYPE ARTERIAL; HCO3-(ACT) 30.1 mmoll (20.0-26.0); METHB 1.5 % (0.0-1.5); O2(CT) 14.7 mL/dL (15.0-23.0); O2HB 95.8 % (95.0-99.0); PCO2(98.6) 40 mmHg (35-45); PO2(98.6) 116 mmHg (60-100); SAMPLE BLOOD; SAO2 99.3 % (95.0-100.0); SRATE 8 BPM; THB 10.8 g/dL (11.5-17.4); TVOL 600 mL; pH(98.6) 7.49 (7.35-7.45)
[2018-10-07 04:45] LABS: MODALITY VENTILATOR
[2018-10-07 04:46] LABS: MAGNESIUM 2.2 mg/dL (1.5-2.7); PHOSPHORUS 3.1 mg/dL (2.7-4.5)
--- NOTE | 2018-10-07 06:33 | Diag Imaging Result Doc PS360 ---
CHEST-PORTABLE - 10/07/2018 INDICATION: respiratory failure COMPARISON: 10/06/2018 FINDINGS: Support tubes are stable. The lungs are clear. Heart size is normal. No pneumothorax or pleural effusion. IMPRESSION: No acute disease. Electronically signed by José Miguel Mayen 10/07/2018 6:31 AM
[2018-10-07 08:02] LABS: CALCIUM 8.9 mg/dL (8.8-10.2); CREATININE 3.8 mg/dL (0.5-0.9); MAGNESIUM 2.2 mg/dL (1.5-2.7); POTASSIUM 3.9 mmol/L (3.5-5.1)
[2018-10-07] MEDS: LACTULOSE GT SCH (09:02)
[2018-10-07] MEDS: CATAPRES PO SCH ×2 (09:03→20:30)
[2018-10-07] MEDS: COREG PO SCH ×2 (09:03→20:28)
[2018-10-07] MEDS: APRESOLINE PO SCH ×3 (09:03→16:53)
[2018-10-07] MEDS: NORVASC PO SCH (09:03)
[2018-10-07] MEDS: PROTONIX IV SCH ×2 (09:04→20:30)
[2018-10-07] MEDS: VASOTEC IV SCH ×2 (09:04→20:30)
[2018-10-07] MEDS: RENVELA POWDER PACKET PO SCH ×3 (09:06→16:53)
[2018-10-07 10:07] LABS: CREATININE 3.9 mg/dL (0.5-0.9); POTASSIUM 3.9 mmol/L (3.5-5.1)
--- NOTE | 2018-10-07 10:13 | PROGRESS NOTE ---
DATE: 10/07/2018 HISTORY OF PRESENT ILLNESS: [place] was admitted on 09/24/2018. She is followed by Dr. Darshan Shankar in [place], and her bar tender is Dr. Cross in [place]. She presented with shortness of breath. A 27-year-old female recently admitted and discharged from our facility. Admitted on 09/06/2018, was discharged on 09/13/2018, treated for hypoxic respiratory failure, fluid volume overload, and bilateral pneumonia. Discharged home on oxygen via nasal cannula at 2 liters and was on antibiotics, doxycycline 100 mg b.i.d., receiving IV cefepime 1 gram after dialysis on Saturday, Wednesdays, and Fridays. The patient reported that 2 days before admission, began having worsening shortness of breath. Initially started lying flat, but then the patient stated she was short of breath while sitting up and with any exertion. Started to feel worse, worsening wet cough, and she denied any fever, aches, and was admitted to the hospital. PAST MEDICAL HISTORY: 1. Reviewed again. End-stage renal disease. Dialysis Saturday, Wednesdays, and Fridays, followed by Dr. Shankar. Has been noted previous medical records. She was worked up for possible potential kidney transplant. 2. Hypertension. 3. Diabetes mellitus type 1. 4. Peripheral neuropathy. 5. 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 6. CVA in 2014, with a deficit of left arm weakness. PAST SURGICAL HISTORY: 1. Left upper arm AV graft. 2. Right subclavian catheter placed and removed for dialysis. 3. Left heart catheterization in 2015. No abnormalities. Did not require any intervention. The patient's admitting diagnoses 1. Bilateral pneumonia. She had been on antibiotics of doxycycline and cefepime and decided to continue the doxycycline. We put her on vancomycin. We continued cefepime. 2. Acute hypoxic respiratory failure. She was already discharged home on continuous O2 per nasal cannula at 2 liters. Was O2 sats pretty well. On presentation this time did have a decreased pO2 44 and O2 sats was 84%. When she was put on partial rebreather, acute respiratory failure. 3. End-stage renal disease on dialysis. 4. Urinary tract infection. 5. Hypertension. 6. Diabetes mellitus. Dr. Davies was involved with Infectious Disease, who felt she had pulmonary edema and ARDS, as possible pneumonia and leukocytosis. She had a respiratory arrest, I believe on 09/24/2018, and was put on hypothermia protocol. She was put on ventilator, and sedation with Diprivan. She was started on Keppra for possible seizures. She showed very slow improvement. Still on the ventilator. It was discussed the possibility for tracheostomy. Family has refused that. She does have some constipation. Dr. Teran has been following, and given Dulcolax suppositories. Neurologically, does not respond. She will open her eyes eventually, but does not seem to open her eyes to stimulus or pain. Chest x-ray from this morning, no acute disease. EXAM TODAY: Lungs: Clear, anterior lateral. Cardiovascular: Regular rhythm and rate without murmur or S3. Abdomen: Soft. Vital signs: Temp 97.1 degrees, blood pressure 184/103. Blood pressures have been sporadic. Yesterday, she had a blood pressure of 93/59. This morning, blood pressure 184/103. ASSESSMENT AND PLAN: 1. Status post cardiac arrest, likely anoxic brain injury. No significant changes neurologically. Cardiac arrest beginning of this hospitalization on 09/24/2018. Neurology, Cardiology, and Pulmonary are all following. Talking to the family multiple times, extremely poor prognosis. 2. Acute respiratory failure, hypoxemic, status post cardiac arrest. Intubated on 09/24/2018 and it has been discussed the need for tracheostomy. Family do not want to pursue tracheostomy. 3. Healthcare associated pneumonia. Dr. Davies, on 09/29/2018, did not appear she had infection. Was not on any antimicrobial agents and so those were discontinued. 4. Gastrointestinal bleed. Hemoglobin dropped from 8 to 7. Given 2 units of packed red blood cells with dialysis. 5. End-stage renal disease. Continue dialysis as scheduled. 6. Hyperkalemia, resolved. 7. Labile hypertension. Hypertensive crisis which is controlled. 8. Diabetes mellitus type 2. Diabetic ketoacidosis, which has resolved. The patient was on insulin, but she is now just on sliding scale. 9. Alveolar hemorrhage, hypoxemic respiratory failure. Still on the ventilator, still attempting to wean. Prognosis is extremely poor due to her brain damage. She is not on sedation, but not responding to voice or stimulation. Opens her eyes some with pain. Continue present management. cc: Srini Rdz MD
--- NOTE | 2018-10-07 10:49 | NEPHROLOGY PROGRESS NOTE ---
DATE: 10/07/2018 TIME SEEN: 0730. SUBJECTIVE: Ms. Ross is resting quietly in bed. Head of the bed is slightly elevated. She opens her eyes randomly. OBJECTIVE: Vital Signs: Temperature 99.7 degrees, blood pressure 191/104, heart rate 113, respirations 14. She is on 30% FiO2. Last recorded saturation 100%. She has had 3137 in. She has had 2 L out on dialysis yesterday. Laboratory Data: Sodium 139, potassium 4, chloride is 97, CO2 28, BUN 16, creatinine 3.3, glucose 184, anion gap of 14, calcium 8.7, phosphorus 3.1, albumin 2.7, magnesium 2.2. White count 13.6, hemoglobin 9.8, hematocrit 31.3, with a platelet count of 376,000. ABGs with a pH of 7.49, CO2 40, PO2 116, bicarb 30.1 on 30% FiO2. Physical Examination: General: This is a 28-year-old, female resting quietly in bed. She appears in no acute distress. Her skin is warm and dry. She is ventilator dependent. Minimal sedation on board. HEENT: Normocephalic, atraumatic. Conjunctivae are pale pink. She has CLARY. Mucous membranes are dry. Oral ET tube remains in place. Neck: Supple. Trachea midline. No JVD detected. Lungs: Coarse breath sounds bilaterally. Equal excursion. Ventilatory support. Abdomen: Hypoactive bowel sounds. Soft, nontender. NG tube intact with tube feedings currently clamped. Genitourinary: Not inspected. Otto catheter is in place with minimal urine out. Hemodialysis assist. Extremities: Have trace edema. No clubbing or cyanosis. Integumentary: Skin is warm and dry. Neurological: As above. Opens eyes randomly. No purposeful support. No blink reflex. ASSESSMENT AND PLAN: 1. Chronic kidney disease stage 5D. The patient had her routine dialysis treatment yesterday. We will plan for dialysis again in the morning. No indications for intervention today. 2. Electrolytes and acid-base balance. These remain stable. 3. Anemia. This is low but stable. 4. Pneumonia. Patient continues with leukocytosis, white count of 13.6. She remains on renal dosed antibiotics, followed by pulmonology. I would like to thank you for allowing us to follow with this patient. Dictated by KAMALA Persaud for Dwain Hawkins MD Face to face encounter, data reviewed, discussed with Yumi Marvin on 10/07/18. I agree with the above assessment and plan of care. cc: KAMALA Persaud MD [facility]
[2018-10-07 11:50] LABS: CREATININE 4.2 mg/dL (0.5-0.9); MAGNESIUM 2.3 mg/dL (1.5-2.7); PHOSPHORUS 3.1 mg/dL (2.7-4.5); POTASSIUM 3.8 mmol/L (3.5-5.1)
[2018-10-07 13:53] LABS: CALCIUM 8.9 mg/dL (8.8-10.2); CREATININE 4.2 mg/dL (0.5-0.9); POTASSIUM 3.9 mmol/L (3.5-5.1)
[2018-10-07] MEDS ORDERED: NS 500 ML ONE (14:02)
[2018-10-07 14:58] LABS: CALCIUM 9.1 mg/dL (8.8-10.2); CREATININE 4.5 mg/dL (0.5-0.9); MAGNESIUM 2.4 mg/dL (1.5-2.7); PHOSPHORUS 3.4 mg/dL (2.7-4.5)
[2018-10-07] MEDS: KEPPRA 750 MG in NS 100 ML IV SCH (16:53)
[2018-10-07 17:29] LABS: CALCIUM 9.2 mg/dL (8.8-10.2); CREATININE 4.7 mg/dL (0.5-0.9); POTASSIUM 3.9 mmol/L (3.5-5.1)
[2018-10-07] MEDS: HUMULIN R 100 UNIT in NS 99 ML IV SCH (17:48)
[2018-10-07] MEDS ORDERED: DULCOLAX PO ONE (18:32)
[2018-10-07 19:14] LABS: CALCIUM 9.1 mg/dL (8.8-10.2); CREATININE 4.8 mg/dL (0.5-0.9); MAGNESIUM 2.5 mg/dL (1.5-2.7); PHOSPHORUS 3.7 mg/dL (2.7-4.5); POTASSIUM 3.7 mmol/L (3.5-5.1)
[2018-10-07] MEDS: DULCOLAX PR SCH (20:27)
--- NOTE | 2018-10-07 20:49 | PULMONOLOGY PROGRESS NOTE ---
DATE: 10/07/2018 OBJECTIVE: Vital signs: Maximum temperature in the last 24 hours 99.9 degrees , current temperature 97.1 degrees, blood pressure 132/79, heart rate 93, respiratory rate 19, oxygen saturation 98% on 40% FiO2. HEENT: Left pupil is cloudy. Right pupil is reactive. Oropharynx appears clear. Neck: Supple. Chest: Occasional rhonchi. Cardiac: S1, S2. Abdomen: Soft and without hepatosplenomegaly. Extremities: Without edema. DIAGNOSTIC DATA: Chest x-ray is reviewed. The lung dooley are clear without evidence of pneumonia. White blood count 13.6, hemoglobin 9.8, platelet count 376,000. Arterial blood gas on mechanical ventilatory support this morning: PH 7.49, pCO2 of 40, PO2 of 116. Chemistries : Sodium 138, potassium 3.9, chloride 94, bicarbonate 28, BUN 25, creatinine 4.7. IMPRESSION: A 28-year-old with: 1. Acute respiratory failure 2. S/p cardiac arrest 3. Long history of Type I diabetes mellitus. 4. Chronic kidney disease, on hemodialysis. 5. Prior stroke. 6. Labile hypertension with 2 prior episodes of hypertensive crisis leading to alveolar hemorrhage. 7. Anoxic encephalopathy. Tracheostomy has been recommended to the family. This is for patient's comfort and in the event that she cannot clear her secretions, maintain her airway, or if she has mucus plugging. Despite discussion with mother and grandmother, they will not consent to tracheostomy. I did speak with the CIVIL ENGINEERING DESIGNER at [facility] yesterday. He agreed with previous discussions by his hospitalist service that they had nothing additional to offer this family. PLAN: 1. Continue spontaneous breathing trial. The patient's oxygen saturation with on the trial was increased from 30% to 40%, which should still be acceptable. 2. Consider extubation tomorrow to see if the patient will tolerate extubation. The patient's mother and grandmother will not permit tracheostomy as per above, despite recommendations. 3. Anticipate the need for a PEG tube is if she does well with extubation. Time spent in critical care management: 30+ minutes cc: Darshan Leal MD MTDD
[2018-10-07 22:38] LABS: CALCIUM 9.1 mg/dL (8.8-10.2); CREATININE 4.9 mg/dL (0.5-0.9); POTASSIUM 3.9 mmol/L (3.5-5.1)
[2018-10-07 23:29] LABS: CALCIUM 9.1 mg/dL (8.8-10.2); MAGNESIUM 2.7 mg/dL (1.5-2.7); PHOSPHORUS 3.7 mg/dL (2.7-4.5)
[2018-10-07 23:31] LABS: CREATININE 5.4 mg/dL (0.5-0.9)
[2018-10-08 02:08] LABS: CALCIUM 9.8 mg/dL (8.8-10.2); POTASSIUM 3.9 mmol/L (3.5-5.1)
[2018-10-08 02:25] LABS: CREATININE 5.8 mg/dL (0.5-0.9)
[2018-10-08] MEDS: DUONEB (A & A) INH SCH ×6 (03:02→23:07)
[2018-10-08] MEDS: CEREBYX 300 MG in NS 50 ML IV SCH ×2 (04:16→16:06)
[2018-10-08] MEDS: REGLAN IV SCH ×4 (04:17→22:13)
[2018-10-08 04:39] LABS: ALLEN TEST YES; BE 6.5 mmoll (-3.0-3.0); BLOOD TYPE ARTERIAL; METHB 1.7 % (0.0-1.5); O2(CT) 13.8 mL/dL (15.0-23.0); O2HB 94.3 % (95.0-99.0); PCO2(98.6) 45 mmHg (35-45); PO2(98.6) 91 mmHg (60-100); SAMPLE BLOOD; SRATE 8 BPM; THB 10.3 g/dL (11.5-17.4); TVOL 600 mL; pH(98.6) 7.45 (7.35-7.45)
[2018-10-08 04:40] LABS: MODALITY VENTILATOR
[2018-10-08 05:37] LABS: HEMATOCRIT 31.5 % (37.0-47.0); HEMOGLOBIN 9.9 g/dL (12.0-16.0); MCH 25.6 PG (27-31); MCHC 31.4 g/dL (33-37); MCV 81.6 FL (81-99); MPV 10.7 FL (7.4-10.4); RBC 3.86 XMIL (4.2-5.4); RDW 17.8 % (11.5-14.5); WBC 11.98 X1000 (4.8-10.8)
[2018-10-08 05:53] LABS: ALB/GLOB RATIO 0.6; ALBUMIN 2.7 g/dL (3.5-5.0); CALCIUM 9.6 mg/dL (8.8-10.2); POTASSIUM 3.8 mmol/L (3.5-5.1); TOTAL BILIRUBIN 0.21 mg/dL (0.20-1.00)
[2018-10-08 05:54] LABS: MAGNESIUM 2.9 mg/dL (1.5-2.7); PHOSPHORUS 3.9 mg/dL (2.7-4.5)
[2018-10-08 06:07] LABS: CALCIUM 9.7 mg/dL (8.8-10.2); POTASSIUM 4.3 mmol/L (3.5-5.1)
[2018-10-08] MEDS ORDERED: NS 2,000 ML MISC PRN (06:31)
[2018-10-08 08:12] LABS: CALCIUM 9.7 mg/dL (8.8-10.2); MAGNESIUM 2.8 mg/dL (1.5-2.7); PHOSPHORUS 4.2 mg/dL (2.7-4.5); POTASSIUM 3.9 mmol/L (3.5-5.1)
[2018-10-08 08:17] LABS: CREATININE 6.2 mg/dL (0.5-0.9)
--- NOTE | 2018-10-08 09:10 | Diag Imaging Result Doc PS360 ---
EXAM: KUB ABDOMEN 10/08/2018 HISTORY: constipation, poor tube feeding tolerance TECHNIQUE: KUB COMMENT: There is an NG tube with its tip in the stomach. There is an IUD on the right side of the pelvis. There is a right femoral venous line with its tip level of the common iliac vein on the right. There is a moderate amount of formed stool in the rectosigmoid colon. No evidence of gastric or small bowel dilatation is present. There is no evidence of organomegaly or mass. IMPRESSION: Constipation. Electronically signed by Kapil Francis 10/08/2018 9:07 AM
--- NOTE | 2018-10-08 09:13 | NEPHROLOGY PROGRESS NOTE ---
DATE: 10/08/2018 TIME SEEN: 0705. SUBJECTIVE: Ms. Ross is resting quietly in bed, ventilator dependent with sedation. OBJECTIVE: Vital signs: Temperature 98.1 degrees, blood pressure 103/50, heart rate 91, respirations 16. She is on 40% FiO2. Her last recorded saturation is 94%. General: This is a 28-year-old female. She is resting quietly in bed. Head of the bed is elevated. She appears in no acute distress. Skin: Warm and dry. HEENT: Normocephalic, atraumatic. Conjunctiva is pale. She has CLARY. Mucous membranes are dry. Neck: Supple. Trachea midline. No JVD. Cardiovascular: She is regular rate and rhythm. She is tachycardic. She has a systolic murmur. Lungs: Clear to auscultation bilaterally. Equal excursion with faint crackle to posterior left base. Abdomen: Soft, nontender, positive bowel sounds. Tube feeding tube remains in place. Extremities: Have trace lower extremity edema. No clubbing or cyanosis. Genitourinary: Not inspected. Hemodialysis assist. Neurological: She opens her eyes randomly without purpose or focus. No blink reflex. INPUT AND OUTPUT: She has had 1132 in, 0 recorded out. LABORATORY DATA: Sodium 137, potassium 4.3, chloride 94, CO2 28, BUN 33, creatinine 6, glucose 170, anion gap of 15, calcium 9.7, previous albumin 2.7. White count 11.98, hemoglobin 9.4, hematocrit 31.5 with a platelet count of 394,000. Arterial blood gases: PH 7.45, CO2 45, PO2 91, bicarb 30, on 40% FiO2. ASSESSMENT AND PLAN: 1. Chronic kidney disease stage 5D. The patient is due for her routine dialysis treatment today. We will place her on SLED. She is to dialyze for 8 hours, 4K bath, 27 bicarbonate. We will attempt to pull 3 to 4 L of ultrafiltration as tolerated. 2. Electrolytes and acid-base balance. These are stable with correction on dialysis. 3. Anemia. This remains stable. 4. Pneumonia. Patient continues with leukocytosis. Continues on renal-dosed antibiotics. Followed by Pulmonary and primary care. I would to thank you for allowing us to follow with this patient. Dictated by KAMALA Persaud for Dwain Hawkins MD Face to face encounter, data reviewed, discussed with Yumi Marvin on 10/08/18. I agree with the above assessment and plan of care. cc: KAMALA Persaud MD [facility]
--- NOTE | 2018-10-08 09:13 | Diag Imaging Result Doc PS360 ---
EXAM: CHEST-PORTABLE 10/08/2018 HISTORY: respiratory failure TECHNIQUE: AP portable at 0502 COMMENT: There is an endotracheal tube with its tip in the thoracic inlet. There is an NG tube with its tip below the diaphragm. There is some ill-defined opacity in both lung bases particularly over the central hemidiaphragm on the left. There is also some elevation of the hemidiaphragm. IMPRESSION: Bibasilar pneumonia plus minus pulmonary edema. Atelectasis left lower lobe. Electronically signed by Kapil Francis 10/08/2018 9:11 AM
--- NOTE | 2018-10-08 09:15 | PROGRESS NOTE ---
DATE: 10/08/2018 SUBJECTIVE: Ms. Ross is intubated. She does open her eyes to stimulus. She seems to spontaneously move her arms. OBJECTIVE: Vital Signs: Temperature 98.1 degrees, pulse 88 respirations 7, blood pressure 115/68. HEENT: Pupils are equal and reactive. Lungs: Clear anterolateral. Cardiovascular: Regular rhythm and rate without murmur or S3. Abdomen: Soft. Skin: Warm and dry. No pedal edema. Urine output is 2500 mL. ASSESSMENT AND PLAN: 1. Tracheostomy has been recommended to the family. This is for comfort in the event that she cannot clear secretions to maintain her airway and if she has mucous plugging. Dr. Leal has had discussions with the mother and grandmother, but they did not consent to a tracheostomy. I think they had wanted to try and go to [place], but that was denied, so continue spontaneous breathing trials. 2. Renal failure, chronic kidney disease. Dr. Hawkins is following. She is stage 5D. Continue routine dialysis treatment and plan is for that this morning. 3. Anemia, which is stable. 4. Electrolytes and acid-base balance appear stable. 5. Pneumonia. She continues to have a little bit of leukocytosis. Continue present antibiotics. 6. Status post hypoxemic respiratory failure and cardiac arrest, and concern about significant anoxic central nervous system injury. I do not see much change neurologically. Family would like to continue full therapy. 7. Diabetes mellitus type 2. Continue to follow sugars. 8. She had a gastrointestinal bleed. Hemoglobin dropped. She was given 2 units of packed red blood cells. I do not see any sign of active bleeding at this time. cc: Srini Rdz MD
[2018-10-08] MEDS: PROTONIX IV SCH ×2 (09:22→20:25)
[2018-10-08] MEDS: COREG PO SCH ×2 (09:29→20:24)
[2018-10-08] MEDS: LACTULOSE GT SCH (09:30)
[2018-10-08] MEDS: RENVELA POWDER PACKET PO SCH ×3 (09:30→16:30)
[2018-10-08] MEDS: VASOTEC IV SCH ×2 (09:30→20:25)
[2018-10-08] MEDS: NORVASC PO SCH (09:58)
[2018-10-08] MEDS: CATAPRES PO SCH ×2 (09:58→20:24)
[2018-10-08] MEDS: APRESOLINE PO SCH ×3 (09:58→16:30)
[2018-10-08 11:04] LABS: CALCIUM 9.2 mg/dL (8.8-10.2); CREATININE 4.8 mg/dL (0.5-0.9); POTASSIUM 4.2 mmol/L (3.5-5.1)
[2018-10-08 12:01] LABS: CALCIUM 9.3 mg/dL (8.8-10.2); CREATININE 4.2 mg/dL (0.5-0.9); MAGNESIUM 2.4 mg/dL (1.5-2.7); PHOSPHORUS 2.5 mg/dL (2.7-4.5); POTASSIUM 4.7 mmol/L (3.5-5.1)
[2018-10-08 13:39] LABS: CREATININE 2.9 mg/dL (0.5-0.9); POTASSIUM 4.6 mmol/L (3.5-5.1)
[2018-10-08] MEDS: SENNA LIQUID PO SCH (13:49)
[2018-10-08 16:18] LABS: CREATININE 2.9 mg/dL (0.5-0.9); MAGNESIUM 2.3 mg/dL (1.5-2.7); PHOSPHORUS 1.9 mg/dL (2.7-4.5); POTASSIUM 4.6 mmol/L (3.5-5.1)
[2018-10-08] MEDS: KEPPRA 750 MG in NS 100 ML IV SCH (16:30)
[2018-10-08 18:12] LABS: CALCIUM 9.4 mg/dL (8.8-10.2); CREATININE 3.5 mg/dL (0.5-0.9); POTASSIUM 4.5 mmol/L (3.5-5.1)
[2018-10-08 19:36] LABS: CALCIUM 9.3 mg/dL (8.8-10.2); CREATININE 3.6 mg/dL (0.5-0.9); MAGNESIUM 2.3 mg/dL (1.5-2.7); POTASSIUM 4.3 mmol/L (3.5-5.1)
[2018-10-08] MEDS: DULCOLAX PR SCH (20:25)
[2018-10-08 22:15] LABS: CREATININE 3.7 mg/dL (0.5-0.9); POTASSIUM 4.4 mmol/L (3.5-5.1)
[2018-10-08 23:33] LABS: CALCIUM 9.8 mg/dL (8.8-10.2); CREATININE 4.1 mg/dL (0.5-0.9); MAGNESIUM 2.4 mg/dL (1.5-2.7); PHOSPHORUS 2.4 mg/dL (2.7-4.5); POTASSIUM 4.6 mmol/L (3.5-5.1)
--- NOTE | 2018-10-09 02:12 | PULMONOLOGY PROGRESS NOTE ---
DATE: 10/08/2018 INTERIM HISTORY: The patient had increased work of breathing, with decreased oxygen saturation last evening, and her breathing trial was terminated. She was placed back on mechanical ventilation. She has been afebrile for the last 24 hours. Blood pressure 129/ 74, heart rate 95, respiratory rate 7, oxygen saturation 93%. HEENT: Right pupil is reactive. Left pupil is cloudy. Neck: Supple. Chest: Reveals occasional rhonchi bilaterally. Cardiac: S1-S2. Abdomen: Soft, with occasional bowel sounds. Extremities: Without edema. LABORATORIES: Chest x-ray reveals some new atelectasis at the left lung base. Arterial blood gas reveals a pH 7.45, pCO2 of 45, PO2 of 91. IMPRESSION: A 28-year-old with cardiopulmonary arrest, diabetes mellitus, chronic kidney disease on hemodialysis, prior stroke, labile hypertension, with acute hypoxemic respiratory failure. She failed her spontaneous breathing trial yesterday evening. PLAN: 1. We will observe patient today and re-initiate spontaneous breathing trial tomorrow. 2. Tracheostomy has been recommended to the family each day. They will not consent to a tracheostomy, and do not have a particular reason why they do not want a tracheostomy. 3. Anticipate the need for a PEG tube if she can reach extubation. cc: Darshan Leal MD [facility]
[2018-10-09 02:18] LABS: CALCIUM 9.6 mg/dL (8.8-10.2); CREATININE 4.1 mg/dL (0.5-0.9); POTASSIUM 4.6 mmol/L (3.5-5.1)
[2018-10-09] MEDS: DUONEB (A & A) INH SCH ×6 (03:21→23:05)
[2018-10-09 03:43] LABS: CALCIUM 9.2 mg/dL (8.8-10.2); CREATININE 4.1 mg/dL (0.5-0.9); MAGNESIUM 2.6 mg/dL (1.5-2.7); PHOSPHORUS 2.4 mg/dL (2.7-4.5); POTASSIUM 4.4 mmol/L (3.5-5.1)
[2018-10-09] MEDS: REGLAN IV SCH ×4 (03:56→22:46)
[2018-10-09] MEDS: CEREBYX 300 MG in NS 50 ML IV SCH ×2 (03:56→15:47)
[2018-10-09 04:34] LABS: HEMATOCRIT 32.9 % (37.0-47.0); HEMOGLOBIN 9.9 g/dL (12.0-16.0); MCH 25.7 PG (27-31); MCHC 30.1 g/dL (33-37); MCV 85.5 FL (81-99); MPV 11.2 FL (7.4-10.4); RBC 3.85 XMIL (4.2-5.4); RDW 18.1 % (11.5-14.5); WBC 10.21 X1000 (4.8-10.8)
[2018-10-09 04:47] LABS: ALB/GLOB RATIO 0.6; ALBUMIN 2.8 g/dL (3.5-5.0); CALCIUM 9.1 mg/dL (8.8-10.2); CREATININE 4.3 mg/dL (0.5-0.9); POTASSIUM 4.4 mmol/L (3.5-5.1); TOTAL BILIRUBIN 0.2 mg/dL (0.20-1.00); TOTAL PROTEIN 7.3 g/dL (6.3-8.3)
[2018-10-09 05:24] LABS: ALLEN TEST YES; BLOOD TYPE ARTERIAL; HCO3-(ACT) 24.9 mmoll (20.0-26.0); METHB 1.4 % (0.0-1.5); O2(CT) 16.6 mL/dL (15.0-23.0); O2HB 95.8 % (95.0-99.0); PCO2(98.6) 40 mmHg (35-45); PO2(98.6) 112 mmHg (60-100); SAMPLE BLOOD; SAO2 98.8 % (95.0-100.0); SRATE 8 BPM; THB 12.2 g/dL (11.5-17.4); TVOL 600 mL
[2018-10-09 05:25] LABS: MODALITY VENTILATOR
[2018-10-09] MEDS ORDERED: NS 500 ML ONE (06:03)
[2018-10-09 08:06] LABS: CALCIUM 9.8 mg/dL (8.8-10.2); CREATININE 4.8 mg/dL (0.5-0.9); MAGNESIUM 2.6 mg/dL (1.5-2.7); PHOSPHORUS 2.7 mg/dL (2.7-4.5); POTASSIUM 4.9 mmol/L (3.5-5.1)
--- NOTE | 2018-10-09 08:13 | Diag Imaging Result Doc PS360 ---
CHEST-PORTABLE - 10/09/2018 INDICATION: respiratory failure COMPARISON: 10/08/2018 FINDINGS: Support tubes are stable. There has been decrease in the central infiltrates. Heart size remains normal. IMPRESSION: Improvement in the central infiltrates bilaterally. No complication. Electronically signed by José Miguel Mayen 10/09/2018 8:11 AM
[2018-10-09] MEDS: LACTULOSE GT SCH (08:23)
[2018-10-09] MEDS: SENNA LIQUID PO SCH (08:24)
[2018-10-09] MEDS: COREG PO SCH ×2 (08:24→21:15)
[2018-10-09] MEDS: VASOTEC IV SCH ×2 (08:24→21:15)
[2018-10-09] MEDS: RENVELA POWDER PACKET PO SCH ×3 (08:24→16:21)
[2018-10-09] MEDS: APRESOLINE PO SCH ×3 (08:25→16:21)
[2018-10-09] MEDS: NORVASC PO SCH (08:25)
[2018-10-09] MEDS: CATAPRES PO SCH ×2 (08:25→21:15)
[2018-10-09] MEDS: PROTONIX IV SCH ×2 (09:26→21:14)
[2018-10-09 10:17] LABS: CALCIUM 9.4 mg/dL (8.8-10.2); CREATININE 4.8 mg/dL (0.5-0.9); POTASSIUM 4.7 mmol/L (3.5-5.1)
--- NOTE | 2018-10-09 10:18 | PROGRESS NOTE ---
DATE: 10/09/2018 SUBJECTIVE: Ms. Ambrocio did open her eyes with stimulus. She does not really track me with her eyes. She did move her right hand. Family has agreed to let them pursue a tracheostomy, but would like to give more time and see if neurologically she has any further progress. I had a long discussion with them yesterday. OBJECTIVE: Vital Signs: On the exam this morning, temperature 98.4 degrees, pulse 111, respirations 16, blood pressure 128/89. Eyes: Pupils are equal and round. Lungs: Clear in all lung dooley. Cardiovascular exam: Regular rhythm and rate without murmur or S3. Abdomen: Soft. Skin: Warm and dry. : Urine output is 1500 mL. Blood sugar 147, 143 and 176. X-RAYS: Chest x-ray: Improvement in the central infiltrates bilaterally. Support tubes are stable. ASSESSMENT: 1. A 28-year-old, status post cardiopulmonary arrest. 2. Diabetes mellitus. 3. Chronic kidney disease on hemodialysis. 4. Prior stroke. 5. Labile hypertension. 6. Acute hypoxemic respiratory failure on the ventilator. PLAN: 1. Discuss with Dr. Leal. Pursue tracheostomy. 2. Concerned about anoxic brain injury. Continue to support and see if there is further improvement. 3. Renal failure, chronic kidney disease stage 5 D. Continue dialysis. Volume status and electrolytes and anemia appears stable. 4. Pneumonia with leukocytosis. Continue present antibiotics. 5. Diabetes mellitus type 2. She is still on a diabetic ketoacidosis protocol. Continue fluid and insulin and reviewed her orders. So, on amlodipine 10 mg a day, Coreg 25 mg b.i.d., Catapres 0.1 mg b.i.d., Vasotec 1.25 mg IV q. 12 hours, on fosphenytoin 300 mg IV q. 12 hours, Apresoline 50 mg t.i.d., levetiracetam 750 mg IV q. 24 hours, Sevelamer 2.4 g p.o. t.i.d., and then sodium bicarb drip p.r.n.. cc: Srini Rdz MD
[2018-10-09 12:11] LABS: CALCIUM 9.3 mg/dL (8.8-10.2); CREATININE 4.8 mg/dL (0.5-0.9); MAGNESIUM 2.8 mg/dL (1.5-2.7); PHOSPHORUS 2.8 mg/dL (2.7-4.5); POTASSIUM 4.9 mmol/L (3.5-5.1)
[2018-10-09] MEDS: HUMULIN R 100 UNIT in NS 99 ML IV SCH (13:10)
--- NOTE | 2018-10-09 14:14 | NEPHROLOGY PROGRESS NOTE ---
DATE: 10/09/2018 TIME SEEN: 0725 hours. SUBJECTIVE: Ms. Ross is resting quietly in bed. She remains ventilator dependent. OBJECTIVE: Her most recent vital signs: Temperature 97.8 degrees, blood pressure 194/105, heart rate is 118, respirations are 17. She is on 40% FiO2. Her last recorded saturation is 100%. She has had 2198 in ,1860 out with dialysis assist. LABORATORY DATA: Sodium 137, potassium 4.4 chloride 101, CO2 22. BUN 24, creatinine 4.3, glucose 187. Her anion gap is 14, calcium 9.1, albumin 2.8. White count 10.2, hemoglobin 9.9, hematocrit 32.9, platelet count 292. ABGs with pH of 7.4, CO2 40, PO2 112, bicarbonate 24.9 on 40% FiO2. IMAGING STUDIES: Chest x-ray of the abdomen yesterday showed constipation. PHYSICAL EXAMINATION: General: This is a 28-year-old, female. She is resting quietly in bed. She appears chronically ill in no acute distress. Skin: Warm and dry. HEENT: Normocephalic, atraumatic. Conjunctiva is pale. She has CLARY. Mucous membranes are dry. Oral ET tube is in place. Neck: Supple. Trachea midline. No JVD. Cardiovascular: She is regular rate and rhythm. She is tachycardic. She has a systolic murmur. Lungs: Coarse breath sounds bilateral. She remains on ventilatory support. Abdomen: Soft, nontender. Positive bowel sounds. Tube feeding remains in place. Extremities: Have trace lower extremity edema. Neurological: Opens eyes randomly. No focus. No blink. ASSESSMENT AND PLAN: 1. Chronic kidney disease stage 5 D. The patient is due for her routine dialysis treatment in the morning. No indications for intervention today. 2. Electrolytes and acid-base balance and anemia; these are all acceptable. 3. Pneumonia. She remains stable with positive leukocytosis. She is on renal- dosed antibiotics. Followed by Pulmonary and Primary Care. I would like to thank you for allowing us to follow with this patient. Dictated by KAMALA Persaud for Dwain Hawkins MD Face to face encounter, data reviewed, discussed with Yumi Marvin on 10/09/18. I agree with the above assessment and plan of care. cc: KAMALA Persaud MD [facility]
[2018-10-09 14:23] LABS: CALCIUM 9.8 mg/dL (8.8-10.2); POTASSIUM 4.9 mmol/L (3.5-5.1)
[2018-10-09 14:27] LABS: CREATININE 5.3 mg/dL (0.5-0.9)
[2018-10-09 15:50] LABS: CALCIUM 9.6 mg/dL (8.8-10.2); MAGNESIUM 2.8 mg/dL (1.5-2.7); PHOSPHORUS 2.5 mg/dL (2.7-4.5); POTASSIUM 4.7 mmol/L (3.5-5.1)
[2018-10-09 16:02] LABS: CREATININE 5.4 mg/dL (0.5-0.9)
[2018-10-09] MEDS: KEPPRA 750 MG in NS 100 ML IV SCH (16:21)
[2018-10-09 18:52] LABS: CALCIUM 9.5 mg/dL (8.8-10.2); POTASSIUM 4.7 mmol/L (3.5-5.1)
--- NOTE | 2018-10-09 18:52 | PROGRESS NOTE ---
DATE: 10/09/2018 DATE OF ROUNDS: 10/09/2018. SUBJECTIVE: Over the last several days, the patient has had decerebrate posturing. From a GI perspective, she is currently tolerating her tube feedings at 40 mL per hour. Her formula is Vital AF 1.2. This currently provides 1152 kilocalories, 72 g of protein and 777 mL of free water. She is currently receiving a 120 mL flush q.6 hours. Her residuals have improved over the last 2 to 3 days. They have decreased from over 200 to approximately 40. In addition, the team plans a tracheostomy. The family has been somewhat reluctant to place a PEG, but is willing to discuss it in the near future. PHYSICAL EXAMINATION: Vital Signs: Her blood pressure is 141/78, pulse 94, respirations 15, temperature of 98.6. Pulmonary: Breath sounds are coarse. Cardiovascular: Reveals regular rate and rhythm. Abdomen: Soft and nontender. There is no rebound or guarding. OBJECTIVE DATA: Reveals a hemoglobin of 9.9, with hematocrit of 32.9 and a white count 10.21. She has 292,000 platelets. Sodium is 137, potassium 4.7, chloride 100, CO2 24, BUN 31, creatinine 5.4 with a glucose of 152. Calcium is 9.6, phosphorus 2.5 and magnesium 2.8. IMPRESSION: 1. From a nutrition standpoint, the patient is tolerating Vital AF 1.2 at 40 mL per hour. I recommend increasing her tube feedings to 50 mL/h to meet 100% of her caloric needs. This will provide 1440 kcals per day with 90 g of protein and 972 mL of free water. She will require 120 mL flushes q.6 hours. 2. The patient has gastroparesis. Based on previous studies, I recommend continuing Reglan at 10 mg q.6 hours. In light of this, she may benefit from a peg-j as opposed to a peg to reduce the risk of aspiration. 3. The patient has had constipation throughout this admission. Continue lactulose 30 mL q.a.m. Continue senna at 1 p.m. daily and a Dulcolax suppository at night. With this regimen, she is having 1 to 2 soft bowel movements per day. According to nursing, her stools have varied from soft to liquid. I recommend checking a KUB in the morning to see if her fecal impaction has resolved. 4. Dr. Brian Arita will assume care of this patient beginning on 10/10/2018. cc: MD Srini Elam MD [facility]
--- NOTE | 2018-10-09 18:59 | PULMONOLOGY PROGRESS NOTE ---
DATE: 10/09/2018 SUBJECTIVE: The patient continues to have a very poor cough effort. She does not respond to voice. OBJECTIVE: Vital Signs: The patient has been afebrile for the last 24 hours. Blood pressure 141/78, heart rate 94, respiratory rate 15, oxygen saturation 100% on mechanical ventilation. HEENT: Right pupil is reactive. Left pupil is cloudy and not reactive. Oropharynx has some increase in secretions. Neck: Supple. Chest: Reveals occasional rhonchi without wheezing or tactile fremitus. Cardiac: S1, S2. Abdomen: Soft, with positive bowel sounds. Extremities: Without edema. LABORATORIES: White blood count 10.21, hemoglobin 9.9, platelet count 292,000. Chest x-ray reveals decrease in central infiltrates. Arterial blood gas reveals a pH 7.40, pCO2 of 40, PO2 of 112. IMPRESSION: 28-year-old, status post cardiopulmonary arrest, type 1 diabetes mellitus, currently on insulin drip, chronic kidney disease on hemodialysis, prior stroke, labile hypertension with 2 episodes of hypertensive crisis, with acute hypoxemic respiratory failure and anoxic encephalopathy. Weaning has been unsuccessful. RECOMMENDATIONS: 1. Consider transitioning patient back to a scheduled dose of insulin. It appears that her tube feeds are coming up to speed and are tolerated. I will leave this to the hospitalist service. 2. Ongoing tracheostomy, discussions with the family. By report, the family met with Dr. Hills yesterday along with palliative care and are considering tracheostomy. 3. Additional recommendations pending hospital course. CRITICAL CARE TIME: Thirty-plus minutes. cc: Darshan Leal MD [facility]
[2018-10-09 19:00] LABS: CREATININE 5.6 mg/dL (0.5-0.9)
[2018-10-09 21:12] LABS: CALCIUM 9.6 mg/dL (8.8-10.2); MAGNESIUM 2.9 mg/dL (1.5-2.7); PHOSPHORUS 2.8 mg/dL (2.7-4.5); POTASSIUM 4.8 mmol/L (3.5-5.1)
[2018-10-09 21:14] LABS: CREATININE 5.9 mg/dL (0.5-0.9)
[2018-10-09] MEDS: DULCOLAX PR SCH (21:15)
--- NOTE | 2018-10-09 21:41 | GENERAL SURGERY CONSULTATION ---
DATE: 10/09/2018 REASON FOR CONSULTATION: Tracheostomy. REQUESTING PHYSICIAN: Dr. Leal. HISTORY OF PRESENT ILLNESS: This is a 28-year-old female with long-standing diabetes, hypertension, end-stage renal disease, and a history of stroke, who was admitted with shortness of breath, diagnosed with pneumonia, and then subsequently also suffered a cardiac arrest. She was resuscitated, and remains critically ill since admission. She has likely had anoxic brain injury. She has been unable to wean off of the ventilator, and we are asked to consider a tracheostomy. In addition, she is on tube feeds, and there is some consideration for a PEG tube. PAST MEDICAL HISTORY: As described above in the HPI. Also, glaucoma in the left eye, and peripheral neuropathy. PAST SURGICAL HISTORY: Left upper arm AV graft. Right subclavian dialysis catheter placement, and subsequent removal. SOCIAL HISTORY: Negative for tobacco or alcohol, but there is a history of marijuana use. FAMILY HISTORY: Positive for diabetes, breast cancer, hypertension. CURRENT MEDICATIONS: AA nebs, Norvasc, Tessalon, Dulcolax, Coreg, Catapres, Vasotec, fosphenytoin, hydralazine, regular insulin, labetalol, lactulose, Keppra, Ativan, Reglan, Protonix, senna, Renvela. REVIEW OF SYSTEMS: Unobtainable. ALLERGIES: No known drug allergies. PHYSICAL EXAMINATION: Vital Signs: Temperature 98.6 degrees, pulse 101, O2 saturation 100%, blood pressure 147/78. General: She is minimally responsive. HEENT: Reactive to right pupil. ET tube in place, with some secretions. Neck: Supple. No thyromegaly. CV: Tachycardic and regular. Respiratory: Clear breath sounds bilaterally. GI: Soft, nontender, nondistended. No organomegaly or mass. No hernias. Extremities: No clubbing, cyanosis, or edema. Skin: Warm and dry. No rash. Lymphatics: No cervical, supraclavicular, or periumbilical lymph nodes appreciated. LABORATORY: White blood cell count 10, hemoglobin 9.9, hematocrit 32.9, platelet count 292,000. pH 7.4, pCO2 40, PaO2 112, bicarb 24.9, base excess 0. Sodium 135, potassium 4.7, BUN 33, creatinine 5.6, CO2 24, glucose 142. IMAGING: A chest x-ray shows a decrease in central infiltrates, normal heart size. This was on 10/08/2018. ASSESSMENT AND PLAN: A 28-year-old female with respiratory failure and failure to wean from the ventilator, status post cardiac arrest, with probable anoxic brain injury, labile hypertension, diabetes, and end-stage renal disease. I attempted to reach the family tonight, but was unable to reach them. We will try again in the morning to discuss a tracheostomy and PEG tube. cc: Kash Schultz MD
[2018-10-09 23:00] LABS: CALCIUM 9.1 mg/dL (8.8-10.2); POTASSIUM 4.8 mmol/L (3.5-5.1)
[2018-10-09 23:03] LABS: CREATININE 5.7 mg/dL (0.5-0.9)
[2018-10-10 00:06] LABS: CALCIUM 9.4 mg/dL (8.8-10.2); MAGNESIUM 3.1 mg/dL (1.5-2.7); PHOSPHORUS 2.7 mg/dL (2.7-4.5); POTASSIUM 4.8 mmol/L (3.5-5.1)
[2018-10-10 00:22] LABS: CREATININE 5.7 mg/dL (0.5-0.9)
[2018-10-10] MEDS: DUONEB (A & A) INH SCH ×6 (03:03→23:30)
[2018-10-10 03:19] LABS: CALCIUM 9.4 mg/dL (8.8-10.2); MAGNESIUM 2.9 mg/dL (1.5-2.7); PHOSPHORUS 2.6 mg/dL (2.7-4.5); POTASSIUM 4.7 mmol/L (3.5-5.1)
[2018-10-10 03:29] LABS: CREATININE 6.5 mg/dL (0.5-0.9)
[2018-10-10] MEDS: CEREBYX 300 MG in NS 50 ML IV SCH ×2 (04:18→18:05)
[2018-10-10] MEDS: REGLAN IV SCH ×5 (04:18→21:54)
[2018-10-10 04:46] LABS: HEMATOCRIT 28.8 % (37.0-47.0); HEMOGLOBIN 8.7 g/dL (12.0-16.0); MCH 25.1 PG (27-31); MCHC 30.2 g/dL (33-37); MPV 10.1 FL (7.4-10.4); RBC 3.47 XMIL (4.2-5.4); RDW 17.4 % (11.5-14.5); WBC 9.16 X1000 (4.8-10.8)
[2018-10-10 04:47] LABS: ALLEN TEST YES; BLOOD TYPE ARTERIAL; HCO3-(ACT) 24.9 mmoll (20.0-26.0); METHB 1.2 % (0.0-1.5); O2(CT) 12.9 mL/dL (15.0-23.0); PCO2(98.6) 31 mmHg (35-45); PO2(98.6) 188 mmHg (60-100); SAMPLE BLOOD; SAO2 100.1 % (95.0-100.0); SRATE 8 BPM; THB 9.1 g/dL (11.5-17.4); TVOL 600 mL; pH(98.6) 7.48 (7.35-7.45)
[2018-10-10 04:48] LABS: MODALITY VENTILATOR
[2018-10-10 05:10] LABS: ALB/GLOB RATIO 0.6; ALBUMIN 2.7 g/dL (3.5-5.0); CALCIUM 9.6 mg/dL (8.8-10.2); POTASSIUM 5.1 mmol/L (3.5-5.1); TOTAL BILIRUBIN 0.22 mg/dL (0.20-1.00)
[2018-10-10 05:14] LABS: CREATININE 6.2 mg/dL (0.5-0.9)
--- NOTE | 2018-10-10 06:45 | Diag Imaging Result Doc PS360 ---
EXAM: CHEST-PORTABLE HISTORY: respiratory failure TECHNIQUE: Portable chest single view COMPARISON: 10/10/2018 FINDINGS: No change in the endotracheal tube or nasogastric tube. The patient is rotated to the left. No cardiomegaly. Atelectasis versus a small infiltrate in the left base. No pleural effusions identified. IMPRESSION: Atelectasis versus a small infiltrate in the left base. Electronically signed by Donnie Chandler 10/10/2018 6:42 AM
[2018-10-10] MEDS: PROTONIX IV SCH ×2 (08:21→21:53)
[2018-10-10] MEDS: VASOTEC IV SCH ×2 (08:21→21:53)
[2018-10-10] MEDS ORDERED: NS 2,000 ML MISC PRN (08:25)
--- NOTE | 2018-10-10 09:05 | Diag Imaging Result Doc PS360 ---
EXAM: KUB ABDOMEN 10/10/2018 HISTORY: constipation, poor tube feeding tolerance TECHNIQUE: KUB COMMENT: There is stool throughout the colon. There is no evidence of gastric or small bowel dilatation. There is an intrauterine device on the right side of the pelvis. There is a right common femoral venous line which has been previously described. There is an NG tube the tip of which is probably in the body of the stomach. Compared to 10/08/2018 there has been very little change with considerable formed stool remaining in the distal colon. IMPRESSION: Constipation. Electronically signed by Kapil Francis 10/10/2018 9:02 AM
[2018-10-10] MEDS: APRESOLINE PO SCH ×3 (09:29→18:24)
[2018-10-10] MEDS: LACTULOSE GT SCH (09:30)
[2018-10-10] MEDS: RENVELA POWDER PACKET PO SCH ×3 (09:30→18:25)
[2018-10-10] MEDS: SENNA LIQUID PO SCH (09:30)
[2018-10-10] MEDS: NORVASC PO SCH (09:30)
[2018-10-10] MEDS: COREG PO SCH ×2 (09:30→21:51)
[2018-10-10] MEDS: CATAPRES PO SCH ×2 (09:30→21:53)
[2018-10-10 09:59] LABS: CALCIUM 9.5 mg/dL (8.8-10.2); CREATININE 6.6 mg/dL (0.5-0.9); MAGNESIUM 2.9 mg/dL (1.5-2.7); POTASSIUM 5.1 mmol/L (3.5-5.1)
--- NOTE | 2018-10-10 10:40 | PROGRESS NOTE ---
DATE: 10/10/2018 SUBJECTIVE: Ms. Ross is on the ventilator. She really did not respond. Did not open her eyes to touch or voice. She appears comfortable. We did fill out some papers for the mother for work for leave. OBJECTIVE: Vital Signs: She remains afebrile. Temperature 99.4, pulse 104, respirations 12, blood pressure 179/89. Eyes: Pupils are equal. According to report, the nurses state still reactive pupils. General: She appears to have posturing with her upper extremities, but there was no movement this morning. Lungs: Are clear anterolateral. Cardiovascular: Exam regular rhythm and rate. Abdomen: Soft. No pedal edema. Still on the ventilator. DIAGNOSTICS: Urine output was 1900 mL. Abdominal x-ray from this morning shows constipation. There is stool through the colon. No evidence of gastric or small bowel dilatation. There is an intrauterine device in the right side of her pelvis. There is a right common femoral venous line for dialysis. She has an NG tube, the tip of which is probably in the body of the stomach. Little change with considerable formed stool remaining in the distal colon. Chest x-ray from this morning, atelectasis versus small infiltrate on the left base. ASSESSMENT AND PLAN: 1. Vent dependent and we are going to pursue tracheostomy. Dr. Schultz has evaluated. The family has agreed. 2. Concerned about anoxic injury. She is status post cardiopulmonary arrest and difficult time weaning her from the ventilator. Very little neurologic improvement. Family would like to press on and give her every possibility of improvement. 3. Diabetes mellitus type 2. 4. End-stage renal disease. Her volume status electrolytes are doing pretty well. 5. Nutrition. She has a nasogastric tube. Down the road, there may have to be consideration for a PEG tube. She has a left upper arm AV graft, and she has a right femoral venous access. She had a right subclavian dialysis catheter with subsequent removal in the past. Review of her orders: She is getting morphine 2 mg IV q.3 hours p.r.n., Tylenol 650 mg p.o. q.6 hours. Norvasc 10 mg a day. Albuterol/ipratropium inhalations q.4 hours. Tessalon Perles t.i.d., Coreg 25 mg b.i.d., Vasotec 1.25 mg IV q.12, fosphenytoin 300 mg IV q.12 hours. She has Apresoline 10 mg IV q.4 hours p.r.n. Cefazolin, I think she is just getting in preparation for surgery. Labetalol 20 mg IV q.6 hours p.r.n., lactulose 30 mL q.a.m., Levetiracetam 750 mg IV q.24 hours. Reglan 10 mg IV q.6 hours. Protonix 40 mg q.12. She is on propofol sedation, and she is on Sevelamer 2.4 mg p.o. t.i.d. and getting a bicarb drip. She is still I think on the DKA protocol. REVIEW OF HER LAB: Hematocrit stable at 28, hemoglobin 8.7. Chemistries: Sodium 137, potassium 5.1, chloride 100, BUN 43, creatinine 6.2. Blood sugars 145, 104, 71, 88, 187, and 157. Continue present measures. cc: Srini Rdz MD
[2018-10-10 11:57] LABS: CALCIUM 9.6 mg/dL (8.8-10.2); MAGNESIUM 3.1 mg/dL (1.5-2.7); PHOSPHORUS 3.1 mg/dL (2.7-4.5); POTASSIUM 5.1 mmol/L (3.5-5.1)
[2018-10-10 11:59] LABS: CREATININE 6.5 mg/dL (0.5-0.9)
[2018-10-10] MEDS ORDERED: KEFZOL 1 GM/D5W 1 GM/50 ML IVPB IV ONE (12:00)
--- NOTE | 2018-10-10 14:40 | PROGRESS NOTE ---
DATE: 10/10/2018 SUBJECTIVE: Dr. Arita and I will be taking over for Dr. Teran. I have reviewed records from the patient's admission. I discussed current status with the nurse. The patient has plans for trach placement and PEG tube placement today. She is still having problems with constipation despite getting several laxatives. She had an abdominal x-ray today that showed constipation. There was stool throughout the colon with no evidence of gastric or small bowel dilation. Since 10/08/2018, there has been little change in the stool that is remaining in the distal colon. LABORATORY: Hematology: WBC 9.16. Hemoglobin 8.7, hematocrit 28.8, MCV 83.0. Chemistry: Sodium 138, potassium 5.1, chloride 103, CO2 of 22. BUN 47, creatinine 6.5, glucose 85. OBJECTIVE: Vital Signs: Temperature 99.6, pulse 108, respirations 11. Blood pressure 130/68. Generally, the patient is not responsive. She is intubated on mechanical ventilation. I have spoken with her mother who is at the bedside. ASSESSMENT AND PLAN: 1. Recent cardiopulmonary arrest, on mechanical ventilation. Plan today is to proceed with trach placement and PEG tube placement. 2. Diabetes. 3. End-stage renal disease. 4. Continue current laxative regimen. Once her PEG tube is in place and she is allowed fluids through the tube, would recommend a bottle of magnesium citrate in addition to her other laxatives. Hopefully, that will get her going on. We will continue to follow. Dr. Carpenter will be air sampling and monitoring over the weekend and be available as needed. I have discussed this case with Dr. Arita, and he has also seen the patient. Dictated by KAMALA Goodson for Brian Arita MD cc: KAMALA Cooper MD
[2018-10-10 15:22] LABS: CALCIUM 9.9 mg/dL (8.8-10.2); CREATININE 6.8 mg/dL (0.5-0.9); MAGNESIUM 3.2 mg/dL (1.5-2.7); PHOSPHORUS 3.2 mg/dL (2.7-4.5); POTASSIUM 5.3 mmol/L (3.5-5.1)
[2018-10-10] MEDS ORDERED: VERSED ONE (15:41)
[2018-10-10] MEDS ORDERED: SENSORCAINE-MPF 0.5%/EPI 1:200,000 ONE (15:47)
[2018-10-10] MEDS ORDERED: KEFZOL 1 GM/D5W 1 GM/50 ML IVPB ONE (16:07)
[2018-10-10] MEDS: HUMULIN R 100 UNIT in NS 99 ML IV SCH (18:05)
[2018-10-10] MEDS: KEPPRA 750 MG in NS 100 ML IV SCH (18:05)
[2018-10-10] MEDS ORDERED: NS 500 ML ONE (18:06)
[2018-10-10 19:31] LABS: CALCIUM 9.3 mg/dL (8.8-10.2); CREATININE 7.5 mg/dL (0.5-0.9); PHOSPHORUS 3.3 mg/dL (2.7-4.5); POTASSIUM 5.3 mmol/L (3.5-5.1)
[2018-10-10] MEDS ORDERED: CITRATE OF MAGNESIA PO ONE (21:00)
[2018-10-10] MEDS: DULCOLAX PR SCH (21:52)
[2018-10-11 00:26] LABS: CALCIUM 9.7 mg/dL (8.8-10.2); CREATININE 7.3 mg/dL (0.5-0.9); MAGNESIUM 3.3 mg/dL (1.5-2.7); PHOSPHORUS 3.2 mg/dL (2.7-4.5); POTASSIUM 5.6 mmol/L (3.5-5.1)
--- NOTE | 2018-10-11 01:19 | NEPHROLOGY PROGRESS NOTE ---
DATE: 10/10/2018 SUBJECTIVE: She is going to the operating room today for tracheostomy and PEG tube placement. OBJECTIVE: Blood pressure 130/68, heart rate 108, respiration 11. Afebrile.General: She is unresponsive. Skin: Warm and dry. Conjunctivae are pink. Neck: Neck veins are not appreciated. Heart: Regular, tachycardic with S4 and a murmur. Lungs: Have equal breath sounds. No crackles. Abdomen: Soft, nontender. Bowel sounds present. Extremities: Have no edema, clubbing, or cyanosis. IMPRESSION: Chronic kidney disease 5D. She will have dialysis today or tomorrow depending on her surgery schedule. Volume status, electrolytes, acid base all in target. cc: Dwain Hawkins MD
--- NOTE | 2018-10-11 03:13 | OPERATIVE NOTE ---
PROCEDURE DATE: 10/10/2018 PREOPERATIVE DIAGNOSES: 1. Respiratory failure. 2. Anoxic brain injury. 3. Status post cardiac arrest. 4. End-stage renal disease. POSTOPERATIVE DIAGNOSES: 1. Respiratory failure. 2. Anoxic brain injury. 3. Status post cardiac arrest. 4. End-stage renal disease. PROCEDURES PERFORMED: 1. Tracheostomy. 2. Percutaneous endoscopic gastrostomy. SURGEON: Kash Schultz MD. POULTRY RAISER: Jerry Melara MD. ANESTHESIA: General. ESTIMATED BLOOD LOSS: 5 mL. COMPLICATIONS: None apparent. SPECIMENS: None. DESCRIPTION OF PROCEDURE: The patient was brought into the operating room and placed supine on the table. Her neck was prepped and draped in the usual sterile fashion. One percent lidocaine was used to anesthetize our incision. An incision was made over the lower midline at the neck with a knife and carried down through the subcutaneous tissues, between the strap muscles with cautery down to the thyroid isthmus. The isthmus was somewhat enlarged, we excised it with cautery exposing the trachea. The 3rd tracheal ring was identified. The cuff was deflated by the loan collector. I incised the 3rd tracheal ring with an 11 blade. The loan collector pulled the ET tube back proximal to the tracheotomy. The tracheal casing man was used to create some space, and a #6 tracheostomy tube was placed. The cuff was then inflated and the tracheostomy was hooked to the ventilator, there was end-tidal CO2 and no leakage of gas. I then anchored the flanges to the skin with a Prolene suture, and partially closed the skin incision with interrupted 3-0 nylon. Her abdomen was then prepped and draped in the usual sterile fashion. I then passed the endoscope through the hypopharynx into the esophagus, and gently down into the stomach. I insufflated the stomach and retroflexed, there were no esophagogastric lesions. I passed the scope into the pylorus and then into the 2nd portion of the duodenum, there were no duodenal lesions. I brought the scope back up into the stomach. Dr. Gonzalez palpated the anterior abdominal wall in the right upper quadrant. We could easily see where he was palpating in the stomach lumen, and we could also transilluminate the abdominal wall. He then anesthetized the skin in this area with the lidocaine and made an incision with an 11 blade, passed the needle and Angiocath into the stomach under direct vision. I passed a snare through the gastroscope. The wire was passed through the Angiocath and was grabbed by the snare, and then we brought it out with the scope through the mouth. I then attached the gastrostomy to the wire and Dr. Gonzalez pulled it back up bringing the gastrostomy through the esophagus and into the stomach, bringing the button up to the mucosal surface of the stomach and taking the slack out so that it was sitting up snug next to the abdominal wall. I then passed the gastroscope back into the stomach and confirmed proper placement. It was about 2 cm from the skin to the button. I did close the skin partially around it with a 3-0 nylon. A dressing was applied. She was awakened in stable condition and transferred back to the ICU. There were no apparent complications. Of note, Dr. Gonzalez also assisted handily with the tracheostomy with exposure and retraction. cc: Kash Schultz MD
[2018-10-11] MEDS: DUONEB (A & A) INH SCH ×6 (03:29→23:30)
[2018-10-11] MEDS: REGLAN IV SCH ×4 (04:00→21:21)
[2018-10-11] MEDS: CEREBYX 300 MG in NS 50 ML IV SCH ×2 (04:00→16:42)
[2018-10-11 05:06] LABS: ALLEN TEST YES; BE -7.1 mmoll (-3.0-3.0); BLOOD TYPE ARTERIAL; HCO3-(ACT) 19.4 mmoll (20.0-26.0); METHB 0.7 % (0.0-1.5); O2(CT) 11.4 mL/dL (15.0-23.0); O2HB 97.1 % (95.0-99.0); PCO2(98.6) 31 mmHg (35-45); PO2(98.6) 119 mmHg (60-100); SAMPLE BLOOD; SAO2 99.2 % (95.0-100.0); SRATE 8 BPM; THB 8.2 g/dL (11.5-17.4); TVOL 600 mL; pH(98.6) 7.36 (7.35-7.45)
[2018-10-11 05:07] LABS: MODALITY VENTILATOR
[2018-10-11 05:29] LABS: CALCIUM 9.5 mg/dL (8.8-10.2); CREATININE 7.9 mg/dL (0.5-0.9); MAGNESIUM 3.3 mg/dL (1.5-2.7); PHOSPHORUS 3.5 mg/dL (2.7-4.5); POTASSIUM 5.2 mmol/L (3.5-5.1)
[2018-10-11] MEDS: APRESOLINE IV PRN (05:51)
--- NOTE | 2018-10-11 07:18 | Diag Imaging Result Doc PS360 ---
EXAM: CHEST-PORTABLE 10/11/2018 HISTORY: respiratory failure TECHNIQUE: AP portable at 0525 COMMENT: Compared to 10/10/2018 the opacity previously present in the retrocardiac region has largely cleared. There are some additional platelike opacities in the right upper lobe which were not present previously. IMPRESSION: Improved atelectasis or pneumonia left lower lobe. Subsegmental atelectasis right upper lobe. Electronically signed by Kapil Francis 10/11/2018 7:15 AM
[2018-10-11] MEDS ORDERED: NS 2,000 ML MISC PRN (07:48)
[2018-10-11 07:58] LABS: HEMATOCRIT 32.1 % (37.0-47.0); HEMOGLOBIN 9.4 g/dL (12.0-16.0); MCH 24.4 PG (27-31); MCHC 29.3 g/dL (33-37); MCV 83.4 FL (81-99); MPV 10.9 FL (7.4-10.4); RBC 3.85 XMIL (4.2-5.4); RDW 17.4 % (11.5-14.5); WBC 15.23 X1000 (4.8-10.8)
[2018-10-11 08:38] LABS: ALB/GLOB RATIO 0.8; ALBUMIN 3.3 g/dL (3.5-5.0); CALCIUM 9.8 mg/dL (8.8-10.2); CREATININE 8.7 mg/dL (0.5-0.9); MAGNESIUM 3.2 mg/dL (1.5-2.7); PHOSPHORUS 3.4 mg/dL (2.7-4.5); POTASSIUM 5.5 mmol/L (3.5-5.1); TOTAL BILIRUBIN 0.31 mg/dL (0.20-1.00); TOTAL PROTEIN 7.6 g/dL (6.3-8.3)
[2018-10-11] MEDS: NORVASC PO SCH (09:52)
[2018-10-11] MEDS: COREG PO SCH ×2 (09:52→20:38)
[2018-10-11] MEDS: CATAPRES PO SCH ×2 (09:52→20:37)
[2018-10-11] MEDS: APRESOLINE PO SCH ×3 (09:52→16:37)
[2018-10-11] MEDS: LACTULOSE GT SCH (09:52)
[2018-10-11] MEDS: VASOTEC IV SCH ×2 (09:53→21:21)
[2018-10-11] MEDS: RENVELA POWDER PACKET PO SCH ×3 (09:53→16:37)
[2018-10-11] MEDS: SENNA LIQUID PO SCH (09:53)
[2018-10-11] MEDS: PROTONIX IV SCH ×2 (10:00→21:22)
--- NOTE | 2018-10-11 10:23 | PROGRESS NOTE ---
DATE: 10/11/2018 SUBJECTIVE: Ms. Garcia is on ventilator/a trach. She did open her eyes to voice and she did try to squeeze my fingers with her right hand. She remains afebrile. OBJECTIVE: Temperature 98.9, pulse 116, respirations 16, blood pressure 75/52. Blood pressures have been hovering around 111 to 171/63 to 89. Pupils are equal and they are reactive. No distended neck veins. Lungs are clear anterolateral and cardiovascular exam regular rate without murmur or S3.Abdomen: Soft. Skin: Warm and dry. Urine output was 380 mL. She is getting dialysis right now. Her chest x-ray from this morning improved atelectasis. Left lower lobe infiltrate seems to be less. She has subsegmental atelectasis, right upper lobe. ASSESSMENT AND PLAN: 1. Recent cardiopulmonary arrest. Prolonged mechanical ventilation. She has underwent a tracheostomy. Respiratory status seems to have improved. 2. Diabetes mellitus, type 2. Pattern sugars. 3. End-stage renal disease and getting dialysis today. Volume status, electrolytes, and acid base seem to be appropriate. 4. Continue her laxative regimen. 5. Dependent on NG tube feeding which we have been holding since she recently got a trach, and we will need to try to reinitiate that. 6. Neurologic: Difficult to tell if there is improvement. It appeared she was trying to fix her gaze. It is really hard to tell. Concerned about severe anoxic damage. Continued supportive care in hopes that we have improvement. cc: Srini Rdz MD
--- NOTE | 2018-10-11 10:24 | PROGRESS NOTE ---
DATE: 10/11/2018 ADDENDUM: I note that I appreciate Dr. Garcia coming. He pulled several of her teeth that were loose yesterday, and she seems to be doing well from that standpoint. Also, we have her on medication to keep her from having seizures, levetiracetam at 750 mg IV q. 24 hours and the fosphenytoin is 300 mg IV q. 12 hours. cc: Srini Rdz MD
[2018-10-11 12:13] LABS: CALCIUM 9.5 mg/dL (8.8-10.2); CREATININE 5.2 mg/dL (0.5-0.9); MAGNESIUM 2.7 mg/dL (1.5-2.7); POTASSIUM 4.9 mmol/L (3.5-5.1)
[2018-10-11 15:34] LABS: CALCIUM 8.9 mg/dL (8.8-10.2); CREATININE 2.1 mg/dL (0.5-0.9); MAGNESIUM 1.9 mg/dL (1.5-2.7); PHOSPHORUS 1.2 mg/dL (2.7-4.5); POTASSIUM 4.4 mmol/L (3.5-5.1)
--- NOTE | 2018-10-11 15:56 | NEPHROLOGY PROGRESS NOTE ---
DATE: 10/11/2018 SUBJECTIVE: Unchanged. She has tracheostomy and PEG tube now. OBJECTIVE: Vital signs: Blood pressure 119/80, heart rate 126, respirations 21 and afebrile. General: No acute distress. Skin: Warm and dry. Neck: Neck veins are not visible. Heart: Regular, tachycardic with a gallop. Lungs: Equal without crackles. Abdomen: Soft and nontender. Extremities: No edema. IMPRESSION: Chronic kidney disease 5D. PLAN: Dialysis today using SLED. Four K bath. Goal of 1-2 L ultrafiltration as tolerated. cc: Dwain Hawkins MD
[2018-10-11] MEDS: KEPPRA 750 MG in NS 100 ML IV SCH (16:42)
[2018-10-11] MEDS ORDERED: NS 500 ML ONE (18:27)
[2018-10-11 20:20] LABS: CALCIUM 9.1 mg/dL (8.8-10.2); CREATININE 3.1 mg/dL (0.5-0.9); MAGNESIUM 2.2 mg/dL (1.5-2.7); PHOSPHORUS 2.3 mg/dL (2.7-4.5); POTASSIUM 4.5 mmol/L (3.5-5.1)
[2018-10-11] MEDS: DULCOLAX PR SCH (21:22)
[2018-10-12 00:40] LABS: CALCIUM 9.3 mg/dL (8.8-10.2); CREATININE 3.7 mg/dL (0.5-0.9); MAGNESIUM 2.3 mg/dL (1.5-2.7); PHOSPHORUS 3.3 mg/dL (2.7-4.5); POTASSIUM 4.6 mmol/L (3.5-5.1)
[2018-10-12] MEDS: DUONEB (A & A) INH SCH ×6 (03:04→23:13)
--- NOTE | 2018-10-12 03:27 | GENERAL SURGERY PROGRESS NOTE ---
DATE: 10/11/2018 SUBJECTIVE AND OBJECTIVE: Status post trach PEG overnight. She did well. Postop chest x-ray was okay. They were flushing her PEG tube with no issues. Hemodynamically, she remains about the same, pretty labile. She is having dialysis. Her abdomen is soft. PEG tube is in place. Trach clean, with no bleeding. White count 15, hematocrit 32, creatinine is 2.1. ASSESSMENT AND PLAN: A 28-year-old female, status post trach PEG. Continue G-tube flushes today, and plan trophic feeds tomorrow. We will continue to follow. cc: Greg Singh MD
[2018-10-12] MEDS: REGLAN IV SCH ×4 (04:35→21:28)
[2018-10-12] MEDS: CEREBYX 300 MG in NS 50 ML IV SCH ×2 (04:35→16:25)
[2018-10-12 04:42] LABS: ALLEN TEST YES; BE -3.1 mmoll (-3.0-3.0); BLOOD TYPE ARTERIAL; HCO3-(ACT) 22.5 mmoll (20.0-26.0); METHB 1.6 % (0.0-1.5); O2(CT) 13.1 mL/dL (15.0-23.0); O2HB 96.5 % (95.0-99.0); PCO2(98.6) 32 mmHg (35-45); PO2(98.6) 168 mmHg (60-100); SAMPLE BLOOD; SAO2 99.2 % (95.0-100.0); SRATE 8 BPM; THB 9.4 g/dL (11.5-17.4); TVOL 600 mL; pH(98.6) 7.42 (7.35-7.45)
[2018-10-12 04:43] LABS: MODALITY VENTILATOR
[2018-10-12 04:47] LABS: CALCIUM 9.4 mg/dL (8.8-10.2); MAGNESIUM 2.4 mg/dL (1.5-2.7); POTASSIUM 4.9 mmol/L (3.5-5.1)
--- NOTE | 2018-10-12 07:53 | Diag Imaging Result Doc PS360 ---
EXAM: CHEST-PORTABLE 10/12/2018 HISTORY: respiratory failure TECHNIQUE: AP portable at 0514 COMMENT: The atelectatic appearing opacities previously present in the right upper lobe on 10/11/2018 have resolved. There continues to be opacification the right costophrenic angle but this also appears slightly improved. IMPRESSION: Improved atelectasis. Electronically signed by Kapil Francis 10/12/2018 7:51 AM
[2018-10-12 08:29] LABS: AGAP 22; ALB/GLOB RATIO 0.9; ALBUMIN 3.5 g/dL (3.5-5.0); ALKALINE PHOSPHATASE 111 U/L (32-104); BUN 22 mg/dL (8-22); CALCIUM 9.8 mg/dL (8.8-10.2); CHLORIDE 99 mmol/L (98-107); COSMO 288; CREATININE 4.5 mg/dL (0.5-0.9); ESTIMATED GFR 14; GLUCOSE 123 mg/dL (70-104); GOT 22 U/L (10-30); GPT < 5 U/L (10-36); MAGNESIUM 2.4 mg/dL (1.5-2.7); PHOSPHORUS 4.3 mg/dL (2.7-4.5); POTASSIUM 4.4 mmol/L (3.5-5.1); SODIUM 142 mmol/L (136-145); TCO2 21 mmol/L (25-35); TOTAL BILIRUBIN 0.27 mg/dL (0.20-1.00); TOTAL PROTEIN 7.6 g/dL (6.3-8.3)
[2018-10-12 08:33] LABS: HEMATOCRIT 31.9 % (37.0-47.0); HEMOGLOBIN 9.6 g/dL (12.0-16.0); MCH 25.4 PG (27-31); MCHC 30.1 g/dL (33-37); MCV 84.4 FL (81-99); MPV 9.5 FL (7.4-10.4); RBC 3.78 XMIL (4.2-5.4); RDW 17.6 % (11.5-14.5); WBC 11.62 X1000 (4.8-10.8)
--- NOTE | 2018-10-12 08:40 | PROGRESS NOTE ---
DATE: 10/12/2018 SUBJECTIVE: Ms. Ross was actually tracking yesterday with her eyes. She appears to be more comfortable, on the ventilator to her tracheostomy. She got dialysis yesterday. Volume status looks good. OBJECTIVE: Vital Signs: Temperature 98.8 degrees, pulse 114, respirations 18, blood pressure 173/95. HEENT: Pupils are equal and round. Lungs: Clear in all lung dooley. Cardiovascular Examination: Regular rhythm and rate without murmur or S3. Abdomen: Soft. Is and Os: Urine output is 5300 mL. Diagnostic Data: Chest x-ray, improved atelectasis. ASSESSMENT AND PLAN: 1. Recent cardiopulmonary arrest, prolonged mechanical ventilation, undergone tracheostomy. Respiratory status seems to be improved. 2. End-stage renal disease stage 5D. Continue dialysis. Her volume status and electrolytes were followed closely and appeared to be appropriate. 3. Diabetes mellitus type 2. Sugars controlled. 4. Continue present laxative regimen as radiographically, had a lot of constipation. May want a repeat an abdominal film and just follow up on that. 5. Dependent on gastrointestinal feedings for nutrition. Will need to start back her feeding and can titrate that up. 6. Concerned about anoxic injury. She has opened her eyes. She does seem to track you, at least she was yesterday so I am hopeful that it represents some improvement. We will continue present orders and present medication. She is on Norvasc 10 mg a day, Coreg 25 mg twice a day, Catapres 0.1 mg twice a day, Vasotec 1.25 mg intravenous every 12, fosphenytoin 300 mg intravenous every 12, Apresoline 50 mg by mouth three times a day, levetiracetam 750 mg intravenous every 24 hours, Protonix 40 mg intravenous every 12 hours, propofol as needed for sedation, and sevelamer 2.4 g intravenous three times a day. LABORATORY DATA: Hematocrit is 32, hemoglobin is 9.4. Electrolytes: Sodium 141, potassium 4.9, chloride 100, BUN 20, creatinine 4.0, magnesium was 2.4. Blood sugars 155, 154, 147, 150, 113. cc: Srini Rdz MD
[2018-10-12] MEDS: D50W SYRINGE IV PRN (09:06)
--- NOTE | 2018-10-12 09:10 | Diag Imaging Result Doc PS360 ---
EXAM: KUB ABDOMEN 10/12/2018 HISTORY: constipation, poor tube feeding tolerance TECHNIQUE: KUB COMMENT: The NG tube which was present on 10/10/2018 has been removed. There is what appears to be a gastrostomy tube. There is still considerable stool in the left colon including the rectosigmoid. The intrauterine device and right femoral catheter remain in place. IMPRESSION: Constipation. Electronically signed by Kapil Francis 10/12/2018 9:08 AM
[2018-10-12] MEDS: PROTONIX IV SCH ×2 (09:43→21:28)
[2018-10-12] MEDS: VASOTEC IV SCH ×2 (09:43→21:28)
[2018-10-12] MEDS: HUMULIN R 100 UNIT in NS 99 ML IV SCH (09:43)
[2018-10-12] MEDS: CATAPRES PO SCH ×2 (10:06→21:33)
[2018-10-12] MEDS: COREG PO SCH ×2 (10:06→21:33)
[2018-10-12] MEDS: APRESOLINE PO SCH ×3 (10:06→16:32)
[2018-10-12] MEDS: NORVASC PO SCH (10:06)
[2018-10-12] MEDS: LACTULOSE GT SCH (10:06)
[2018-10-12] MEDS: SENNA LIQUID PO SCH (10:07)
[2018-10-12] MEDS: RENVELA POWDER PACKET PO SCH ×3 (10:07→16:32)
[2018-10-12 12:14] LABS: CALCIUM 9.5 mg/dL (8.8-10.2); CREATININE 4.8 mg/dL (0.5-0.9); MAGNESIUM 2.5 mg/dL (1.5-2.7); PHOSPHORUS 4.7 mg/dL (2.7-4.5); POTASSIUM 4.4 mmol/L (3.5-5.1)
[2018-10-12 14:58] LABS: CALCIUM 9.7 mg/dL (8.8-10.2); MAGNESIUM 2.4 mg/dL (1.5-2.7); PHOSPHORUS 4.7 mg/dL (2.7-4.5); POTASSIUM 4.7 mmol/L (3.5-5.1)
[2018-10-12 15:00] LABS: CREATININE 5.3 mg/dL (0.5-0.9)
[2018-10-12] MEDS: KEPPRA 750 MG in NS 100 ML IV SCH (16:25)
[2018-10-12] MEDS ORDERED: NS 500 ML ONE (16:27)
[2018-10-12 19:35] LABS: CALCIUM 9.9 mg/dL (8.8-10.2); MAGNESIUM 2.5 mg/dL (1.5-2.7); PHOSPHORUS 5.2 mg/dL (2.7-4.5); POTASSIUM 4.6 mmol/L (3.5-5.1)
[2018-10-12 19:38] LABS: CREATININE 5.9 mg/dL (0.5-0.9)
[2018-10-12] MEDS: DULCOLAX PR SCH (21:28)
[2018-10-12 23:18] LABS: CALCIUM 9.6 mg/dL (8.8-10.2); MAGNESIUM 2.6 mg/dL (1.5-2.7); PHOSPHORUS 6.2 mg/dL (2.7-4.5); POTASSIUM 4.5 mmol/L (3.5-5.1)
[2018-10-13] MEDS: DUONEB (A & A) INH SCH ×6 (03:00→22:50)
[2018-10-13] MEDS: CEREBYX 300 MG in NS 50 ML IV SCH ×2 (04:43→17:15)
[2018-10-13] MEDS: REGLAN IV SCH ×4 (04:43→21:16)
[2018-10-13 05:19] LABS: ALLEN TEST YES; BE 2.6 mmoll (-3.0-3.0); BLOOD TYPE ARTERIAL; METHB 1.5 % (0.0-1.5); O2(CT) 12.9 mL/dL (15.0-23.0); O2HB 96.7 % (95.0-99.0); PCO2(98.6) 41 mmHg (35-45); PO2(98.6) 135 mmHg (60-100); SAMPLE BLOOD; SAO2 99.5 % (95.0-100.0); SRATE 8 BPM; THB 9.3 g/dL (11.5-17.4); TVOL 600 mL; pH(98.6) 7.43 (7.35-7.45)
[2018-10-13 05:22] LABS: MODALITY VENTILATOR
[2018-10-13 06:26] LABS: HEMATOCRIT 30.1 % (37.0-47.0); HEMOGLOBIN 8.8 g/dL (12.0-16.0); MCH 24.6 PG (27-31); MCHC 29.2 g/dL (33-37); MCV 84.1 FL (81-99); RBC 3.58 XMIL (4.2-5.4); RDW 17.8 % (11.5-14.5)
[2018-10-13 06:40] LABS: CALCIUM 9.9 mg/dL (8.8-10.2); MAGNESIUM 2.7 mg/dL (1.5-2.7); PHOSPHORUS 6.7 mg/dL (2.7-4.5); POTASSIUM 4.6 mmol/L (3.5-5.1)
[2018-10-13 06:44] LABS: CREATININE 6.8 mg/dL (0.5-0.9)
[2018-10-13 07:18] LABS: ALB/GLOB RATIO 0.6; ALBUMIN 3.1 g/dL (3.5-5.0); ALKALINE PHOSPHATASE 109 U/L (32-104); GOT 25 U/L (10-30); GPT < 5 U/L (10-36); TOTAL BILIRUBIN 0.27 mg/dL (0.20-1.00); TOTAL PROTEIN 8.2 g/dL (6.3-8.3)
--- NOTE | 2018-10-13 07:25 | Diag Imaging Result Doc PS360 ---
EXAM: CHEST-PORTABLE INDICATION: respiratory failure TECHNIQUE: One view COMPARISON: 10/12/2018 FINDINGS: The tracheostomy tube is in stable position. The mild atelectasis at the right costophrenic angle is approximately stable. No new consolidation is identified. Cardiac silhouette is stable. IMPRESSION: Essentially stable chest. Electronically signed by Javed Villegas 10/13/2018 7:23 AM
[2018-10-13 08:23] LABS: CALCIUM 9.7 mg/dL (8.8-10.2); MAGNESIUM 2.8 mg/dL (1.5-2.7); PHOSPHORUS 7.5 mg/dL (2.7-4.5); POTASSIUM 4.5 mmol/L (3.5-5.1)
[2018-10-13 08:27] LABS: CREATININE 7.3 mg/dL (0.5-0.9)
--- NOTE | 2018-10-13 08:35 | OPERATIVE NOTE ---
PROCEDURE DATE: 10/11/2018 HISTORY OF PRESENT ILLNESS: This is a 28-year-old female who is on chronic ventilation support with a tracheostomy, and a PEG which was placed the day before. I was asked to evaluate and consult on severely loose maxillary mandibular teeth. Clinical evaluation showed teeth in the maxilla and mandible to have a +2 mobility. Most of the teeth were held in by the gingiva without even a bone attachment. The history appears to be of hypoxic brain injury, and probably chronically vent dependent. Due to the severity of the condition, and the high probability of immediate avulsion of teeth that need to be removed. PREOPERATIVE DIAGNOSES: 1. Nonrestorable teeth. 2. Severe gum and periodontal disease. PROCEDURE: Surgical removal of teeth numbers 7, 8, 9, 10, 23, 24, 25 and 26. SURGEON: Manas Garcia MD. ANESTHESIA: Local anesthesia. DESCRIPTION OF PROCEDURE: The patient was evaluated and identified in SICU bed 1. Four mL of 2% Xylocaine with 1:100,000 epinephrine was infiltrated locally. A periosteal elevator was used to reflect the mucosa off of the teeth, which four of the teeth fell out immediately. The other teeth were held in position using a forceps. A periodontal elevator was used to elevate the mucosa and the teeth were all removed. All 8 teeth were easily removed. Sharper bony edges were filed. 4-0 gut suture was used to loosely close the surgical site to help with hemostasis. Due to the severity of the periodontal disease, immediate bleeding as expected was noted. The bleeding stopped within 3 minutes. Gauze pressure was to remain for an hour and placed. cc: Manas Garcia MD
[2018-10-13] MEDS: VASOTEC IV SCH (09:01)
[2018-10-13] MEDS: PROTONIX IV SCH ×2 (09:04→21:15)
[2018-10-13] MEDS: APRESOLINE PO SCH ×3 (09:08→17:06)
[2018-10-13] MEDS: RENVELA POWDER PACKET PO SCH ×3 (09:09→17:06)
[2018-10-13] MEDS: NORVASC PO SCH (09:09)
[2018-10-13] MEDS: CATAPRES PO SCH ×2 (09:09→20:48)
[2018-10-13] MEDS: SENNA LIQUID PO SCH (09:09)
[2018-10-13] MEDS: LACTULOSE GT SCH (09:09)
[2018-10-13] MEDS: COREG PO SCH ×2 (09:09→20:49)
--- NOTE | 2018-10-13 09:20 | PROGRESS NOTE ---
DATE: 10/13/2018 SUBJECTIVE: Ms. Ross appears comfortable. She did not open her eyes for me this morning, but she has been and has been tracking sometimes. The nurse reports that she sometimes tracking with her eyes. OBJECTIVE: Eyes: Pupils are equal, round, and they are reactive. Lungs: Clear in all lung dooley anterolateral. Cardiovascular: Regular rhythm and rate without murmur or S3. Abdomen: Soft. Skin: Warm and dry. Vital signs: Blood pressure 133/85. Pulse 129. Respirations 13. Urine output is 2100 mL. RADIOLOGY: Chest x-ray from this morning, essentially stable. Tracheostomy in stable position. Mild atelectasis in the right costovertebral angle. It is proximally stable. No sign of new changes. ASSESSMENT AND PLAN: 1. I appreciate Dr. Garcia extracting some teeth that had been broken with her intubation and prolonged ventilatory stay. 2. Status post cardiopulmonary arrest. Concerned about anoxic injury, and there may be some improvement noted as far as opening her eyes and tracking her examiner. 3. A lot of stool in the colon. So constipation, aware. 4. Nutrition. We are doing NG tube feeding and been able to advance that. 5. End-stage renal disease stage 5D. Continue dialysis. Follow her electrolytes, and volume status looked good. LAB FROM THIS MORNING: Sodium 149, potassium 4.5, chloride 99, BUN 35, creatinine 7.3. Blood sugars have been 147, 137, 140, so continue supportive care. MEDICATIONS: She is on fosphenytoin 300 mg IV q.12. She is on Norvasc 10 mg p.o. daily. Coreg 25 mg b.i.d., Catapres 0.1 mg b.i.d., and lactulose 30 mL per G tube daily q.a.m. per NG tube, levetiracetam 750 mg IV q.24 hours, Protonix 40 mg q.12, Renvela 2.4 g p.o. t.i.d., and still getting a bicarb drip as needed. cc: Srini Rdz MD
[2018-10-13] MEDS: TYLENOL PR PRN (10:00)
[2018-10-13 11:39] LABS: CALCIUM 9.8 mg/dL (8.8-10.2); MAGNESIUM 2.8 mg/dL (1.5-2.7); PHOSPHORUS 8.1 mg/dL (2.7-4.5); POTASSIUM 4.6 mmol/L (3.5-5.1)
[2018-10-13 11:42] LABS: CREATININE 7.5 mg/dL (0.5-0.9)
--- NOTE | 2018-10-13 12:01 | PROGRESS NOTE ---
DATE: 10/13/2018 SUBJECTIVE: Patient had tracheostomy and PEG tube placed on Saturday. Gastric tube is currently to gravity drainage. Her I and O report: She has had some bowel movements. OBJECTIVE: Vital Signs: Temperature 98.8 degrees, pulse 117, respiratory 8, blood pressure 92/51. Laboratory: Hematology: WBC 11.0, hemoglobin 8.8, hematocrit 30.1, MCV 84.1. Chemistry: Sodium 151, potassium 4.6, chloride 101, CO2 25, BUN 37, creatinine 7.3, glucose 111. ASSESSMENT AND PLAN: 1. Status post cardiopulmonary arrest. Continue current respiratory management. Patient had tracheostomy placement on Saturday. 2. Constipation with x-ray showing stool in the colon. Patient has had laxatives and has had some bowel movements. Continue current laxative regimen. 3. Nutritional requirements. Nasogastric tube feeding will transition over to a gastric tube feedings when able. Dr. Singh is following. 4. Gastroenterology will continue to be available. Further plans to be made according to her progress. I have discussed this case with Dr. Arita. Dictated by KAMALA Goodson for Brian Arita MD cc: KAMALA Cooper MD
--- NOTE | 2018-10-13 12:46 | NEPHROLOGY PROGRESS NOTE ---
DATE: 10/13/2018 TIME SEEN: 0650. SUBJECTIVE: Ms. Ross is resting quietly in bed. Head of the bed is slightly elevated. She remains ventilator dependent. OBJECTIVE: Vital Signs: Temperature 98.6 degrees, blood pressure 198/101, heart rate 130, respirations 14. She is on 40% FIO2. Last recorded saturation 100%. She has had 359 in, 1400 out. Labs: Sodium 148, potassium 4.6, chloride 98, CO2 23, BUN 33, creatinine 6.8, glucose 130, anion gap 27, calcium 9.9, phosphorus 6.7, albumin 2.7. White count 11, hemoglobin 8.8, hematocrit 30.1, platelet count 281,000. ABGs: pH 7.43, CO2 41, pO2 135, bicarb 27 on 40%. General: This is a 28-year-old female. She is resting quietly in bed. She appears in no acute distress. Skin: Warm and dry. HEENT: Normocephalic, atraumatic. Conjunctiva is pale. She has CLARY. Mucous membranes are dry. Neck: Supple. Trachea midline. No evidence of JVD. Cardiovascular: She is regular rate and rhythm. She has an S4 that is present. Lungs: Basically clear to auscultation bilaterally. Equal excursion with ventilatory support. Abdomen: Soft. No tenderness noted. Hypoactive bowel sounds. Genitourinary: Not inspected, minimal void with dialysis assist. Extremities: Have trace edema. Neurological: As above. Opens eyes randomly. ASSESSMENT AND PLAN: 1. Chronic kidney disease stage 5D. The patient had her dialysis treatment with sustained low efficiency dialysis on Saturday. We will hold today and plan for treatment in the a.m. 2. Electrolytes, acid-base balance, and anemia. These are all acceptable. 3. Pneumonia. She remains with leukocytosis, with antibiotics. Followed by the primary care team and pulmonology. I would like to thank you for allowing us to follow with this patient. Dictated by KAMALA Persaud for Dwain Hawkins MD Face to face encounter, data reviewed, discussed with Yumi Marvin on 10/13/18. I agree with the above assessment and plan of care. cc: KAMALA Persaud MD [facility]
--- NOTE | 2018-10-13 12:57 | PULMONOLOGY PROGRESS NOTE ---
DATE: 10/13/2018 INTERIM HISTORY: Events over the weekend are reviewed. The patient has had a tracheostomy and a PEG tube placed. The patient had multiple loose teeth due to severe gum and periodontal disease with surgical extraction of 7, 8, 9, 10, 23, 24, [address] Manas Garcia. The patient responds to pain. She does have some posturing with suctioning and lavage. SUBJECTIVE: Maximum temperature in the last 24 hours 100.8 degrees, blood pressure 141/72, heart rate 124, respiratory rate 20, oxygen saturation 100%.HEENT: Pupils are equal and reactive. Oropharynx evaluation is limited. The patient will not open her mouth. Neck: Supple. Trach site appears clear. Chest: Chest reveals occasional rhonchi without wheezing. Cardiac: Increased rate, regular rhythm. Abdomen soft with positive bowel sounds present. Extremities: Reveal trace to 1+ edema. LABORATORIES: White blood count 7.09, hemoglobin 8.8, platelet count 281,000. Arterial blood gas: pH 7.43, pCO2 of 41, PO2 of 135. Chest x-ray reveals trace atelectasis right costophrenic angle which is unchanged. IMPRESSION: A 28-year-old, status post cardiopulmonary arrest, anoxic encephalopathy, type 1 diabetes mellitus, chronic kidney disease on hemodialysis, prior stroke, with labile blood pressure with a labile hypertension, who has acute hypoxemic respiratory failure. The patient is having difficulty clearing secretions. She is also having periods of apnea. RECOMMENDATIONS: 1. Place the patient on a spontaneous breathing trial. We will attempt to transition her to a trach collar as tolerated. 2. Resume tube feeds when acceptable to Dr. Schultz. 3. Renal management per the Nephrology team. TIME SPENT IN CRITICAL CARE: 30+ minutes. cc: Darshan Leal MD [facility]
[2018-10-13] MEDS: KEPPRA 750 MG in NS 100 ML IV SCH (16:58)
[2018-10-13 17:24] LABS: CALCIUM 9.7 mg/dL (8.8-10.2); MAGNESIUM 2.9 mg/dL (1.5-2.7); PHOSPHORUS 8.8 mg/dL (2.7-4.5)
[2018-10-13 17:25] LABS: CREATININE 8.3 mg/dL (0.5-0.9)
[2018-10-13 18:25] LABS: POTASSIUM 4.9 mmol/L (3.5-5.1)
[2018-10-13 19:14] LABS: CALCIUM 9.6 mg/dL (8.8-10.2); MAGNESIUM 2.8 mg/dL (1.5-2.7); PHOSPHORUS 8.7 mg/dL (2.7-4.5); POTASSIUM 4.7 mmol/L (3.5-5.1)
[2018-10-13 19:18] LABS: CREATININE 8.7 mg/dL (0.5-0.9)
[2018-10-13] MEDS: DULCOLAX PR SCH (21:15)
[2018-10-14 00:49] LABS: CALCIUM 9.4 mg/dL (8.8-10.2); MAGNESIUM 2.9 mg/dL (1.5-2.7); PHOSPHORUS 9.6 mg/dL (2.7-4.5); POTASSIUM 4.8 mmol/L (3.5-5.1)
[2018-10-14 00:54] LABS: CREATININE 8.9 mg/dL (0.5-0.9)
[2018-10-14 01:37] LABS: AGAP 29; BUN 43 mg/dL (8-22); CHLORIDE 99 mmol/L (98-107); COSMO 316; GLUCOSE 124 mg/dL (70-104); POTASSIUM 4.8 mmol/L (3.5-5.1); SODIUM 153 mmol/L (136-145); TCO2 25 mmol/L (25-35)
[2018-10-14 01:38] LABS: CALCIUM 9.4 mg/dL (8.8-10.2); CREATININE 8.9 mg/dL (0.5-0.9); MAGNESIUM 2.9 mg/dL (1.5-2.7); PHOSPHORUS 9.6 mg/dL (2.7-4.5)
[2018-10-14 02:50] LABS: CALCIUM 9.6 mg/dL (8.8-10.2); MAGNESIUM 2.9 mg/dL (1.5-2.7); PHOSPHORUS 9.6 mg/dL (2.7-4.5); POTASSIUM 4.9 mmol/L (3.5-5.1)
[2018-10-14 03:14] LABS: CREATININE 9.3 mg/dL (0.5-0.9)
[2018-10-14] MEDS: DUONEB (A & A) INH SCH ×6 (03:43→22:40)
[2018-10-14] MEDS: CEREBYX 300 MG in NS 50 ML IV SCH ×2 (03:48→16:14)
[2018-10-14] MEDS: REGLAN IV SCH ×4 (03:49→23:05)
[2018-10-14 04:41] LABS: HEMATOCRIT 29.5 % (37.0-47.0); HEMOGLOBIN 8.6 g/dL (12.0-16.0); MCH 24.8 PG (27-31); MCHC 29.2 g/dL (33-37); MPV 10.5 FL (7.4-10.4); RBC 3.47 XMIL (4.2-5.4); RDW 17.6 % (11.5-14.5); WBC 10.21 X1000 (4.8-10.8)
[2018-10-14 04:56] LABS: ALLEN TEST YES; BE 5.6 mmoll (-3.0-3.0); BLOOD TYPE ARTERIAL; HCO3-(ACT) 29.4 mmoll (20.0-26.0); PCO2(98.6) 36 mmHg (35-45); PO2(98.6) 207 mmHg (60-100); SAMPLE BLOOD; SRATE 8 BPM; TVOL 600 mL; pH(98.6) 7.51 (7.35-7.45)
[2018-10-14 04:57] LABS: MODALITY VENTILATOR
[2018-10-14 05:11] LABS: BUN 45 mg/dL (8-22); CALCIUM 9.5 mg/dL (8.8-10.2); CHLORIDE 100 mmol/L (98-107); POTASSIUM 4.6 mmol/L (3.5-5.1); SODIUM 154 mmol/L (136-145); TOTAL BILIRUBIN 0.29 mg/dL (0.20-1.00)
[2018-10-14 05:42] LABS: ALB/GLOB RATIO 0.7; ALBUMIN 3.2 g/dL (3.5-5.0); ALKALINE PHOSPHATASE 102 U/L (32-104); CREATININE 9.5 mg/dL (0.5-0.9); ESTIMATED GFR 6; GLUCOSE 117 mg/dL (70-104); GOT 21 U/L (10-30); GPT < 5 U/L (10-36); TCO2 24 mmol/L (25-35); TOTAL PROTEIN 8.1 g/dL (6.3-8.3)
[2018-10-14 06:13] LABS: AGAP 30; COSMO 318
[2018-10-14] MEDS ORDERED: HEPARIN IV PRN (06:51)
[2018-10-14] MEDS ORDERED: TIGHT: 0.2 ML/HR FOR DIALYSIS MISC PRN (06:51)
[2018-10-14] MEDS ORDERED: NS 2,000 ML MISC PRN (06:51)
--- NOTE | 2018-10-14 07:19 | Diag Imaging Result Doc PS360 ---
EXAM: CHEST-PORTABLE 10/14/2018 HISTORY: respiratory failure TECHNIQUE: AP portable at 0512 COMMENT: There is a tracheostomy tube. The appearance of the chest has not changed significantly since 10/13/2018, and the heart and pulmonary vascularity are within normal limits. IMPRESSION: Stable chest. Electronically signed by Kapil Francis 10/14/2018 7:17 AM
[2018-10-14] MEDS: TYLENOL PR PRN (09:02)
[2018-10-14] MEDS: PROTONIX IV SCH ×2 (09:02→20:00)
[2018-10-14 09:06] LABS: CALCIUM 9.8 mg/dL (8.8-10.2); CREATININE 9.9 mg/dL (0.5-0.9); MAGNESIUM 2.9 mg/dL (1.5-2.7); PHOSPHORUS 10.3 mg/dL (2.7-4.5); POTASSIUM 4.6 mmol/L (3.5-5.1)
[2018-10-14] MEDS: APRESOLINE PO SCH ×3 (09:31→17:27)
[2018-10-14] MEDS: NORVASC PO SCH (09:35)
[2018-10-14] MEDS: LACTULOSE GT SCH (09:35)
[2018-10-14] MEDS: RENVELA POWDER PACKET PO SCH ×3 (09:35→16:14)
[2018-10-14] MEDS: COREG PO SCH ×2 (09:35→20:00)
[2018-10-14] MEDS: CATAPRES PO SCH ×2 (09:35→20:00)
[2018-10-14] MEDS: SENNA LIQUID PO SCH (09:36)
--- NOTE | 2018-10-14 11:08 | PROGRESS NOTE ---
DATE: 10/14/2018 SUBJECTIVE: Ms. Ross has been in the hospital for the past 20 days and spent 19 days in the ICU. She failed multiple attempts to extubate. She is currently status post tracheostomy and PEG tube placement. This morning, she remains fairly stable. Mother was at the bedside at the time of the encounter. No new complaints. OBJECTIVE: Vital signs: Blood pressure is 94/52, pulse 125, respiration is 13 , temperature is 101.0. General: Ms. Ross is a 28-year-old female. She is in bed. She did not seem to be in any distress. There is a tracheostomy in place. HEENT: Mucosa is pink and moist. Anicteric. Acyanotic. Chest: Good air entry bilaterally. Few crackles posteriorly. Cardiovascular: Tachycardic. There is a mild TR murmur. Abdomen: Soft. Bowel sounds present. There is a PEG tube in place, and inguinal region there is a right femoral central line. Extremities: No pedal edema. SCALE SHOOTER: Patient is awake, but nonverbal. Does not follow any commands. The right pupil is reactive. The left has a dense cataract. There is also a left side hemiparesis, and I was not able to examine her decubitus area. LABORATORY DATA: WBC is 10.21, hemoglobin is 8.6, platelet count 272,000. Chemistry is also reviewed. Sodium is 154, potassium is 4.6, chloride 99, bicarb is 25. The gap is still 30. Glucose is 117. CURRENT MEDICATIONS: 1. PRN Tylenol. 2. Norvasc 10 mg daily. 3. Carvedilol 25 b.i.d. 4. Catapres 0.1 mg b.i.d. 5. Fosphenytoin 300 mg q.12. 6. Apresoline 50 mg 3 times per day. 7. Labetalol 20 mg IV q.6. 8. Keppra 750 q. daily. 9. Ativan p.r.n. 10. Reglan 10 mg IV q.6. ASSESSMENT: 1. Status post cardiac arrest. Down time was approximately 9 minutes. Initial rhythm seems to have been asystolic. 2. Anoxic brain injury with vegetable state, after cardiac arrest. 3. Cerebrovascular accident with left-sided hemiparesis. 4. Respiratory failure. Patient was intubated for 19 days. Currently underwent tracheostomy and percutaneous endoscopic gastrostomy. 5. Nonrestorable teeth with severe gum and periodontal disease status post surgical removal of multiple teeth. 6. Pyrexia with tachycardia, questionable for suspected ongoing infection. A chest x-ray this morning showed no acute disease. We will repeat the chest x-ray in the morning, get blood cultures, and start the patient empirically on antibiotics. Since she did have severe periodontal disease and had multiple teeth extracted, unsure if there has been any translocation of bacteria into the blood stream or if the periodontal disease is severe enough to warrant treatment. cc: Govind Rangel MD MTDD
[2018-10-14] MEDS ORDERED: LOPRESSOR IV PRN (11:32)
--- NOTE | 2018-10-14 11:48 | PULMONOLOGY PROGRESS NOTE ---
DATE: 10/14/2018 SUBJECTIVE: The patient opens her eyes. She has some posturing to painful stimuli. OBJECTIVE: The patient's maximum temperature in the last 24 hours 101 degrees. BP 123/75, heart rate 114, respiratory rate 14, oxygen saturation 100%. HEENT: The right pupil is sluggish but reactive. Left pupil is cloudy. Chest reveals rhonchi bilaterally. Cardiac Exam: S1-S2 increased rate. Abdomen is soft with positive bowel sounds. Extremities are without edema. LABORATORIES: White blood count 10.21, hemoglobin 8.6, platelet count 272,000. Chemistry: Sodium 154, potassium 4.6, chloride is 99. BUN 47, creatinine 9.9. Arterial blood gas: pH 7.51, pCO2 of 36, PO2 of 207. IMPRESSION: 1. Status post cardiopulmonary arrest. 2. Long history of type 1 diabetes mellitus. 3. Anoxic encephalopathy. 4. Chronic kidney disease. 5. Acute hypoxemic respiratory failure with some issues with ventilatory drive. 6. Hypernatremia. 7. Fevers. She was placed on spontaneous support yesterday and was placed back on the ventilator at 6:00 p.m. The trigger for the placement back on the vent is not documented but will be researched further. RECOMMENDATION: 1. Increase free water and tube feeds. 2. Daily spontaneous breathing trials. 3. Follow fever curve. Current chest x-ray does not explain the fever. 4. Overall prognosis is guarded. cc: Darshan Leal MD [facility]
--- NOTE | 2018-10-14 11:52 | PROGRESS NOTE ---
DATE: 10/14/2018 SUBJECTIVE: Patient's mother is at the bedside. She states her daughter does turn her head to stimulus and has moved her arm. OBJECTIVE: Vital Signs: Temperature 101.0, pulse 125, respirations 13, blood pressure 94/52. General: Patient is nonresponsive. She is turning her head and moving upper extremities. LABORATORY: Hematology: WBC 10.21, hemoglobin 8.6, hematocrit 29.5, MCV 85.0 and platelets 272. Chemistry: Sodium 153, potassium 4.8, chloride 99, CO2 of 25, BUN 43, creatinine 8.9, glucose 124. ASSESSMENT AND PLAN: 1. Status post cardiac arrest. The patient has had trach placement and PEG tube placement. 2. Respiratory failure on ventilation per tracheostomy. 3. Constipation. Continue current laxative regimen. Hopefully, she will have feedings started soon. May need to add additional laxative. Further plans to be made according to her progress. I have discussed this case with Dr. Arita. Dictated by KAMALA Goodson for Brian Arita MD cc: KAMALA Cooper MD
[2018-10-14] MEDS: MIRALAX PEG SCH ×2 (12:12→20:00)
[2018-10-14 12:13] LABS: CALCIUM 9.6 mg/dL (8.8-10.2); CREATININE 4.4 mg/dL (0.5-0.9); MAGNESIUM 2.3 mg/dL (1.5-2.7); PHOSPHORUS 3.7 mg/dL (2.7-4.5); POTASSIUM 3.7 mmol/L (3.5-5.1)
[2018-10-14] MEDS: ZOSYN 3.375 GM in NS 50 ML IV SCH ×2 (14:08→19:52)
--- NOTE | 2018-10-14 14:24 | NEPHROLOGY PROGRESS NOTE ---
DATE: 10/14/2018 DATE AND TIME SEEN: 10/14/2018 at 0740 hours. SUBJECTIVE: Ms. Ross is resting quietly in bed. Remains ventilator dependent. OBJECTIVE: Vital signs: Temperature 101.2 degrees, blood pressure 137/89, heart rate 129, respirations are 21. She is on 40% FiO2. Her last recorded saturation 99%. She has had 217 in, 750 out per Gastroenterology . She is in a -8 L fluid balance. General: On physical examination, this is a 28-year-old female resting quietly. She remains ventilator dependent. No acute distress. Skin: Warm and dry. HEENT: Normocephalic, atraumatic. Conjunctivae pale. She has CLARY. Mucous membranes are dry. Neck : Supple. Trachea midline. She has trach in place, attached to the ventilator at this time. Unable to determine JVD. Cardiovascular: Regular rate and rhythm. She has an S4. Lungs: Clear to auscultation bilaterally. Equal excursion. Ventilatory support. Abdomen: Soft, nontender. Positive bowel sounds. Genitourinary: Not inspected. Minimal void with dialysis assist. Extremities: Have trace edema. No clubbing or cyanosis. Neurological: Opens eyes randomly. Unable to follow commands. LABS: Sodium 154, potassium 4.6, chloride 100 CO2 24. BUN 45, creatinine 9.5, glucose 117, anion gap 30, calcium 9.5, phosphorus 9.6, albumin 3.2, magnesium 2.9. White count 10.2, hemoglobin 8.6, hematocrit 29.5 with a platelet count of 272. ABGs: A pH 7.51, CO2 36 PO2 207, bicarbonate 29.4 on 40%. ASSESSMENT AND PLAN: 1. Chronic kidney disease stage 5 D. The patient is due for routine dialysis treatment today. We will place her on a 2 potassium bath. She is to dialyze for 3-1/2 hours. We will attempt to pull patient to her dry weight or 1 liter. 2. Electrolytes and acid-base balance. These remain fairly stable. 3. Anemia. This is low, but stable. 4. Pneumonia. Patient continues with improved leukocytosis, although renal- dosed antibiotics, followed by Pulmonary and Primary Care. I would like to thank you for allowing us to follow with this patient. Dictated by KAMALA Persaud for Dwain Hawkins MD Face to face encounter, data reviewed, discussed with Yumi Marvin on 10/15/18. I agree with the above assessment and plan of care. cc: KAMALA Persaud MD [facility]
[2018-10-14] MEDS: HUMULIN R 100 UNIT in NS 99 ML IV SCH (14:42)
[2018-10-14 15:28] LABS: CALCIUM 9.2 mg/dL (8.8-10.2); CREATININE 4.1 mg/dL (0.5-0.9); POTASSIUM 3.6 mmol/L (3.5-5.1)
[2018-10-14] MEDS: KEPPRA 750 MG in NS 100 ML IV SCH (17:03)
--- NOTE | 2018-10-14 17:04 | GENERAL SURGERY PROGRESS NOTE ---
DATE: 10/14/2018 SUBJECTIVE: The patient has been having fevers up to 101 this morning. She has been undergoing spontaneous breathing trials with a trach collar but also has been put back on the vent off and on through the weekend. OBJECTIVE: Vital signs: T-max 101 degrees, current temperature 97 degrees, pulse 111, O2 saturation 100%, blood pressure 102/63. General: She is withdrawing or at least posturing to painful stimuli. Gastrointestinal: Soft, nondistended. No drainage around the tube. Neck: The tracheostomy is in place. No bleeding. She is currently on a trach collar. LABORATORY: White blood cell count 10, hemoglobin 8.6, hematocrit 29. Sodium 153, potassium 4.8, chloride 99, CO2 25, BUN 43, creatinine 8.9. IMAGING: Chest x-ray today shows no new infiltrates. ASSESSMENT AND PLAN: This is a 28-year-old female status post tracheostomy and PEG tube placement with likely anoxic brain injury secondary to cardiac arrest and multiple other medical comorbidities present. We will start tube feeds at a trophic rate and increase as tolerated to goal. cc: Kash Schultz MD
[2018-10-14 19:42] LABS: CALCIUM 9.2 mg/dL (8.8-10.2); CREATININE 4.3 mg/dL (0.5-0.9); PHOSPHORUS 5.7 mg/dL (2.7-4.5)
[2018-10-14] MEDS: DULCOLAX PR SCH (20:00)
[2018-10-15 00:45] LABS: CALCIUM 9.5 mg/dL (8.8-10.2); CREATININE 4.8 mg/dL (0.5-0.9); MAGNESIUM 2.2 mg/dL (1.5-2.7); PHOSPHORUS 6.1 mg/dL (2.7-4.5); POTASSIUM 4.3 mmol/L (3.5-5.1)
[2018-10-15] MEDS: REGLAN IV SCH ×4 (03:07→22:05)
[2018-10-15] MEDS: ZOSYN 3.375 GM in NS 50 ML IV SCH ×4 (03:08→19:23)
[2018-10-15] MEDS: DUONEB (A & A) INH SCH ×6 (03:50→23:13)
[2018-10-15] MEDS: CEREBYX 300 MG in NS 50 ML IV SCH ×2 (04:09→17:18)
[2018-10-15 04:36] LABS: HEMATOCRIT 30.7 % (37.0-47.0); MCHC 29.3 g/dL (33-37); MCV 85.3 FL (81-99); RBC 3.6 XMIL (4.2-5.4); RDW 17.1 % (11.5-14.5); WBC 8.07 X1000 (4.8-10.8)
[2018-10-15 04:37] LABS: ALLEN TEST YES; BE 6.7 mmoll (-3.0-3.0); BLOOD TYPE ARTERIAL; HCO3-(ACT) 30.1 mmoll (20.0-26.0); METHB 1.8 % (0.0-1.5); O2(CT) 13.4 mL/dL (15.0-23.0); O2HB 94.9 % (95.0-99.0); PCO2(98.6) 44 mmHg (35-45); PO2(98.6) 100 mmHg (60-100); SAMPLE BLOOD; SAO2 98.1 % (95.0-100.0); THB 9.9 g/dL (11.5-17.4); pH(98.6) 7.46 (7.35-7.45)
[2018-10-15 04:39] LABS: MODALITY COOL AEROSOL
[2018-10-15 04:55] LABS: CALCIUM 9.3 mg/dL (8.8-10.2); CREATININE 5.1 mg/dL (0.5-0.9); MAGNESIUM 2.2 mg/dL (1.5-2.7); PHOSPHORUS 6.4 mg/dL (2.7-4.5)
[2018-10-15 05:14] LABS: ALBUMIN 3.2 g/dL (3.5-5.0); ALKALINE PHOSPHATASE 99 U/L (32-104); DIRECT BILIRUBIN < 0.20 mg/dL (0.00-0.20); GOT 24 U/L (10-30); TOTAL BILIRUBIN 0.36 mg/dL (0.20-1.00); TOTAL PROTEIN 8.3 g/dL (6.3-8.3)
[2018-10-15 05:15] LABS: ALB/GLOB RATIO 0.6; GPT < 5 U/L (10-36)
--- NOTE | 2018-10-15 07:43 | Diag Imaging Result Doc PS360 ---
EXAM: CHEST-PORTABLE HISTORY: respiratory failure TECHNIQUE: Portable chest single view COMPARISON: 10/14/2018 FINDINGS: No change in the tracheostomy tube. The lungs are less well expanded on the current exam. There are basilar infiltrates. These are more pronounced. No cardiomegaly. Questionable trace right pleural fluid. IMPRESSION: Mild interval worsening. Electronically signed by Donnie Chandler 10/15/2018 7:41 AM
[2018-10-15] MEDS: NORVASC PO SCH (08:39)
[2018-10-15] MEDS: CATAPRES PO SCH ×2 (08:39→20:13)
[2018-10-15] MEDS: LACTULOSE GT SCH (08:39)
[2018-10-15] MEDS: RENVELA POWDER PACKET PO SCH ×3 (08:39→17:36)
[2018-10-15] MEDS: SENNA LIQUID PO SCH (08:39)
[2018-10-15] MEDS: MIRALAX PEG SCH ×2 (08:39→20:14)
[2018-10-15] MEDS: PROTONIX IV SCH ×2 (08:40→20:13)
[2018-10-15] MEDS: COREG PO SCH ×2 (08:40→20:13)
[2018-10-15] MEDS: APRESOLINE PO SCH ×3 (08:40→17:36)
[2018-10-15 09:36] LABS: CALCIUM 9.5 mg/dL (8.8-10.2); MAGNESIUM 2.4 mg/dL (1.5-2.7); PHOSPHORUS 6.7 mg/dL (2.7-4.5); POTASSIUM 4.4 mmol/L (3.5-5.1)
[2018-10-15 09:37] LABS: CREATININE 5.8 mg/dL (0.5-0.9)
[2018-10-15] MEDS ORDERED: BLISTEX MEDICATED BERRY LIP BALM TOP PRN (10:58)
--- NOTE | 2018-10-15 10:59 | PULMONOLOGY PROGRESS NOTE ---
DATE: 10/15/2018 SUBJECTIVE: The patient turns head and voice when name is called. This is inconsistent. The patient has remained on the trach collar overnight. OBJECTIVE: The patient had a temperature of 101 degrees yesterday morning at 8:00 but has been afebrile since that time. BP 120/65, heart rate 102, respiratory rate 15, oxygen saturation 100% on trach collar. HEENT: Right pupil is equal. Left pupil is cloudy. Neck is supple. Chest reveals shallow breath sounds without wheezing or rhonchi. Cardiac Exam: S1, S2. Abdomen is soft with positive bowel sounds. Extremities without edema. LABORATORIES: Arterial blood gas reveals a pH of 7.46, pCO2 of 44, PO2 of 100 on the trach collar. White blood count 8.07, hemoglobin 9.0, platelet count 258,000. Sodium 144, potassium 4.4, chloride 103, bicarbonate 26. BUN 27, creatinine 5.8. There has been reasonably good control of blood sugars. IMPRESSION: 1. A 28-year-old with long history of diabetes mellitus, who has sustained a cardiopulmonary arrest. 2. The patient has anoxic encephalopathy. 3. The patient has end-stage renal disease; on hemodialysis. She has been doing well on trach collar. RECOMMENDATION: 1. Continue trach collar as tolerated. 2. Continue tube feeds. 3. Hemodialysis per Dr. Hawkins. 4. Long-term placement may be an issue with the needs for ongoing dialysis. cc: Darshan Leal MD
[2018-10-15 11:45] LABS: CALCIUM 9.9 mg/dL (8.8-10.2); MAGNESIUM 2.4 mg/dL (1.5-2.7); PHOSPHORUS 7.4 mg/dL (2.7-4.5); POTASSIUM 4.1 mmol/L (3.5-5.1)
[2018-10-15 11:46] LABS: CREATININE 5.6 mg/dL (0.5-0.9)
--- NOTE | 2018-10-15 12:01 | PROGRESS NOTE ---
DATE: 10/15/2018 SUBJECTIVE: This morning Ms. Ross continues to be fairly the same. No changes overnight. No acute complaints. The grandma was at the bedside at the time of the encounter. Ms. Ross was started on tube feedings yesterday and she has been tolerating that very well and she has not been febrile any longer. OBJECTIVE: Vitals: Blood pressure is 96/58. Pulse is 105. Respirations are 20. Temperature is 96.8. The patient was saturating 100% on trach collar. General: Ms. Ross is a 28-year-old female. She was in bed. She was on a trach collar for adequate oxygenation. HEENT: Mucosa was pink and moist. Anicteric. Acyanotic. Neck: Supple. Tracheostomy tube is in place. Chest: Air entry is bilaterally reduced. Some transmitted sounds from the tracheostomy. Cardiovascular: Slightly tachycardic. There is a mild TR murmur. No gallops. Abdomen: The abdomen is soft. Bowel sounds are present. PEG tube is in place. There is a right femoral central line in place. Extremities: No pedal edema. CRITICAL CARE REGISTERED NURSE: The patient is awake but nonverbal. She seems to be tracking when her name is mentioned with her eyes. The right pupil is reactive. The left has a dense cataract. There is a left side hemiparesis with some rigidity. LABORATORY DATA: WBC is 8.07. Hemoglobin is 9. Platelet count was 258. Chemistry is also reviewed and sodium is 144, potassium 4.4, chloride 93, and bicarb 26. PATIENT'S INPUT AND OUTPUT: Urine output has been zero. Dialysis: About 900 mL was ultrafiltrated yesterday. IMAGING STUDIES: A chest x-ray this morning shows mild interval worsening. There are bibasilar infiltrates that seem to be more pronounced. ASSESSMENT: 1. Status post cardiac arrest. Downtime was approximately 9 minutes. Initial rhythm was asystole. 2. Anoxic brain injury with vegetable state after cardiac arrest noted. 3. Cerebrovascular accident with left side hemiparesis. 4. Respiratory failure. The patient is currently on tracheostomy with trach collar for adequate oxygenation. 5. Nonrestorable teeth with severe gum and periodontal disease, status post surgical removal of multiple teeth. 6. Sepsis. The patient was running some temperatures and was tachycardic up to yesterday and was started on antibiotics and her fever has subsided. She is still slightly tachycardic but for the most part is improved. Blood cultures were done which we are waiting on the results. The chest x-ray shows some bibasilar infiltrates. I am not quite sure if she is developing any pneumonia. The patient was started on Zosyn yesterday and she seems to be fairly stable so I will continue with this until we have the blood culture report and then go from there. DISPOSITION: I did speak extensively with her mother yesterday and notified her that at this point I think Ms. Ross is clinically stable as we can get her in an acute care facility and that she would need to continue with intensive physical rehabilitation as she continues with her oxygen demands through the trach collar and her PEG tubes so at this point I recommend that we transition her to an LTAC facility which she did understand. I have communicated this message to her grandmother this morning and she seems to understand as well. We will be pending LTAC evaluation and then go from there. cc: Govind Rangel MD
--- NOTE | 2018-10-15 13:56 | PROGRESS NOTE ---
DATE: 10/15/2018 SUBJECTIVE: The patient continues to turn her head at times to stimulus. Her grandmother was at the bedside today. Per nurse report, her feedings have been started to the gastric tube. Last documented bowel movement was on 10/11/2018. Patient is receiving laxatives. OBJECTIVE: Vital Signs: Temperature 98.6 degrees, pulse 96, respirations 16, blood pressure 99/55. General: The patient is in no acute distress. She has O2 per tracheostomy collar. LABORATORY: Hematology: WBC 8.07, hemoglobin 9.0, hematocrit 30.7, MCV 85.3. Chemistry: Sodium 142, potassium 4.1, chloride 92, CO2 29. BUN 32, creatinine 5.6. ASSESSMENT AND PLAN: 1. Recent cardiac arrest. Patient is on oxygen by tracheostomy collar. 2. Anoxic brain injury. Patient has had some moving or turning head to stimulus. 3. Cerebrovascular accident with left-sided hemiparesis. 4. End-stage renal disease on dialysis. 5. Nutrition requirements: Patient has had her feeding restarted to gastric tube. 6. Constipation. Continue current laxatives management. PLAN: Continue current management. Continue management per other medical team. GI will currently sign off, but please reconsult if needed. I have discussed this case with Dr. Arita. Dictated by KAMALA Goodson for Brian Arita MD cc: KAMALA Cooper MD [facility]
[2018-10-15 15:10] LABS: CALCIUM 9.7 mg/dL (8.8-10.2); MAGNESIUM 2.6 mg/dL (1.5-2.7); PHOSPHORUS 7.5 mg/dL (2.7-4.5); POTASSIUM 4.3 mmol/L (3.5-5.1)
[2018-10-15 15:11] LABS: CREATININE 5.8 mg/dL (0.5-0.9)
[2018-10-15] MEDS: KEPPRA 750 MG in NS 100 ML IV SCH (16:58)
[2018-10-15 19:48] LABS: CALCIUM 9.7 mg/dL (8.8-10.2); MAGNESIUM 2.7 mg/dL (1.5-2.7); PHOSPHORUS 7.3 mg/dL (2.7-4.5); POTASSIUM 4.2 mmol/L (3.5-5.1)
[2018-10-15] MEDS: DULCOLAX PR SCH (20:13)
--- NOTE | 2018-10-15 21:32 | NEPHROLOGY PROGRESS NOTE ---
DATE: 10/15/2018 SUBJECTIVE: No change. OBJECTIVE: Vital Signs: Blood pressure 99/55, heart rate 96, respirations 16, afebrile. General: No acute distress. Skin: Warm and dry. Conjunctivae are pink. Neck: Neck veins are not distended. Heart: Regular and tachycardic, with S4. Lungs: Have equal breath sounds. No crackles or wheezes. Abdomen: Soft, nontender. Bowel sounds present. Extremities: Have no edema, clubbing or cyanosis. IMPRESSION: 1. CKD 5D. She had dialysis yesterday. No treatment today. 2. Electrolytes/acid base in target. cc: Dwain Hawkins MD
[2018-10-15 23:51] LABS: MAGNESIUM 2.7 mg/dL (1.5-2.7); PHOSPHORUS 6.6 mg/dL (2.7-4.5); POTASSIUM 4.1 mmol/L (3.5-5.1)
[2018-10-15 23:52] LABS: CREATININE 6.7 mg/dL (0.5-0.9)
[2018-10-16] MEDS: ZOSYN 3.375 GM in NS 50 ML IV SCH ×2 (02:14→07:52)
[2018-10-16] MEDS: REGLAN IV SCH ×3 (03:43→09:11)
[2018-10-16] MEDS: CEREBYX 300 MG in NS 50 ML IV SCH ×2 (03:43→16:03)
[2018-10-16] MEDS: DUONEB (A & A) INH SCH ×6 (03:51→23:00)
[2018-10-16 04:02] LABS: CALCIUM 9.9 mg/dL (8.8-10.2); MAGNESIUM 2.8 mg/dL (1.5-2.7); PHOSPHORUS 7.1 mg/dL (2.7-4.5); POTASSIUM 4.2 mmol/L (3.5-5.1)
[2018-10-16 04:08] LABS: CREATININE 6.5 mg/dL (0.5-0.9)
[2018-10-16 04:59] LABS: ALLEN TEST YES; BE 7.4 mmoll (-3.0-3.0); BLOOD TYPE ARTERIAL; HCO3-(ACT) 30.7 mmoll (20.0-26.0); METHB 1.4 % (0.0-1.5); O2(CT) 12.9 mL/dL (15.0-23.0); PCO2(98.6) 40 mmHg (35-45); PO2(98.6) 124 mmHg (60-100); SAMPLE BLOOD; SAO2 99.1 % (95.0-100.0); THB 9.4 g/dL (11.5-17.4)
[2018-10-16 05:01] LABS: MODALITY COOL AEROSOL
[2018-10-16] MEDS: LEVOPHED 8 MG in D5 1/2 NS 250 ML IV SCH (05:40)
[2018-10-16] MEDS ORDERED: NS 2,000 ML MISC PRN (05:45)
[2018-10-16 06:09] LABS: AGAP 24; ALB/GLOB RATIO 0.8; ALBUMIN 3.3 g/dL (3.5-5.0); ALKALINE PHOSPHATASE 101 U/L (32-104); BUN 39 mg/dL (8-22); CALCIUM 9.7 mg/dL (8.8-10.2); CHLORIDE 92 mmol/L (98-107); COSMO 296; CREATININE 7.1 mg/dL (0.5-0.9); ESTIMATED GFR 8; GLUCOSE 169 mg/dL (70-104); GOT 22 U/L (10-30); GPT < 5 U/L (10-36); POTASSIUM 4.1 mmol/L (3.5-5.1); SODIUM 142 mmol/L (136-145); TCO2 26 mmol/L (25-35); TOTAL BILIRUBIN 0.34 mg/dL (0.20-1.00); TOTAL PROTEIN 7.6 g/dL (6.3-8.3)
[2018-10-16] MEDS ORDERED: NS 1,000 ML IV ONE (06:12)
[2018-10-16 06:46] LABS: HEMATOCRIT 29.8 % (37.0-47.0); HEMOGLOBIN 8.6 g/dL (12.0-16.0); MCH 24.5 PG (27-31); MCHC 28.9 g/dL (33-37); MCV 84.9 FL (81-99); MPV 11.2 FL (7.4-10.4); RBC 3.51 XMIL (4.2-5.4); RDW 16.9 % (11.5-14.5); WBC 11.08 X1000 (4.8-10.8)
--- NOTE | 2018-10-16 07:22 | Diag Imaging Result Doc PS360 ---
EXAM: CHEST-PORTABLE INDICATION: respiratory failure TECHNIQUE: One view COMPARISON: 10/15/2018 FINDINGS: The tracheostomy tube is in stable position. Bibasilar infiltrates are stable to marginally improved. No new consolidation is identified. Cardiac silhouette is stable. IMPRESSION: Stable to marginal improvement of bibasilar infiltrates. Electronically signed by Javed Villegas 10/16/2018 7:19 AM
[2018-10-16] MEDS: ZOSYN 2.25 GM in NS 50 ML IV SCH ×3 (07:50→19:38)
[2018-10-16 08:05] LABS: CALCIUM 9.9 mg/dL (8.8-10.2); MAGNESIUM 2.9 mg/dL (1.5-2.7); PHOSPHORUS 6.6 mg/dL (2.7-4.5); POTASSIUM 4.3 mmol/L (3.5-5.1)
[2018-10-16 08:07] LABS: CREATININE 7.4 mg/dL (0.5-0.9)
[2018-10-16] MEDS: PROTONIX IV SCH ×2 (08:54→20:50)
[2018-10-16] MEDS: RENVELA POWDER PACKET PO SCH ×3 (08:54→16:45)
[2018-10-16] MEDS: CATAPRES PO SCH ×2 (09:09→20:48)
[2018-10-16] MEDS: APRESOLINE PO SCH ×3 (09:09→16:45)
[2018-10-16] MEDS: LACTULOSE GT SCH (09:10)
[2018-10-16] MEDS: MIRALAX PEG SCH (09:10)
[2018-10-16] MEDS: COREG PO SCH ×2 (09:10→20:49)
[2018-10-16] MEDS: NORVASC PO SCH (09:10)
[2018-10-16] MEDS: SENNA LIQUID PO SCH (09:11)
[2018-10-16] MEDS ORDERED: BASAGLAR SUBQ SCH (10:15)
--- NOTE | 2018-10-16 10:41 | PROGRESS NOTE ---
DATE: 10/16/2018 SUBJECTIVE: Today, Ms. Ross continues to be fairly stable. No family member was at the bedside at the time of the encounter, and they were trying to prepare her for dialysis. I understand last night Ms. Ross became slightly hypotensive and was given a bolus of IV fluids and norepinephrine was started. OBJECTIVE: Vital signs: Blood pressure is 115/67. Pulse is 89. Respiration is 15. Temperature is 97.4 degrees. General: Ms. Ross is a 28-year-old female. She is in bed. She does not seems to be in any cardiopulmonary distress. A tracheostomy is in place. Neck: Supple. Chest: Good air entry bilateral. There are some transmitted sounds from the tracheostomy. Cardiovascular: Regular rate and rhythm. There is a mild TR murmur. Abdomen: Soft. Bowel sounds are present. PEG tube is in place. Inguinal region has a right femoral central line. Extremities: No pedal edema. TEST ARCHITECT: Patient is awake, continues to be nonverbal. Will track with her pupils in the room. The pupil is reactive. The left has a dense cataract. There is a left-sided hemiparesis. LABORATORY DATA: WBC is 11.08, hemoglobin is 8.6, platelet count of 236,000. Chemistry is also reviewed. Sodium is 147, potassium is 4.3, chloride is 93, bicarb is 27. Repeat blood cultures which was done on the is negative for 48 hours. A chest x-ray done this morning shows stable to marginal improvement of bibasilar infiltrates. ASSESSMENT: 1. Status post cardiac arrest. Down time was approximately 9 minutes and initial rhythm was said to have been asystole. 2. Anoxic brain injury with vegetable state after cardiac arrest. 3. Cerebrovascular accident with left-side hemiparesis. 4. Respiratory failure, status post tracheostomy. 5. Nonrestorable teeth with severe gum and periodontal disease. The patient is status post surgical removal of multiple teeth, currently on antibiotics. 6. End-stage renal disease on hemodialysis. 7. Diabetes mellitus. Presenting A1c was 8.0. The patient is currently on insulin drip. Gap is fine, and she is tolerating her tube feedings, so I will switch this to long-acting glargine 15 units and sliding scale. 8. Disposition. We are still pending LTAC evaluation and hopefully, can get Ms. Ross to LTAC. cc: Govind Rangel MD
[2018-10-16] MEDS: HUMULIN R SUBQ SCH ×3 (11:46→20:53)
--- NOTE | 2018-10-16 15:36 | NEPHROLOGY PROGRESS NOTE ---
DATE: 10/16/2018 SUBJECTIVE: Unchanged. OBJECTIVE: Vital Signs: Blood pressure 137/75, heart rate 95, respiration 18. General: No acute distress. Skin: Warm and dry. HEENT: Conjunctivae are pink. Neck: Neck veins are not appreciated. Heart: Regular with S4. Lungs: Equal. No crackles. Abdomen: Soft, nontender. Bowel sounds present. Extremities: No edema, clubbing, or cyanosis. IMPRESSION: Chronic kidney disease stage 5D. She will be treated with SLED today per her routine schedule treatment. Four potassium bath. Minimal UF. cc: Dwain Hawkins MD
[2018-10-16] MEDS: KEPPRA 750 MG in NS 100 ML IV SCH (16:03)
--- NOTE | 2018-10-16 20:39 | PULMONOLOGY PROGRESS NOTE ---
DATE: 10/16/2018 INTERIM HISTORY: Ms. Ross remains off mechanical ventilation on trach collar. She did require fluid bolus last evening. OBJECTIVE: Vital Signs: BP 131/76, heart rate 105, respiratory rate 28, oxygen saturation 94%. HEENT: Right pupil is equal, but sluggish. Left pupil is clouded. Oropharynx appears dry, without lesions. Neck: Supple, with tracheostomy in good position. Chest: Reveals scattered rhonchi bilaterally. Cardiac: S1, S2 increased rate. Abdomen: Soft. Extremities: Without edema. LABORATORIES: Arterial blood gas reveals a pH of 7.50, pCO2 of 40, PO2 of 124, on cool aerosol. Sodium 147, potassium 4.3, chloride 93, bicarbonate 27, BUN 41, creatinine 7.4. Chest x-ray reveals minimal basilar infiltrates, unchanged. IMPRESSION: 1. A 28-year-old with diabetes mellitus, status post cardiopulmonary arrest. 2. Anoxic encephalopathy. 3. End-stage renal disease, on hemodialysis. 4. Hypoxemic respiratory failure. The patient is currently doing well on trach collar and has not required re-initiation of mechanical ventilation over the last 48 hours. RECOMMENDATION: 1. Continue trach collar as tolerated. 2. Continue tube feeds. 3. Continue hemodialysis per Dr. Hawkins. cc: Darshan Leal MD
[2018-10-16] MEDS: DULCOLAX PR SCH (20:50)
[2018-10-17] MEDS: ZOSYN 2.25 GM in NS 50 ML IV SCH ×4 (02:32→20:08)
[2018-10-17] MEDS: DUONEB (A & A) INH SCH ×6 (03:16→23:00)
[2018-10-17] MEDS: CEREBYX 300 MG in NS 50 ML IV SCH ×2 (03:43→15:46)
[2018-10-17 04:36] LABS: HEMATOCRIT 28.6 % (37.0-47.0); HEMOGLOBIN 8.3 g/dL (12.0-16.0); MCV 86.1 FL (81-99); MPV 11.5 FL (7.4-10.4); RBC 3.32 XMIL (4.2-5.4); RDW 16.6 % (11.5-14.5); WBC 8.52 X1000 (4.8-10.8)
[2018-10-17 04:51] LABS: ALLEN TEST YES; BE -4.2 mmoll (-3.0-3.0); BLOOD TYPE ARTERIAL; HCO3-(ACT) 21.6 mmoll (20.0-26.0); O2(CT) 22.5 mL/dL (15.0-23.0); O2HB 95.9 % (95.0-99.0); PCO2(98.6) 30 mmHg (35-45); PO2(98.6) 106 mmHg (60-100); SAMPLE BLOOD; SAO2 98.4 % (95.0-100.0); THB 16.6 g/dL (11.5-17.4); pH(98.6) 7.41 (7.35-7.45)
[2018-10-17 04:54] LABS: MODALITY COOL AEROSOL
[2018-10-17 04:58] LABS: AGAP 18; ALB/GLOB RATIO 0.8; ALBUMIN 3.2 g/dL (3.5-5.0); ALKALINE PHOSPHATASE 92 U/L (32-104); BUN 10 mg/dL (8-22); CALCIUM 9.1 mg/dL (8.8-10.2); CHLORIDE 100 mmol/L (98-107); COSMO 279; CREATININE 2.4 mg/dL (0.5-0.9); ESTIMATED GFR 29; GLUCOSE 212 mg/dL (70-104); GOT 20 U/L (10-30); GPT < 5 U/L (10-36); POTASSIUM 4.6 mmol/L (3.5-5.1); SODIUM 137 mmol/L (136-145); TCO2 19 mmol/L (25-35); TOTAL BILIRUBIN 0.31 mg/dL (0.20-1.00); TOTAL PROTEIN 7.3 g/dL (6.3-8.3)
[2018-10-17] MEDS: HUMULIN R SUBQ SCH ×4 (06:22→22:14)
--- NOTE | 2018-10-17 07:00 | Diag Imaging Result Doc PS360 ---
EXAM: CHEST-PORTABLE 10/17/2018 HISTORY: respiratory failure TECHNIQUE: AP portable at 0505 COMMENT: There is bibasilar atelectasis. The inspiration is slightly less optimal than on 10/16/2018, however otherwise there has been no significant change. IMPRESSION: Bibasilar atelectasis. Electronically signed by Kapil Francis 10/17/2018 6:57 AM
[2018-10-17] MEDS ORDERED: NS 2,000 ML MISC PRN (08:17)
[2018-10-17] MEDS ORDERED: HEPARIN IV PRN (08:17)
[2018-10-17] MEDS ORDERED: TIGHT: 0.2 ML/HR FOR DIALYSIS MISC PRN (08:17)
[2018-10-17] MEDS: PROTONIX IV SCH ×2 (08:41→20:08)
[2018-10-17] MEDS: RENVELA POWDER PACKET PO SCH ×3 (08:42→16:44)
[2018-10-17] MEDS: BASAGLAR SUBQ SCH (08:42)
[2018-10-17] MEDS: COREG PO SCH ×2 (08:42→20:08)
[2018-10-17] MEDS: APRESOLINE PO SCH ×3 (08:42→16:44)
[2018-10-17] MEDS: NORVASC PO SCH (08:42)
[2018-10-17] MEDS: CATAPRES PO SCH ×2 (08:42→20:08)
--- NOTE | 2018-10-17 12:05 | PROGRESS NOTE ---
DATE: 10/17/2018 SUBJECTIVE: Patient was seen in dialysis. Patient did track with her eyes. OBJECTIVE: Vital signs: Temperature 98.2 degrees, pulse 108, respirations 17, blood pressure 145/91. General: The patient was in dialysis. Currently tracheostomy in place with O2. PEG tube in place. LABORATORY: Hematology: WBC 8.52, hemoglobin 8.3, hematocrit 28.6, MCV 86.1. Chemistry: Sodium 137, potassium 4.6, chloride 100, CO2 19, BUN 10, creatinine 2.4, glucose 212. ASSESSMENT AND PLAN: 1. Status post cardiac arrest. 2. Respiratory failure. The patient has tracheostomy with O2. 3. Anoxic brain injury. 4. Cerebrovascular accident with left-sided hemiparesis. 5. End-stage renal disease on dialysis. Patient was seen in dialysis. 6. Nutritional requirements. Patient is on tube feedings. Per nurse report, she had some high residual during the night. Tube feedings were restarted after being on hold for 4 hours. 7. Constipation. Patient has had laxatives and has had documented bowel movements over the last 2 days. Continue current management. Continue laxative regimen. GI will currently sign off, but please re-consult us if needed. I have discussed this case with Dr. Arita. Dictated by KAMALA Goodson for Brian Arita MD cc: KAMALA Cooper MD [facility]
--- NOTE | 2018-10-17 12:55 | PROGRESS NOTE ---
DATE: 10/17/2018 SUBJECTIVE: This morning Ms. Ross continues to be fairly the same. There is no family member at the bedside at the time of the encounter. OBJECTIVE: Vital signs: Blood pressure is 145/91, pulse is 108, respiration is 27, temperature 98.3. General exam: Ms. Ross is a 28-year-old female. She is in bed. She is on trach collar. She does not seem to be in any distress. HEENT: Mucosa is pink and moist. Anicteric. Acyanotic. Neck: Supple. Tracheostomy tube is in place. Chest: Good air entry bilateral. No crepitations. No rhonchi. Cardiovascular: Regular rate and rhythm. There is a mild TR murmur, no gallops. Abdomen: Soft. Bowel sounds present. PEG tube is in place. The inguinal region reveals there is a right femoral central line. Extremities: No pedal edema. TOWER HAND: Patient is awake, continues to be nonverbal. Will track with the eyes. Pupils are reactive. Left eye does have a dense cataract. The patient has a left side hemiparesis. LABORATORY DATA: WBC is 8.52, hemoglobin 8.3, platelet count is 232. Sodium is 137, potassium 4.6, chloride is 100, bicarbonate is 19. ASSESSMENT: 1. Status post cardiac arrest. Down time was approximately 9 minutes. Initial rhythm was said to have been asystolic. 2. Anoxic brain injury with resultant vegetative state after cardiac arrest. 3. Cerebrovascular accident With left-sided hemiparesis. 4. Respiratory failure status post tracheostomy. 5. Nonrestorable teeth with severe gum and periodontal disease. Patient is status post surgical removal of multiple teeth. Currently on antibiotics. 6. Endstage renal disease on hemodialysis. 7. Diabetes mellitus. We will continue with insulin regimen. 8. Disposition: Still pending long-term acute care placement. 9. Nutritional support. The patient is currently on Glucerna tube feeding. I understand overnight she did have high residuals. However, this morning when the nurse checked, there was none. We will start the tube feedings and recheck the residuals in 4 hours. If patient continues to have high residuals, we will change the Glucerna to alimental which she was on before. cc: Govind Rangel MD
[2018-10-17] MEDS: REGLAN PO SCH ×2 (15:45→20:08)
[2018-10-17] MEDS: KEPPRA 750 MG in NS 100 ML IV SCH (16:44)
--- NOTE | 2018-10-17 17:53 | PULMONOLOGY PROGRESS NOTE ---
DATE: 10/17/2018 SUBJECTIVE: Patient is in dialysis. She appears more awake and does tract the practitioner. OBJECTIVE: Patient has been afebrile for the last 24 hours. Blood pressure 145/91, heart rate 108, respiratory rate 17, oxygen saturation 100%. HEENT: Right pupil is reactive. Left pupil is cloudy. Oropharynx appears slightly dry. Neck: Is supple. She has some increased slightly purulent secretions around the tracheostomy site. Cardiac: S1, S2, increased rate. Abdomen: Soft with good bowel sounds. Extremities: Without edema. LABORATORIES: Chest x-ray reveals atelectasis at the right base with relatively clear lung dooley on the left. She has a shallow inspiration. IMPRESSION: A 28-year old with diabetes mellitus, anoxic encephalopathy, status post cardiopulmonary arrest, hypoxemic respiratory failure, currently on tracheostomy collar. The patient has some atelectasis. She is doing well on the tracheostomy collar. RECOMMENDATION: 1. Continue tracheostomy collar as tolerated. 2. Continue tube feeds. 3. Continue bronchial hygiene. 4. We will check a surveillance of sputum with a culture in the event she has a change in status. cc: Darshan Leal MD
[2018-10-17] MEDS: DULCOLAX PR SCH (20:08)
--- NOTE | 2018-10-18 01:53 | NEPHROLOGY PROGRESS NOTE ---
DATE: 10/17/2018 SUBJECTIVE: The patient opens eyes to verbal and tactile stimuli. She makes no purposeful movements. OBJECTIVE: Vital Signs: Temperature 98.6 degrees, pulse 110, respiratory rate 20, blood pressure 140/87. Intake 2.2 L. Output not measured. General: Young adult female, resting in bed. Her eyes are open. She has some contracture-type movement to her upper extremities, but does not follow commands. HEENT: Normocephalic, atraumatic. Oral mucosa dry. Her lens on the left eye is whitened. Neck: Supple. No JVD. Cardiovascular: Regular rate and rhythm. Pulmonary: She is on a trach collar. Abdomen: Soft. Positive bowel sounds. : No inspected. Extremities: Again, as above. LAB DATA: WBC of 8.5, hemoglobin 8.3. Sodium 137, potassium 4.6, CO2 19, creatinine 2.4. ASSESSMENT AND PLAN: Chronic kidney disease, 5D. Continue with dialysis today, as per her routine. We will attempt to dialyze her over in the unit. Today's dialysis treatment will be an initiation to go back to her routine [id number] dialysis treatment plan. Daily decisions will be made. Dictated by KAMALA Walters for Dwain Hawkins MD cc: Dwain Hawkins MD
[2018-10-18] MEDS: ZOSYN 2.25 GM in NS 50 ML IV SCH ×4 (02:49→20:20)
[2018-10-18] MEDS: DUONEB (A & A) INH SCH ×6 (03:03→22:56)
[2018-10-18] MEDS: CEREBYX 300 MG in NS 50 ML IV SCH ×2 (03:47→15:13)
[2018-10-18 05:00] LABS: ALLEN TEST YES; BE 2.2 mmoll (-3.0-3.0); BLOOD TYPE ARTERIAL; HCO3-(ACT) 26.6 mmoll (20.0-26.0); METHB 1.5 % (0.0-1.5); O2(CT) 11.7 mL/dL (15.0-23.0); O2HB 95.3 % (95.0-99.0); PCO2(98.6) 39 mmHg (35-45); PO2(98.6) 89 mmHg (60-100); SAMPLE BLOOD; SAO2 98.7 % (95.0-100.0); THB 8.6 g/dL (11.5-17.4); pH(98.6) 7.44 (7.35-7.45)
[2018-10-18 05:01] LABS: MODALITY COOL AEROSOL
[2018-10-18 05:11] LABS: HEMATOCRIT 28.1 % (37.0-47.0); HEMOGLOBIN 8.2 g/dL (12.0-16.0); MCH 25.1 PG (27-31); MCHC 29.2 g/dL (33-37); MCV 85.9 FL (81-99); MPV 10.9 FL (7.4-10.4); RBC 3.27 XMIL (4.2-5.4); RDW 16.2 % (11.5-14.5); WBC 8.56 X1000 (4.8-10.8)
[2018-10-18 05:44] LABS: ALB/GLOB RATIO 0.6; CALCIUM 9.3 mg/dL (8.8-10.2); CREATININE 2.3 mg/dL (0.5-0.9); POTASSIUM 3.9 mmol/L (3.5-5.1); TOTAL BILIRUBIN 0.27 mg/dL (0.20-1.00); TOTAL PROTEIN 7.8 g/dL (6.3-8.3)
[2018-10-18] MEDS: REGLAN PO SCH ×4 (06:01→20:21)
[2018-10-18] MEDS: HUMULIN R SUBQ SCH ×4 (06:10→20:31)
[2018-10-18] MEDS: RENVELA POWDER PACKET PO SCH ×3 (08:17→16:21)
[2018-10-18] MEDS: COREG PO SCH ×2 (08:17→20:21)
[2018-10-18] MEDS: CATAPRES PO SCH ×2 (08:18→20:21)
[2018-10-18] MEDS: APRESOLINE PO SCH ×3 (08:18→16:21)
[2018-10-18] MEDS: PROTONIX IV SCH ×2 (08:18→20:21)
[2018-10-18] MEDS: NORVASC PO SCH (08:18)
[2018-10-18] MEDS: BASAGLAR SUBQ SCH (08:19)
--- NOTE | 2018-10-18 08:58 | Diag Imaging Result Doc PS360 ---
CHEST-PORTABLE - 10/18/2018 INDICATION: respiratory failure COMPARISON: 10/17/2018 FINDINGS: Stable tracheostomy tube. Stable ill-defined bibasilar infiltrates or atelectasis. Heart size and pulmonary vascularity remains top normal. IMPRESSION: No change from prior. Electronically signed by José Miguel Mayen 10/18/2018 8:55 AM
[2018-10-18] MEDS: KEPPRA 750 MG in NS 100 ML IV SCH (16:21)
--- NOTE | 2018-10-18 19:30 | PROGRESS NOTE ---
DATE: 10/18/2018 SUBJECTIVE: This morning Ms. Ross continues to be fairly stable. Mother was at the bedside at the time of the encounter and there has not been any changes overnight. OBJECTIVE: Vitals: Blood pressure is 118/72, pulse is 85, respirations 16, temperature is 97.4 degrees. General: Ms. Ross 28-year-old female she is in bed no distress. Mucosa is pink and moist. Anicteric. Acyanotic. Neck: Supple. Tracheostomy is in place. Chest: Air entry is bilaterally reduced. No crepitations, no rhonchi. Cardiovascular: Regular rate and rhythm. There is a mild TR murmur, no gallops, no rubs. Abdomen: Soft, nontender. There is a PEG tube in place. Right inguinal region does have a central line. HEALTH AND WELLNESS DIRECTOR: Patient is awake, will track with both eyes. Pupils are reactive to light. There is a cataract in the left eye. The patient does have a left side hemiparesis. LABORATORY DATA: WBC is 8.56, hemoglobin is 8.2, platelet count of 233,000, sodium is 139, potassium is 3.9, chloride is 99, bicarb is 22, creatinine is down to 2.3. ASSESSMENT: 1. 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 2. Cerebrovascular accident with left side hemiparesis. 3. Respiratory failure status post tracheostomy, tracheostomy collar is in place. 4. Nonrestorable teeth with severe gum and periodontal disease. Patient is status post removal of multiple teeth. Patient is currently on intravenous Zosyn, today is day 3. We plan to continue this for a total of 7 days. 5. End-stage renal disease on hemodialysis. 6. Diabetes mellitus. Patient is on insulin regimen. 7. Nutritional support. Patient has been started on Glucerna and seems to be having high residuals every now and then, we will change this to her previous elemental feeding that she was on before. 8. Suspected gastroparesis. Will continue with the Reglan. 9. Disposition. Still pending arrangement for LTAC placement. cc: Govind Rangel MD
[2018-10-18] MEDS: DULCOLAX PR SCH (20:21)
[2018-10-18] MEDS: D50W SYRINGE IV PRN (23:39)
[2018-10-19] MEDS: ZOSYN 2.25 GM in NS 50 ML IV SCH ×4 (01:53→20:28)
--- NOTE | 2018-10-19 02:47 | PULMONOLOGY PROGRESS NOTE ---
DATE: 10/18/2018 SUBJECTIVE: The patient does not respond to voice. She appears to be sleeping. OBJECTIVE: Vital Signs: The patient has been afebrile for the last 24 hours. Blood pressure 123/75, respiratory rate 11, heart rate 85, oxygen saturation 100% on 20% trach collar. HEENT: Right pupil is equal. Left pupil is cloudy. Oropharynx appears clear. Neck: Has a tracheostomy in place without significant drainage noted. Chest: Clear today compared to yesterday. There are decreased breath sounds in the right base. Abdomen: Soft with positive bowel sounds. Extremities: Without edema. Laboratories: Chest x-ray reveals chronic elevation of the right hemidiaphragm with some atelectasis at the right base. IMPRESSION: A 28-year-old with anoxic encephalopathy, diabetes mellitus, hypoxemic respiratory failure, chronic elevation of the right hemidiaphragm. She continues to do well on tracheostomy collar. RECOMMENDATIONS: 1. Continue tracheostomy collar as tolerated. 2. Continue bronchial hygiene. 3. Continue tube feeds. 4. Evaluation for a long-term facility is in progress. cc: Darshan Leal MD
[2018-10-19] MEDS: DUONEB (A & A) INH SCH ×6 (02:57→23:50)
[2018-10-19] MEDS: CEREBYX 300 MG in NS 50 ML IV SCH ×2 (03:50→15:42)
--- NOTE | 2018-10-19 04:56 | NEPHROLOGY PROGRESS NOTE ---
DATE: 10/18/2018 SUBJECTIVE: The patient underwent dialysis yesterday without difficulty. She remains on trach collar today and unresponsive. OBJECTIVE: Vital Signs: Temperature 97.8 degrees, pulse 91, respiratory rate 16, blood pressure 115/71. Intake 910 mL. Output 1.5 L. Physical Examination: General: This is a young female resting in bed. She is in no acute distress. She is breathing via trach collar. She really does not respond purposefully to anything. HEENT: Normocephalic, atraumatic. Oral mucosa is dry. Neck: Supple. Midline trachea. Tracheostomy. Cool mist collar. Pulmonary: She has some rhonchi bilaterally. Cardiovascular: Regular rate and rhythm. Abdomen: Soft. Hypoactive. : Not inspected. Extremities: No edema. Integumentary: Skin is warm and dry. Lab Data: WBC of 8.5, hemoglobin 8.2. Sodium 139, potassium 3.9, CO2 of 22, creatinine 2.3. ASSESSMENT AND PLAN: Chronic kidney disease 5D. Continue with her routine dialysis on a Saturday, Saturday, Saturday schedule. Next dialysis treatment will be on Saturday. Dictated by KAMALA Walters for Dwain Hawkins MD cc: Dwain Hawkins MD
[2018-10-19 04:58] LABS: ALLEN TEST YES; BE 1.7 mmoll (-3.0-3.0); BLOOD TYPE ARTERIAL; HCO3-(ACT) 26.3 mmoll (20.0-26.0); METHB 0.5 % (0.0-1.5); O2(CT) 11.2 mL/dL (15.0-23.0); PCO2(98.6) 37 mmHg (35-45); PO2(98.6) 93 mmHg (60-100); SAMPLE BLOOD; SAO2 100.8 % (95.0-100.0); THB 8.1 g/dL (11.5-17.4); pH(98.6) 7.45 (7.35-7.45)
[2018-10-19 04:59] LABS: MODALITY COOL AEROSOL
[2018-10-19 05:10] LABS: HEMATOCRIT 28.2 % (37.0-47.0); HEMOGLOBIN 8.3 g/dL (12.0-16.0); MCH 24.7 PG (27-31); MCHC 29.4 g/dL (33-37); MCV 83.9 FL (81-99); MPV 12.3 FL (7.4-10.4); RBC 3.36 XMIL (4.2-5.4); RDW 16.1 % (11.5-14.5); WBC 8.59 X1000 (4.8-10.8)
[2018-10-19 05:24] LABS: ALB/GLOB RATIO 0.6; ALBUMIN 2.7 g/dL (3.5-5.0); CALCIUM 8.8 mg/dL (8.8-10.2); CREATININE 4.6 mg/dL (0.5-0.9); POTASSIUM 4.1 mmol/L (3.5-5.1); TOTAL BILIRUBIN 0.27 mg/dL (0.20-1.00); TOTAL PROTEIN 7.3 g/dL (6.3-8.3)
[2018-10-19] MEDS: HUMULIN R SUBQ SCH ×4 (06:03→20:38)
[2018-10-19] MEDS: REGLAN PO SCH (06:03)
--- NOTE | 2018-10-19 08:20 | Diag Imaging Result Doc PS360 ---
CHEST-PORTABLE - 10/19/2018 INDICATION: respiratory failure COMPARISON: 10/18/2018 FINDINGS: Stable tracheostomy tube in good position. Stable hazy bibasilar infiltrates and atelectasis. Heart size remains normal. No pneumothorax or pleural effusion. IMPRESSION: No change from prior. Electronically signed by José Miguel Mayen 10/19/2018 8:17 AM
[2018-10-19] MEDS: BASAGLAR SUBQ SCH (08:27)
[2018-10-19] MEDS: CATAPRES PO SCH ×2 (08:28→20:29)
[2018-10-19] MEDS: APRESOLINE PO SCH ×3 (08:28→16:26)
[2018-10-19] MEDS: COREG PO SCH ×2 (08:28→20:29)
[2018-10-19] MEDS: PROTONIX IV SCH ×2 (08:28→20:29)
[2018-10-19] MEDS: RENVELA POWDER PACKET PO SCH ×3 (08:28→16:26)
[2018-10-19] MEDS: NORVASC PO SCH (08:29)
--- NOTE | 2018-10-19 11:50 | PROGRESS NOTE ---
DATE: 10/19/2018 SUBJECTIVE: This morning, Ms. Ross continues to be stable. No acute changes overnight. There was no family member at the bedside at the time of the encounter. OBJECTIVELY: Vitals: Blood pressure is 126/77, pulse is 92, respirations 13, temperature is 97.7 degrees. General: Ms. Ross is a 28-year-old female. She is in bed, continues to be in the trach collar. HEENT: Mucosa is pink and moist. Anicteric. Acyanotic. Neck: Supple. Tracheostomy is in place. Chest: Air entry is bilaterally reduced. No crepitations. No rhonchi. There is some transmitted sounds from the trach. Cardiovascular: Regular rate and rhythm. There is a mild TR murmur. No gallops. No rubs. Abdomen: Soft, nontender. Bowel sounds present. PEG tube is in place. WARP CHANGER: Patient is awake. Will track with both eyes. Pupils are reactive to light. There is a dense cataract in the left eye and there is a left side hemiparesis. LABORATORY DATA: WBC is 8.59, hemoglobin is 8.3, platelet count of 225,000. Chemistry is also reviewed. Sodium is 135, potassium is 4.1, chloride 97, bicarb is 23. DIAGNOSTIC DATA: Chest x-ray shows stable tracheostomy tube in position. Bibasilar infiltrate and atelectasis. No change from prior. ASSESSMENT: 1. 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 The patient is stable. 2. Respiratory failure after cardiac arrest. The patient is status post tracheostomy. 3. Cerebrovascular accident with left side hemiparesis. 4. Nonrestorable teeth with severe gum and periodontal disease. The patient is status post removal of multiple teeth. Currently on IV Zosyn. Today is day 4. She has been afebrile. 5. Endstage renal disease on hemodialysis. 6. Diabetes mellitus. We will continue with insulin regimen. 7.Gastroparesis. We have changed her Reglan to IV. 8. Nutritional support. The patient is currently on Vital tube feedings since she did not seem to have been tolerating Glucerna very well. Disposition. Still pending LTAC placement. cc: Govind Rangel MD [facility]
[2018-10-19] MEDS: REGLAN IV SCH ×3 (12:09→23:18)
--- NOTE | 2018-10-19 14:26 | PULMONOLOGY PROGRESS NOTE ---
DATE: 10/19/2018 SUBJECTIVE: Patient is sleeping. She does open her eyes when her name is called. She has no increased work of breathing. She remains on a trach collar. OBJECTIVE: Vital Signs: Patient has been afebrile for the last 24 hours. Blood pressure 129/74, heart rate 84, respiration rate 12, oxygen saturation 100%. HEENT: Right pupil is reactive. Left pupil is cloudy. Neck: Supple, with minimal increased secretions. Chest: Reveals decreased breath sounds right base without significant wheezing or rhonchi. Cardiac: S1,-S2. Abdomen: Soft. Extremities: Without edema. LABORATORIES: Arterial blood gas reveals a pH of 7.45, pCO2 37, PO2 of 93, on 28% cool aerosol. Chest x-ray reveals atelectasis predominantly at the right base. No change. IMPRESSION: A 28-year-old with anoxic encephalopathy and vegetative state, with diabetes mellitus, hypoxemic respiratory failure, chronic elevation of the right hemidiaphragm. She has been on a tracheostomy collar for the last 96 hours and doing well. RECOMMENDATIONS: 1. Continue tracheostomy collar as tolerated. 2. Continue bronchial hygiene. 3. Continue tube feeds. 4. Evaluation for long-term placement is in progress. cc: Darshan Leal MD
--- NOTE | 2018-10-19 15:14 | NEPHROLOGY PROGRESS NOTE ---
DATE: 10/19/2018 SUBJECTIVE: The patient opens eyes to verbal stimuli. No other movement noted. OBJECTIVE: Vital Signs: Temperature 97.7 degrees, pulse 92, respiratory rate 13, blood pressure 135/80. Intake 940 mL; output none. General: Middle-aged female, resting in bed, no acute distress. HEENT: Normocephalic, atraumatic. She does open her eyes but does not follow movement. Neck: Supple. She has a trach collar. Cardiovascular: Regular rate and rhythm. Pulmonary: Occasional rhonchi, equal excursion. Abdomen: Soft. Hypoactive bowel sounds. Genitourinary: Not inspected. Extremities: No edema, no clubbing, no cyanosis. Integumentary: Skin is warm and dry. LABORATORY DATA: Sodium 135, potassium 4.1, CO2 is 23, creatinine is 4.6. ASSESSMENT AND PLAN: Chronic kidney disease stage 5D. We have transitioned back to a Saturday, Saturday, Saturday schedule currently for her dialysis treatments. Her next treatment will be due tomorrow. Dictated by KAMALA Walters for Dwain Hawkins MD cc: Dwain Hawkins MD
[2018-10-19] MEDS: KEPPRA 750 MG in NS 100 ML IV SCH (16:26)
[2018-10-19] MEDS: DULCOLAX PR SCH (20:28)
[2018-10-19] MEDS: D50W SYRINGE IV PRN (20:48)
[2018-10-20] MEDS: ZOSYN 2.25 GM in NS 50 ML IV SCH ×4 (02:04→19:42)
[2018-10-20] MEDS: D50W SYRINGE IV PRN ×4 (03:25→23:29)
[2018-10-20] MEDS: CEREBYX 300 MG in NS 50 ML IV SCH ×2 (03:25→15:13)
[2018-10-20] MEDS: DUONEB (A & A) INH SCH ×6 (03:33→23:25)
[2018-10-20 04:51] LABS: ALLEN TEST YES; BE -1.3 mmoll (-3.0-3.0); BLOOD TYPE ARTERIAL; HCO3-(ACT) 23.9 mmoll (20.0-26.0); METHB 1.6 % (0.0-1.5); O2(CT) 7.8 mL/dL (15.0-23.0); O2HB 94.8 % (95.0-99.0); PCO2(98.6) 40 mmHg (35-45); PO2(98.6) 89 mmHg (60-100); SAMPLE BLOOD; SAO2 97.7 % (95.0-100.0); THB 5.7 g/dL (11.5-17.4); pH(98.6) 7.38 (7.35-7.45)
[2018-10-20 04:53] LABS: MODALITY COOL AEROSOL
[2018-10-20] MEDS ORDERED: HEPARIN IV PRN (05:56)
[2018-10-20] MEDS ORDERED: TIGHT: 0.2 ML/HR FOR DIALYSIS MISC PRN (05:56)
[2018-10-20] MEDS: REGLAN IV SCH ×4 (05:56→23:29)
[2018-10-20] MEDS ORDERED: NS 2,000 ML MISC PRN (05:56)
[2018-10-20] MEDS: HUMULIN R SUBQ SCH ×4 (06:00→19:48)
--- NOTE | 2018-10-20 06:10 | Diag Imaging Result Doc PS360 ---
EXAM: CHEST-PORTABLE HISTORY: respiratory failure TECHNIQUE: Portable chest single view COMPARISON: 10/19/2018 FINDINGS: No change in the tracheostomy tube. There is atelectasis in the right lung base. Questionable small basilar infiltrates. No cardiomegaly. No vascular distention. No pleural effusions identified. IMPRESSION: No significant interval change. Electronically signed by Donnie Chandler 10/20/2018 6:08 AM
[2018-10-20 06:36] LABS: HEMATOCRIT 26.3 % (37.0-47.0); HEMOGLOBIN 7.8 g/dL (12.0-16.0); MCH 24.7 PG (27-31); MCHC 29.7 g/dL (33-37); MCV 83.2 FL (81-99); RBC 3.16 XMIL (4.2-5.4); RDW 15.8 % (11.5-14.5); WBC 6.21 X1000 (4.8-10.8)
[2018-10-20 06:54] LABS: ALB/GLOB RATIO 0.6; ALBUMIN 2.7 g/dL (3.5-5.0); CALCIUM 9.3 mg/dL (8.8-10.2); CREATININE 5.9 mg/dL (0.5-0.9); POTASSIUM 3.7 mmol/L (3.5-5.1); TOTAL BILIRUBIN 0.21 mg/dL (0.20-1.00)
[2018-10-20] MEDS: PROTONIX IV SCH ×2 (08:31→20:08)
[2018-10-20] MEDS: CATAPRES PO SCH ×2 (08:31→20:08)
[2018-10-20] MEDS: BASAGLAR SUBQ SCH (08:31)
[2018-10-20] MEDS: RENVELA POWDER PACKET PO SCH ×3 (08:31→16:10)
[2018-10-20] MEDS: APRESOLINE PO SCH ×3 (08:31→16:09)
[2018-10-20] MEDS: NORVASC PO SCH (08:31)
[2018-10-20] MEDS: COREG PO SCH ×2 (08:31→20:08)
[2018-10-20] MEDS ORDERED: INSULIN PEN NEEDLES ONE (08:34)
--- NOTE | 2018-10-20 10:13 | NEPHROLOGY PROGRESS NOTE ---
DATE: 10/20/2018 SUBJECTIVE: Patient resting in bed. She opens her eyes to name. She did squeeze my hand with the right after two requests, and it appeared that she began crying. OBJECTIVE: Vital Signs: Temperature 97 degrees, pulse 84, respiratory rate 18 , blood pressure 162/82. Intake 770 mL, output not measured. General: Middle-aged female, resting in bed. She is awake. She is alert. She did make eye contact, and followed me with her eyes today, and did after two requests, squeeze my hand with her right. Neck: Supple. Trach collar noted. She does have some mucus noted. Cardiovascular: Regular rate and rhythm. Pulmonary: She has got rhonchi bilaterally. Equal excursion. Continues on trach collar. Abdomen: Soft. Hypoactive bowel sounds. Tube feeding continues. : Not inspected. Extremities: No clubbing or cyanosis. Movement noted to the right. Integumentary: Skin is warm and dry. LABORATORY DATA: WBC of 6.1, hemoglobin 7.8. Sodium 136, potassium 3.7, CO2 of 20, creatinine 5.9. ASSESSMENT AND PLAN: Chronic kidney disease 5D. Will continue Saturday, Saturday, Saturday schedule while she remains in the hospital. Dictated by KAMALA Walters for Dwain Hawkins MD Face to face encounter, data reviewed, discussed with Shikha Salazar on 10/20/18. I agree with the above assessment and plan of care. cc: Dwain Hawkins MD [facility]
--- NOTE | 2018-10-20 10:50 | PROGRESS NOTE ---
DATE: 10/20/2018 SUBJECTIVE: This morning Ms. Ross continues to be fairly the same. The grandma was at the bedside at the time of the encounter. OBJECTIVE: Vital Signs: Blood pressure 126/74, pulse is 80, respiration is 12, temperature is 97 degrees. The patient was saturating 100% on trach collar. General: Ms. Ross is a 28-year-old female she is in bed. Continues to be in trach collar. HEENT: Mucosa is pink and moist. Anicteric. Acyanotic. Neck: Supple. Tracheostomy tube is in place. Chest: Air entry is bilaterally reduced, but no crackles. No crepitations. There are some transmitted sounds from the trach collar. Cardiovascular: Regular rate and rhythm. No murmurs, no rubs, no gallops. Abdomen: Soft. PEG tube is in place. Central Nervous System: The patient is awake. Will track with both eyes. Pupils are equal and reactive. There is a dense cataract on the left eye, and there is a left side hemiparesis. LABORATORY DATA: WBC is 6.21, hemoglobin is 7.8, platelet count of 227. Chemistry is also reviewed consistent with renal failure. A chest x-ray this morning shows no interval change. Questionable small basilar infiltrates. MEDICATIONS: Patient medications have all been reviewed and there is no change. INPUT AND OUT: The patient is said to be tolerating her tube feeding since this morning. It was, however, withheld last night because of high residuals. ASSESSMENT AND PLAN: 1. 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 The patient is stable and is pending manager intermediate acute care placement. 2. Respiratory failure after cardiac arrest. The patient is currently status post tracheostomy on trach collar oxygenation. 3. Cerebrovascular accident with left-sided hemiparesis noted. We will continue with physical therapy. 4. Nonrestorable teeth with severe gum and periodontal disease. The patient is status post multiple teeth removal, and she is on intravenous antibiotics. Today is day 5 for a total of 7 days. This can also be switched to oral if needed. 5. End-stage renal disease on hemodialysis. Nephrology is on board. 6. Diabetes mellitus. The patient is on insulin regimen. 7. Gastroparesis with occasional high residuals on the tube feedings. We will continue with the Reglan intravenously. 8. Nutritional support. The patient is currently on Vital tube feedings. In general, Ms. Ross has been in the hospital for the past 26 days. Initially got admitted on 09/24/2018 because of shortness of breath. During the hospital cause, she got arrested on the floor and was subsequently transferred to the intensive care unit, intubated. Down time was approximately 9 minutes. Initial rhythm was said to have been asystole. Throughout the hospital course, she has been ventilator dependent, so she was subsequently transitioned to tracheostomy and percutaneous endoscopic gastrostomy tube, after which she has been fairly stable. It was also noted that she had severe periodontal disease, and Ears, Nose, and Throat was consulted. Multiple of her teeth have been extracted. Subsequently, she did run a few days of fever, tachycardia, indicative of sepsis, so she has been started on Zosyn, which she has tolerated well. Her vital signs have been stable, and we are just waiting for manager intermediate acute care placement for her. cc: Govind Rangel MD
[2018-10-20] MEDS: KEPPRA 750 MG in NS 100 ML IV SCH (16:10)
[2018-10-20] MEDS ORDERED: HUMULIN R SUBQ SCH (20:00)
[2018-10-20] MEDS: DULCOLAX PR SCH (20:08)
--- NOTE | 2018-10-20 20:40 | PULMONOLOGY PROGRESS NOTE ---
DATE: 10/20/2018 SUBJECTIVE: Patient opens her eyes to voice. She is resting comfortably. OBJECTIVE: Vital signs: The patient has been afebrile for the last 24 hours. Heart rate 107, respiratory rate 16, blood pressure 114/66, oxygen saturation 99% on tracheostomy collar. HEENT: Right pupil is reactive. Left pupil is cloudy. Neck: Supple with minimal jalyn tracheostomy drainage. Chest: Reveals occasional rhonchi with decreased breath sounds at right base. Cardiac: S1, S2. Abdomen: Soft with positive bowel sounds. Extremities: Without edema. DIAGNOSTIC STUDIES: Chest x-ray reveals chronic elevation of the right hemidiaphragm with stable linear atelectasis at the right base. Tracheostomy tube is in good. IMPRESSION: A 28-year old with: 1. Anoxic encephalopathy. 2. Persistent vegetative state. 3. Diabetes mellitus. 4. Acute hypoxemic respiratory failure. 5. Basilar atelectasis. 6. Chronic elevation of the right hemidiaphragm. She has undergone a tracheostomy. She remains stable and has not required the need for recurrent ventilator management. PLAN: 1. Continue tracheostomy collar. 2. Continue bronchial hygiene. 3. Continue tube feeds. 4. Long-term placement evaluation is being pursued. cc: Darshan Leal MD [facility]
[2018-10-21] MEDS: HUMULIN R SUBQ SCH ×5 (00:53→15:39)
[2018-10-21] MEDS: ZOSYN 2.25 GM in NS 50 ML IV SCH ×3 (01:25→13:14)
[2018-10-21] MEDS: DUONEB (A & A) INH SCH ×4 (03:44→15:26)
[2018-10-21] MEDS: CEREBYX 300 MG in NS 50 ML IV SCH ×2 (03:49→15:30)
[2018-10-21 04:58] LABS: BLOOD TYPE ARTERIAL; SAMPLE BLOOD
[2018-10-21 05:02] LABS: BE 8.1 mmoll (-3.0-3.0); HCO3-(ACT) 31.2 mmoll (20.0-26.0); PCO2(98.6) 41 mmHg (35-45); PO2(98.6) 95 mmHg (60-100); THB 8.7 g/dL (11.5-17.4)
[2018-10-21 05:03] LABS: ALLEN TEST YES; METHB 1.8 % (0.0-1.5); MODALITY COOL AEROSOL; O2(CT) 11.8 mL/dL (15.0-23.0)
[2018-10-21] MEDS: REGLAN IV SCH ×2 (05:04→11:24)
[2018-10-21 06:25] LABS: ALB/GLOB RATIO 0.7; ALBUMIN 2.9 g/dL (3.5-5.0); CALCIUM 8.7 mg/dL (8.8-10.2); CREATININE 3.4 mg/dL (0.5-0.9); POTASSIUM 2.9 mmol/L (3.5-5.1); TOTAL BILIRUBIN 0.2 mg/dL (0.20-1.00); TOTAL PROTEIN 7.2 g/dL (6.3-8.3)
--- NOTE | 2018-10-21 06:46 | Diag Imaging Result Doc PS360 ---
CHEST-PORTABLE - 10/21/2018 INDICATION: respiratory failure COMPARISON: 10/20/2018 FINDINGS: Stable tracheostomy tube. Stable low lung volumes. Stable patchy bibasilar infiltrates. No new infiltrates. Heart size remains top normal. IMPRESSION: No change from prior. Electronically signed by José Miguel Mayen 10/21/2018 6:44 AM
[2018-10-21] MEDS: D50W SYRINGE IV PRN (07:02)
[2018-10-21 08:10] LABS: HEMATOCRIT 26.5 % (37.0-47.0); MCH 24.8 PG (27-31); MCHC 30.2 g/dL (33-37); MPV 10.6 FL (7.4-10.4); RBC 3.23 XMIL (4.2-5.4); RDW 15.8 % (11.5-14.5); WBC 6.34 X1000 (4.8-10.8)
[2018-10-21] MEDS ORDERED: BASAGLAR SUBQ SCH (09:00)
[2018-10-21] MEDS: NORVASC PO SCH (09:24)
[2018-10-21] MEDS: CATAPRES PO SCH (09:24)
[2018-10-21] MEDS: COREG PO SCH (09:24)
[2018-10-21] MEDS: APRESOLINE PO SCH ×2 (09:24→13:07)
[2018-10-21] MEDS: PROTONIX IV SCH (09:24)
[2018-10-21] MEDS: RENVELA POWDER PACKET PO SCH ×2 (09:25→13:14)
--- NOTE | 2018-10-21 09:45 | PROGRESS NOTE ---
DATE: 10/21/2018 SUBJECTIVE: Ms. Ross is actually tracking me with her eyes and moving her lips some, and it appears she may have some understanding of voice and conversation. We are waiting on LTAC. OBJECTIVE: Vital Signs: Her temperature is 97.1 degrees, pulse 100, respirations 12, blood pressure 116/72. Eyes: Pupils are equal and round. Lungs: Clear in all lung dooley. Cardiovascular exam: Regular rhythm and rate without murmur or S3. Abdomen: Soft. Skin: Warm and dry. : Urine output is 3000 mL. X-RAYS: Chest x-ray: No change. Stable tracheostomy tube. Stable low lung volumes. Stable patchy basilar infiltrates. ASSESSMENT AND PLAN: 1. Anoxic encephalopathy. Opening her eyes seems to be a improving very slowly. 2. Persistent vegetative state. 3. Diabetes mellitus type 2. We are going to decrease her Lantus insulin and her sugar has been running a little low. 4. Hypoxemic respiratory failure on a ventilator with tracheostomy. 5. Basilar atelectasis. 6. Chronic elevation of right hemidiaphragm. We are looking to LTAC and see when that opens up. Looking through her orders, she is on fosphenytoin 300 mg IV q. 12 hours and levetiracetam 750 mg IV q. 24 hours. Still getting Zosyn 2.25 g IV q. 6 hours, Coreg 25 mg b.i.d., Catapres 0.1 mg b.i.d., Apresoline 50 mg t.i.d., Renvela 2.4 mg t.i.d. REVIEW OF LABS: Her lab from this morning: Hematocrit 26, hemoglobin is 8. White count 6340. Note that sodium is 138, potassium 2.9, chloride 96, BUN 12, creatinine 3.4. Dr. Hawkins is following chronic kidney disease stage 5 D, and dialysis continues Mondays, Wednesdays and Fridays. cc: Srini Rdz MD
--- NOTE | 2018-10-21 12:56 | DISCHARGE SUMMARY ---
ADMISSION DATE: 09/24/2018 DISCHARGE DATE: 10/21/2018 DISPOSITION: Discharged to LT[facility] on 10/21/2018 PRIMARY CARE DOCTOR: JAGJIT at [place]. PRIMARY PRODUCE WRAPPER: Dr. Darshan Shankar in [place]. RAILWAY ENGINEER: Dr. Cross. HOSPITAL COURSE: She presented with shortness of breath. Ms. Ross is a 27-year-old female recently admitted and discharged from our facility. She was admitted on 09/06/2018 and was discharged on 09/13/2018. During this visit, she was treated for hypoxemic respiratory failure, fluid volume overload, as well as bilateral pneumonia. She was discharged home on oxygen, nasal cannula 2 L, and with some antibiotics, doxycycline 100 mg b.i.d. She was receiving cefepime IV 1 g after dialysis Saturday, Wednesdays, and Fridays. The patient reports that 2 days before admission, she began having worsening shortness of breath. Initially started while lying flat. The patient states she was now short of breath with sitting and with exertion. Reports that stated if she feels worse and getting worsening wet cough, nonproductive. Denied any fever, body aches. She was also complaining of chest pain, sharp, and heavy in nature, occurred when she is lying flat and became short of breath, when she is coughing. She was having worsening swelling in bilateral lower extremities on Saturday approximately 5 days before this admission, and have been going daily to her regular dialysis treatments scheduled. Has not missed any dialysis treatments. She reported some dysuria. Denied headache, dizziness, and abdominal pain. She did have a follow- up appointment with Dr. Davies in the office, and it appeared that her pneumonia had worsened previously. Finished a dose of doxycycline, and he was going to give her a new prescription. Upon evaluation the emergency room, patient was resting comfortably in the ER stretcher. She was no acute distress. She did feel short of breath, awake, and alert. Able to answer questions appropriately. Upon auscultation, lung sounds were coarse, some rhonchi bilaterally. She had diminished breath sounds both bases. Also, had crackles noted in bilateral bases as well as right upper lobe field. Did have 1+ pitting edema noted in bilateral lower extremities from proximal mid calf down. At bedside upon her examination, patient was reported to getting nasal cannula at 2 L per nasal cannula. O2 sats 95% to 98%. She is on 4 L nasal cannula and only maintaining oxygen saturation 89% to 90% range. Patient was admitted for further treatment. Once again, reviewed past medical history: 1. End-stage renal disease. Hemodialysis Saturday, Wednesdays, and Fridays, followed by Dr. Shankar for 4 years in [place]. 2. Hypertension. 3. Diabetes mellitus type 1. 4. Peripheral neuropathy. 5. 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 6. History of cerebrovascular accident in 2014, that left her with a deficit in the left arm weakness. PAST SURGICAL HISTORY: 1. Left upper arm AV graft. 2. Right subclavian catheter placed and removed for dialysis. 3. Left heart catheterization in 2016. The patient reports there were no abnormalities. ADMISSION DIAGNOSES: 1. Bilateral pneumonia. Treatment started, doxycycline and cefepime, and continued these. Continue to get 1 gram after dialysis. 2. Hypoxemic respiratory failure. She is on oxygen 2 L. We increased her O2 to 4 L and try to maintain O2 sats 89% or above. 3. End-stage renal disease on hemodialysis Mondays, Wednesdays, and Saturday. Followed by Dr. Hawkins here in the office. She is seen by Dr. Shankar at home. 4. Urinary tract infection. She did have some dysuria. 5. Hypertension. Continue hypertensive medications, and plan was to adjust medicine. Her systolic pressures were 190 to 200, and diastolic was 90-100. 6. Diabetes mellitus type 1. Plan was to patterned sugars. HOSPITAL COURSE: She went for dialysis and they removed 3 L of fluid at that time. She had an episode when she went into cardiorespiratory arrest. She received CPR, and she was intubated. Chest x-ray looked worse; thought possibility of acute respiratory distress syndrome and concern about anoxic injury. Infectious Disease was asked to see Dr. Lti Davies, and he had been followed her as an outpatient. She also had some oral candidiasis. So, he continued broad- spectrum antibiotics, and pulmonary was following, Dr. Darshan Leal, who felt that in summary, long history of diabetes mellitus, long history of hypertension, presented to the emergency room with hypertensive crisis, severe pulmonary edema, and alveolar hemorrhage, and acute hypoxemic respiratory failure. Concerned about anoxic injury. She continued to remain unresponsive; although, she was sedated and on the ventilator. Chest x- ray showed some minimal right pleural effusion, but looked like things were improving. She had a CT of the abdomen and pelvis and chest. Exam showed marked interval improvement in the chest. They discussed putting a tracheostomy in, as she had been on the ventilator for well over 2 weeks, and they agreed. Tracheostomy was placed. She did show improvement as far as opening her eyes and tracking, but significant neurologic anoxic damage. Her nutrition, she agreed with nutritional support with glucemia tube feeding, and we tried to get the rate where the residuals were not high. The anoxic brain injury resulted in a vegetative state; although some improvement in her opened her eyes and tracking. Chest x-ray on 10/21 looks stable. Tracheostomy tube is stable. Lung volumes look good. DISCHARGE DIAGNOSES: 1. Anoxic encephalopathy, result of cardiovascular arrest, persistent vegetative state, seeing some improvement in opening her eyes and tracking, not sure how much she understands. 2. Diabetes mellitus type 2. Continue sugars. We have decreased the insulin. 3. Acute hypoxemic respiratory failure. She is on a tracheostomy with a ventilator, weaning as able. 4. Basilar atelectasis. 5. Chronic elevation of the right hemidiaphragm. 6. She is getting tube feeding which will continue. PLAN: To let her go to LTAC and discharge her today. DISCHARGE MEDICATIONS: Norvasc 10 mg a day, Tessalon 100 mg t.i.d. p.r.n., Coreg 25 mg b.i.d. Apresoline 50 mg t.i.d., insulin glargine 12 units subcu q.a.m., levetiracetam 750 mg IV q.24 hours, norepinephrine was 8 mg use as needed for pressure support, Zosyn 2.25 g IV q.6 hours, and Renvela 2.4 mg t.i.d. We will discharge her to LTAC. cc: Srini Rdz MD
--- NOTE | 2018-10-21 14:42 | NEPHROLOGY PROGRESS NOTE ---
DATE: 10/21/2018 SUBJECTIVE: Patient currently resting in bed. Her eyes are open. She does make eye contact. She contracts her arms when I attempt to touch her, but does not follow commands today. OBJECTIVE: Vital Signs: Temperature 97.9, pulse 86, respiratory rate 13, blood pressure 100/60. Intake 1.3 L, output 1.5 L. General: This is a young adult female resting in bed. No acute distress. HEENT: Normocephalic, atraumatic. She does move her eyes. Her left has a large cataract. Neck: Supple. Trach collar noted. Cardiovascular: Regular rate and rhythm. Pulmonary: Some rhonchi bilaterally, but equal excursion, and no increased work of breathing. Abdomen: Soft. Positive bowel sounds. Genitourinary: Not inspected. Extremities: No clubbing, cyanosis. She does contract her upper extremities with tactile stimuli. Integumentary: Skin is warm and dry. LAB DATA: Sodium 138, potassium 2.9, CO2 27, creatinine 3.4. ASSESSMENT AND PLAN: 1. Chronic kidney disease 5D. She is on a Saturday, Saturday, Saturday schedule. We will continue this while she is in the hospital. 2. Respiratory failure, now with a tracheostomy. She continues on C-collar, followed by Primary and Pulmonology. 3. Disposition: We understand that she may go to LTAC later today or tomorrow. Dictated by KAMALA Walters for Dwain Hawkins MD Face to face encounter, data reviewed, discussed with Shikha Salazar on 10/21/18. I agree with the above assessment and plan of care. cc: Dwain Hawkins MD [facility]
[2018-10-21 16:31] VITALS: BP 111/66
--- NOTE | 2018-10-21 20:50 | PULMONOLOGY PROGRESS NOTE ---
DATE: 10/21/2018 SUBJECTIVE: The patient's eyes are closed. She did not open her eyes when I call her voice. She is resting comfortably on tracheostomy collar. OBJECTIVE: She has been afebrile for the last 24 hours. Blood pressure 115/73, heart rate 92, respiratory rate 11, oxygen saturation 99% on 28% FiO2.HEENT: Right pupil is reactive. Left pupil is cloudy. Oropharynx appears clear. Neck: Is supple with minimal drainage around the tracheostomy site. Cardiac: S1-S2. Abdomen: Soft with diminished bowel sounds. Extremities: Revealed trace edema. LABORATORIES: Arterial blood gas reveals pH 7.50, pCO2 of 41, PO2 of 95. Chest x-ray reveals chronic elevation of the right hemidiaphragm with atelectasis at the right base which is essentially unchanged. IMPRESSION: 1. A 28-year-old with anoxic encephalopathy. 2. Status post cardiopulmonary arrest. 3. Acute hypoxemic respiratory failure. 4. Chronic elevation/abnormalities of the right hemidiaphragm. 5. Basilar atelectasis. 6. End-stage renal disease on hemodialysis. RECOMMENDATIONS: 1. Continue tracheostomy for airway management and secretion control. 2. Continue bronchial hygiene. 3. Continue tube feeds. 4. Discontinue daily arterial blood gases. 5. Anticipate long-term facility placement. cc: Darshan Leal MD
[2018-10-22 13:39] LABS: HEPATITIS PROFILE ACUTE SEE COMMENTS
== END 2018-10-21 16:15 | DRG 4 ==
LOC: ED 00:07 → SUATTDRO 06:30 → 3N 06:30 → 3S 12:45 → ICU 15:56
PROVIDERS: ATTEND Emergency Medicine
CPT/HCPCS: 36430; 70450; 71010; 71020; 71045; 71046; 71250; 74000; 74018; 74176; 80048; 80053; 80069; 80074; 80076; 80177; 80185; 80299; 81001; 81025; 82009; 82271; 82491; 82550; 82805; 82948; 83605; 83735; 84100; 84484; 85014; 85018; 85025; 85027; 85610; 85730; 86850; 86900; 86901; 86920; 87040; 87070; 87088; 87205; 88307; 93005; 93010; 93306; 94003; 94640; 94761; 94762; 95816; 96365; 96375; 96376; 99285; A9270; C1725; C9113; J0171; J0360; J0610; J0690; J0692; J1450; J1644; J1815; J1953; J2020; J2060; J2185; J2250; J2270; J2310; J2405; J2543; J2765; J3370; J3475; J7030; J7040; P9016; Q2009; S0164; XXXXX